=== PATIENT | female | born 1955 | race Caucasian/White ===

== ENCOUNTER 2023-04-17 11:07 | Emergency (ER) | payer MEDICARE, SELFPAY ==
[2023-04-17 11:09] VITALS: BP 167/97; PULSE 92; RESP 18; TEMP 36.4; O2SAT 100; BMI 21.1
--- NOTE | 2023-04-17 11:27 | CT_ITS ---
ACR Level 3 findings have been noted. An addendum which confirms receipt of the report will follow. HISTORY: right flank pain x 2 days, nausea. TECHNIQUE: Helically acquired images were obtained of the abdomen and pelvis without oral or IV contrast. A radiation dose optimization technique was used for this scan. 423 images. COMPARISON: None. FINDINGS: LOWER CHEST: Lung bases clear. BOWEL: Bowel nondilated. No periappendiceal inflammation. Moderate stool in the colon. Colonic diverticulosis without pericolonic inflammation PERITONEUM: No significant free fluid. Lobulated mesenteric soft tissue masses measuring up to 3 cm in the left upper quadrant. Small omental soft tissue nodules in the left upper quadrant. LIVER/SPLEEN/PANCREAS: Nonenlarged. GALLBLADDER/BILIARY TREE: Gallbladder present. KIDNEYS AND URETERS: Moderate right and mild left hydroureteronephrosis down to the level of the large cystic pelvic mass. Punctate right upper pole calculus. No obstructing ureteral calculus. ADRENAL GLANDS: No nodules. VESSELS: No abdominal aortic aneurysm. Mild atherosclerosis. Retroperitoneal lymph nodes measuring up to 1.3 cm left para-aortic PELVIC ORGANS: 10.4 x 21.2 cm septated, thick-walled, and partially solid cystic pelvic mass extending into the right and left lower quadrants with displacement of small bowel loops and colon, as well as partial encasement of the sigmoid colon. BONES: Mild degenerative change. CT/Abdomen/Pelvis without Cont IMPRESSION: Large cystic pelvic mass with solid components concerning for malignancy, likely ovarian origin. Moderate right and mild left hydronephrosis secondary to the pelvic mass. Small right renal calculus. Left upper quadrant omental and mesenteric soft tissue masses with retroperitoneal lymphadenopathy, concerning for metastases. Displacement or encasement of the sigmoid colon, not well visualized. Moderate stool in the colon. Colonic diverticulosis without acute diverticulitis. Electronically Signed: Malorie Rao MD at 12:30 EDT ,
--- NOTE | 2023-04-17 11:31 | EX.ED.DYSGE1 ---
HPI History of Present Illness Chief Complaint: Flank Pain Informant: patient Onset/Context/Timing Onset: Yesterday Current Severity: Moderate Maximum Severity: Moderate Narrative Narrative: Patient presents secondary to right flank pain. She states she was sitting in her chair at 7 PM last evening when she developed sudden right flank pain. She has had waxing and waning pain as well as nausea and had one episode of vomiting this morning. No urinary symptoms. She does report a history of IBS and states has been having some diarrhea recently. [facility] Medical History (Updated 04/17/23 @ 16:[address] Shawna Cedeno MD) Fibromyalgia Jodi's thyroiditis IBS (irritable bowel syndrome) Sjogren's disease Home Medications ondansetron 4 mg disintegrating tablet 4 mg PO Q8H PRN PRN Nausea #10 tabs 04/17/23 [Rx Last Taken Unknown] Allergy/AdvReac Type Severity Reaction Status Date / Time No Known Allergies Allergy Verified 04/17/23 11:09 Social History Smoking Status: Never smoker ROS ROS ED Constitutional Constitutional ED: Denies chills or fever(s) Eyes Eyes: Denies change in vision or discharge from eye(s) ENT ENT ED: Denies discharge from eye(s), rhinorrhea or sore throat Cardiovascular Cardiovascular: Denies chest pain or palpitations Respiratory/Chest Respiratory/Chest: Denies cough or dyspnea Gastrointestinal Gastrointestinal: Reports diarrhea, nausea and vomiting Genitourinary Genitourinary ED: Denies difficulty urinating, dysuria or hematuria Musculoskeletal Musculoskeletal: Reports back pain; Denies extremity pain Integumentary Denies Abrasions or rash Neurologic Neurologic: Denies headache(s) or weakness Psychiatric Psychiatric: Denies anxiety or depression Allergic/Immunologic Allergic/Immunologic ED: Denies lip swelling or urticaria EXAM Physical Exam Const Vital Signs: 04/17/23 11:09 04/17/23 13:08 04/17/23 15:00 Temperature 97.5 F L Temperature Source Temporal Pulse Rate 92 Respiratory Rate 18 16 18 Blood Pressure 167/97 H Blood Pressure Mean 120 Pulse Ox 100 Oxygen Delivery Method Room Air Positive well nourished and well developed General Appearance ED: well developed HEENT Reports moist mucous membranes Eyes EOMs intact bilaterally Neck no lymphadenopathy Chest Wall inspection of chest normal and palpation of chest normal Resp normal respiratory effort and clear to auscultation bilaterally Cardio regular rate and regular rhythm GI GI Narrative: Mild right-sided tenderness palpation. No guarding or rebound. Auscultation: normoactive bowel sounds Palpation: soft Back/Spine General Back: CVA tenderness right Extremity normal to inspection Neuro oriented x3 and no sensory deficits noted Motor Exam: strength 5/5 throughout Psych mental status grossly normal Skin no rashes or lesions noted MDM MDM MDM Narrative Medical decision making narrative: Patient given morphine, Zofran, Toradol, IV fluids. Labwork obtained to evaluate for leukocytosis, anemia, and electrolyte derangement. Urinalysis obtained to evaluate for infection/hematuria. CT flank obtained to evaluate for kidney stone or other acute pathology History & Record Review Discussion w/independent historian: Patient and Family Lab Data Attestation: I reviewed the patient's lab results. Labs: Laboratory Results - last 24 hr 04/17/23 04/17/23 11:35 12:25 WBC 11.1 H RBC 3.65 L Hgb 11.1 L Hct 34.9 L MCV 95.6 MCH 30.4 MCHC 31.8 L RDW Std Deviation 44.0 H RDW Coeff of Andrei 12.5 Plt Count 373 MPV 8.7 Immature Gran % (Auto) 0.500 Neut % (Auto) 82.4 H Lymph % (Auto) 9.0 L [place] % (Auto) 8.0 Eos % (Auto) 0.0 Baso % (Auto) 0.1 Absolute Neuts (auto) 9.1 H Absolute Lymphs (auto) 0.99 Nucleated RBC % 0 Sodium 133 L Potassium 4.0 Chloride 101 Carbon Dioxide 22.0 Anion Gap 10 BUN 17 Creatinine 1.17 H Estim Creat Clear Calc 44.28 Est GFR (MDRD) Af Amer 59 L Est GFR (MDRD) Non-Af 49 L BUN/Creatinine Ratio 14.5 Glucose 125 H Calcium 9.9 Total Bilirubin 0.60 AST 15 ALT 19 Alkaline Phosphatase 80 Total Protein 7.8 Albumin 3.8 Globulin 4.0 Albumin/Globulin Ratio 1.0 Urine Color Yellow Urine Clarity Clear Urine pH 6.0 Ur Specific [place] 1.015 Urine Protein Negative Urine Glucose (UA) Normal Urine Ketones 50 H Urine Occult Blood Negative Urine Nitrite Negative Urine Bilirubin Negative Urine Urobilinogen Normal Ur Leukocyte Esterase 25 H Urine RBC 0 SEEN Urine WBC 0 SEEN Ur Squamous Epith Cells 0 SEEN Urine Bacteria 0 SEEN Urine Mucus 0 SEEN Radiography Diagnostic Testing: Clinical Impression(s) from Imaging Studies Abdomen/Pelvis CT 04/17/23 11:27 IMPRESSION: Large cystic pelvic mass with solid components concerning for malignancy, likely ovarian origin. Moderate right and mild left hydronephrosis secondary to the pelvic mass. Small right renal calculus. Left upper quadrant omental and mesenteric soft tissue masses with retroperitoneal lymphadenopathy, concerning for metastases. Displacement or encasement of the sigmoid colon, not well visualized. Moderate stool in the colon. Colonic diverticulosis without acute diverticulitis. Electronically Signed: Malorie Rao MD at 12:30 EDT , ADDENDUM: 04/17/23 1249 IMPRESSION: Large cystic pelvic mass with solid components concerning for malignancy, likely ovarian origin. Moderate right and mild left hydronephrosis secondary to the pelvic mass. Small right renal calculus. Left upper quadrant omental and mesenteric soft tissue masses with retroperitoneal lymphadenopathy, concerning for metastases. Displacement or encasement of the sigmoid colon, not well visualized. Moderate stool in the colon. Colonic diverticulosis without acute diverticulitis. N.B. : Pao Matos MD, confirmed on 04/17/2023 12:42:58 (ET) that the healthcare facility has received the radiology report. Electronically Signed: Malorie Rao MD at 12:30 EDT , Treatment and Re-Evaluation :: CBC was a white count 11.1 with a hemoglobin 11.1. Chemistry studies reveal a sodium of 133. BUN is 17 and creatinine is 1.17. Glucose is 125. Urinalysis reveals no evidence of acute infection but she does have [address] scan of the abdomen pelvis is obtained. There is a large cystic pelvic mass with solid components concerning for malignancy, likely ovarian in origin. Patient does have mild hydronephrosis bilaterally secondary to the pelvic mass. Small calculus noted in the right kidney. Test results are discussed with the patient and her . She declined the morphine but did feel better after Toradol and Zofran. I spoke with Dr. Sanabria as well, on-call for no doc SOFTWARE ASSET MANAGEMENT ANALYST. She reviewed the images and spoke with the patient. She has also made arrangements for the patient to be seen by Polishing Machine Tender/Onc at [facility] tomorrow morning at 10:00. Discharge Plan Triage Chief Complaint: Flank Pain Other Complaint: Nausea/Vomiting ED Provider: Shawna Cedeno Dx/Rx/DC Orders Clinical Impression: Flank pain, Pelvic mass Prescriptions: New ondansetron 4 mg tablet,disintegrating 4 mg PO Q8H PRN PRN (Reason: Nausea) Qty: 10 0RF Primary Care Provider: LIUDMILA MUELLER Referrals: NOT,DEFINED [Non-Staff] - Activity Restrictions/Additional Instructions: As discussed, your imaging studies reveal a large mass in your pelvis concerning for ovarian cancer. This is putting pressure on the ureters that drain your kidneys. Dr. Sanabria has made arrangements for you to be seen by Dr. Lonnie Nice at [facility] tomorrow morning at 10 AM. Disposition Disposition: Home, Self Care
[2023-04-17] MEDS: Ondansetron 4 MG/2 ML Vial IV (11:36)
[2023-04-17] MEDS: Ketorolac 15 MG/ML Vial IV (11:36)
[2023-04-17] MEDS: 0.9% Normal Saline (1000mL) 1,000 ML 150 ML IV (11:38)
[2023-04-17 11:51] LABS: Absolute Lymphocyte Count 0.99 X10^3/uL (0.83-4.51); Absolute Neutrophil Count 9.1 X10^3/uL (2.0-7.7); Basophil# 0.01 X10^3/uL; Basophil% 0.1 % (0-1); Hematocrit 34.9 % (37-47); Hemoglobin 11.1 g/dL (12.0-15.0); Lymphocyte # 0.99 X10^3/ul (0.83-4.51); Mean Corp Hgb Conc 31.8 g/dL (32-36); Mean Corpuscular Hgb 30.4 pg (27.0-32.0); Mean Corpuscular Volume 95.6 fL (81-99); Mean Platelet Vol. 8.7 fl (6.2-12.0); Monocyte# 0.89 X10^3/uL; NRBC Flagged by Analyzer 0 % (0-5); Neutrophil # 9.12 X10^3/uL (2.7-7.7); Neutrophil % 82.4 % (47-70); Platelet Count 373 K/mm3 (150-450); RBC Distribution Width CV 12.5 % (11.6-14.6); Red Blood Count 3.65 M/mm3 (4.2-5.4); White Blood Count 11.1 K/mm3 (4.4-11.0)
[2023-04-17 11:58] LABS: AST(SGOT) 15 U/L (15-37); Alanine Aminotransfer ALT/SGPT 19 U/L (13-56); Albumin, Serum 3.8 g/dL (3.2-5.0); Alkaline Phosphatase 80 U/L (45-117); Anion Gap 10 (5-15); BUN 17 mg/dL (7-18); BUN/Creat Ratio 14.5 RATIO (10-20); Calcium,Total 9.9 mg/dL (8.5-10.1); Chloride 101 mmol/L (98-107); Creatinine, Serum 1.17 mg/dL (0.55-1.02); EST Glomerular Filtration Rate 49 mL/min (>60); Est Glom Filt Rate - Afr Amer 59 mL/min (>60); Estimated Creatinine Clearance 44.28 ml/min; Glucose 125 mg/dL (74-106); Protein, Total 7.8 g/dL (6.4-8.2); Sodium Level 133 mmol/L (136-145)
[2023-04-17 12:32] LABS: Bacteria 0 SEEN /hpf (None Seen); Mucous, Urine 0 SEEN /hpf (<or=2+); Red Blood Cells-Urine 0 SEEN /hpf (0-5); Squamous Epithelial Cells - UA 0 SEEN /hpf (5-10); White Blood Cells 0 SEEN /hpf (0-5)
[2023-04-17 12:35] LABS: Color, Urine Yellow (Yellow); Glucose, Dipstick Normal (Normal); Ketone-Dipstick 50 mg/dl (Negative); Leukocyte Esterase-Dipstick 25 /ul (Negative); Nitrite-Dipstick Negative (Negative); Occult Blood-Urine Negative /ul (Negative); Protein-Dipstick Negative (Negative); Specific Gravity, Urine 1.015 (1.002-1.030); Urine Bilirubin Dipstick Negative (Negative); Urine Clarity Clear (Clear); Urine Urobilinogen Normal (Normal)
[2023-04-17 13:08] VITALS: RESP 16
[2023-04-17 15:00] VITALS: RESP 18
--- NOTE | 2023-04-17 17:49 | CON.PCM_ITS ---
Assessment & Plan Assessment/Plan (1) Pelvic mass: PLAN: Reviewed CT scan findings with the patient and her partner at bedside. Discussed concern for metastatic ovarian cancer at this time. Discussed patient with Dr. Lonnie Nice, LATHE WINDER oncologist on-call at [facility] who reports he will get the patient in for follow-up. Discussed option for transfer to [facility] with patient and her partner, which she declines at this time. The patient elects to go home tonight with follow-up with LATHE WINDER oncology tomorrow in the office. (2) Flank pain: HPI Consult Data Date of Consult: 04/17/23 HPI Narrative HPI Narrative: MIGUE JUNG, is a 67 F who presented with flank pain. She reports some nausea this morning. Tolerating p.o. Has had several days of diarrhea. Last formed bowel movement was 3 to 4 days ago. She is passing gas. Other than the flank pain and nausea she offers no complaints today. She states she attributed the pain and nausea to irritable bowel syndrome. She is urinating without difficulty. [facility] Medical History (Updated 04/17/23 @ 16:[address] Shawna Cedeno MD) Fibromyalgia Jodi's thyroiditis IBS (irritable bowel syndrome) Sjogren's disease Home Medications ondansetron 4 mg disintegrating tablet 4 mg PO Q8H PRN PRN Nausea #10 tabs 0 04/17/23 [Rx Last Taken Unknown] Allergy/AdvReac Type Severity Reaction Status Date / Time No Known Allergies Allergy Verified 04/17/23 11:09 Social History Smoking Status: Never smoker Physical Exam Const alert and no apparent distress General Appearance: comfortable Lab / Micro Data 04/17/23 11:35 04/17/23 11:35 Labs: Laboratory Results - last 24 hr 04/17/23 11:35: WBC 11.1 H, RBC 3.65 L, Hgb 11.1 L, Hct 34.9 L, MCV 95.6, MCH 30.4, MCHC 31.8 L, RDW Std Deviation 44.0 H, RDW Coeff of Andrei 12.5, Plt Count 373, MPV 8.7, Immature Gran % (Auto) 0.500, Neut % (Auto) 82.4 H, Lymph % (Auto) 9.0 L, [place] % (Auto) 8.0, Eos % (Auto) 0.0, Baso % (Auto) 0.1, Absolute Neuts (auto) 9.1 H, Absolute Lymphs (auto) 0.99, Nucleated RBC % 0, Sodium 133 L, Potassium 4.0, Chloride 101, Carbon Dioxide 22.0, Anion Gap 10, BUN 17, Creatinine 1.17 H, Estim Creat Clear Calc 44.28, Est GFR (MDRD) Af Amer 59 L, Est GFR (MDRD) Non-Af 49 L, BUN/Creatinine Ratio 14.5, Glucose 125 H, Calcium 9.9, Total Bilirubin 0.60, AST 15, ALT 19, Alkaline Phosphatase 80, Total Protein 7.8, Albumin 3.8, Globulin 4.0, Albumin/Globulin Ratio 1.0 04/17/23 12:25: Urine Color Yellow, Urine Clarity Clear, Urine pH 6.0, Ur Specific [place] 1.015, Urine Protein Negative, Urine Glucose (UA) Normal, Urine Ketones 50 H, Urine Occult Blood Negative, Urine Nitrite Negative, Urine Bilirubin Negative, Urine Urobilinogen Normal, Ur Leukocyte Esterase 25 H, Urine RBC 0 SEEN, Urine WBC 0 SEEN, Ur Squamous Epith Cells 0 SEEN, Urine Bacteria 0 SEEN, Urine Mucus 0 SEEN Radiology Impression Abdomen/Pelvis CT 04/17/23 11:27 IMPRESSION: Large cystic pelvic mass with solid components concerning for malignancy, likely ovarian origin. Moderate right and mild left hydronephrosis secondary to the pelvic mass. Small right renal calculus. Left upper quadrant omental and mesenteric soft tissue masses with retroperitoneal lymphadenopathy, concerning for metastases. Displacement or encasement of the sigmoid colon, not well visualized. Moderate stool in the colon. Colonic diverticulosis without acute diverticulitis. Electronically Signed: Malorie Rao MD at 12:30 EDT , ADDENDUM: 04/17/23 1247 IMPRESSION: Large cystic pelvic mass with solid components concerning for malignancy, likely ovarian origin. Moderate right and mild left hydronephrosis secondary to the pelvic mass. Small right renal calculus. Left upper quadrant omental and mesenteric soft tissue masses with retroperitoneal lymphadenopathy, concerning for metastases. Displacement or encasement of the sigmoid colon, not well visualized. Moderate stool in the colon. Colonic diverticulosis without acute diverticulitis. N.B. : Pao Matos MD, confirmed on 04/17/2023 12:42:58 (ET) that the healthcare facility has received the radiology report. Electronically Signed: Malorie Rao MD at 12:30 EDT ,
== END 2023-04-17 16:36 | disposition home or self-care (01) ==
PROVIDERS: Emergency Provider Emergency Medicine; Visit Provider Emergency Medicine
DX: R19.00 Intra-abdominal and pelvic swelling, mass and lump, unspecified site (principal)
CPT/HCPCS: 74176; 80053; 81001; 85025; 96361; 96374; 96375; 99284; J7030; A4216; J2405

== ENCOUNTER → 2024-01-19 | Outpatient (CLI) | payer MEDICARE, SELFPAY ==
[2024-01-19 10:47] LABS: Absolute Lymphocyte Count 1.49 X10^3/uL (0.83-4.51); Absolute Neutrophil Count 1.4 X10^3/uL (2.0-7.7); Basophil# 0.01 X10^3/uL; Basophil% 0.3 % (0-1); Eosinophil# 0.13 X10^3/uL; Eosinophils% 3.6 % (0-5); Hematocrit 36.4 % (37-47); Hemoglobin 11.9 g/dL (12.0-15.0); Lymphocyte # 1.49 X10^3/ul (0.83-4.51); Lymphocyte % 41.7 % (19-41); Mean Corp Hgb Conc 32.7 g/dL (32-36); Mean Corpuscular Hgb 33.6 pg (27.0-32.0); Mean Corpuscular Volume 102.8 fL (81-99); Mean Platelet Vol. 8.7 fl (6.2-12.0); Monocyte# 0.49 X10^3/uL; Monocyte% 13.7 % (0-10); NRBC Flagged by Analyzer 0 % (0-5); Neutrophil # 1.44 X10^3/uL (2.7-7.7); Neutrophil % 40.4 % (47-70); Platelet Count 227 K/mm3 (150-450); RBC Distribution Width CV 12.1 % (11.6-14.6); RBC Distribution Width SD 45.8 fl (35.1-43.9); Red Blood Count 3.54 M/mm3 (4.2-5.4); White Blood Count 3.6 K/mm3 (4.4-11.0)
[2024-01-19 11:15] LABS: Vitamin D,25 Hydroxy 21.5 ng/mL
[2024-01-19 11:20] LABS: ALB/GLOB Ratio 1.1 RATIO (0.9-2.4); AST(SGOT) 14 U/L (15-37); Alanine Aminotransfer ALT/SGPT 13 U/L (13-56); Albumin, Serum 4.3 g/dL (3.2-5.0); Alkaline Phosphatase 97 U/L (45-117); Anion Gap 6 (5-15); BUN 19 mg/dL (7-18); BUN/Creat Ratio 19.3 RATIO (10-20); Calcium,Total 9.9 mg/dL (8.5-10.1); Chloride 106 mmol/L (98-107); Cholesterol 217 mg/dL (200); Creatinine, Serum 0.98 mg/dL (0.55-1.02); EST Glomerular Filtration Rate 60 mL/min (>60); Est Glom Filt Rate - Afr Amer 73 mL/min (>60); Free T3 2.9 pg/mL (2.18-3.98); Globulin 3.8 g/dL (2.2-4.2); Glucose 96 mg/dL (74-106); High Density Lipoprotein 86 mg/dL; Protein, Total 8.1 g/dL (6.4-8.2); Sodium Level 138 mmol/L (136-145); T4 Free Direct 1.37 ng/dL (0.76-1.46); Triglycerides 90 mg/dL; Very Low Density Lipoprotein 18 mg/dL (5-40)
== END | disposition home or self-care (01) ==
LOC: PAVLAB 10:28
PROVIDERS: PCP Internal Medicine; Referring Provider Internal Medicine; Visit Provider Internal Medicine
DX: I10 Essential (primary) hypertension (principal); C56.9 Malignant neoplasm of unspecified ovary; E55.9 Vitamin D deficiency, unspecified; E06.3 Autoimmune thyroiditis; Z13.220 Encounter for screening for lipoid disorders; E03.9 Hypothyroidism, unspecified
CPT/HCPCS: 36415; 80053; 80061; 82306; 84439; 84443; 84481; 85025

== ENCOUNTER → 2024-01-30 | Outpatient (CLI) | payer MEDICARE, SELFPAY ==
--- NOTE | 2024-01-30 10:10 | BI_ITS ---
MAMMOGRAPHY - BILATERAL SCREENING REASON FOR EXAM: Female, 68 years old. Routine annual screening examination. PERTINENT HISTORY: Aunt with breast cancer. TECHNIQUE: Digital bilateral breast matthew (3D mammographic acquisition) in the CC and MLO projections. 2-D mediolateral oblique (MLO) and craniocaudad (CC) views of both breasts were obtained. CAD: Full Field Digital Mammography with Computer Added Detection was performed. COMPARISON: Comparison is made with prior outside examination dated March 30, 2014. FINDINGS: Breast Composition: The breasts are extremely dense, which lowers the sensitivity of mammography. Questionable 1.5 cm nodular density in the axillary region of the left breast as seen on the mediolateral oblique view. The patient will be recalled for additional views including 90 degree lateral view of the left breast as well as compression spot views. No other significant abnormalities are identified. BI/SCRN MAMM (CAD)W/MATTHEW BILAT IMPRESSION: Questionable 1.5 cm nodular density in the axillary region of the left breast as seen on the mediolateral oblique view. The patient will be recalled for additional views including 90 degree lateral and compression spot views of the left breast. ASSESSMENT CATEGORY: BIRADS Category 0: Incomplete. Need additional imaging evaluation. A letter regarding these results will be sent to the patient by the facility within 30 days. Approximately 10% of breast cancers are not detected by mammography. A normal mammogram should not delay biopsy of a clinically suspicious abnormality. [id number] Electronically Signed: Darian Holbrook MD at 11:03 EDT ,
== END | disposition home or self-care (01) ==
PROVIDERS: PCP Internal Medicine; Referring Provider Internal Medicine; Visit Provider Internal Medicine
DX: Z12.31 Encounter for screening mammogram for malignant neoplasm of breast (principal); Z80.3 Family history of malignant neoplasm of breast
CPT/HCPCS: 77063; 77067

== ENCOUNTER → 2024-02-04 | Outpatient (CLI) | payer MEDICARE, SELFPAY ==
--- NOTE | 2024-02-04 09:20 | US_ITS ---
STUDY: ULTRASOUND BREAST - LEFT REASON FOR EXAM: Female, 68 years old. Abnormal screening mammogram. TECHNIQUE: Axial and longitudinal images of the LEFT breast were performed with a high resolution ultrasound transducer. # OF IMAGES: 52 COMPARISON: Comparison is made with prior mammogram dated January 30, 2024 and February 04, 2024. FINDINGS: LEFT Breast: 2 benign lymph nodes are seen at the 2:00 and 1:00 position of the breast. The larger lymph node measures 1 cm x 0.7 cm x 0.4 cm. US/Breast Limited Unilateral IMPRESSION: Small lymph nodes in the upper lateral aspect of the left breast. ASSESSMENT CATEGORY: BIRADS Category 2: Benign. A letter regarding these results will be sent to the patient by the facility within 30 days. Electronically Signed: Darian Holbrook MD at 14:41 EDT ,
--- NOTE | 2024-02-04 09:20 | BI_ITS ---
MAMMOGRAPHY - UNILATERAL DIAGNOSTIC: LEFT BREAST REASON FOR EXAM: Female, 68 years old. Abnormal screening mammogram. PERTINENT HISTORY: Aunt with breast cancer. TECHNIQUE: Compression spot views and mediolateral oblique view of the left breast were obtained. CAD: Full Field Digital Mammography with Computer Added Detection was performed. COMPARISON: Comparison is made with prior mammogram dated January 30, 2024. FINDINGS: Breast Composition: The breasts are extremely dense, which lowers the sensitivity of mammography. There are no dominant masses or suspicious calcifications. No other significant abnormalities are identified. BI/DIAG MAMM W/CAD, UNILAT IMPRESSION: Negative unilateral diagnostic mammogram. Targeted sonographic correlation is recommended. ASSESSMENT CATEGORY: BIRADS Category 0: Incomplete. Need additional imaging evaluation. A letter regarding these results will be sent to the patient by the facility within 30 days. Approximately 10% of breast cancers are not detected by mammography. A normal mammogram should not delay biopsy of a clinically suspicious abnormality. Electronically Signed: Darian Holbrook MD at 10:26 EDT ,
== END | disposition home or self-care (01) ==
PROVIDERS: PCP Internal Medicine; Referring Provider Internal Medicine; Visit Provider Internal Medicine
DX: R92.8 Other abnormal and inconclusive findings on diagnostic imaging of breast (principal)
CPT/HCPCS: 76642; 77065

== ENCOUNTER → 2024-04-29 | Outpatient (CLI) | payer MEDICARE, SELFPAY ==
[2024-04-29 12:21] LABS: Free T3 2.2 pg/mL (2.18-3.98); T4 Free Direct 0.89 ng/dL (0.76-1.46)
== END | disposition home or self-care (01) ==
LOC: PAVLAB 11:21
PROVIDERS: PCP Internal Medicine; Referring Provider Internal Medicine; Visit Provider Internal Medicine
DX: E06.3 Autoimmune thyroiditis (principal)
CPT/HCPCS: 36415; 84439; 84443; 84481

== ENCOUNTER → 2024-07-12 | Outpatient (CLI) | payer MEDICARE, SELFPAY ==
[2024-07-12 12:15] LABS: Mucous, Urine 0 SEEN /hpf (<or=2+)
[2024-07-12 12:36] LABS: Color, Urine Yellow (Yellow); Glucose, Dipstick Normal (Normal); Ketone-Dipstick Negative (Negative); Leukocyte Esterase-Dipstick 500 /ul (Negative); Nitrite-Dipstick Negative (Negative); Occult Blood-Urine 250 /ul (Negative); Protein-Dipstick 30 mg/dl (Negative); Urine Bilirubin Dipstick Negative (Negative); Urine Clarity Sl. Cloudy (Clear); Urine Urobilinogen Normal (Normal)
[2024-07-12 12:51] LABS: Bacteria 1+ /hpf (None Seen); Red Blood Cells-Urine 0-5 SEEN /hpf (0-5); White Blood Cells 25-50 SEEN /hpf (0-5)
[2024-07-12 12:52] LABS: Squamous Epithelial Cells - UA 0-5 SEEN /hpf (5-10)
[2024-07-12 13:12] LABS: Free T3 2.3 pg/mL (2.18-3.98); T4 Free Direct 1.08 ng/dL (0.76-1.46)
== END | disposition home or self-care (01) ==
LOC: LAB 12:04
PROVIDERS: PCP Internal Medicine; Referring Provider Internal Medicine; Visit Provider Internal Medicine
DX: N39.0 Urinary tract infection, site not specified (principal); E06.3 Autoimmune thyroiditis
CPT/HCPCS: 36415; 81001; 84439; 84443; 84481; 87077; 87086; 87088; 87186

== ENCOUNTER → 2024-12-20 | Outpatient (CLI) | payer MEDICARE, SELFPAY ==
[2024-12-20 10:03] LABS: Absolute Lymphocyte Count 1.51 X10^3/uL (0.83-4.51); Absolute Neutrophil Count 2.4 X10^3/uL (2.0-7.7); Basophil# 0.02 X10^3/uL; Basophil% 0.4 % (0-1); Eosinophil# 0.07 X10^3/uL; Eosinophils% 1.6 % (0-5); Hematocrit 39.8 % (37-47); Hemoglobin 12.9 g/dL (12.0-15.0); Lymphocyte # 1.51 X10^3/ul (0.83-4.51); Lymphocyte % 33.8 % (19-41); Mean Corp Hgb Conc 32.4 g/dL (32-36); Mean Corpuscular Hgb 32.8 pg (27.0-32.0); Mean Corpuscular Volume 101.3 fL (81-99); Mean Platelet Vol. 8.8 fl (6.2-12.0); Monocyte% 11.2 % (0-10); NRBC Flagged by Analyzer 0.4 % (0-5); Neutrophil # 2.36 X10^3/uL (2.7-7.7); Neutrophil % 52.8 % (47-70); Platelet Count 229 K/mm3 (150-450); RBC Distribution Width CV 11.9 % (11.6-14.6); RBC Distribution Width SD 43.9 fl (35.1-43.9); Red Blood Count 3.93 M/mm3 (4.2-5.4); White Blood Count 4.5 K/mm3 (4.4-11.0)
[2024-12-20 10:54] LABS: ALB/GLOB Ratio 1.7 RATIO (0.9-2.4); AST(SGOT) 23 U/L (<=31); Alanine Aminotransfer ALT/SGPT 9 U/L (<=34); Albumin, Serum 4.8 g/dL (3.4-4.8); Alkaline Phosphatase 89 U/L (35-104); Anion Gap 12 (5-15); BUN 20 mg/dL (4-19); BUN/Creat Ratio 21.6 RATIO (10-20); Calcium,Total 9.8 mg/dL (7.6-11.0); Carbon Dioxide 23.9 mmol/L (21.0-32.0); Chloride 103 mmol/L (98-108); Cholesterol 250 mg/dL (<=200); Creatinine, Serum 0.93 mg/dL (0.70-1.20); EST Glomerular Filtration Rate 67 (>60); Free T3 2.4 pg/mL (2.18-3.98); Globulin 2.9 g/dL (2.2-4.2); Glucose 84 mg/dL (70-99); High Density Lipoprotein 91 mg/dL; Low Density Lipoprotein Calc. 144 mg/dL; Magnesium 2.2 mg/dL (1.5-2.2); Potassium 3.8 mmol/L (3.3-5.1); Protein, Total 7.7 g/dL (5.9-8.4); Sodium Level 138 mmol/L (133-145); Triglycerides 77 mg/dL; Very Low Density Lipoprotein 15 mg/dL (5-40); Vitamin B12 384 pg/mL (180-914); Vitamin D,25 Hydroxy 29.2 ng/mL (30-100); cholesterol:hdl ratio screen 2.76
== END | disposition home or self-care (01) ==
LOC: PAVLAB 09:42
PROVIDERS: PCP Internal Medicine; Referring Provider Internal Medicine; Visit Provider Internal Medicine
DX: E06.3 Autoimmune thyroiditis (principal); C56.9 Malignant neoplasm of unspecified ovary; E55.9 Vitamin D deficiency, unspecified; M19.90 Unspecified osteoarthritis, unspecified site; I10 Essential (primary) hypertension
CPT/HCPCS: 36415; 80053; 80061; 82306; 82607; 83735; 84439; 84443; 84481; 85025

== ENCOUNTER → 2025-02-17 | Outpatient (CLI) | payer MEDICARE, SELFPAY ==
--- NOTE | 2025-02-17 10:00 | BI_ITS ---
EXAM: SCRN MAMM (CAD)W/MATTHEW BILAT DATE: 02/17/2025 CLINICAL HISTORY: F, Age 69 y/o , BREAST CANCER SCREENING Aunt with breast cancer. TECHNIQUE: SCRN MAMM (CAD)W/MATTHEW BILAT COMPARISON: Prior exam(s) dated January 30, 2024.. FINDINGS: TISSUE DENSITY: The breasts are extremely dense, which lowers the sensitivity of mammography. Bilateral Breast Mammographic Findings: No significant masses, calcifications or other abnormalities are identified. No suspicious masses, areas of developing architectural distortion, or suspicious calcifications. There has been no significant interval change. BI/SCRN MAMM (CAD)W/MATTHEW BILAT IMPRESSION: Stable examination. OVERALL FINAL ASSESSMENT BI-RADS 1: NEGATIVE. RECOMMENDATION: Routine annual follow-up in 1 Year A letter with findings and recommendations will be mailed to the patient. Reading Location: [id number]
--- OUTSIDE RECORDS SUMMARY | 2025-02-17 11:12 | XMS RPT_ITS | CCD ---
Author Organization [facility] Care Team Providers Care Pharmacy Associate Name Role Phone AUNG, ADOLPH A. Unavailable Unavailable AUNG, ADOLPH A. Unavailable Unavailable AUNG, ADOLPH A. Unavailable Unavailable AUNG, ADOLPH A. Unavailable Unavailable Hebert VOGEL, Shree Bustos Primary Care Provider [phone] Enrique VOGEL, Manpreet Delcid Primary Care Provider Shree Ambrosio MD Primary Care Provider [phone] Chuck Hope MD Primary Care Provider [phone] Manpreet Nunez MD Primary Care Provider Herminia VOGEL, Chuck Bingham Primary Care Provider CATERINA SUAREZ Referring Unavailabl e CHUCK HOPE Primary Care Unavailable CHUCK HOPE Primary Care Unavailable CATERINA SUAREZ Referring Unavailabl e CHUCK HOPE Primary Care Unavailable CHUCK HOPE Primary Care Unavailable LONNIE AREVALO Referring Unavailable CATERINA SUAREZ Referring Unavailabl e CHUCK HOPE Primary Care Unavailable CHUCK HOPE Primary Care Unavailable YAZ DE LA O Referring Unavailable CHUCK HOPE Primary Care Unavailable BIJAN HAND Attending Unavailable LONNIE AREVALO Referring Unavailable CHUCK HOPE Primary Care Unavailable LONNIE AREVALO Referring Unavailable CHUCK HOPE Primary Care Unavailable LONNIE AREVALO Referring Unavailable CHUCK HOPE Primary Care Unavailable CATERINA SUAREZ Referring Unavailabl e CHUCK HOPE Primary Care Unavailable CATERINA SUAREZ Referring Unavailabl e CATERINA SUAREZ Referring Unavailabl e HERMINIA, CHUCK M Primary Care Unavailable CATERINA SUAREZ Referring Unavailabl e HERMINIACHUCK M Primary Care Unavailable CATERINA SUAREZ Referring Unavailabl e HERMINIACHUCK M Primary Care Unavailable IRINA, LONNIE E Referring Unavailable IRINA, LONNIE E Attending Unavailable HERMINIA, CHUCK M Primary Care Unavailable IRINA, LONNIE E Referring Unavailable IRINA, LONNIE E Attending Unavailable HERMINIA, CHUCK M Primary Care Unavailable IRINA, LONNIE E Referring Unavailable HERMINIA, CHUCK M Primary Care Unavailable IRINA, LONNIE E Attending Unavailable HERMINIA, CHUCK M Primary Care Unavailable IRINA, LONNIE E Referring Unavailable IRINA, LONNIE E Attending Unavailable HERMINIA, CHUCK M Primary Care Unavailable IRINA, LONNIE E Referring Unavailable IRINA, LONNIE E Referring Unavailable IRINA, LONNIE E Attending Unavailable HERMINIA, CHUCK M Primary Care Unavailable Herminia VOGEL, Dr. Salamanca Primary Care Provider Herminia VOGEL, Dr. Salamanca Attending Provider Dr. Chuck Hope MD Referring Provider Chuck Hope Primary Care Provider [phone] ANNETTA BIRD Admitting Unavailable ANNETTA BIRD Attending Unavailable CHUCK HOPE Primary Care Unavailable Chuck Hope Primary Care Unavailable Chuck Hope Attending Unavailable Chuck Hope Referring Unavailable Chuck Hope Referring Unavailable Chuck Hope Primary Care Unavailable Chuck Hope Attending Unavailable Chuck Hope Primary Care Unavailable Chuck Hope Attending Unavailable Chuck Hope Referring Unavailable Chuck Hope Primary Care Unavailable Chuck Hope Attending Unavailable Chuck Hope Primary Care Unavailable Chuck Hope Attending Unavailable Chuck Hope Referring Unavailable Medications Current Medications Medication Drug Class(es) Dates Sig (Normalized) Sig (Original) acetaminophen 325 mg oral tablet (19 sources) Start: 08-07-2023 take 2 tablets by mouth every six hours as needed acetaminophen (TYLENOL) 325 mg tablet Take 2 tablets by mouth every 6 hours as needed for pain. 120 tablet 08/07/2023 Active Comment on above: Take 2 tablets by [facility] every 6 hours as needed for pain. cholecalciferol 0.125 mg oral capsule (20 sources) Vitamin D take 1 capsule by mouth once daily cholecalciferol (Vitamin D-3) 125 MCG (5000 UT) capsule Take 5,000 Units by mouth daily. Active Cholecalciferol, Vitamin D3, (D3-5000) 125 mcg (5,000 unit) cap Take 5,000 Units by mouth once daily. Active Comment on above: Take 5,000 Units by mouth once daily. dexamethasone 4 mg oral tablet (1 source) Corticosteroid Start: End: take 1 tablet by mouth once daily at breakfast dexAMETHasone (DECADRON) 4 mg tablet Indications: Malignant neoplasm of both ovaries (HCC) Take 1 tablet by mouth daily with breakfast for 7 days. 7 tablet 0 11/05/2023 11/12/2023 Active Comment on above: Take 1 tablet by raven th daily with breakfast for 7 days. enteric contrast (will be provided with radiology test) (16 sources) Start: enteric contrast (will be provided with radiology test) Indications: Malignant neoplasm of ovary, unspecified laterality (HCC) For CT CHESTABD/PEL W IVCON Routine order Administer, As Directed One Time Only, via Oral, Rectal, both Oral and Rectal, Enteric Tube, Stoma or Indwelling Catheter, Enteric Contrast as designated per enteric contrast guidelines 1 Each 09/21/2023 Active Start: 09-21-[address] (will be provided with radiology test) Indications: Malignant neoplasm of ovary, unspecified laterality (HCC) For CT CHESTABD/PEL W IVCON Routine order Administer, As Directed One Time Only, via Oral, Rectal, both Oral and Rectal, Enteric Tube, Stoma or Indwelling Catheter, Enteric Contrast as designated per enteric contrast guidelines 1 Each 0 09/21/2023 Active Comment on above: For CT CHESTABD/PEL W IVCON Routine order Administer, As Directed One Time Only, via Oral, Rectal, both Oral and Rectal, Enteric Tube, Stoma or Indwelling Catheter, Enteric Contrast as designated per enteric contrast guidelines iv contrast (will be provided with radiology test) (20 sources) Start: 09-21-2023 iv contrast (will be provided with radiology test) Indications: Malignant neoplasm of ovary, unspecified laterality (HCC) CT Chest ABD/PEL-Inject, intravenously, once for 1 dose.No IV access, insert saline lock prior to the beginning of sedation, infusion, injection of imaging exam. Discontinue saline lock post exam. If Pt. has a central line or IVAD, may access for administration according to line specific nursing protocol. Once exam is complete flush line and de-access according to line specific nursing protocol in the CT contrast administration guidelines link. 1 Each 09/21/2023 Active Start: 09-21-2023 iv contrast (w ill be provided with radiology test) Indications: Malignant neoplasm of ovary, unspecified laterality (HCC) CT Chest ABD/PEL-Inject, intravenously, once for 1 dose.No IV access, insert saline lock prior to the beginning of sedation, infusion, injection of imaging exam. Discontinue saline lock post exam. If Pt. has a central line or IVAD, may access for administration according to line specific nursing protocol. Once exam is complete flush line and de-access according to line specific nursing protocol in the CT contrast administration guidelines link. 1 Each 0 09/21/2023 Active Start: 06-25-2023 iv contrast (w ill be provided with radiology test) Indications: Malignant neoplasm of ovary, unspecified laterality (HCC) MRI Female Pelvis Inject, intravenously, once for 1 dose. No IV access, insert saline lock prior to the beginning of sedation, infusion, injection of imaging exam. Discontinue saline lock post exam. If Pt has a central line or IVAD, may access for administration according to line specific nursing protocol. Once exam is complete flush line and de-access according to line specific nursing protocol in the MR contrast administration guidelines link. 1 Each 06/25/2023 Active Start: 06-25-2023 iv contrast (w ill be provided with radiology test) Indications: Malignant neoplasm of ovary, unspecified laterality (HCC) MRI Female Pelvis Inject, intravenously, once for 1 dose. No IV access, insert saline lock prior to the beginning of sedation, infusion, injection of imaging exam. Discontinue saline lock post exam. If Pt has a central line or IVAD, may access for administration according to line specific nursing protocol. Once exam is complete flush line and de-access according to line specific nursing protocol in the MR contrast administration guidelines link. 1 Each 0 06/25/2023 Active Comment on above: MRI Female Pelvis In ject, intravenously, once for 1 dose. No IV access, insert saline lock prior to the beginning of sedation, infusion, injection of imaging exam. Discontinue saline lock post exam. If Pt has a central line or IVAD, may access for administration according to line specific nursing protocol. Once exam is complete flush line and de-access according to line specific nursing protocol in the MR contrast administration guidelines link. CT Chest ABD/PEL-Inj ect, intravenously, once for 1 dose.No IV access, insert saline lock prior to the beginning of sedation, infusion, injection of imaging exam. Discontinue saline lock post exam. If Pt. has a central line or IVAD, may access for administration according to line specific nursing protocol. Once exam is complete flush line and de-access according to line specific nursing protocol in the CT contrast administration guidelines link. levothyroxine sodium 0.075 mg oral tablet (20 sources) l-Thyroxine Start: 12-21-19 take 1 tablet by mouth once daily Levothyroxine 75 mcg tablet Active 75 ug PO DAILY December 20, 2024 1:19pm Start: 01-23-2024 End: 12-20-2024 take 1 tablet by mouth once daily Levothyroxine 50 mcg tablet Discontinued 50 ug PO DAILY July 26, 2024 10:45am December 20, 2024 1:19pm Start: 06-18-2023 End: 01-23-2024 take 1 tablet by mouth once daily Levothyroxine 75 mcg tablet Discontinued 75 ug PO DAILY July 28, 2023 12:05pm January 23, 2024 6:27pm Start: 09-07-2020 take 1 tablet by raven th once daily levothyroxine (SYNTHROID) 50 mcg tablet Take 1 tablet by mouth once daily. 90 tablet 3 09/07/2020 Active levothyroxine (S ynthroid, Levoxyl) 200 MCG tablet Take 50 mcg by mouth every morning (before breakfast). Active End: 01-18-2025 levothyroxine (Synthroid) 20 0 MCG reconstituted solution Every 24 hours. 01/18/2025 Discontinued (Duplicate order) take 1 tablet by raven th once daily before breakfast levothyroxine (SYNTHROID) 200 mcg tablet Take 200 mcg by mouth daily before breakfast. Active Comment on above: Take 1 tablet by raven th once daily. LISINOPRIL & DIET MANAGE PROD PO (2 sources) LISINOPRIL & T MANAGE PROD PO Every 24 hours. Active promethazine hydrochloride 25 mg oral tablet (20 sources) Phenothiazine Start: 05-07-20 take 1 tablet by mouth every four hours as needed for nausea promethazine (PHENERGAN) 25 mg tablet Indications: CINV (chemotherapy-induce d nausea and vomiting) Take 1 tablet by mouth every 4 hours as needed for nausea/vomiting. 45 tablet 2 05/07/2023 Active Comment on above: Take 1 tablet by raven th every 4 hours as needed for nausea/vomiting. vit d3 (2 sources) Start: 06-18-20 vit d3 Active PO June 18, 2023 1:00am Completed/Discontinued Medications Medication Drug Class(es) Dates Sig (Normalized) Sig (Original) apixaban 5 mg oral tablet (5 sources) Factor Xa Inhibitor Start: 08-07-2023 take 1 tablet by mouth twice daily apixaban (ELIQUIS) 5 mg tab(s) Indications: Malignant neoplasm of ovary, unspecified laterality (HCC) Take 1 tablet by mouth two times a day. For 25 days 50 tablet 0 08/07/2023 Active Comment on above: Take 1 tablet by raven th two times a day. For 25 days ciprofloxacin 250 mg oral tablet (3 sources) Quinolone Antimicrobial Start: 07-12-2024 End: 07-17-2024 take 1 tablet by mouth twice daily Ciprofloxacin Hcl 250 mg tablet Discontinued 250 mg PO TWICE A DAY 10 July 12, 2024 1:00am July 16, 2024 1:00am July 17, 2024 1:18am Start: 08-03-2023 take 1 tablet by raven th once daily in the evening as needed ciprofloxacin HCl (CIPRO) 500 mg tablet Indications: Malignant neoplasm of ovary, unspecified laterality (HCC) Take 1 tablet by mouth as needed. Once at 9 PM the day before surgery 1 tablet 0 08/03/2023 Active Comment on above: Take 1 tablet by raven th as needed. Once at 9 PM the day before surgery lisinopril 10 mg oral tablet (20 sources) Angiotensin Converting Enzyme Inhibitor Start: 08-09-19 End: 07-26-19 take 1 tablet by mouth once daily Lisinopril 10 mg tablet Discontinued 10 mg PO DAILY July 28, 2023 12:05July 26, 2024 11:05am Comment on above: Take 1 tablet by raven once daily. metroNIDAZOLE 500 mg oral tablet (1 source) Nitroimidazole Antimicrobial Start: 08-03-19 metroNIDAZOLE (FLAGYL) 500 mg tablet Indications: Malignant neoplasm of ovary, unspecified laterality (HCC) Take 1 tablet by mouth as needed. Take one tablet at 9 PM and then the other at 11 PM the day before surgery 2 tablet 0 08/03/2023 Active Comment on above: Take 1 tablet by raven as needed. Take one tablet at 9 PM and then the other at 11 PM the day before surgery 2 ml ondansetron 2 mg/ml injection (20 sources) Serotonin-3 Receptor Antagonist Start: 01-19-20 End: 01-19-20 4 mg, IntraVENous, Once PRN, nausea, vomiting, Starting on Fri01/18/25 at 0804, For 1 dose, Preprocedure Start: 05-07-2023 take 1 tablet by raven every eight hours as needed for nausea ondansetron (ZOFRAN) 8 mg tablet Indications: CINV (chemotherapy-induced nausea and vomiting) Take 1 tablet by mouth every 8 hours as needed for nausea/vomiting. 45 tablet 2 05/07/2023 Active Start: 04-17-2023 End: 12-02-2024 take 1 tablet by mouth every eight hours as needed for nausea Ondansetron 4 mg tablet,disintegrating Discontinued 4 mg PO EVERY 8 HOURS NEEDED as needed for Nausea April 17, 2023 12:00am December 02, 2024 10:49am Comment on above: Take 1 tablet by [facility] every 8 hours as needed for nausea/vomiting. polyethylene glycol 3350 88268 mg powder for oral solution (5 sources) Osmotic Laxative Start: 08-07-2023 polyethylene glycol 3350 17 gram packet Take 1 Packet by mouth once daily. Dissolve dose in 4 - 8 ounces of liquid and take as directed. 20 Packet 0 08/07/2023 Active Comment on above: Take 1 Packet by raven once daily. Dissolve dose in 4 - 8 ounces of liquid and take as directed. 5 ml sodium chloride 9 mg/ml injection (12 sources) Start: 01-18-2025 End: 01-18-2025 10 mL, IntraVENous, Every 12 hours scheduled (2 times per day), First dose on Fri01/18/25 at 0900, Preprocedure Start: 01-18-2025 End: 01-18-2025 take 100 mL intravenously every hour as needed, then take 20 mL intravenously every hour as needed 5-250 mL/hr, IntraVENous, PRN, if patient receiving piggyback infusions and maintenance fluids are not ordered OR KVO fluids to protect IV site / prevent frequent line interruptions/ long duration, Starting on Fri01/18/25 at 0804, Preprocedure, For piggyback infusion, administer at same rate as piggyback for a total of 25 mL. Enter 25 mL into dose field and piggyback rate into rate field of order. If piggyback is infusing at a rate less than 100 mL/hr, enter 25 mL into dose field and 100 mL/hr into rate field of order. For KVO fluids, enter rate of 20 mL/hr or less into rate field of order. Start: 01-18-2025 End: 01-18-2025 take 10 mL intravenously once as needed 10 mL, IntraVENous, PRN, line care, Starting on Fri01/18/25 at 0804, Preprocedure, After every IV line use Surgical Lubricant Jelly gel (7 sources) Start: 06-25-2023 Surgical Lubri cant Jelly gel Indications: Malignant neoplasm of ovary, unspecified laterality (HCC) For MRI Female Pelvis, MRI department to provide. Administer intra-vaginal Surgilube immediately prior the MRI procedure (total amount to patient toleranace). 1 g 0 06/25/2023 Active Comment on above: For MRI Female Pelvi s, MRI department to provide. Administer intra-vaginal Surgilube immediately prior the MRI procedure (total amount to patient toleranace). Problems Active Problems Problem Classification Problem Date Documented Da te Episodic/Chronic Abdominal pain (2 sources) Flank pain; Translations: [Unspecified abdominal pain] 04-25-2023 Episodic Cancer of other female genital organs (4 sources) Primary serous carcinoma of uterine adnexa; Translations: [Malignant neoplasm of uterine adnexa, unspecified] Onset: 09-15-2023 06-03-2023 Chronic Cancer of ovary (20 sources) Malignant tumor of ovary; Translations: [Malignant neoplasm of unspecified ovary] Onset: 04-30-2023 Resolved: 10-09-2023 04-30-2023 Chronic Chronic kidney disease (20 sources) Chronic kidney disease stage 2; Translations: [Chronic kidney disease, stage 2 (mild)] Onset: 09-12-2023 07-24-2023 Chronic Deficiency and other anemia (20 sources) Anemia; Translations: [Other specified anemias] 07-24-2023 Episodic Diseases of white blood cells (14 sources) Neutropenia; Translations: [Neutropenia, unspecified] Onset: 10-09-2023 10-10-2023 Chronic Essential hypertension (20 sources) Hypertensive disorder; Translations: [Essential (primary) hypertension] Onset: 07-24-2023 Resolved: 08-04-2023 03-15-2019 Chronic Headache; including migraine (2 sources) Migraine; Translations: [Migraine, unspecified, not intractable, without status migrainosus] 06-18-2023 Chronic Heart valve disorders (20 sources) Heart murmur; Translations: [Cardiac murmur, unspecified] Onset: 09-12-2023 07-24-2023 Episodic Maintenance chemotherapy; radiotherapy (8 sources) Patient encounter status; Translations: [Encounter for antineoplastic chemotherapy] Onset: 11-05-2023 11-05-2023 Chronic Nutritional deficiencies (3 sources) Vitamin D deficiency, unspecified; Translations: [Vitamin D deficiency, unspecified] Onset: 02-20-2017 Chronic Nutritional deficiencies (7 sources) Deficiency of other specified B group vitamins; Translations: [Vitamin deficiency] Onset: 02-20-2017 06-18-2023 Episodic Osteoarthritis (20 sources) Osteoarthritis; Translations: [Unspecified osteoarthritis, unspecified site] Onset: 07-24-2023 Resolved: 08-04-2023 03-15-2019 Chronic Other and unspecified benign neoplasm (3 sources) Polyp of colon; Translations: [Polyp of colon] Onset: 01-18-2025 01-18-2025 Episodic Other and unspecified benign neoplasm (1 source) Polyp of colon; Translations: [Polyp of colon] Onset: 01-18-2025 Episodic Other connective tissue disease (20 sources) Fibromyalgia; Translations: [Fibromyalgia] 03-15-2019 Episodic Other gastrointestinal disorders (1 source) Finding of abdominopelvic segment of trunk; Translations: [Intra-abdominal and pelvic swelling, mass and lump, unspecified site] 04-18-2023 Episodic Other gastrointestinal disorders (15 sources) Pelvic mass; Translations: [Intra-abdominal and pelvic swelling, mass and lump, unspecified site] Onset: 07-24-2023 Resolved: 08-04-2023 07-24-2023 Episodic Other screening for suspected conditions (not mental disorders or infectious disease) (5 sources) Patient encounter status; Translations: [Encounter for screening for malignant neoplasm of colon] Onset: 08-19-2024 08-19-2024 Episodic Thyroid disorders (20 sources) 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; Translations: [Other specified hypothyroidism] Onset: 12-23-2024 08-09-2020 Chronic Unclassified (2 sources) Malignant neoplasm of both ovaries (HCC); Translations: [Malignant neoplasm of both ovaries (HCC)] Onset: 11-05-2023 Unclassified (1 source) Established Patient Onset: 03-04-2024 Past or Other Problems Problem Classification Problem Date Documented Date Episodic/Chronic Genitourinary symptoms and ill-defined conditions (18 sources) Presence of urogenital implants; Translations: [Other postprocedural status] Onset: 08-05-2023 Resolved: 10-09-2023 08-06-2023 Chronic Genitourinary symptoms and ill-defined conditions (1 source) Frequency of micturition; Translations: [Urinary frequency] Onset: 09-02-2023 Episodic Headache; including migraine (20 sources) Frequent headache; Translations: [Frequent headaches] Resolved: 08-04-2023 03-15-2019 Episodic Medical examination/evaluatio n (2 sources) Encounter for general adult medical examination without abnormal findings; Translations: [Encounter for general adult medical examination without abnormal findings] Onset: 02-20-2017 Episodic Residual codes; unclassified (13 sources) Past history of procedure; Translations: [Personal history of other medical treatment] Onset: 07-24-2023 Resolved: 08-04-2023 07-24-2023 Episodic Residual codes; unclassified (19 sources) Postoperative state; Translations: [Other specified postprocedural states] Onset: 08-04-2023 Resolved: 11-05-2023 08-07-2023 Episodic Unclassified (1 source) Patient encounter status 08-31-2024 Urinary tract infections (3 sources) Urinary tract infectious disease; Translations: [Urinary tract infection, site not specified] Onset: 08-05-2024 07-12-2024 Episodic Results Test Name Value Interpretation Reference Range Facility Absolute lymphocyte countOrd ered By: Chuck Hope on 12-20-2024 Lymphocytes Auto (Unsp spec) [#/Vol] 1.51 10*3/uL 0.83-4.51 [facility] Absolute neutrophil countOrd ered By: Chuck Hope on 12-20-2024 Neutrophils (Bld) [#/Vol] 2.4 10*3/uL 2.0-7.7 [facility] Anion gap in Serum or Plasma Ordered By: Chuck Hope on 12-20-2024 Anion gap [Moles/Vol] 12 mmol/L 5-15 [facility] Automated lymphocyte count a s percentage of total leukocytesOrdered By: Chuck Hope on 12-20-2024 Lymphocytes/100 WBC Auto (Unsp spec) 33.8 % 19-41 [facility] BUN/creatinine ratioOrdered By: Chuck Hope on 12-20-2024 Urea nitrogen/Creatinine [Mass ratio] 21.6 mg/mg High 10-20 [facility] Basophil percentageOrdered B y: Chuck Hope on 12-20-2024 Basophils/100 WBC (Bld) 0.4 % 0-1 [facility] Bilirubin, totalOrdered By: Chuck Hope on 12-20-2024 Bilirubin [Mass/Vol] 0.50 mg/dL 0.00-1.30 [facility] CBC W/Diff, Automatedon Absolute Lymph 1.51 X10 3/uL Normal 0.83-4.51 [facility] Comment on above: Performed By: #### L 100.0100, L500.4100, L506.0400, L500.4050, L506.1001, L501.9520, L501.78392, L501.5200, L503.0106 #### [facility] [address] [place] [address]. [place], [place], [id number] Absolute Neut 2.4 X10 3/uL Normal 2.0-7.7 [facility] Comment on above: Performed By: #### L 100.0100, L500.4100, L506.0400, L500.4050, L506.1001, L501.9520, L501.71070, L501.5200, L503.0106 #### [facility] [address] [place], [address] Basophils/100 WBC (Bld) 0.4 % Normal 0-1 [facility] Comment on above: Performed By: #### L 100.0100, L500.4100, L506.0400, L500.4050, L506.1001, L501.9520, L501.22587, L501.5200, L503.0106 #### [facility] [address] [facility]. [place], [place], [id number] ([address] Eosinophils/100 WBC (Bld) 1.6 % Normal 0-5 [facility] Comment on above: Performed By: #### L 100.0100, L500.4100, L506.0400, L500.4050, L506.1001, L501.9520, L501.79307, L501.5200, L503.0106 #### [facility] [address] [facility] [place], [address] Erythrocyte distribution width (RBC) [Ratio] 11.9 % Normal 11.6-14.6 [facility] Comment on above: Performed By: #### L 100.0100, L500.4100, L506.0400, L500.4050, L506.1001, L501.9520, L501.71054, L501.5200, L503.0106 #### [facility] [address] [place], [address] Hematocrit (Bld) [Volume fraction] 39.8 % Normal 37-47 [facility] Comment on above: Performed By: #### L 100.0100, L500.4100, L506.0400, L500.4050, L506.1001, L501.9520, L501.30495, L501.5200, L503.0106 #### [facility] [address] [place], [address] Hemoglobin (Bld) [Mass/Vol] 12.9 g/dL Normal 12.0-15.0 [facility] Comment on above: Performed By: #### L 100.0100, L500.4100, L506.0400, L500.4050, L506.1001, L501.9520, L501.17107, L501.5200, L503.0106 #### [facility] [address] [facility] [place], [address] IG% 0.200 Normal 0.0-0.9 [facility] Comment on above: Result Comment: IG% - Immature Granulocytes (promyelocytes, myelocytes and metamyelocytes) > 1% indicates that a LEFT SHIFT is Present. Performed By: #### L 100.0100, L500.4100, L506.0400, L500.4050, L506.1001, L501.9520, L501.36886, L501.5200, L503.0106 #### [facility] [address] [place], [address] Lymphocytes/100 WBC (Bld) 33.8 % Normal 19-41 [facility] Comment on above: Performed By: #### L 100.0100, L500.4100, L506.0400, L500.4050, L506.1001, L501.9520, L501.48803, L501.5200, L503.0106 #### [facility] [address] [place], [address] MCH (RBC) [Entitic mass] 32.8 pg High 27.0-32.0 [facility] Comment on above: Performed By: #### L 100.0100, L500.4100, L506.0400, L500.4050, L506.1001, L501.9520, L501.89133, L501.5200, L503.0106 #### [facility] [address] [place], [address] MCHC (RBC) [Mass/Vol] 32.4 g/dL Normal 32-36 [facility] Comment on above: Performed By: #### L 100.0100, L500.4100, L506.0400, L500.4050, L506.1001, L501.9520, L501.29520, L501.5200, L503.0106 #### [facility] [address] [facility] [place], [address] MCV (RBC) [Entitic vol] 101.3 fL High 81-99 [facility] Comment on above: Performed By: #### L 100.0100, L500.4100, L506.0400, L500.4050, L506.1001, L501.9520, L501.36595, L501.5200, L503.0106 #### [facility] [address] [facility] [place], [address] Monocytes/100 WBC (Bld) 11.2 % High 0-10 [facility] Comment on above: Performed By: #### L 100.0100, L500.4100, L506.0400, L500.4050, L506.1001, L501.9520, L501.35672, L501.5200, L503.0106 #### [facility] [address] [facility] [place], [address] Neutrophils/100 WBC (Bld) 52.8 % Normal 47-70 [facility] Comment on above: Performed By: #### L 100.0100, L500.4100, L506.0400, L500.4050, L506.1001, L501.9520, L501.81460, L501.5200, L503.0106 #### [facility] [address] [place], [address] Nucleated RBC (Bld) [#/Vol] 0.4 10*3/uL Normal 0-5 [facility] Comment on above: Performed By: #### L 100.0100, L500.4100, L506.0400, L500.4050, L506.1001, L501.9520, L501.16912, L501.5200, L503.0106 #### [facility] [address] [place], [address] Platelet mean volume (Bld) [Entitic vol] 8.8 fL Normal 6.2-12.0 [facility] Comment on above: Performed By: #### L 100.0100, L500.4100, L506.0400, L500.4050, L506.1001, L501.9520, L501.17838, L501.5200, L503.0106 #### [facility] [address] [place], [address] Platelets (Bld) [#/Vol] 229 10*3/uL Normal 150-450 [facility] Comment on above: Performed By: #### L 100.0100, L500.4100, L506.0400, L500.4050, L506.1001, L501.9520, L501.77881, L501.5200, L503.0106 #### [facility] [address] [place], [address] RBC (Bld) [#/Vol] 3.93 10*6/uL Low 4.2-5.4 [facility] Comment on above: Performed By: #### L 100.0100, L500.4100, L506.0400, L500.4050, L506.1001, L501.9520, L501.57072, L501.5200, L503.0106 #### [facility] [address] [place], [place], [id number] RDW SD 43.9 fl Normal 35.1-43.9 [facility] Comment on above: Performed By: #### L 100.0100, L500.4100, L506.0400, L500.4050, L506.1001, L501.9520, L501.48502, L501.5200, L503.0106 #### [facility] [address] [place], [address] WBC (Bld) [#/Vol] 4.5 10*3/uL Normal 4.4-11.0 [facility] Comment on above: Performed By: #### L 100.0100, L500.4100, L506.0400, L500.4050, L506.1001, L501.9520, L501.25596, L501.5200, L503.0106 #### [facility] [address] [place], [place], [id number] Calculated very low density lipoprotein (VLDL) cholesterol measurementOrdered By: Chuck Hope on 12-20-2024 Calculated very low density lipoprotein (VLDL) cholesterol measurement 15 mg/dL 5-40 [facility] Carbon dioxide, total [Moles /volume] in Central venous bloodOrdered By: Chuck Hope on 12-20-2024 CO2 [Moles/Vol] 23.9 mmol/L 21.0-32.0 [facility] Chloride assayOrdered By: Irma Hope on 12-20-2024 Chloride [Moles/Vol] 103 mmol/L 98-108 [facility] Comprehensive Metabolic Prof ilon 12-20-2024 Albumin [Mass/Vol] 4.8 g/dL Normal 3.4-4.8 [facility] Comment on above: Performed By: #### L 100.0100, L500.4100, L506.0400, L500.4050, L506.1001, L501.9520, L501.97185, L501.5200, L503.0106 #### [facility] [address] [place], [address] Albumin/Globulin [Mass ratio] 1.7 {ratio} Normal 0.9-2.4 [facility] Comment on above: Performed By: #### L 100.0100, L500.4100, L506.0400, L500.4050, L506.1001, L501.9520, L501.63368, L501.5200, L503.0106 #### [facility] [address] [place], [address] ALK PHOS 89 U/L Normal 35-104 [facility] Comment on above: Performed By: #### L 100.0100, L500.4100, L506.0400, L500.4050, L506.1001, L501.9520, L501.93958, L501.5200, L503.0106 #### [facility] [address] [place], [address] ALT [Catalytic activity/Vol] 9 U/L Normal <=34 [facility] Comment on above: Performed By: #### L 100.0100, L500.4100, L506.0400, L500.4050, L506.1001, L501.9520, L501.02718, L501.5200, L503.0106 #### [facility] [address] [place], [address] AST [Catalytic activity/Vol] 23 U/L Normal <=31 [facility] Comment on above: Performed By: #### L 100.0100, L500.4100, L506.0400, L500.4050, L506.1001, L501.9520, L501.57683, L501.5200, L503.0106 #### [facility] [address] [place], [address] Bilirubin [Mass/Vol] 0.50 mg/dL Normal 0.00-1.30 [facility] Comment on above: Performed By: #### L 100.0100, L500.4100, L506.0400, L500.4050, L506.1001, L501.9520, L501.51124, L501.5200, L503.0106 #### [facility] [address] [place], [address] BUN/CRE 21.6 RATIO High 10-20 [facility] Comment on above: Performed By: #### L 100.0100, L500.4100, L506.0400, L500.4050, L506.1001, L501.9520, L501.18788, L501.5200, L503.0106 #### [facility] [address] [place], [address] Calcium [Mass/Vol] 9.8 mg/dL Normal 7.6-11.0 [facility] Comment on above: Performed By: #### L 100.0100, L500.4100, L506.0400, L500.4050, L506.1001, L501.9520, L501.62472, L501.5200, L503.0106 #### [facility] [address] [place], [address] Chloride [Moles/Vol] 103 mmol/L Normal 98-108 [facility] Comment on above: Performed By: #### L 100.0100, L500.4100, L506.0400, L500.4050, L506.1001, L501.9520, L501.49427, L501.5200, L503.0106 #### [facility] [address] [place], [address] CO2 [Moles/Vol] 23.9 mmol/L Normal 21.0-32.0 [facility] Comment on above: Performed By: #### L 100.0100, L500.4100, L506.0400, L500.4050, L506.1001, L501.9520, L501.00366, L501.5200, L503.0106 #### [facility] [address] [place], [place], [id number] (323) Creatinine [Mass/Vol] 0.93 mg/dL Normal 0.70-1.20 [facility] Comment on above: Performed By: #### L 100.0100, L500.4100, L506.0400, L500.4050, L506.1001, L501.9520, L501.90622, L501.5200, L503.0106 #### [facility] [address] [place], [place], [id number] GAP 12 Normal 5-15 [facility] Comment on above: Performed By: #### L 100.0100, L500.4100, L506.0400, L500.4050, L506.1001, L501.9520, L501.43943, L501.5200, L503.0106 #### [facility] [address] [place], [place], [phone] (306) GFR/1.73 sq M.predicted among non-blacks MDRD (S/P/Bld) [Vol rate/Area] 67 mL/min/{1.73_m2} Normal >60 [facility] Comment on above: Result Comment: mL/m in/1.73m2 CKD-EPI Creatinine Equation (2020) Performed By: #### L 100.0100, L500.4100, L506.0400, L500.4050, L506.1001, L501.9520, L501.83033, L501.5200, L503.0106 #### [facility] [address] [place], [place], [id number] (340) Globulin (S) [Mass/Vol] 2.9 g/dL Normal 2.2-4.2 [facility] Comment on above: Performed By: #### L 100.0100, L500.4100, L506.0400, L500.4050, L506.1001, L501.9520, L501.59484, L501.5200, L503.0106 #### [facility] [address] [place], [address] Glucose [Mass/Vol] 84 mg/dL Normal 70-99 [facility] Comment on above: Performed By: #### L 100.0100, L500.4100, L506.0400, L500.4050, L506.1001, L501.9520, L501.66742, L501.5200, L503.0106 #### [facility] [address] [place], [address] Potassium [Moles/Vol] 3.8 mmol/L Normal 3.3-5.1 [facility] Comment on above: Performed By: #### L 100.0100, L500.4100, L506.0400, L500.4050, L506.1001, L501.9520, L501.58713, L501.5200, L503.0106 #### [facility] [address] [place], [address] Sodium [Moles/Vol] 138 mmol/L Normal 133-145 [facility] Comment on above: Performed By: #### L 100.0100, L500.4100, L506.0400, L500.4050, L506.1001, L501.9520, L501.36124, L501.5200, L503.0106 #### [facility] [address] [place], [address] T PROT 7.7 g/dL Normal 5.9-8.4 [facility] Comment on above: Performed By: #### L 100.0100, L500.4100, L506.0400, L500.4050, L506.1001, L501.9520, L501.30263, L501.5200, L503.0106 #### [facility] [address] [place], [address] Urea nitrogen [Mass/Vol] 20 mg/dL High 4-19 [facility] Comment on above: Performed By: #### L 100.0100, L500.4100, L506.0400, L500.4050, L506.1001, L501.9520, L501.38227, L501.5200, L503.0106 #### [facility] [address] [place], [address] Eosinophil percentageOrdered By: Chuck Hope on 12-20-2024 Eosinophils/100 WBC (Bld) 1.6 % 0-5 [facility] Erythrocyte distribution wid th ratioOrdered By: Chuck Hope on 12-20-2024 Erythrocyte distribution width (RBC) [Ratio] 11.9 % 11.6-14.6 [facility] Erythrocyte distribution wid th standard deviationOrdered By: Chuck Hope on 12-20-2024 Erythrocyte distribution width (RBC) [Ratio] 43.9 fl 35.1-43.9 [facility] Free T3on 12-20-2024 Free T3 [Mass/Vol] 2.4 pg/mL Normal 2.18-3.98 [facility] Comment on above: Performed By: #### L 501.9520, L501.26562, L506.0400 #### [facility] [address] [place], [address] Free H5Brkgftu By: Chuck rosas on 12-20-2024 Free T3 [Mass/Vol] 2.4 pg/mL 2.18-3.98 [facility] Glomerular filtration rate ( GFR) estimation/1.73 sq m using serum, plasma, or whole bOrdered By: Chuck Hope on 12-20-2024 GFR/1.73 sq M.predicted among non-blacks MDRD (S/P/Bld) [Vol rate/Area] 67 mL/min/{1.73_m2} >60 [facility] Comment on above: mL/min/1.73m2 CKD-EP I Creatinine Equation (2020) Hematocrit Auto (Bld) [Volum e fraction]Ordered By: Chuck Hope on 12-20-2024 Hematocrit (Bld) [Volume fraction] 39.8 % 37-47 [facility] Hemoglobin measurementOrdere d By: Chuck Hope on 12-20-2024 Hemoglobin (Bld) [Mass/Vol] 12.9 g/dL 12.0-15.0 [facility] Immature granulocytes/100 WB C Auto (Bld)Ordered By: Chuck Hope on 12-20-2024 Immature granulocytes/100 WBC (Bld) 0.200 % 0.0-0.9 [facility] Comment on above: IG% - Immature Granu locytes (promyelocytes, myelocytes and metamyelocytes) > 1% indicates that a LEFT SHIFT is Present. LDL calc ser/plasOrdered By: Chuck Hope on 12-20-2024 Cholesterol in LDL [Mass/Vol] 144 mg/dL [facility] Comment on above: Wmnzgwgexd=810-446 m g/dL & Higher Lfkz=545 mg/dL or greater Laboratory - Chemistry and C hemistry - challengeOrdered By: Chuck Hope on 12-20-2024 AST [Catalytic activity/Vol] 23 U/L <32 [facility] Lipid Profileon 12-20-2024 CHOL:HDL 2.76 Normal [facility] Comment on above: Performed By: #### L 100.0100, L500.4100, L506.0400, L500.4050, L506.1001, L501.9520, L501.21253, L501.5200, L503.0106 #### [facility] [address] [place], [address] Cholesterol [Mass/Vol] 250 mg/dL High <=200 [facility] Comment on above: Result Comment: Chol esterol level, Desirable <200 mg/dL Borderline high cholesterol 200-239 mg/dL High cholesterol >=240 mg/dL Recommendations of the NCEP Adult Treatment Panel for the following risk-cutoff thresholds for the [place] population. Performed By: #### L 100.0100, L500.4100, L506.0400, L500.4050, L506.1001, L501.9520, L501.87845, L501.5200, L503.0106 #### [facility] [address] [place], [address] Cholesterol in HDL [Mass/Vol] 91 mg/dL Normal [facility] Comment on above: Result Comment: [place] on[place] Cholesterol Education Program (NCEP) guidelines: <40 mg/dL: Low HDL-cholesterol (major risk factor for CHD) >= 60 mg/dL: High HDL-cholesterol (negative risk factor for CHD) HDL-cholesterol is affected by a number of factors, e.g. smoking, exercise, hormones, sex and age. Performed By: #### L 100.0100, L500.4100, L506.0400, L500.4050, L506.1001, L501.9520, L501.85115, L501.5200, L503.0106 #### [facility] [address] [place], [address] Cholesterol in LDL [Mass/Vol] 144 mg/dL Normal [facility] Comment on above: Result Comment: Bord okikkn=141-507 mg/dL Higher Avep=312 mg/dL or greater Performed By: #### L 100.0100, L500.4100, L506.0400, L500.4050, L506.1001, L501.9520, L501.46860, L501.5200, L503.0106 #### [facility] [address] [place], [address] Cholesterol in VLDL [Mass/Vol] 15 mg/dL Normal 5-40 [facility] Comment on above: Performed By: #### L 100.0100, L500.4100, L506.0400, L500.4050, L506.1001, L501.9520, L501.76061, L501.5200, L503.0106 #### [facility] [address] [place], [place], [address] Triglyceride [Mass/Vol] 77 mg/dL Normal [facility] Comment on above: Result Comment: The drugs N-Acetylcysteine and Metamizole may falsely depress this assay. Normal range: <150 mg/dL Borderline High: 150-199 mg/dL High: 200-499 mg/dL Very High: >500 mg/dL Performed By: #### L 100.0100, L500.4100, L506.0400, L500.4050, L506.1001, L501.9520, L501.02122, L501.5200, L503.0106 #### [facility] [address] [place], [place], [id number] (336) MCV (mean corpuscular volume ) determinationOrdered By: Chuck Hope on 12-20-2024 MCV (RBC) [Entitic vol] 101.3 fL High 81-99 [facility] Magnesiumon 12-20-2024 Magnesium [Mass/Vol] 2.2 mg/dL Normal 1.5-2.2 [facility] Comment on above: Performed By: #### L 100.0100, L500.4100, L506.0400, L500.4050, L506.1001, L501.9520, L501.09557, L501.5200, L503.0106 #### [facility] [address] [place], [place], [id number] Magnesium measurement (mass/ volume)Ordered By: Chuck Hope on 12-20-2024 Magnesium (Unsp spec) [Mass/Vol] 2.2 mg/dL 1.5-2.2 [facility] Mean corpuscular hemoglobin (MCH) determinationOrdered By: Chuck Hope on 12-20-2024 MCH (RBC) [Entitic mass] 32.8 pg High 27.0-32.0 [facility] Mean corpuscular hemoglobin concentration (MCHC) determinationOrdered By: Chuck Hope on 12-20-2024 MCHC (RBC) [Mass/Vol] 32.4 g/dL 32-36 [facility] Mean platelet volume determi nationOrdered By: Chuck Hope on 12-20-2024 Platelet mean volume (Bld) [Entitic vol] 8.8 fL 6.2-12.0 [facility] Monocyte percentageOrdered B y: Chuck Hpoe on 12-20-2024 Monocytes/100 WBC (Bld) 11.2 % High 0-10 [facility] Neutrophil percentageOrdered By: Chuck Hope on 12-20-2024 Neutrophils/100 WBC (Bld) 52.8 % 47-70 [facility] Nucleated red blood cell per centageOrdered By: Chuck Hope on 12-20-2024 Nucleated RBC/100 WBC (Bld) [Ratio] 0.4 % 0-5 [facility] Platelet countOrdered By: Irma Hope on 12-20-2024 Platelets (Bld) [#/Vol] 229 10*3/uL 150-450 [facility] Potassium measurement (mass/ volume)Ordered By: Chuck Hope on 12-20-2024 Potassium (Unsp spec) [Mass/Vol] 3.8 mmol/L 3.3-5.1 [facility] RBC Auto (Bld) [#/Vol]Ordere d By: Chuck Hope on 12-20-2024 RBC (Bld) [#/Vol] 3.93 10*6/uL Low 4.2-5.4 [facility] Screening total cholesterol/ high density lipoprotein (HDL) cholesterol ratioOrdered By: Chuck Hope on 12-20-2024 Cholesterol.total/Chol esterol in HDL [Mass ratio] 2.76 {ratio} [facility] Serum creatinine measurement (mass/volume)Ordered By: Chuck Hope on 12-20-2024 Creatinine [Mass/Vol] 0.93 mg/dL 0.70-1.20 [facility] Serum globulin measurementOr dered By: Chuck Hope on 12-20-2024 Globulin (S) [Mass/Vol] 2.9 g/dL 2.2-4.2 [facility] Serum glucose measurement (m ass/volume)Ordered By: Chuck Hope on 12-20-2024 Glucose [Mass/Vol] 84 mg/dL 70-99 [facility] Serum or plasma alanine uribe otransferase (ALT) measurementOrdered By: Chuck Hope on 12-20-2024 ALT [Catalytic activity/Vol] 9 U/L <35 [facility] Serum or plasma albumin jeanne urement (mass/volume)Ordered By: Chuck Hope on 12-20-2024 Albumin [Mass/Vol] 4.8 g/dL 3.4-4.8 [facility] Serum or plasma albumin/glob ulin mass ratioOrdered By: Chuck Hope on 12-20-2024 Albumin/Globulin [Mass ratio] 1.7 {ratio} 0.9-2.4 [facility] Serum or plasma alkaline armaan sphatase measurementOrdered By: Chuck Hope on 12-20-2024 ALP [Catalytic activity/Vol] 89 U/L 35-104 [facility] Serum or plasma calcium jeanne urement (mass/volume)Ordered By: Chuck Hope on 12-20-2024 Calcium [Mass/Vol] 9.8 mg/dL 7.6-11.0 [facility] Serum or plasma cholesterol in HDL measurement (mass/volume)Ordered By: Chuck Hope on 12-20-2024 Cholesterol in HDL [Mass/Vol] 91 mg/dL >40 [facility] Comment on above: National Cholesterol Education Program (NCEP) guidelines:<40 mg/dL: Low HDL-cholesterol (major risk factor for CHD)>= 60 mg/dL: High HDL-cholesterol (negative risk factor for CHD)HDL-cholesterol is affected by a number of factors, e.g. smoking, exercise, hormones, sex and age. Serum or plasma cholesterol measurement (mass/volume)Ordered By: Chuck Hope on 12-20-2024 Cholesterol [Mass/Vol] 250 mg/dL High <201 [facility] Comment on above: Cholesterol level, D esirable <200 mg/dLBorderline high cholesterol 200-239 mg/dLHigh cholesterol >=240 mg/dLRecommendations of the NCEP Adult Treatment Panel for the following risk-cutoff thresholds for the [place] population. Serum or plasma urea nitroge n measurement (mass/volume)Ordered By: Chuck Hope on 12-20-2024 Urea nitrogen [Mass/Vol] 20 mg/dL High 4-19 [facility] Sodium levelOrdered By: Robyn Hope on 12-20-2024 Sodium [Moles/Vol] 138 mmol/L 133-145 [facility] T4 Free Directon 12-20-2024 T4 FREE DIRECT 1.20 ng/dL Normal 0.76-1.46 [facility] Comment on above: Performed By: #### L 501.9520, L501.54746, L506.0400 #### [facility] [address] [place], [place], [id number] T4 freeOrdered By: Chuck rosas on 12-20-2024 Free T4 [Mass/Vol] 1.20 ng/dL 0.76-1.46 [facility] TSH DL <= 0.005 mIU/L QnOrde red By: Chuck Hope on 12-20-2024 TSH Qn 9.530 uIU/mL High 0.300-4.200 [facility] Thyroid Stim Hormone (TSH)on 12-20-2024 TSH 9.530 uIU/mL High 0.300-4.200 [facility] Comment on above: Performed By: #### L 501.9520, L501.54963, L506.0400 #### [facility] [address] [place], [place], [id number] Total proteinOrdered By: Karin Hope on 12-20-2024 Protein [Mass/Vol] 7.7 g/dL 5.9-8.4 [facility] Triglycerides measurementOrd ered By: Chuck Hope on 12-20-2024 Triglyceride [Mass/Vol] 77 mg/dL <199 [facility] Comment on above: The drugs N-Acetylcy steine and Metamizole may falsely depress this assay. Normal range: <150 mg/dLBorderline High: 150-199 mg/dLHigh: 200-499 mg/dLVery High: >500 mg/dL Vitamin B12on 12-20-2024 Cobalamin (Vitamin B12) [Mass/Vol] 384 pg/mL Normal 180-914 [facility] Comment on above: Performed By: #### L 501.9520, L501.98086, L506.0400 #### [facility] [address] [place], [address] Vitamin B12 ser/plasOrdered By: Chuck Hope on 12-20-2024 Cobalamin (Vitamin B12) [Mass/Vol] 384 pg/mL 180-914 [facility] Vitamin D,25 Hydroxyon 12-20 Vitamin D 25-OH 29.2 ng/mL Low 30-100 [facility] Comment on above: Result Comment: January min D Status Deficiency: <20 ng/mL (50nmol/L) Insufficiency: 20-30 ng/mL (50-75 nmol/L) Sufficiency: 30-100 ng/mL (75-250 nmol/L) Toxicity: >100 ng/mL (>250 nmol/L) Performed By: #### L 501.9520, L501.44817, L506.0400 #### [facility] [address] [place], [address] White blood cell (WBC) count Ordered By: Chuck Hope on 12-20-2024 WBC (Bld) [#/Vol] 4.5 10*3/uL 4.4-11.0 [facility] MR/Tu 12-02-2024 MR/BMS.MARVEL [facility] [address] [place] [address] OFFICE VISIT Date of Service: 12/02/24 MR#: [id number] Acct: [id number] Name: JULIANN MYLES Rep #: [id number] : 1955 Provider: Dr. Chuck santos MD Age/Sex: 69/F Location[place] [facility] [place] Status: Signed Intake Vital Signs 01/15/24 11:04 12/02/24 10:51 Height 5 ft 6 in 5 ft 6 in Weight: 149 lb BMI 24.0 BP 172/88 H Blood Pressure Location Lt brachial Position Sitting Respiration 16 Pulse 61 Pulse Source Monitor Temp 98.6 F Temp Source Temporal Pulse Oximetry (%) 100 Oxygen Delivery Method room air Intake Visit Reasons: Annual/Physical Chief Complaint: Annual/Physical Slab Tripper Required: No Accompanied by: Is patient in pain?: No Allergies No Known Allergies Allergy (Verified 12/02/24 10:44) Medications ???Medication ???Instructions ???Recorded ???Confirmed ???Type vit d3 PO 06/18/23 12/02/24 History levothyroxine 50 mcg tablet 50 mcg PO DAILY #90 tabs 07/26/24 12/02/24 Rx lisinopril 10 mg tablet 10 mg PO DAILY #90 tabs 07/26/24 0 12/02/24 Rx Have you fallen in the past year?: No PFSH Medical History UTI (urinary tract infection) Sjogren's disease Fibromyalgia Jodi's thyroiditis IBS (irritable bowel syndrome) Family History Mother Thyroid disorder Heart disease Age related osteoporosis Aunt Thyroid disorder Sister Thyroid disorder Grandfather Thyroid disorder Father Heart disease Mental disorder Social History adopted: No household members: spouse housing: house number of children: 0 current occupational status: retired pets and animals: No leisure activities: exercise, music and reading history of recent travel: No sexually active: No Smoking Status: Never smoker alcohol intake: never substance use type: does not use well-balanced diet: daily or most days caffeine: Yes eating out: 1-3 times/week during the past year weight has: decreased > 10 lbs what type of physical activity do you participate in: walking and other frequency: 3-4 times per week oly/advent: Zoroastrian seatbelt use: always do you feel safe at home: Yes HPI HPI Chief Complaint: Annual/Physical Details: JULIANN MYLES, is a 69 F who presents to the office today for annual follow-up. 61 female generally speaking has been pretty healthy although she had ovarian cancer diagnosed a couple of years ago now. She underwent chemotherapy, surgical treatment. She does stable, continue to follow with subspecialty care in [place]. She has hypothyroidism on levothyroxine 50 mcg daily and lisinopril 10 mg daily for hypertension. Overall she has been doing quite well. Had colonoscopy recently. She did have a sessile polyp that was partially removed apparently and will need additional treatment through C-scope. She was referred to an additional specialist for that. She did have follow-up relatively recently with her oncologist and overall is doing pretty well. She has noted that there has been a slight trending rise to the CA125 but states that oncologist has not been specifically concerned right now about that and will continue monitoring. She feels well overall. She does have hypothyroidism and hypertension as above but these been stable issues. Labs however do need updated. Review of systems per chart. No chest pain, chest tightness, shortness of breath wheeze cough or congestion. No focal areas of numbness or tingling. Appetites been good. Urinary pattern has been stable. Prior to C-scope bowel movements have been regular. Physical exam. Vital signs on chart. PERRLA. Sclera are clear. TMs are unremarkable with normal light reflexes. Canals are unremarkable. Posterior pharynx is unremarkable. Good dentition. No cervical or supraclavicular lymph nodes enlarged or tender. No clear thyromegaly. No thyroid nodules readily palpable. Lungs are without wheeze, rhonchi, rales. No E/A changes are heard. Heart is regular. Not tachycardic. No clear murmur, rub, or gallop is identified. The abdomen is soft. Bowel sounds are present. Nontender nondistended abdomen. No clear palpable masses in the abdomen. No significant leg edema. Cranial nerve examination 2 through 12 are grossly unremarkable nonlateralizing. No obvious rashes. No obvious significant skin lesions are identified. ROS Const Constitutional: No body ache, chills, excessive sweating, fatigue, fever(s), frequent falls, headache(s), snoring, weakness or change in appetite Eyes Eyes: No blurry vision, change in vision, eye pain or Light sensitivity ENT ENT: No abnormal hearing, ear or mastoid pain, tinnitus, nasa (more content not included)... Normal [facility] CNOVSPon 11-24-2024 CNOVSP Visit (SP) Office (CARMENYNONPOB) -- JULIANN MYLES ([id number]) 1955 F Date Time Provider Department 11/24/24 1:00 PM LONNIE AREVALO During your visit today, we recorded the following information about you: Temperature Pulse Blood pressure Weight 98.1 degrees 72/minute 160/90 67.6 kg Lonnie Arevalo MD 11/24/2024 1:40 PM Signed GYNECOLOGIC ONCOLOGY FOLLOW UP SERVICE DATE: 11/24/2024 SERVICE TIME: 3:47 PM PRIMARY CARE PHYSICIAN: Manpreet Nunez MD CHIEF COMPLAINT/HISTORY OF PRESENT ILLNESS/ROS: CC: Pelvic masses Referring Provider: Dr. Pamella Sanabria/ [facility] HPI: Tiffanie states that she feels wonderful today. She has no new questions or concerns and expresses that she is very grateful for the care that she has received. Appetite and energy level stable. She denies any chest pain, shortness of breath, abdominal pain, bloating, nausea or vomiting. No problems with bowels or bladder. No vaginal bleeding. No fevers or chills. States that she is anxious about the pelvic exam but that her will be her support through it. The history is provided by the patient and the spouse. No language translator was used. ROS: Negative except as above Oncologic History: - 04/17/2023: presented to [place] ED with R flank pain and nausea for [address] with finding of cystic pelvic mass, 21 cm, bilateral hydronephrosis R>L, omental and mesenteric soft tissue masses and retroperitoneal lymphadenopathy. Denies h/o PMB. 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 - 05/07/2023: C1 carboplatin and paclitaxel - 06/04/2023 : CA-125: 926, Her2 FISH results identify amplification - 06/06/2023: C2 carboplatin and paclitaxel, trastuzumab added with this cycle as potential uterine primary vs ovarian - 06/27/2023: C3 carboplatin and paclitaxel, trastuzumab - 07/04/2023: Partial response by CT imaging, no new disease, attention to prominent axillary lymph node on follow up - 07/16/2023: If ovarian primary, KELIM score 0.53 (poorly chemosensitive disease) - 08/04/2023: XL/OFELIA/BSO/Rectosigmoid resection en bloc with re-anastamosis/OMX/diaphra gm striping and radical debulking and ureteral stent placement with final pathology showing 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, stage IIIC based on original imaging disease burden - 09/17/2023: C4 c/b taxol reaction, received rest at lower rate - 10/09/2023: C5 carbo with taxol desens - 11/05/2023: C6 carbo with taxol desens, CA-125: 8 - 03/01/2024: CA-125: 8 - 07/05/2024: CA-125: 10 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: 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 Malignant neoplasm of ovary (HCC) Osteoarthrosis knees Osteopenia Vitamin D deficiency PAST SURGICAL HISTORY Procedure Laterality Date BSO W/OMENTECTOMY TAHANDRAD DEBULKING DISSECTION 08/04/2023 CYSTOSCOPY,INSERT URETHRAL STENT Left 08/04/2023 EXPL LAP W W/WO BX 08/04/2023 LAPAROSCOPIC HEMICOLECTOMY 08/04/2023 partial, removal of rectum lithotomy LIVER MOBILIZATION 08/04/2023 PAST SURGICAL HISTORY OF 1974 teeth pulled molars RAD.DISS, DEBULKING W/ PELV/PARA AORT LYMP 08/04/2023 limited bilateral para-arotic lymphadenectomy 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 HRT use: No. HEALTH MAINTENANCE: History of abnormal pap: No. Only 1 in her lifetime Last pap: 40 + years ago Last HPV: unknown Last mammogram: never Last colonoscopy: never, + cologard 04/2022 FAMILY HISTORY Problem Relation Age of Onset Osteoporosis Mother Hypertension Mother Migraines Mother other (thyroid nodule s/p partial thyroidectomy) Mother other (stomach problems) Mother other (BRADYCARDIA) Father Dementia Father other (hypothyroidism) Sister other (goiter) Maternal Grandfather other (goiter s/p MEIER and surgery) Maternal Aunt other (no f/o thyroid cancer) Other Ovarian cancer No Family History Breast Cancer No Family History Uterine Cancer No Family History Colon Cancer No Family History Pancreatic Cancer No Family History Social History Socioeconomic History Marital status: Spouse name: Patricio Number of children: 0 Occupational History 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 (more content not included)... Normal [facility] Cancer Ag125 SerPl-aCncon Cancer Ag 125 Qn 23 [arb'U]/mL Normal <39 [facility] Comment on above: Order Comment: Speci men Type: BLOOD SPECIMEN Ordering Facility: [facility] Address: [address] [place] [address] Result Comment: CA 1 25 test methodology used is the Electrochemiluminescence Immunoassay by [employer] [facility]. Results obtained with different methods or kits cannot be used interchangeably. The reference interval is based on the 95th percentile of 240 apparently healthy premenopausal and postmenopausal women. At a cutoff value of 65 U/mL, the test sensitivity to distinguish ovarian carcinoma (FIGO stage I to IV) versus benign gynecological disease is 79%, with a specificity of 82%. Reference: Cancer Antigen 125 (CA 125 II) [package insert V 1.0 Taiwanese]. [facility], [place], [place] (April 2015) Performed By: #### 1 0334-1 #### [facility] CLIA [id number] [address] [place] [address] [facility] CNOVSPon 08-19-2024 CNOVS Visit (SP) Office (AGGYNONPOB) -- JULIANN MYLES ([id number]) 1955 F Date Time Provider Department 08/19/24 1:00 PM LONNIE AREVALO AGGYNONPOB During your visit today, we recorded the following information about you: Temperature Pulse Blood pressure Weight 98 degrees 85/minute 158/84 65.8 kg Lonnie Arevalo MD 08/31/2024 4:55 PM Signed GYNECOLOGIC ONCOLOGY FOLLOW UP SERVICE DATE: 08/19/2024 SERVICE TIME: 3:47 PM PRIMARY CARE PHYSICIAN: Manpreet Nunez MD CHIEF COMPLAINT/HISTORY OF PRESENT ILLNESS/ROS: CC: Pelvic masses Referring Provider: Dr. Pamella Sanabria/ [place] [facility] HPI: Feeling well. Back to regular activities. No complaints. Reports appetite and energy level stable. Denies vaginal bleeding or discharge. Denies abdominal or pelvic pain, nausea or vomting. Denies issues with incisions. Denies urinary or bowel problems. The history is provided by the patient. No language translator was used. ROS: Review of Systems Constitutional: Negative for activity change, diaphoresis, fever and unexpected weight change. HENT: Negative for ear pain, hearing loss and mouth sores. Eyes: Negative for pain and visual disturbance. Respiratory: Negative for cough, chest tightness and shortness of breath. Cardiovascular: Negative for chest pain and palpitations. Gastrointestinal: Negative for abdominal pain, constipation, diarrhea, nausea and vomiting. Endocrine: Negative for cold intolerance and heat intolerance. Genitourinary: Negative for dysuria, frequency, hematuria, pelvic pain, urgency, vaginal bleeding, vaginal discharge and vaginal pain. Musculoskeletal: Negative for arthralgias and myalgias. Skin: Negative for rash and wound. Neurological: Negative for dizziness, syncope, light-headedness and headaches. Psychiatric/Behavioral: Negative for agitation. The patient is not nervous/anxious. Oncologic History: - 04/17/2023: presented to [place] ED with R flank pain and nausea for [address] with finding of cystic pelvic mass, 21 cm, bilateral hydronephrosis R>L, omental and mesenteric soft tissue masses and retroperitoneal lymphadenopathy. Denies h/o PMB. 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 - 05/07/2023: C1 carboplatin and paclitaxel - 06/04/2023 : CA-125: 926, Her2 FISH results identify amplification - 06/06/2023: C2 carboplatin and paclitaxel, trastuzumab added with this cycle as potential uterine primary vs ovarian - 06/27/2023: C3 carboplatin and paclitaxel, trastuzumab - 07/04/2023: Partial response by CT imaging, no new disease, attention to prominent axillary lymph node on follow up - 07/16/2023: If ovarian primary, KELIM score 0.53 (poorly chemosensitive disease) - 08/04/2023: XL/OFELIA/BSO/Rectosigmoid resection en bloc with re-anastamosis/OMX/partial diaphgram resection and radical debulking and ureteral stent placement with final pathology showing 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, stage IIIC based on original imaging disease burden - 09/17/2023: C4 c/b taxol reaction, received rest at lower rate - 10/09/2023: C5 carbo with taxol desens - 11/05/2023: C6 carbo with taxol desens, CA-125: 8 - 03/01/2024: CA-125: 8 - 07/05/2024: CA-125: 10 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: 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 Malignant neoplasm of ovary (HCC) Osteoarthrosis knees Osteopenia Vitamin D deficiency PAST SURGICAL HISTORY Procedure Laterality Date BSO W/OMENTECTOMY TAHANDRAD DEBULKING DISSECTION 08/04/2023 CYSTOSCOPY,INSERT URETHRAL STENT Left 08/04/2023 EXPL LAP W W/WO BX 08/04/2023 LAPAROSCOPIC HEMICOLECTOMY 08/04/2023 partial, removal of rectum lithotomy LIVER MOBILIZATION 08/04/2023 PAST SURGICAL HISTORY OF 1974 teeth pulled molars RAD.DISS, DEBULKING W/ PELV/PARA AORT LYMP 08/04/2023 limited bilateral para-arotic lymphadenectomy 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 HRT use: No. HEALTH MAINTENANCE: History of abnormal pap: No. Only 1 in her lifetime Last pap: 40 + years ago Last HPV: unknown Last mammogram: never Last colonoscopy: never, + cologard 04/2022 FAMILY HISTORY Problem Relation Age of Onset Osteoporosis Mother Hypertension Mother Migraines Mother other (thyroid nodule s/p partial thyroidectomy) Mother other (stomach problems) Mother other (more content not included)... Normal [facility] Urine Cultureon 07-14-2024 URC #2 PROBABLE PROTEUS SPECIES, Below infection level. Escherichia coli [place] Count >100,000 Gram negative elizabeth Gram negative elizabeth Escherichia coli: REACTION Ampicillin Islt AYUSH <=2 S Ampicillin+Sulbac Islt AYUSH <=2 Cefepime Islt AYUSH <=0.12 S cefTRIAXone Islt AYUSH <=0.25 S Ciprofloxacin Islt AYUSH <=0.06 S B-Lactamase Extended Susc Islt NEG Gentamicin Islt AYUSH <=1 S levoFLOXacin Islt AUYSH <=0.12 S Meropenem Islt AYUSH <=0.25 S Nitrofurantoin Islt AYUSH <=16 S Pip+Tazo Islt AYUSH <=4 S TMP SMX Islt AYUSH <=20 S Normal [facility] Comment on above: Performed By: #### M 100.2200, [id number] #### [facility] [address] [place], [address] Free T3on 07-12-2024 Free T3 [Mass/Vol] 2.3 pg/mL Normal 2.18-3.98 [facility] Comment on above: Performed By: #### L 501.9524, [id number], L506.0400 #### [facility] [address] [place], [address] T4 Free Directon 07-12-2024 T4 FREE DIRECT 1.08 ng/dL Normal 0.76-1.46 [facility] Comment on above: Performed By: #### L [id number], [id number], L506.0400 #### [facility] [address] [place], [address] Thyroid Stim Hormone (TSH)on 07-12-2024 TSH 3.920 uIU/mL High 0.358-3.740 [facility] Comment on above: Performed By: #### L [id number], L501.09301, L506.0400 #### [facility] [address] [place], [address] Urinalysis, Completeon 07-12 EPI,SQUAMOUS 0-5 SEEN Normal 5-10 [facility] Comment on above: Order Comment: COLLE CTOR TO SPECIFY Performed By: #### M 100.2200, L400.0001 #### [facility] [address] [place], [address] BACTERIA 1+ /hpf Normal None Seen [facility] Comment on above: Order Comment: COLLE CTOR TO SPECIFY Performed By: #### M 100.2200, [id number] #### [facility] [address] [place], [address] RBC 0-5 SEEN Normal 0-5 [facility] Comment on above: Order Comment: COLLE CTOR TO SPECIFY Performed By: #### M 100.2200, [id number] #### [facility] [address] [place], [address] WBC 25-50 SEEN Normal 0-5 [facility] Comment on above: Order Comment: COLLE CTOR TO SPECIFY Performed By: #### M 100.2200, [id number] #### [facility] [address] [place], [address] Mucus Ql (Urine sed) 0 SEEN Normal [facility] Comment on above: Order Comment: COLLE CTOR TO SPECIFY Performed By: #### M 100.2200, [id number] #### [facility] [address] [place], [address] CNPNon 07-05-2024 CNPN Telephone (GIOVANNIPO Pablo) -- JULIANN MYLES ([id number]) 1955 F Date Time Provider Department 07/05/24 LONNIE AREVALO During your visit today, we recorded the following information about you: Dorene Park RN 07/05/2024 11:28 AM Signed Juliann called, she is scheduled for a 4 month exam on . Does she need any lab work done prior to her appointment? If so can you please place the order. Thank you! PABLO Stephen Sarah, RN 07/05/2024 11:49 AM Signed CA 125 ordered, Juliann notified. Dorene Park RN Allergies As of Date: 07/05/2024 (No Known Allergies) Date Reviewed: 03/04/2024 Reviewed by: Leigha Pryor MA - Fully Assessed Reason for Visit: Patient Question [6697] Prescriptions as of 07/05/2024 - levothyroxine (SYNTHROID) 200 mcg tablet Take 200 mcg by mouth daily before breakfast. - iv contrast (will be provided with radiology test) CT Chest ABD/PEL-Inject, intravenously, once for 1 dose.No IV access, insert saline lock prior to the beginning of sedation, infusion, injection of imaging exam. Discontinue saline lock post exam. If Pt. has a central line or IVAD, may access for administration according to line specific nursing protocol. Once exam is complete flush line and de-access according to line specific nursing protocol in the CT contrast administration guidelines link. - enteric contrast (will be provided with radiology test) For CT CHESTABD/PEL W IVCON Routine order Administer, As Directed One Time Only, via Oral, Rectal, both Oral and Rectal, Enteric Tube, Stoma or Indwelling Catheter, Enteric Contrast as designated per enteric contrast guidelines - acetaminophen (TYLENOL) 325 mg tablet Take 2 tablets by mouth every 6 hours as needed for pain. - iv contrast (will be provided with radiology test) MRI Female Pelvis Inject, intravenously, once for 1 dose. No IV access, insert saline lock prior to the beginning of sedation, infusion, injection of imaging exam. Discontinue saline lock post exam. If Pt has a central line or IVAD, may access for administration according to line specific nursing protocol. Once exam is complete flush line and de-access according to line specific nursing protocol in the MR contrast administration guidelines link. - ondansetron (ZOFRAN) 8 mg tablet Take 1 tablet by mouth every 8 hours as needed for nausea/vomiting. - promethazine (PHENERGAN) 25 mg tablet Take 1 tablet by mouth every 4 hours as needed for nausea/vomiting. - Cholecalciferol, Vitamin D3, (D3-5000) 125 mcg (5,000 unit) cap Take 5,000 Units by mouth once daily. - lisinopril (ZESTRIL, PRINIVIL) 10 mg tablet Take 1 tablet by mouth once daily. 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 [* Ovary cancer (HCC) [C56.9] 04/30/2023 Pelvic mass [R19.00] 07/24/2023 08/04/2023 Diagnosed: 07/24/2023 Hypertension [I10] 07/24/2023 08/04/2023 Diagnosed: 07/24/2023 Osteoarthritis [M19.90] 07/24/2023 Diagnosed: 07/24/2023 Malignant neoplasm of ovary (HCC) [C56.9] 07/24/2023 08/04/2023 Diagnosed: 07/24/2023 Pre-op exam [Z01.818] 07/24/2023 08/04/2023 History of echocardiogram [Z92.89] 07/24/2023 08/04/2023 Heart murmur [R01.1] CKD (chronic kidney disease) stage 2, GFR 60-89* Other specified anemias [D64.89] Post-operative state [Z98.890] 08/04/2023 11/05/2023 Ureteral stent present [Z96.0] 08/05/2023 10/09/2023 Stage 2 chronic kidney disease [N18.2] 09/12/2023 Cardiac murmur [R01.1] 09/12/2023 Preop testing [Z01.818] 09/12/2023 11/05/2023 Ovarian cancer (HCC) [C56.9] 10/09/2023 10/09/2023 Neutropenia (HCC) [D70.9] 10/09/2023 Encounter Status:Closed by DORENE PARK on 07/05/24 Normal [facility] Cancer Ag125 SerPl-aCncon Cancer Ag 125 Qn 10 [arb'U]/mL Normal <39 [facility] Comment on above: Order Comment: Speci men Type: BLOOD SPECIMEN Ordering Facility: [facility] Address: [address] [place] [address] Result Comment: CA 1 25 test methodology used is the Electrochemiluminescence Immunoassay by [employer]. Results obtained with different methods or kits cannot be used interchangeably. The reference interval is based on the 95th percentile of 240 apparently healthy premenopausal and postmenopausal women. At a cutoff value of 65 U/mL, the test sensitivity to distinguish ovarian carcinoma (FIGO stage I to IV) versus benign gynecological disease is 79%, with a specificity of 82%. Reference: Cancer Antigen 125 (CA 125 II) [package insert V 1.0 Taiwanese]. [facility], [place], [place] (April 2015) Performed By: #### 2 4323-8, 81625-6 #### [facility] CLIA [id number] [address] [place] [address] [place] Free T3on 04-29-2024 Free T3 [Mass/Vol] 2.2 pg/mL Normal 2.18-3.98 [facility] Comment on above: Performed By: #### L [id number], [id number], L506.0400 #### [facility] [address] [place], [address] T4 Free Directon 04-29-2024 T4 FREE DIRECT 0.89 ng/dL Normal 0.76-1.46 [facility] Comment on above: Performed By: #### L [id number], [id number], L506.0400 #### [facility] [address] [place], [address] Thyroid Stim Hormone (TSH)on 04-29-2024 TSH 5.880 uIU/mL High 0.358-3.740 [facility] Comment on above: Performed By: #### L [id number], [id number], L506.0400 #### [facility] [address] [place], [place], [address] CNOVSPon 03-04-2024 CNOVS Visit (SP) Office (JESS) -- JULIANN MYLES ([id number]) 1955 F Date Time Provider Department 03/04/24 10:00 AM LONNIE AREVALO During your visit today, we recorded the following information about you: Temperature Pulse Blood pressure Weight 98.6 degrees 74/minute 154/94 65.3 kg Lonnie Arevalo MD 03/26/2024 7:25 PM Signed GYNECOLOGIC ONCOLOGY FOLLOW UP SERVICE DATE: 03/04/2024 SERVICE TIME: 3:47 PM PRIMARY CARE PHYSICIAN: Manpreet Nunez MD CHIEF COMPLAINT/HISTORY OF PRESENT ILLNESS/ROS: CC: Pelvic masses Referring Provider: Dr. Pamella Sanabria/ [place] [facility] HPI: Feeling good. Reports she is feeling stronger, has been walking more, and feeling back to her normal self. Gained 20 lbs since surgery, feels she is at a good weight. The history is provided by the patient and the spouse. No language translator was used. ROS: Review of Systems Constitutional: Negative for activity change, diaphoresis, fever and unexpected weight change. HENT: Negative for ear pain, hearing loss and mouth sores. Eyes: Negative for pain and visual disturbance. Respiratory: Negative for cough, chest tightness and shortness of breath. Cardiovascular: Negative for chest pain and palpitations. Gastrointestinal: Negative for abdominal pain, constipation, diarrhea, nausea and vomiting. Endocrine: Negative for cold intolerance and heat intolerance. Genitourinary: Negative for dysuria, frequency, hematuria, pelvic pain, urgency, vaginal bleeding, vaginal discharge and vaginal pain. Musculoskeletal: Negative for arthralgias and myalgias. Skin: Negative for rash and wound. Neurological: Negative for dizziness, syncope, light-headedness and headaches. Psychiatric/Behavioral: Negative for agitation. The patient is not nervous/anxious. Oncologic History: - 04/17/2023: presented to [place] ED with R flank pain and nausea for [address] with finding of cystic pelvic mass, 21 cm, bilateral hydronephrosis R>L, omental and mesenteric soft tissue masses and retroperitoneal lymphadenopathy. Denies h/o PMB. 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 - 05/07/2023: C1 carboplatin and paclitaxel - 06/04/2023 : CA-125: 926, Her2 FISH results identify amplification - 06/06/2023: C2 carboplatin and paclitaxel, trastuzumab added with this cycle as potential uterine primary vs ovarian - 06/27/2023: C3 carboplatin and paclitaxel, trastuzumab - 07/04/2023: Partial response by CT imaging, no new disease, attention to prominent axillary lymph node on follow up - 07/16/2023: If ovarian primary, KELIM score 0.53 (poorly chemosensitive disease) - 08/04/2023: XL/OFELIA/BSO/Rectosigmoid resection en bloc with re-anastamosis/OMX/partial diaphgram resection and radical debulking and ureteral stent placement with final pathology showing 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, stage IIIC based on original imaging disease burden - 09/17/2023: C4 c/b taxol reaction, received rest at lower rate - 10/09/2023: C5 carbo with taxol desens - 11/05/2023: C6 carbo with taxol desens, CA-125: 8 - 03/01/2024: CA-125: 8 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: PAST MEDICAL HISTORY No date: CKD (chronic kidney disease) stage 2, GFR 60-89 ml/min No date: Fibromyalgia No date: Heart murmur No date: HTN (hypertension) No date: 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 No date: Malignant neoplasm of ovary (HCC) No date: Osteoarthrosis Comment: knees No date: Osteopenia No date: Vitamin D deficiency PAST SURGICAL HISTORY 08/04/2023: BSO W/OMENTECTOMY TAHANDRAD DEBULKING DISSECTION 08/04/2023: CYSTOSCOPY,INSERT URETHRAL STENT; Left 08/04/2023: EXPL LAP W W/WO BX 08/04/2023: LAPAROSCOPIC HEMICOLECTOMY Comment: partial, removal of rectum lithotomy 08/04/2023: LIVER MOBILIZATION 1974: PAST SURGICAL HISTORY OF Comment: teeth pulled molars 08/04/2023: RAD.DISS, DEBULKING W/ PELV/PARA AORT LYMP Comment: limited bilateral para-arotic lymphadenectomy 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 HRT use: No. HEALTH MAINTENANCE: History of abnormal pap: No. Only 1 in her lifetime Last pap: 40 + years ago Last HPV: unknown Last mammogram: never Last colonoscopy: never, + cologard 04/2022 FAMILY HISTORY Problem Relation Age of Onset Osteoporosis Mother Hypertension Mother Migraines Mother other (thyroid nodule s/p partial thyroidectomy) Mother other (stomach problems) Mother other (BRADYCARDIA) Fa (more content not included)... Normal [facility] CBC W Auto Differential pane l (Bld)on 03-01-2024 Basophils (Bld) [#/Vol] 10*3/uL Normal <0.11 [facility] Comment on above: Order Comment: Speci men Type: BLOOD SPECIMEN [facility] Facility: [facility] Address: [address] [place] [address] Performed By: #### 2 8, #### [facility] CLIA [id number] [address] [place] [address] [place] Basophils/100 WBC (Bld) 0.5 % Normal [facility] Comment on above: Order Comment: Speci men Type: BLOOD SPECIMEN [facility]ing Facility: [facility] Address: [address] [place] [address] Performed By: #### 2 8, #### [facility] CLIA [id number] [address] [place] [address] [place] Differential cell count method Nom (Bld) Auto Normal [facility] Comment on above: Order Comment: Speci men Type: BLOOD SPECIMEN Ordering Facility: [facility] Address: [address] [place] [address] Performed By: #### 2 43238, #### [facility] CLIA [id number] [address] [place] [address] [place] Eosinophils (Bld) [#/Vol] 0.15 10*3/uL Normal <0.46 [facility] Comment on above: Order Comment: Speci men Type: BLOOD SPECIMEN [facility]ing Facility: [facility] Address: [address] [place] [address] Performed By: #### 2 4323-8, #### [facility] CLIA [id number] [address] [place], [place] [id number] [place] Eosinophils/100 WBC (Bld) 3.8 % Normal [facility] Comment on above: Order Comment: Speci men Type: BLOOD SPECIMEN [facility]ing Facility: [facility] Address: [address] [place] [address] Performed By: #### 2 4323-8, #### [facility] CLIA [id number] [address] [place] [address] [place] Erythrocyte distribution width (RBC) [Ratio] 11.4 % Low 11.5-15.0 [facility] Comment on above: Order Comment: Speci men Type: BLOOD SPECIMEN Ordering Facility: [facility] Address: [address] [place] [address] Performed By: #### 2 4323-8, #### [facility] CLIA [id number] [address] [place] [address] [place] Hematocrit (Bld) [Volume fraction] 37.7 % Normal 36.0-46.0 [facility] Comment on above: Order Comment: Speci men Type: BLOOD SPECIMEN [facility]ing Facility: [facility] Address: [address] [place] [address] Performed By: #### 2 4323-8, #### [facility] CLIA [id number] [address] [place] [address] [place] Hemoglobin (Bld) [Mass/Vol] 12.5 g/dL Normal 11.5-15.5 [facility] Comment on above: Order Comment: Speci men Type: BLOOD SPECIMEN Ordering Facility: [facility] Address: [address] [place] [address] Performed By: #### 2 4323-8, #### [facility] CLIA [id number] [address] [place] [address] [place] Immature granulocytes (Bld) [#/Vol] 10*3/uL Normal <0.10 [facility] Comment on above: Order Comment: Speci men Type: BLOOD SPECIMEN Ordering Facility: [facility] Address: [address] [place] [address] Performed By: #### 2 8, #### [facility] CLIA [id number] [address] [place] [address] [place] Immature granulocytes/100 WBC (Bld) 0.3 % Normal [facility] Comment on above: Order Comment: Speci men Type: BLOOD SPECIMEN Ordering Facility: [facility] Address: [address] [place] [address] Performed By: #### 2 8, #### [facility] CLIA [id number] [address] [place] [address] [place] Lymphocytes (Bld) [#/Vol] 1.42 10*3/uL Normal 1.00-4.00 [facility] Comment on above: Order Comment: Speci men Type: BLOOD SPECIMEN Ordering Facility: [facility] Address: [address] [place] [address] Performed By: #### 2 8, #### [facility] CLIA [id number] [address] [place] [address] [place] Lymphocytes/100 WBC (Bld) 35.5 % Normal [facility] Comment on above: Order Comment: Speci men Type: BLOOD SPECIMEN Ordering Facility: [facility] Address: [address] [place] [address] Performed By: #### 2 4323-8, #### [facility] CLIA [id number] [address] [place] [address] [place] MCH (RBC) [Entitic mass] 33.2 pg Normal 26.0-34.0 [facility] Comment on above: Order Comment: Speci men Type: BLOOD SPECIMEN Ordering Facility: [facility] Address: [address] [place] [address] Performed By: #### 2 4323-8, #### [facility] CLIA [id number] [address] [place] [address] [place] MCHC (RBC) [Mass/Vol] 33.2 g/dL Normal 30.5-36.0 [facility] Comment on above: Order Comment: Speci men Type: BLOOD SPECIMEN Ordering Facility: [facility] Address: [address] [place] [address] Performed By: #### 2 4323-8, #### [facility] CLIA [id number] [address] [place] [address] [place] MCV (RBC) [Entitic vol] 100.3 fL High 80.0-100.0 [facility] Comment on above: Order Comment: Speci men Type: BLOOD SPECIMEN Ordering Facility: [facility] Address: [address] [place] [address] Performed By: #### 2 4323-8, #### [facility] CLIA [id number] [address] [place] [address] [place] Monocytes (Bld) [#/Vol] 0.34 10*3/uL Normal <0.87 [facility] Comment on above: Order Comment: Speci men Type: BLOOD SPECIMEN Ordering Facility: [facility] Address: [address] [place] [address] Performed By: #### 2 4323-8, #### [facility] CLIA [id number] [address] [place] [address] [place] Monocytes/100 WBC (Bld) 8.5 % Normal [facility] Comment on above: Order Comment: Speci men Type: BLOOD SPECIMEN Ordering Facility: [facility] Address: [address] [place] [address] Performed By: #### 2 4323, #### [facility] CLIA [id number] [address] [place] [address] [place] Neutrophils (Bld) [#/Vol] 2.06 10*3/uL Normal 1.45-7.50 [facility] Comment on above: Order Comment: Speci men Type: BLOOD SPECIMEN Ordering Facility: [facility] Address: [address] [place] [address] Performed By: #### 2 8, #### [facility] CLIA [id number] [address] [place] [address] [place] Neutrophils/100 WBC (Bld) 51.4 % Normal [facility] Comment on above: Order Comment: Speci men Type: BLOOD SPECIMEN Ordering Facility: [facility] Address: [address] [place] [address] Performed By: #### 2 4323-02, #### [facility] CLIA [id number] [address] [place] [address] [place] Nucleated RBC (Bld) [#/Vol] 10*3/uL Normal <0.01 [facility] Comment on above: Order Comment: Speci men Type: BLOOD SPECIMEN Ordering Facility: [facility] Address: [address] [place] [address] Performed By: #### 2 4323-02, #### [facility] CLIA [id number] [address] [place] [address] [place] Nucleated RBC/100 WBC (Bld) [Ratio] 0.0 /100 WBC Normal [facility] Comment on above: Order Comment: Speci men Type: BLOOD SPECIMEN Ordering Facility: [facility] Address: [address] [place] [address] Performed By: #### 2 4323-8, #### [facility] CLIA [id number] [address] [place] [address] [place] Platelet mean volume (Bld) [Entitic vol] 8.4 fL Low 9.0-12.7 [facility] Comment on above: Order Comment: Speci men Type: BLOOD SPECIMEN Ordering Facility: [facility] Address: [address] [place] [address] Performed By: #### 2 4323-8, 40309-8 #### [facility] CLIA [id number] [address] [place] [address] [place] Platelets (Bld) [#/Vol] 210 10*3/uL Normal 150-400 [facility] Comment on above: Order Comment: Speci men Type: BLOOD SPECIMEN Ordering Facility: [facility] Address: [address] [place] [address] Performed By: #### 2 4323-8, 71627-4 #### [facility] CLIA [id number] [address] [place] [address] [place] RBC (Bld) [#/Vol] 3.76 10*6/uL Low 3.90-5.20 [facility] Comment on above: Order Comment: Speci men Type: BLOOD SPECIMEN Ordering Facility: [facility] Address: [address] [place] [address] Performed By: #### 2 4323-8, 25804-1 #### [facility] CLIA [id number] [address] [place] [address] [place] WBC (Bld) [#/Vol] 4.00 10*3/uL Normal 3.70-11.00 [facility] Comment on above: Order Comment: Speci men Type: BLOOD SPECIMEN Ordering Facility: [facility] Address: [address] [place] [address] Performed By: #### 2 4323-8, 55133-9 #### [facility] CLIA [id number] [address] [place] [address] [place] Cancer Ag125 SerPl-aCncon Cancer Ag 125 Qn 8 [arb'U]/mL Normal <39 [facility] Comment on above: Order Comment: John ellis Type: BLOOD SPECIMEN Ordering Facility: [facility] Address: [address] [place] [address] Result Comment: CA 1 25 test methodology used is the Electrochemiluminescence Immunoassay by [employer]. Results obtained with different methods or kits cannot be used interchangeably. The reference interval is based on the 95th percentile of 240 apparently healthy premenopausal and postmenopausal women. At a cutoff value of 65 U/mL, the test sensitivity to distinguish ovarian carcinoma (FIGO stage I to IV) versus benign gynecological disease is 79%, with a specificity of 82%. Reference: Cancer Antigen 125 (CA 125 II) [package insert V 1.0 [place]ese]. [employer], [place], [place] (April 2015) Performed By: #### 2 4323-8, 62295-6 #### [facility] CLIA [id number] [address] [place] [address] [place] Comprehensive metabolic 2000 panelon 03-01-2024 Albumin [Mass/Vol] 5.0 g/dL High 3.9-4.9 [facility] Comment on above: Order Comment: John ellis Type: BLOOD SPECIMEN Ordering Facility: [facility] Address: [address] [place] [address] Performed By: #### 2 4323-8, #### [facility] CLIA [id number] [address] [place] [address] [place] ALP [Catalytic activity/Vol] 98 U/L Normal 34-123 [facility] Comment on above: Order Comment: John ellis Type: BLOOD SPECIMEN Ordering Facility: [facility] Address: [address] [place] [address] Performed By: #### 2 4323-8, #### [facility] CLIA [id number] [address] [place] [address] [place] ALT [Catalytic activity/Vol] 8 U/L Normal 7-38 [facility] Comment on above: Order Comment: Speci men Type: BLOOD SPECIMEN Ordering Facility: [facility] Address: [address] [place] [address] Performed By: #### 2 4323-8, #### [facility] CLIA [id number] [address] [place] [address] [place] Anion gap [Moles/Vol] 10 mmol/L Normal 8-15 [facility] Comment on above: Order Comment: Speci men Type: BLOOD SPECIMEN Ordering Facility: [facility] Address: [address] [place] [address] Performed By: #### 2 4323-8, #### [facility] CLIA [id number] [address] [place] [address] [place] AST [Catalytic activity/Vol] 20 U/L Normal 13-35 [facility] Comment on above: Order Comment: Speci men Type: BLOOD SPECIMEN Ordering Facility: [facility] Address: [address] [place] [address] Performed By: #### 2 4323-8, #### [facility] CLIA [id number] [address] [place] [address] [place] Bilirubin [Mass/Vol] 0.5 mg/dL Normal 0.2-1.3 [facility] Comment on above: Order Comment: Speci men Type: BLOOD SPECIMEN Ordering Facility: [facility] Address: [address] [place] [address] Performed By: #### 2 4323-8, #### [facility] CLIA [id number] [address] [place] [address] [place] Calcium [Mass/Vol] 10.3 mg/dL High 8.5-10.2 [facility] Comment on above: Order Comment: Speci men Type: BLOOD SPECIMEN Ordering Facility: [facility] Address: [address] [place], [place] [address] Performed By: #### 2 4323-8, #### [facility] CLIA [id number] [address] [place] [address] [place] Chloride [Moles/Vol] 104 mmol/L Normal 98-107 [facility] Comment on above: Order Comment: Speci men Type: BLOOD SPECIMEN Ordering Facility: [facility] Address: [address] [place] [address] Performed By: #### 2 4323-8, #### [facility] CLIA [id number] [address] [place] [address] [place] CO2 [Moles/Vol] 25 mmol/L Normal 22-30 [facility] Comment on above: Order Comment: Speci men Type: BLOOD SPECIMEN Ordering Facility: [facility] Address: [address] [place] [address] Performed By: #### 2 4323-8, #### [facility] CLIA [id number] [address] [place] [address] [place] Creatinine [Mass/Vol] 0.91 mg/dL Normal 0.58-0.96 [facility] Comment on above: Order Comment: Speci men Type: BLOOD SPECIMEN [facility]ing Facility: [facility] Address: [address] [place] [address] Performed By: #### 2 4323-8, #### [facility] CLIA [id number] [address] [place] [address] [place] Creatinine and Glomerular filtration rate.predicted panel (S/P/Bld) 69 mL/min/1.73m??? Normal >=60 [facility] Comment on above: Order Comment: Speci men Type: BLOOD SPECIMEN Ordering Facility: [facility] Address: [address] [place] [address] Result Comment: Erica mated Glomerular Filtration Rate (eGFR) is calculated using the 2020 CKD-EPI creatinine equation. This equation utilizes serum creatinine, sex, and age as parameters. The creatinine assay has traceable calibration to isotope dilution-mass spectrometry. Refer to KDIGO guidelines for clinical interpretation. In patients with unstable renal function, e.g. those with acute kidney injury, the eGFR may not accurately reflect actual GFR. Performed By: #### 2 4323-8, #### [facility] CLIA [id number] [address] [place] [address] [place] Glucose [Mass/Vol] 90 mg/dL Normal 74-99 [facility] Comment on above: Order Comment: John ellis Type: BLOOD SPECIMEN [facility]ing Facility: [facility] Address: [address] [place] [address] Result Comment: The [place] Diabetes Association (ADA) provides guidance for cutoff values for fasting glucose and random glucose. The ADA defines fasting as no caloric intake for at least 8 hours. Fasting plasma glucose results between 100 to 125 mg/dL indicate increased risk for diabetes (prediabetes). Fasting plasma glucose results greater than or equal to 126 mg/dL meet the criteria for diagnosis of diabetes. In the absence of unequivocal hyperglycemia, results should be confirmed by repeat testing. In a patient with classic symptoms of hyperglycemia or hyperglycemic crisis, random plasma glucose results greater than or equal to 200 mg/dL meet the criteria for diagnosis of diabetes. Reference: Standards of Medical Care in Diabetes 2016, [place] [employer] Association. Diabetes Care. 2016.39(Suppl 1). Performed By: #### 2 4323-8, #### [facility] [id number] [address] [place] [address] [place] Potassium [Moles/Vol] 4.1 mmol/L Normal 3.7-5.1 [facility] Comment on above: Order Comment: John ellis Type: BLOOD SPECIMEN [facility] Facility: [facility] Address: [address] [place] [address] Performed By: #### 2 4323-8, #### [facility] [id number] [address] [place] [address] [place] Protein [Mass/Vol] 7.3 g/dL Normal 6.3-8.0 [facility] Comment on above: Order Comment: Speci men Type: BLOOD SPECIMEN [facility]ing Facility: [facility] Address: [address] [place] [address] Performed By: #### 2 4323-8, 79722-9 #### [facility] CLIA [id number] [address] [place] [address] [place] Sodium [Moles/Vol] 139 mmol/L Normal 136-144 [facility] Comment on above: Order Comment: Speci men Type: BLOOD SPECIMEN [facility]ing Facility: [facility] Address: [address] [place] [address] Performed By: #### 2 4323-8, 46016-9 #### [facility] CLIA [id number] [address] [place] [address] [place] Urea nitrogen [Mass/Vol] 19 mg/dL Normal 7-21 [facility] Comment on above: Order Comment: Speci men Type: BLOOD SPECIMEN [facility] Facility: [facility] Address: [address] [place] [address] Performed By: #### 2 4323-8, 35907-3 #### [facility] CLIA [id number] [address] [place] [address] [place] Magnesium SerPl-mCncon 03-01 Magnesium [Mass/Vol] 2.3 mg/dL Normal 1.7-2.3 [facility] Comment on above: Order Comment: Speci men Type: BLOOD SPECIMEN [facility] Facility: [facility] Address: [address] [place] [address] Performed By: #### 2 4323-8, 36709-1 #### [facility] CLIA [id number] [address] [place] [address] [place] CNPNon 08-01-2024 CNPN Telephone (ANNAMARIE) -- JULIANN MYLES ([id number]) 1955 F Date Time Provider Department 02/19/24 BIJAN HAND During your visit today, we recorded the following information about you: Bijan Hand MS 02/19/2024 9:24 AM Signed Results were shared with patient via [employer] message. Juliann Myles's Multi-Cancer panel through [employer] was negative for a pathogenic variant. Please see [employer] message for further discussion. Bijan Hand MS, [facility] Licensed, Certified Genetic Counselor Allergies As of Date: 02/19/2024 (No Known Allergies) Date Reviewed: 12/04/2023 Reviewed by: Leigha Pyror MA - Fully Assessed Reason for Visit: Results [95] Prescriptions as of 02/19/2024 - iv contrast (will be provided with radiology test) CT Chest ABD/PEL-Inject, intravenously, once for 1 dose.No IV access, insert saline lock prior to the beginning of sedation, infusion, injection of imaging exam. Discontinue saline lock post exam. If Pt. has a central line or IVAD, may access for administration according to line specific nursing protocol. Once exam is complete flush line and de-access according to line specific nursing protocol in the CT contrast administration guidelines link. - enteric contrast (will be provided with radiology test) For CT CHESTABD/PEL W IVCON Routine order Administer, As Directed One Time Only, via Oral, Rectal, both Oral and Rectal, Enteric Tube, Stoma or Indwelling Catheter, Enteric Contrast as designated per enteric contrast guidelines - acetaminophen (TYLENOL) 325 mg tablet Take 2 tablets by mouth every 6 hours as needed for pain. - iv contrast (will be provided with radiology test) MRI Female Pelvis Inject, intravenously, once for 1 dose. No IV access, insert saline lock prior to the beginning of sedation, infusion, injection of imaging exam. Discontinue saline lock post exam. If Pt has a central line or IVAD, may access for administration according to line specific nursing protocol. Once exam is complete flush line and de-access according to line specific nursing protocol in the MR contrast administration guidelines link. - ondansetron (ZOFRAN) 8 mg tablet Take 1 tablet by mouth every 8 hours as needed for nausea/vomiting. - promethazine (PHENERGAN) 25 mg tablet Take 1 tablet by mouth every 4 hours as needed for nausea/vomiting. - Cholecalciferol, Vitamin D3, (D3-5000) 125 mcg (5,000 unit) cap Take 5,000 Units by mouth once daily. - lisinopril (ZESTRIL, PRINIVIL) 10 mg tablet Take 1 tablet by mouth once daily. 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 [* Ovary cancer (HCC) [C56.9] 04/30/2023 Pelvic mass [R19.00] 07/24/2023 08/04/2023 Hypertension [I10] 07/24/2023 08/04/2023 Osteoarthritis [M19.90] 07/24/2023 Malignant neoplasm of ovary (HCC) [C56.9] 07/24/2023 08/04/2023 Pre-op exam [Z01.818] 07/24/2023 08/04/2023 History of echocardiogram [Z92.89] 07/24/2023 08/04/2023 Heart murmur [R01.1] CKD (chronic kidney disease) stage 2, GFR 60-89* Other specified anemias [D64.89] Post-operative state [Z98.890] 08/04/2023 11/05/2023 Ureteral stent present [Z96.0] 08/05/2023 10/09/2023 Stage 2 chronic kidney disease [N18.2] 09/12/2023 Cardiac murmur [R01.1] 09/12/2023 Preop testing [Z01.818] 09/12/2023 11/05/2023 Ovarian cancer (HCC) [C56.9] 10/09/2023 10/09/2023 Neutropenia (HCC) [D70.9] 10/09/2023 Encounter for antineoplastic chemotherapy [Z51.*11/05/2023 Encounter Status:Closed by BIJAN HAND on 02/19/24 [facility] CNOVSPon 02-11-2024 CNOVSP Visit (SP) Office (William MTAUS) -- JULIANN MYLES ([id number]) 1955 F Date Time Provider Department 02/11/24 12:00 PM BIJAN HADN TA During your visit today, we recorded the following information about you: Bijan Hand MS 02/11/2024 2:24 PM Addendum [facility] Consultation Note Genetic Counselor: Bijan Hand MS, [facility] Patient: Juliann Myles Patient Name and confirmed at initiation of visit. HIGH LEVEL SUMMARY: The patient's personal history is potentially suggestive of a hereditary cancer syndrome. The patient provided informed consent for Multi-Cancer panel through [employer]. Results are expected in ~2 weeks from the time of sample collection. IDENTIFICATION AND CHIEF COMPLAINT: Dr. Lonnie Arevalo requested a consultation for genetic counseling and risk assessment for Juliann Myles, a 68 year old female, for discussion of her personal history of ovarian cancer. She presents to clinic today to discuss the possibility of a genetic predisposition to cancer, and to further clarify her risks, as well as her family members' risks for cancer. 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 This was treated with neoadjuvant chemotherapy and OFELIA-BSO. She is currently followed via active surveillance. 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 Malignant neoplasm of ovary (HCC) Osteoarthrosis knees Osteopenia Vitamin D deficiency PAST SURGICAL HISTORY Procedure Laterality Date BSO W/OMENTECTOMY TAHANDRAD DEBULKING DISSECTION 08/04/2023 CYSTOSCOPY,INSERT URETHRAL STENT Left 08/04/2023 EXPL LAP W W/WO BX 08/04/2023 LAPAROSCOPIC HEMICOLECTOMY 08/04/2023 partial, removal of rectum lithotomy LIVER MOBILIZATION 08/04/2023 PAST SURGICAL HISTORY OF 1974 teeth pulled molars RAD.DISS, DEBULKING W/ PELV/PARA AORT LYMP 08/04/2023 limited bilateral para-arotic lymphadenectomy CANCER SURVEILLANCE HISTORY: Mammograms: Yes / 2013 and 2023 Breast MRI's: No Breast Biopsies: No Colonoscopy: No EGD: No GI Polyps: N/A Dermatology: No SOCIAL HISTORY: Social History Tobacco Use Smoking status: Never Smokeless tobacco: Never Tobacco comments: smoked in high school for about 2 years. Vaping Use Vaping Use: Never used Substance Use Topics Alcohol use: No Drug use: No FAMILY HISTORY: We obtained a detailed, 4-generation family history. Significant diagnoses are listed below: Maternal aunt underwent a mastectomy when patient was in her 20's but unclear if this was due to a cancer diagnosis A copy of the patient's pedigree will be available under the scanned documents tab following today's visit. GENETIC COUNSELING RISK ASSESSMENT, DISCUSSION, AND SUGGESTED FOLLOW UP: We reviewed the natural history and genetic etiology of sporadic, familial and hereditary cancer syndromes. The patient's personal history is potentially suggestive of a hereditary cancer syndrome. The patient meets NCCN HBOC testing criteria based on her personal history of ovarian cancer. We discussed that identification of a hereditary cancer syndrome may help her care providers tailor her medical management. If a mutation is detected, the patient will be referred back to the referring provider and to any additional appropriate care providers to discuss the relevant options. Inheritance of hereditary cancer syndromes was discussed with the patient. If a mutation is not found in the patient, this will decrease the likelihood of a hereditary cancer syndrome as the explanation for the patient's personal history of cancer. However, it cannot completely rule out this possibility. Cancer surveillance options would be discussed for the patient according to the appropriate standard National Comprehensive Cancer Network and [place] [employer] guidelines, with consideration of their personal and family history risk factors. In this case, the patient will be referred back to their care providers for discussions of management. Based on this assessment of the patient's family and personal history, genetic testing is recommended. It was reviewed that if she were to have a hereditary cause for her ovarian cancer it would most likely be due to a BRCA1/2 mutation. It was also discussed that other genes beyond BRCA1/2 could account for the history and be tested along with BRCA1/2 via a multigene panel. The patient was offered Multi-Cancer panel through [facility]. After considering the risks, benefits, and limitations, the patient chose to pursue and provided (more content not included)... Normal [facility] SEND OUT TST 2023 [facility] TEST RESULTS 1 View results in Scanned Documents link when available Normal [facility] Comment on above: Order Comment: John ellis Type: BLOOD SPECIMEN [facility] Facility[facility] Address: [address] [place] [address] Performed By: #### 1 0334-1 #### [facility] CLIA [id number] [address] [place] [address] [place] REFERRAL LAB 1 [facility] Normal [facility] Comment on above: Order Comment: John ellis Type: BLOOD SPECIMEN [facility] Facility: [facility] Address: [address] [place] [address] Performed By: #### 1 0334-1 #### [facility] CLIA [id number] [address] [place] [address] [place] TEST 1 Multi Cancer Panel Normal [facility] Comment on above: Order Comment: John ellis Type: BLOOD SPECIMEN [facility] Facility[facility] Address: [address] [place] [address] Performed By: #### 1 0334-1 #### [facility] CLIA [id number] [address] [place] [address] [place] CNPPam 12-16-2023 CNPN Telephone ([facility]) -- SHARJULIANN MENDOZA ([id number]) 1955 F Date Time Provider Department 12/16/23 NANCY LUCAS During your visit today, we recorded the following information about you: Luz Maria Beckman 12/16/2023 2:53 PM Signed Received a call from Tiffanie with questions about meeting with genetics. Explained that we are not billing for GC visits and that her appt with one of our genetic counselors would be free of charge. Discussed that we also work with a lab that doesn't balance bill Medicare patients, meaning that her OOP cost for testing would be $0. She understood and would like to make an appt. Let her know that I will send a message over to our schedulers to ask them to reach out and get her scheduled. She appreciated the help. Luz Maria Beckman Genetic Counselor Conversion Worker Staff message to schedulers. Allergies As of Date: 12/16/2023 (No Known Allergies) Date Reviewed: 12/04/2023 Reviewed by: Leigha Pryor MA - Fully Assessed Reason for Visit: Patient Question [8113] Cmt: Genetics Prescriptions as of 12/16/2023 - iv contrast (will be provided with radiology test) CT Chest ABD/PEL-Inject, intravenously, once for 1 dose.No IV access, insert saline lock prior to the beginning of sedation, infusion, injection of imaging exam. Discontinue saline lock post exam. If Pt. has a central line or IVAD, may access for administration according to line specific nursing protocol. Once exam is complete flush line and de-access according to line specific nursing protocol in the CT contrast administration guidelines link. - enteric contrast (will be provided with radiology test) For CT CHESTABD/PEL W IVCON Routine order Administer, As Directed One Time Only, via Oral, Rectal, both Oral and Rectal, Enteric Tube, Stoma or Indwelling Catheter, Enteric Contrast as designated per enteric contrast guidelines - acetaminophen (TYLENOL) 325 mg tablet Take 2 tablets by mouth every 6 hours as needed for pain. - iv contrast (will be provided with radiology test) MRI Female Pelvis Inject, intravenously, once for 1 dose. No IV access, insert saline lock prior to the beginning of sedation, infusion, injection of imaging exam. Discontinue saline lock post exam. If Pt has a central line or IVAD, may access for administration according to line specific nursing protocol. Once exam is complete flush line and de-access according to line specific nursing protocol in the MR contrast administration guidelines link. - ondansetron (ZOFRAN) 8 mg tablet Take 1 tablet by mouth every 8 hours as needed for nausea/vomiting. - promethazine (PHENERGAN) 25 mg tablet Take 1 tablet by mouth every 4 hours as needed for nausea/vomiting. - Cholecalciferol, Vitamin D3, (D3-5000) 125 mcg (5,000 unit) cap Take 5,000 Units by mouth once daily. - lisinopril (ZESTRIL, PRINIVIL) 10 mg tablet Take 1 tablet by mouth once daily. 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 [* Ovary cancer (HCC) [C56.9] 04/30/2023 Pelvic mass [R19.00] 07/24/2023 08/04/2023 Hypertension [I10] 07/24/2023 08/04/2023 Osteoarthritis [M19.90] 07/24/2023 Malignant neoplasm of ovary (HCC) [C56.9] 07/24/2023 08/04/2023 Pre-op exam [Z01.818] 07/24/2023 08/04/2023 History of echocardiogram [Z92.89] 07/24/2023 08/04/2023 Heart murmur [R01.1] CKD (chronic kidney disease) stage 2, GFR 60-89* Other specified anemias [D64.89] Post-operative state [Z98.890] 08/04/2023 11/05/2023 Ureteral stent present [Z96.0] 08/05/2023 10/09/2023 Stage 2 chronic kidney disease [N18.2] 09/12/2023 Cardiac murmur [R01.1] 09/12/2023 Preop testing [Z01.818] 09/12/2023 11/05/2023 Ovarian cancer (HCC) [C56.9] 10/09/2023 10/09/2023 Neutropenia (HCC) [D70.9] 10/09/2023 Encounter for antineoplastic chemotherapy [Z51.*11/05/2023 Encounter Status:Closed by LUZ MARIA BECKMAN on 12/16/23 [facility] CNOVSPon 12-04-2023 CNOVSP Visit (SP) Office ([facility]) -- JULIANN MYLES ([id number]) 1955 F Date Time Provider Department 12/04/23 9:30 AM LONNIE AREVALO During your visit today, we recorded the following information about you: Temperature Pulse Blood pressure Weight 98.2 degrees 94/minute 179/100 63.5 kg Lonnie Arevalo MD 12/10/2023 12:47 PM Addendum GYNECOLOGIC ONCOLOGY FOLLOW UP SERVICE DATE: 08/15/2023 SERVICE TIME: 3:47 PM PRIMARY CARE PHYSICIAN: Manrpeet Nunez MD CHIEF COMPLAINT/HISTORY OF PRESENT ILLNESS/ROS: CC: Pelvic masses Referring Provider: Dr. Pamella Sanabria/ [facility] HPI: Feeling good. Has concerns with the top of her incision. Has some drainage on a bandage that is clear and yellow. Not painful. Not getting worse just perstent. No rashes. No nausea. Eating and drinking normally. Bowel movements and bladder emtying back to normal No SOB or CP Some numbness in fingertips and feet that is not getting worse Gained 15 lbs since chemo The history is provided by the patient and the spouse. No language translator was used. ROS: Review of Systems Constitutional: Negative for activity change, diaphoresis, fever and unexpected weight change. HENT: Negative for ear pain, hearing loss and mouth sores. Eyes: Negative for pain and visual disturbance. Respiratory: Negative for cough, chest tightness and shortness of breath. Cardiovascular: Negative for chest pain and palpitations. Gastrointestinal: Negative for abdominal pain, constipation, diarrhea, nausea and vomiting. Endocrine: Negative for cold intolerance and heat intolerance. Genitourinary: Negative for dysuria, frequency, hematuria, pelvic pain, urgency, vaginal bleeding, vaginal discharge and vaginal pain. Musculoskeletal: Negative for arthralgias and myalgias. Skin: Negative for rash and wound. Neurological: Negative for dizziness, syncope, light-headedness and headaches. Psychiatric/Behavioral: Negative for agitation. The patient is not nervous/anxious. Oncologic History: - 04/17/2023: presented to [place] ED with R flank pain and nausea for [address] with finding of cystic pelvic mass, 21 cm, bilateral hydronephrosis R>L, omental and mesenteric soft tissue masses and retroperitoneal lymphadenopathy. Denies h/o PMB. 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 - 05/07/2023: C1 carboplatin and paclitaxel - 06/04/2023 : CA-125: 926, Her2 FISH results identify amplification - 06/06/2023: C2 carboplatin and paclitaxel, trastuzumab added with this cycle as potential uterine primary vs ovarian - 06/27/2023: C3 carboplatin and paclitaxel, trastuzumab - 07/04/2023: Partial response by CT imaging, no new disease, attention to prominent axillary lymph node on follow up - 07/16/2023: If ovarian primary, KELIM score 0.53 (poorly chemosensitive disease) - 08/04/2023: XL/OFELIA/BSO/Rectosigmoid resection en bloc with re-anastamosis/OMX/partial diaphgram resection and radical debulking and ureteral stent placement with final pathology showing 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, stage IIIC based on original imaging disease burden - 09/17/2023: C4 c/b taxol reaction, received rest at lower rate - 10/09/2023: C5 carbo with taxol desens - 11/05/2023: C6 carbo with taxol desens 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: 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 Malignant neoplasm of ovary (HCC) Osteoarthrosis knees Osteopenia Vitamin D deficiency PAST SURGICAL HISTORY Procedure Laterality Date BSO W/OMENTECTOMY TAHANDRAD DEBULKING DISSECTION 08/04/2023 CYSTOSCOPY,INSERT URETHRAL STENT Left 08/04/2023 EXPL LAP W W/WO BX 08/04/2023 LAPAROSCOPIC HEMICOLECTOMY 08/04/2023 partial, removal of rectum lithotomy LIVER MOBILIZATION 08/04/2023 PAST SURGICAL HISTORY OF 1974 teeth pulled molars RAD.DISS, DEBULKING W/ PELV/PARA AORT LYMP 08/04/2023 limited bilateral para-arotic lymphadenectomy 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 HRT use: No. HEALTH MAINTENANCE: History of abnormal pap: No. Only 1 in her lifetime Last pap: 40 + years ago Last HPV: unknown Last mammogram: never Last colonoscopy: never, + cologard 04/2022 FAMILY HISTORY Problem Relation Age of Onset Osteoporosis Mother Hypertension Mother Migraines Mother other (thyroid nodule (more content not included)... Normal [facility] CT ABD/PEL W IVCONon 024 CT ABD/PEL W IVCON * * *Final Report* * * DATE OF EXAM: Nov 19 2023 11:05AM [facility] 0530 - CT ABD/PEL W IVCON / PROCEDURE REASON: Malignant neoplasm of ovary, unspecified laterality (HCC) * * * * Physician Interpretation * * * * EXAM: CT ABD/PEL W IVCON, CT CHEST W IVCON INDICATION: Malignant neoplasm of ovary, unspecified laterality (HCC) Ovarian cancer, assess treatment response status post carboplatin and paclitaxel, trastuzumab, interval hysterectomy and bilateral salpingo-oophorectomy, omentectomy with peritoneal disease in right diaphragmatic, CA-125 normal COMPARISON: 07/04/2023, 04/17/2023 TECHNIQUE: Chest, abdomen and pelvis were scanned utilizing a multidetector helical scanner from the lung apex to the pubic symphysis. Coronal and sagittal reformations were obtained. CT low dose techniques were utilized, as applicable. Contrast: IV: 100 ml of Omnipaque 300 Oral: 12 ml of Omni 240 10-25ml diluted with water FINDINGS: Lines, tubes, and devices: None. Lungs, pleura, airways: Unchanged right apical subpleural nodularity, possibly scarring. No new, enlarging, or otherwise suspicious nodules. No pleural effusion. Lower neck, lymph nodes, mediastinum: No pathologically enlarged nodes. Heart, pericardium, and thoracic vessels: Normal heart size without pericardial effusion. Coronary artery and aortic atherosclerotic calcification. Liver: No mass. Biliary/Gallbladder: Unremarkable. No bile duct dilation. Spleen: Unremarkable. Pancreas: Unremarkable. Adrenals: Unchanged nodular thickening. Kidneys: Few too small to characterize hypodensities. No hydronephrosis. Vasculature: Atherosclerotic disease. No abdominal aortic aneurysm. GI Tract: Low anterior/sigmoid resection. No wall thickening or obstruction. Pelvis: Interval hysterectomy and bilateral salpingo-oophorectomy. No pelvic mass. Mesentery/Peritoneum/Retro peritoneum: Subtle areas of peritoneal thickening (8:56, 51, 12:50). No free fluid. Lymph Nodes: Subcentimeter retroperitoneal and pelvic nodes, similar to prior but few decreased from 04/17/2023 (for example 8:71, 75). Bones and soft tissues: 4 mm sclerotic focus along the superior aspect of T7, more conspicuous/dense from 06/2023 and new from 04/18/2023. Ventral postsurgical changes. Slp Teacher (topogram) images: No additional findings. IMPRESSION: 1. Interval postsurgical changes. Subtle areas of peritoneal thickening, which may be postsurgical/treatment related. Attention on follow-up. 2. Indeterminate small T7 sclerotic lesion, new from 03/2023. Treated bone metastasis possible, though unusual in ovarian cancer. 3. Stable subcentimeter retroperitoneal and pelvic nodes, but few decreased from 04/17/2023. Education Coordinator: LOREN Transcribe Date/Time: Nov 22 2023 1:39P Dictated by : SIDRA GUADALUPE MD This examination was interpreted and the report reviewed and electronically signed by: SIDRA GUADALUPE MD on Nov 22 2023 2:34PM EST [id number] Normal [facility] CT CHEST W IVCONon CT CHEST W IVCON * * *Final Report* * * DATE OF EXAM: Nov 19 2023 11:05AM [facility] 0539 - CT CHEST W IVCON / PROCEDURE REASON: Malignant neoplasm of ovary, unspecified laterality (HCC) * * * * Physician Interpretation * * * * EXAM: CT ABD/PEL W IVCON, CT CHEST W IVCON INDICATION: Malignant neoplasm of ovary, unspecified laterality (HCC) Ovarian cancer, assess treatment response status post carboplatin and paclitaxel, trastuzumab, interval hysterectomy and bilateral salpingo-oophorectomy, omentectomy with peritoneal disease in right diaphragmatic, CA-125 normal COMPARISON: 07/04/2023, 04/17/2023 TECHNIQUE: Chest, abdomen and pelvis were scanned utilizing a multidetector helical scanner from the lung apex to the pubic symphysis. Coronal and sagittal reformations were obtained. CT low dose techniques were utilized, as applicable. Contrast: IV: 100 ml of Omnipaque 300 Oral: 12 ml of Omni 240 10-25ml diluted with water FINDINGS: Lines, tubes, and devices: None. Lungs, pleura, airways: Unchanged right apical subpleural nodularity, possibly scarring. No new, enlarging, or otherwise suspicious nodules. No pleural effusion. Lower neck, lymph nodes, mediastinum: No pathologically enlarged nodes. Heart, pericardium, and thoracic vessels: Normal heart size without pericardial effusion. Coronary artery and aortic atherosclerotic calcification. Liver: No mass. Biliary/Gallbladder: Unremarkable. No bile duct dilation. Spleen: Unremarkable. Pancreas: Unremarkable. Adrenals: Unchanged nodular thickening. Kidneys: Few too small to characterize hypodensities. No hydronephrosis. Vasculature: Atherosclerotic disease. No abdominal aortic aneurysm. GI Tract: Low anterior/sigmoid resection. No wall thickening or obstruction. Pelvis: Interval hysterectomy and bilateral salpingo-oophorectomy. No pelvic mass. Mesentery/Peritoneum/Retro peritoneum: Subtle areas of peritoneal thickening (8:56, 51, 12:50). No free fluid. Lymph Nodes: Subcentimeter retroperitoneal and pelvic nodes, similar to prior but few decreased from 04/17/2023 (for example 8:71, 75). Bones and soft tissues: 4 mm sclerotic focus along the superior aspect of T7, more conspicuous/dense from 06/2023 and new from 04/18/2023. Ventral postsurgical changes. Slp Teacher (topogram) images: No additional findings. IMPRESSION: 1. Interval postsurgical changes. Subtle areas of peritoneal thickening, which may be postsurgical/treatment related. Attention on follow-up. 2. Indeterminate small T7 sclerotic lesion, new from 03/2023. Treated bone metastasis possible, though unusual in ovarian cancer. 3. Stable subcentimeter retroperitoneal and pelvic nodes, but few decreased from 04/17/2023. Education Coordinator: PSCB Transcribe Date/Time: Nov 22 2023 1:39P Dictated by : SIDRA GUADALUPE MD This examination was interpreted and the report reviewed and electronically signed by: SIDRA GUADALUPE MD on Nov 22 2023 2:34PM EST [id number] Normal [facility] CBC W Auto Differential pane l (Bld)on 11-04-2023 Basophils (Bld) [#/Vol] 10*3/uL Normal <0.11 [facility] Comment on above: Order Comment: Speci men Type: BLOOD SPECIMENOrdering Facility: [facility] Address: [address] [place] [address] Performed By: #### 5 7021-8 ####[facility] [id number] [place] [address] [place] Basophils/100 WBC (Bld) 0.6 % Normal [facility] Comment on above: Order Comment: Speci men Type: BLOOD SPECIMENOrdering Facility: [facility] Address: [address] [place], [place] [address] Performed By: #### 5 7021-8 ####[facility] [id number] [place] [address] [place] Differential cell count method Nom (Bld) Auto Normal [facility] Comment on above: Order Comment: Speci men Type: BLOOD SPECIMENOrdering Facility: [facility] Address: [address] [place] [address] Performed By: #### 5 7021-8 ####[facility] MILLTOWNCLIA [id number] [place] [address] [place] Eosinophils (Bld) [#/Vol] 0.06 10*3/uL Normal <0.46 [facility] Comment on above: Order Comment: Speci men Type: BLOOD SPECIMENOrdering Facility: [facility] Address: [address] [place] [address] Performed By: #### 5 7021-8 ####[facility] MILLWJAMALLIA [id number] [place] [address] [place] Eosinophils/100 WBC (Bld) 1.8 % Normal [facility] Comment on above: Order Comment: Speci men Type: BLOOD SPECIMENOrdering Facility: [facility] Address: [address] [place] [address] Performed By: #### 5 7021-8 ####[facility] ERWNCL[facility] [id number] [place] [address] [place] Erythrocyte distribution width (RBC) [Ratio] 12.7 % Normal 11.5-15.0 [facility] Comment on above: Order Comment: Speci men Type: BLOOD SPECIMENOrdering Facility: [facility] Address: [address] [place] [address] Performed By: #### 5 7021-8 ####[facility] MILLTOWNCLIA [id number] [place] [address] [place] Hematocrit (Bld) [Volume fraction] 33.1 % Low 36.0-46.0 [facility] Comment on above: Order Comment: Speci men Type: BLOOD SPECIMENOrdering Facility: [facility] Address: [address] [place] [address] Performed By: #### 5 7021-8 ####[facility] MILLTOWNCLIA [id number] [place] [address] [place] Hemoglobin (Bld) [Mass/Vol] 11.0 g/dL Low 11.5-15.5 [facility] Comment on above: Order Comment: Speci men Type: BLOOD SPECIMENOrdering Facility: [facility] Address: [address] [place] [address] Performed By: #### 5 7021-8 ####[facility] [id number] [place] [address] [place] Immature granulocytes (Bld) [#/Vol] 10*3/uL Normal <0.10 [facility] Comment on above: Order Comment: Speci men Type: BLOOD SPECIMENOrdering Facility: [facility] Address: [address] [place] [address] Performed By: #### 5 7021-8 ####[facility] [id number] [place] [address] [place] Immature granulocytes/100 WBC (Bld) 0.3 % Normal [facility] Comment on above: Order Comment: Speci men Type: BLOOD SPECIMENOrdering Facility: [facility] Address: [address] [place] [address] Performed By: #### 5 7021-8 ####[facility] [id number] [place] [address] [place] Lymphocytes (Bld) [#/Vol] 1.41 10*3/uL Normal 1.00-4.00 [facility] Comment on above: Order Comment: Speci men Type: BLOOD SPECIMENOrdering Facility: [facility] Address: [address] [place] [address] Performed By: #### 5 7021-8 ####[facility] [id number] [place] [address] [place] Lymphocytes/100 WBC (Bld) 42.2 % Normal [facility] Comment on above: Order Comment: Speci men Type: BLOOD SPECIMENOrdering Facility: [facility] Address: [address] [place] [address] Performed By: #### 5 7021-8 ####[facility] [facility] [id number] [address] [place] MCH (RBC) [Entitic mass] 32.7 pg Normal 26.0-34.0 [facility] Comment on above: Order Comment: Speci men Type: BLOOD SPECIMENOrdering Facility: [facility] Address: [address] [place] [address] Performed By: #### 5 7021-8 ####[facility] [id number] [place] [address] [place] MCHC (RBC) [Mass/Vol] 33.2 g/dL Normal 30.5-36.0 [facility] Comment on above: Order Comment: Speci men Type: BLOOD SPECIMENOrdering Facility: [facility] Address: [address] [place] [address] Performed By: #### 5 7021-8 ####[facility]ITALNCLIA [id number] [address] [place] MCV (RBC) [Entitic vol] 98.5 fL Normal 80.0-100.0 [facility] Comment on above: Order Comment: Speci men Type: BLOOD SPECIMENOrdering Facility: [facility] Address: [address] [place], [place] [address] Performed By: #### 5 7021-8 ####[facility]ITALNCA [id number] [address] [place] Monocytes (Bld) [#/Vol] 0.41 10*3/uL Normal <0.87 [facility] Comment on above: Order Comment: Speci men Type: BLOOD SPECIMENOrdering Facility: [facility] Address: [address] [place] [address] Performed By: #### 5 7021-8 ####[facility] ERWNCLIA [id number] [place] [address] [place] Monocytes/100 WBC (Bld) 12.3 % Normal [facility] Comment on above: Order Comment: Speci men Type: BLOOD SPECIMENOrdering Facility: [facility] Address: [address] [place] [address] Performed By: #### 5 7021-8 ####[facility]ITALLIA [id number] [place] [address] [place] Neutrophils (Bld) [#/Vol] 1.43 10*3/uL Low 1.45-7.50 [facility] Comment on above: Order Comment: Speci men Type: BLOOD SPECIMENOrdering Facility: [facility] Address: [address] [place] [address] Performed By: #### 5 7021-8 ####[facility]ITALLIA [id number] [place] [address] [place] Neutrophils/100 WBC (Bld) 42.8 % Normal [facility] Comment on above: Order Comment: Speci men Type: BLOOD SPECIMENOrdering Facility: [facility] Address: [address] [place] [address] Performed By: #### 5 7021-8 ####[facility]ITALNCLIA [id number] [place] [address] [place] Nucleated RBC (Bld) [#/Vol] 10*3/uL Normal <0.01 [facility] Comment on above: Order Comment: Speci men Type: BLOOD SPECIMENOrdering Facility: [facility] Address: [address] [place] [address] Performed By: #### 5 7021-8 ####[facility]ITALLIA [id number] [place] [address] [place] Nucleated RBC/100 WBC (Bld) [Ratio] 0.0 /100 WBC Normal [facility] Comment on above: Order Comment: Speci men Type: BLOOD SPECIMENOrdering Facility: [facility] Address: [address] [place] [address] Performed By: #### 5 7021-8 ####[facility] GUNNARFlashMARLENE [id number] [place] [address] [place] Platelet mean volume (Bld) [Entitic vol] 8.0 fL Low 9.0-12.7 [facility] Comment on above: Order Comment: Speci men Type: BLOOD SPECIMENOrdering Facility: [facility] Address: [address] [place] [address] Performed By: #### 5 7021-8 ####[facility] HOSPITALJAMALJennifer [id number] [place] [address] [place] Platelets (Bld) [#/Vol] 195 10*3/uL Normal 150-400 [facility] Comment on above: Order Comment: Speci men Type: BLOOD SPECIMENOrdering Facility: [facility] Address: [address] [place] [address] Performed By: #### 5 7021-8 ####[facility] HOSPITALELYJennifer [id number] [place] [address] [place] RBC (Bld) [#/Vol] 3.36 10*6/uL Low 3.90-5.20 [facility] Comment on above: Order Comment: Speci men Type: BLOOD SPECIMENOrdering Facility: [facility] Address: [address] [place] [address] Performed By: #### 5 7021-8 ####[facility]ITALNCLIA [id number] [place] [address] [place] WBC (Bld) [#/Vol] 3.34 10*3/uL Low 3.70-11.00 [facility] Comment on above: Order Comment: John ellis Type: BLOOD SPECIMENOrdering Facility: [facility] Address: [address] [place] [address] Performed By: #### 5 7021-8 ####[facility] [id number] [place] [address] [place] Cancer Ag125 SerPl-aCncon Cancer Ag 125 Qn 8 [arb'U]/mL Normal <39 [facility] Comment on above: Order Comment: John ellis Type: BLOOD SPECIMEN [facility] Address: [address] [place] [address] Result Comment: CA 1 25 test methodology used is the Electrochemiluminescence Immunoassay by [employer]. Results obtained with different methods or kits cannot be used interchangeably. The reference interval is based on the 95th percentile of 240 apparently healthy premenopausal and postmenopausal women. At a cutoff value of 65 U/mL, the test sensitivity to distinguish ovarian carcinoma (FIGO stage I to IV) versus benign gynecological disease is 79%, with a specificity of 82%. Reference: Cancer Antigen 125 (CA 125 II) [package insert V 1.0 [place]ese]. [employer], [place], [place] (April 2015) Performed By: #### 1 0334-1 #### [facility] CLIA [id number] [address] [place] [address] [place] Comprehensive metabolic 2000 panelon 11-04-2023 Albumin [Mass/Vol] 4.7 g/dL Normal 3.9-4.9 [facility] Comment on above: Order Comment: John ellis Type: BLOOD SPECIMEN [facility] Address: [address] [place] [address] Performed By: #### 2 4323-8, 10765-3 #### [facility] CLIA [id number] [address] [place] [address] [place] ALP [Catalytic activity/Vol] 94 U/L Normal 34-123 [facility] Comment on above: Order Comment: Speci men Type: BLOOD SPECIMEN [facility] Address: [address] [place] [address] Performed By: #### 2 4323-8, #### [facility] CLIA [id number] [address] [place] [address] [place] ALT [Catalytic activity/Vol] 6 U/L Low 7-38 [facility] Comment on above: Order Comment: Speci men Type: BLOOD SPECIMEN [facility] Address: [facility] [place] [address] Performed By: #### 2 4323-8, #### [facility] CLIA [id number] [address] [place] [address] [place] Anion gap [Moles/Vol] 8 mmol/L Low 9-18 [facility] Comment on above: Order Comment: Speci men Type: BLOOD SPECIMEN [facility] Address: [address] [place] [address] Performed By: #### 2 4323-8, #### [facility] CLIA [id number] [address] [place] [address] [place] AST [Catalytic activity/Vol] 16 U/L Normal 13-35 [facility] Comment on above: Order Comment: Speci men Type: BLOOD SPECIMEN [facility] Address: [address] [place] [address] Performed By: #### 2 4323-8, #### [facility] CLIA [id number] [address] [place] [address] [place] Bilirubin [Mass/Vol] 0.3 mg/dL Normal 0.2-1.3 [facility] Comment on above: Order Comment: Speci men Type: BLOOD SPECIMEN [facility] Address: [address] [place] [address] Performed By: #### 2 4323-8, #### [facility] CLIA [id number] [address] [place] [address] [place] Calcium [Mass/Vol] 10.2 mg/dL Normal 8.5-10.2 [facility] Comment on above: Order Comment: Speci men Type: BLOOD SPECIMEN [facility] Address: [address] [place] [id number] Performed By: #### 2 432-8, #### [facility] CLIA [id number] [address] [place] [address] [place] Chloride [Moles/Vol] 103 mmol/L Normal 97-105 [facility] Comment on above: Order Comment: Speci men Type: BLOOD SPECIMEN [facility] Address: [facility] [place] [id number] Performed By: #### 2 4328, #### [facility] CLIA [id number] [address] [place] [address] [place] CO2 [Moles/Vol] 25 mmol/L Normal 22-30 [facility] Comment on above: Order Comment: Speci men Type: BLOOD SPECIMEN [facility] Address: [address] [place] [address] Performed By: #### 2 4328, #### [facility] CLIA [id number] [address] [place] [address] [place] Creatinine [Mass/Vol] 0.89 mg/dL Normal 0.58-0.96 [facility] Comment on above: Order Comment: Speci men Type: BLOOD SPECIMEN [facility] Address: [address] [place] [id number] Performed By: #### 2 4323-8, #### [facility] CLIA [id number] [address] [place] [address] [place] Creatinine and Glomerular filtration rate.predicted panel (S/P/Bld) 71 mL/min/1.73m??? Normal >=60 [facility] Comment on above: Order Comment: John ellis Type: BLOOD SPECIMEN [facility] Address: [address] [place] [address] Result Comment: Erica mated Glomerular Filtration Rate (eGFR) is calculated using the 2020 CKD-EPI creatinine equation. This equation utilizes serum creatinine, sex, and age as parameters. The creatinine assay has traceable calibration to isotope dilution-mass spectrometry. Refer to KDIGO guidelines for clinical interpretation. In patients with unstable renal function, e.g. those with acute kidney injury, the eGFR may not accurately reflect actual GFR. Performed By: #### 2 4323-8, 57938-8 #### [facility] [id number] [address] [place] [address] [place] [facility] [place] Glucose [Mass/Vol] 104 mg/dL High 74-99 [facility] Comment on above: Order Comment: John ellis Type: BLOOD SPECIMEN [facility] Address: [address] [place] [address] Result Comment: The [place] Diabetes Association (ADA) provides guidance for cutoff values for fasting glucose and random glucose. The ADA defines fasting as no caloric intake for at least 8 hours. Fasting plasma glucose results between 100 to 125 mg/dL indicate increased risk for diabetes (prediabetes). Fasting plasma glucose results greater than or equal to 126 mg/dL meet the criteria for diagnosis of diabetes. In the absence of unequivocal hyperglycemia, results should be confirmed by repeat testing. In a patient with classic symptoms of hyperglycemia or hyperglycemic crisis, random plasma glucose results greater than or equal to 200 mg/dL meet the criteria for diagnosis of diabetes. Reference: Standards of Medical Care in Diabetes 2016, [place] [employer] Association. Diabetes Care. 2016.39(Suppl 1). Performed By: #### 2 4323-8, 14683-9 #### [facility] [id number] [address] [place] [address] [place] Potassium [Moles/Vol] 3.7 mmol/L Normal 3.7-5.1 [facility] Comment on above: Order Comment: Speci men Type: BLOOD SPECIMEN [facility] Address: [address] [place], [place] [address] Performed By: #### 2 4323-8, #### [facility] CLIA [id number] [address] [place] [address] [place] Protein [Mass/Vol] 7.4 g/dL Normal 6.3-8.0 [facility] Comment on above: Order Comment: Speci men Type: BLOOD SPECIMEN [facility] Address: [address] [place] [address] Performed By: #### 2 4323-8, #### [facility] CLIA [id number] [address] [place] [address] [place] Sodium [Moles/Vol] 136 mmol/L Normal 136-144 [facility] Comment on above: Order Comment: Speci men Type: BLOOD SPECIMEN [facility] Address: [address] [place] [address] Performed By: #### 2 4323-8, #### [facility] CLIA [id number] [address] [place] [address] [place] Urea nitrogen [Mass/Vol] 23 mg/dL High 7-21 [facility] Comment on above: Order Comment: Speci men Type: BLOOD SPECIMEN [facility] Address: [address] [place], [place] [address] Performed By: #### 2 4323-8, #### [facility] CLIA [id number] [address] [place] [address] [place] Magnesium SerPl-mCncon 11-03 Magnesium [Mass/Vol] 2.1 mg/dL Normal 1.7-2.3 [facility] Comment on above: Order Comment: Speci men Type: BLOOD SPECIMEN [facility] Address: [address] [place] [address] Performed By: #### 1 0334-1 #### [facility] CLIA [id number] [address] [place] [address] [place] [address] [place] CBC W Auto Differential pane l (Bld)on 10-28-2023 Basophils (Bld) [#/Vol] 10*3/uL Normal <0.11 [facility] Comment on above: Order Comment: Speci men Type: BLOOD SPECIMEN [facility] Address: [address] [place] [address] Performed By: #### 2 4323-8, #### [facility] CLIA [id number] [address] [place] [address] [place] Basophils/100 WBC (Bld) 0.4 % Normal [facility] Comment on above: Order Comment: Speci men Type: BLOOD SPECIMEN [facility] Address: [address] [place] [address] Performed By: #### 2 4323-8, #### [facility] CLIA [id number] [address] [place] [address] [place] Differential cell count method Nom (Bld) Auto Normal [facility] Comment on above: Order Comment: Speci men Type: BLOOD SPECIMEN [facility] Address: [address] [place] [address] Performed By: #### 2 4323-8, #### [facility] CLIA [id number] [address] [place] [address] [place] Eosinophils (Bld) [#/Vol] 10*3/uL Normal <0.46 [facility] Comment on above: Order Comment: Speci men Type: BLOOD SPECIMEN [facility] Address: [address] [place] [id number] Performed By: #### 2 4323-8, #### [facility] CLIA [id number] [address] [place] [address] [place] Eosinophils/100 WBC (Bld) 0.8 % Normal [facility] Comment on above: Order Comment: Speci men Type: BLOOD SPECIMEN [facility] Address: [address] [place] [address] Performed By: #### 2 4323-8, #### [facility] CLIA [id number] [address] [place] [address] [place] Erythrocyte distribution width (RBC) [Ratio] 12.4 % Normal 11.5-15.0 [facility] Comment on above: Order Comment: Speci men Type: BLOOD SPECIMEN [facility] Address: [address] [place] [address] Performed By: #### 2 4323-8, #### [facility] CLIA [id number] [address] [place] [address] [place] Hematocrit (Bld) [Volume fraction] 31.5 % Low 36.0-46.0 [facility] Comment on above: Order Comment: Speci men Type: BLOOD SPECIMEN [facility] Address: [address] [place], [place] [address] Performed By: #### 2 4323-8, #### [facility] CLIA [id number] [address] [place] [address] [place] Hemoglobin (Bld) [Mass/Vol] 10.6 g/dL Low 11.5-15.5 [facility] Comment on above: Order Comment: Speci men Type: BLOOD SPECIMEN [facility] Address: [address] [place] [address] Performed By: #### 2 4323-8, #### [facility] CLIA [id number] [address] [place] [address] [place] Immature granulocytes (Bld) [#/Vol] 10*3/uL Normal <0.10 [facility] Comment on above: Order Comment: Speci men Type: BLOOD SPECIMEN [facility] Address: [address] [place] [address] Performed By: #### 2 4328, #### [facility] CLIA [id number] [address] [place] [address] [place] Immature granulocytes/100 WBC (Bld) 0.4 % Normal [facility] Comment on above: Order Comment: Speci men Type: BLOOD SPECIMEN [facility] Address: [address] [place] [address] Performed By: #### 2 8, #### [facility] CLIA [id number] [address] [place] [address] [place] Lymphocytes (Bld) [#/Vol] 1.34 10*3/uL Normal 1.00-4.00 [facility] Comment on above: Order Comment: Speci men Type: BLOOD SPECIMEN [facility] Address: [address] [place] [address] Performed By: #### 2 8, #### [facility] CLIA [id number] [address] [place] [address] [place] Lymphocytes/100 WBC (Bld) 55.8 % Normal [facility] Comment on above: Order Comment: Speci men Type: BLOOD SPECIMEN [facility] Address: [address] [place] [address] Performed By: #### 2 4323-8, #### [facility] CLIA [id number] [address] [place] MCH (RBC) [Entitic mass] 33.3 pg Normal 26.0-34.0 [facility] Comment on above: Order Comment: Speci men Type: BLOOD SPECIMEN [facility] Address: [address] [place] [address] Performed By: #### 2 4323-8, 79888-4 #### [facility] CLIA [id number] [address] [place] [address] [place] MCHC (RBC) [Mass/Vol] 33.7 g/dL Normal 30.5-36.0 [facility] Comment on above: Order Comment: Speci men Type: BLOOD SPECIMEN [facility] Address: [address] [place] [address] Performed By: #### 2 4323-8, 61320-7 #### [facility] CLIA [id number] [address] [place] [address] [place] MCV (RBC) [Entitic vol] 99.1 fL Normal 80.0-100.0 [facility] Comment on above: Order Comment: Speci men Type: BLOOD SPECIMEN [facility] Address: [address] [place] [address] Performed By: #### 2 4323-8, #### [facility] CLIA [id number] [address] [place] [address] [place] Monocytes (Bld) [#/Vol] 0.45 10*3/uL Normal <0.87 [facility] Comment on above: Order Comment: Speci men Type: BLOOD SPECIMEN [facility] Address: [address] [place] [address] Performed By: #### 2 4323-8, #### [facility] CLIA [id number] [address] [place] [address] [place] Monocytes/100 WBC (Bld) 18.8 % Normal [facility] Comment on above: Order Comment: Speci men Type: BLOOD SPECIMEN [facility] Address: [address] [place], [place] [address] Performed By: #### 2 4323-8, #### [facility] CLIA [id number] [address] [place] [address] [place] Neutrophils (Bld) [#/Vol] 0.57 10*3/uL Low 1.45-7.50 [facility] Comment on above: Order Comment: Speci men Type: BLOOD SPECIMEN [facility] Address: [address] [place] [address] Performed By: #### 2 432-8, #### [facility] CLIA [id number] [address] [place] [address] [place] Neutrophils/100 WBC (Bld) 23.8 % Normal [facility] Comment on above: Order Comment: Speci men Type: BLOOD SPECIMEN [facility] Address: [address] [place] [address] Performed By: #### 2 8, #### [facility] CLIA [id number] [address] [place] [address] [place] Nucleated RBC (Bld) [#/Vol] 10*3/uL Normal <0.01 [facility] Comment on above: Order Comment: Speci men Type: BLOOD SPECIMEN [facility] Address: [address] [place] [address] Performed By: #### 2 4323-8, #### [facility] CLIA [id number] [address] [place] [address] [place] Nucleated RBC/100 WBC (Bld) [Ratio] 0.0 /100 WBC Normal [facility] Comment on above: Order Comment: Speci men Type: BLOOD SPECIMEN [facility] Address: [address] [place], [place] [address] Performed By: #### 2 4323-8, 17608-3 #### [facility] CLIA [id number] [address] [place] [address] [place] Platelet mean volume (Bld) [Entitic vol] 7.9 fL Low 9.0-12.7 [facility] Comment on above: Order Comment: Speci men Type: BLOOD SPECIMEN [facility] Address: [address] [place], [place] [address] Performed By: #### 2 4323-8, 30025-5 #### [facility] CLIA [id number] [address] [place] [address] [place] Platelets (Bld) [#/Vol] 190 10*3/uL Normal 150-400 [facility] Comment on above: Order Comment: Speci men Type: BLOOD SPECIMEN [facility] Address: [address] [place] [address] Performed By: #### 2 4323-8, 93076-0 #### [facility] CLIA [id number] [address] [place] [address] [place] RBC (Bld) [#/Vol] 3.18 10*6/uL Low 3.90-5.20 [facility] Comment on above: Order Comment: Speci men Type: BLOOD SPECIMEN [facility] Address: [address] [place] [address] Performed By: #### 2 4323-8, #### [facility] CLIA [id number] [address] [place] [address] [place] WBC (Bld) [#/Vol] 2.40 10*3/uL Low 3.70-11.00 [facility] Comment on above: Order Comment: Speci men Type: BLOOD SPECIMEN [facility] Address: [address] [place] [address] Performed By: #### 2 4323-8, 27269-7 #### [facility] CLIA [id number] [address] [place] [address] [place] Cancer Ag125 SerPl-aCncon Cancer Ag 125 Qn 7 [arb'U]/mL Normal <39 [facility] Comment on above: Order Comment: Speci men Type: BLOOD SPECIMEN [facility] Address: [address] [place] [address] Result Comment: [place] 1 25 test methodology used is the Electrochemiluminescence Immunoassay by [employer]. Results obtained with different methods or kits cannot be used interchangeably. The reference interval is based on the 95th percentile of 240 apparently healthy premenopausal and postmenopausal women. At a cutoff value of 65 U/mL, the test sensitivity to distinguish ovarian carcinoma (FIGO stage I to IV) versus benign gynecological disease is 79%, with a specificity of 82%. Reference: Cancer Antigen 125 (CA 125 II) [package insert V 1.0 Taiwanese]. [employer] [facility], [place], [place] (April 2015) Performed By: #### 2 4323-8, 49007-8 #### [facility] BEACHIA [id number] [address] [place] [address] [place] Comprehensive metabolic 2000 panelon 10-28-2023 Albumin [Mass/Vol] 4.4 g/dL Normal 3.9-4.9 [facility] Comment on above: Order Comment: Speci men Type: BLOOD SPECIMENOrdering Facility: [facility] Address: [address] [place] [address] Performed By: #### 1 9123-9, 13545-9 ####[facility] [id number] [place] [address] [place] ALP [Catalytic activity/Vol] 91 U/L Normal 34-123 [facility] Comment on above: Order Comment: Speci men Type: BLOOD SPECIMENOrdering Facility: [facility] Address: [address] [place] [address] Performed By: #### 1 9123-9, 65381-3 ####[facility] ZULLY MILLTOWNCLIA [id number] [place] [address] [place] ALT [Catalytic activity/Vol] 10 U/L Normal 7-38 [facility] Comment on above: Order Comment: Speci men Type: BLOOD SPECIMENOrdering Facility: [facility] Address: [address] [place] [address] Performed By: #### 1 9123-9, 88542-0 ####[facility] MILLTOWNCLIA [id number] [place] [address] [place] Anion gap [Moles/Vol] 9 mmol/L Normal 9-18 [facility] Comment on above: Order Comment: Speci men Type: BLOOD SPECIMENOrdering Facility: [facility] Address: [address] [place] [address] Performed By: #### 1 9123-9, 19730-2 ####[facility] MILLWNCLIA [id number] [place] [address] [place] AST [Catalytic activity/Vol] 17 U/L Normal 13-35 [facility] Comment on above: Order Comment: Speci men Type: BLOOD SPECIMENOrdering Facility: [facility] Address: [address] [place] [address] Performed By: #### 1 9123-9, 66555-9 ####[facility] MILLTOWNCLIA [id number] [place] [address] [place] Bilirubin [Mass/Vol] 0.2 mg/dL Normal 0.2-1.3 [facility] Comment on above: Order Comment: Speci men Type: BLOOD SPECIMENOrdering Facility: [facility] Address: [address] [place] [address] Performed By: #### 1 9123-9, 23383-5 ####[facility] HOSPITALJAMALLIA [id number] [place] [address] [place] Calcium [Mass/Vol] 10.1 mg/dL Normal 8.5-10.2 [facility] Comment on above: Order Comment: Speci men Type: BLOOD SPECIMENOrdering Facility: [facility] Address: [address] [place] [address] Performed By: #### 1 9123-9, 09399-4 ####[facility] MILLTOWNCLIA [id number] [place] [address] [place] Chloride [Moles/Vol] 103 mmol/L Normal 97-105 [facility] Comment on above: Order Comment: Speci men Type: BLOOD SPECIMENOrdering Facility: [facility] Address: [address] [place] [address] Performed By: #### 1 9123-9, 39324-8 ####[facility] MILLWNCLIA [id number] [place] [address] [place] CO2 [Moles/Vol] 26 mmol/L Normal 22-30 [facility] Comment on above: Order Comment: Speci men Type: BLOOD SPECIMENOrdering Facility: [facility] Address: [address] [place] [address] Performed By: #### 1 9123-9, 84026-9 ####[facility] MILLTOWNCLIA [id number] [place] [address] [place] Creatinine [Mass/Vol] 0.83 mg/dL Normal 0.58-0.96 [facility] Comment on above: Order Comment: Speci men Type: BLOOD SPECIMENOrdering Facility: [facility] Address: [address] [place] [address] Performed By: #### 1 9123-9, 33738-9 ####[facility] MILLTOWNCLIA [id number] [place] [address] [place] Creatinine and Glomerular filtration rate.predicted panel (S/P/Bld) 77 mL/min/1.73m??? Normal >=60 [facility] Comment on above: Order Comment: John ellis Type: BLOOD SPECIMENOrdering Facility: [facility] Address: [address] [place] [address] Result Comment: Erica mated Glomerular Filtration Rate (eGFR) is calculated using the 2020 CKD-EPI creatinine equation. This equation utilizes serum creatinine, sex, and age as parameters. The creatinine assay has traceable calibration to isotope dilution-mass spectrometry. Refer to KDIGO guidelines for clinical interpretation. In patients with unstable renal function, e.g. those with acute kidney injury, the eGFR may not accurately reflect actual GFR. Performed By: #### 1 9123-9, 87269-6 ####[facility] [id number] [place] [address] [place] Glucose [Mass/Vol] 95 mg/dL Normal 74-99 [facility] Comment on above: Order Comment: John ellis Type: BLOOD SPECIMENOrdering Facility: [facility] Address: [address] [place] [address] Result Comment: The [place] Diabetes Association (ADA) provides guidance for cutoff values for fasting glucose and random glucose. The ADA defines fasting as no caloric intake for at least 8 hours. Fasting plasma glucose results between 100 to 125 mg/dL indicate increased risk for diabetes (prediabetes). Fasting plasma glucose results greater than or equal to 126 mg/dL meet the criteria for diagnosis of diabetes. In the absence of unequivocal hyperglycemia, results should be confirmed by repeat testing. In a patient with classic symptoms of hyperglycemia or hyperglycemic crisis, random plasma glucose results greater than or equal to 200 mg/dL meet the criteria for diagnosis of diabetes. Reference: Standards of Medical Care in Diabetes 2016, [place] [employer] Association. Diabetes Care. 2016.39(Suppl 1). Performed By: #### 1 9123-9, 28814-9 ####[facility] [id number] [place] [address] [place] Potassium [Moles/Vol] 3.9 mmol/L Normal 3.7-5.1 [facility] Comment on above: Order Comment: Speci men Type: BLOOD SPECIMENOrdering Facility: [facility] Address: [address] [place], [place] [address] Performed By: #### 1 9123-9, 90846-6 ####[facility] MILLJAYDENWNCLIA [id number] [place] [address] [place] Protein [Mass/Vol] 7.2 g/dL Normal 6.3-8.0 [facility] Comment on above: Order Comment: Speci men Type: BLOOD SPECIMENOrdering Facility: [facility] Address: [address] [place], [place] [address] Performed By: #### 1 9123-9, 95072-5 ####[facility] HOSPITALJAYDENELYA [id number] [place] [address] [place] Sodium [Moles/Vol] 138 mmol/L Normal 136-144 [facility] Comment on above: Order Comment: Speci men Type: BLOOD SPECIMENOrdering Facility: [facility] Address: [address] [place] [address] Performed By: #### 1 9123-9, 08600-6 ####[facility] HOSPITALJAYDENELYA [id number] [place] [address] [place] Urea nitrogen [Mass/Vol] 19 mg/dL Normal 7-21 [facility] Comment on above: Order Comment: Speci men Type: BLOOD SPECIMENOrdering Facility: [facility] Address: [address] [place] [address] Performed By: #### 1 9123-9, 38961-4 ####[facility] HOSPITALELYA [id number] [place] [address] [place] Magnesium SerPl-mCncon 10-27 Magnesium [Mass/Vol] 2.1 mg/dL Normal 1.7-2.3 [facility] Comment on above: Order Comment: Speci men Type: BLOOD SPECIMENOrdering Facility: [facility] Address: [address] [place] [address] Performed By: #### 1 9123-9, 51823-2 ####[facility]ITALNCLOG[facility] [id number] [place] [address] [place] CBC W Auto Differential pane l (Bld)on 10-08-2023 Basophils (Bld) [#/Vol] 10*3/uL Normal <0.11 [facility] Comment on above: Order Comment: Speci men Type: BLOOD SPECIMENOrdering Facility: [facility] Address: [address] [place] [address] Performed By: #### 5 7021-8 ####[facility] [id number] [place] [address] [place] Basophils/100 WBC (Bld) 0.5 % Normal [facility] Comment on above: Order Comment: Speci men Type: BLOOD SPECIMENOrdering Facility: [facility] Address: [address] [place] [address] Performed By: #### 5 7021-8 ####[facility] [id number] [place] [address] [place] Differential cell count method Nom (Bld) Auto Normal [facility] Comment on above: Order Comment: Speci men Type: BLOOD SPECIMENOrdering Facility: [facility] Address: [address] [place] [address] Performed By: #### 5 7021-8 ####[facility] [id number] [place] [address] [place] Eosinophils (Bld) [#/Vol] 0.08 10*3/uL Normal <0.46 [facility] Comment on above: Order Comment: Speci men Type: BLOOD SPECIMENOrdering Facility: [facility] Address: [address] [place] [address] Performed By: #### 5 7021-8 ####[facility] CORNELIANCLIA [id number] [place] [address] [place] Eosinophils/100 WBC (Bld) 2.2 % Normal [facility] Comment on above: Order Comment: Speci men Type: BLOOD SPECIMENOrdering Facility: [facility] Address: [address] [place] [address] Performed By: #### 5 7021-8 ####[facility] HOSPITALNCLIA [id number] [place] [address] [place] Erythrocyte distribution width (RBC) [Ratio] 11.7 % Normal 11.5-15.0 [facility] Comment on above: Order Comment: Speci men Type: BLOOD SPECIMENOrdering Facility: [facility] Address: [address] [place] [address] Performed By: #### 5 7021-8 ####[facility] HOSPITALNCLIA [id number] [place] [address] [place] Hematocrit (Bld) [Volume fraction] 35.0 % Low 36.0-46.0 [facility] Comment on above: Order Comment: Speci men Type: BLOOD SPECIMENOrdering Facility: [facility] Address: [address] [place] [address] Performed By: #### 5 7021-8 ####[facility] HOSPITALNCLIA [id number] [place] [address] [place] Hemoglobin (Bld) [Mass/Vol] 11.7 g/dL Normal 11.5-15.5 [facility] Comment on above: Order Comment: Speci men Type: BLOOD SPECIMENOrdering Facility: [facility] Address: [address] [place] [address] Performed By: #### 5 7021-8 ####[facility] HOSPITALNCLIA [id number] [place] [address] [place] Immature granulocytes (Bld) [#/Vol] 10*3/uL Normal <0.10 [facility] Comment on above: Order Comment: Speci men Type: BLOOD SPECIMENOrdering Facility: [facility] Address: [address] [place] [address] Performed By: #### 5 7021-8 ####[facility] MILLWNCLIA [id number] [place] [address] [place] Immature granulocytes/100 WBC (Bld) 0.5 % Normal [facility] Comment on above: Order Comment: Speci men Type: BLOOD SPECIMENOrdering Facility: [facility] Address: [address] [place] [address] Performed By: #### 5 7021-8 ####[facility] HOSPITALNCLIA [id number] [place] [address] [place] Lymphocytes (Bld) [#/Vol] 1.91 10*3/uL Normal 1.00-4.00 [facility] Comment on above: Order Comment: Speci men Type: BLOOD SPECIMENOrdering Facility: [facility] Address: [address] [place] [address] Performed By: #### 5 7021-8 ####[facility] HOSPITALLIA [id number] [place] [address] [place] Lymphocytes/100 WBC (Bld) 51.9 % Normal [facility] Comment on above: Order Comment: Speci men Type: BLOOD SPECIMENOrdering Facility: [facility] Address: [address] [place] [address] Performed By: #### 5 7021-8 ####[facility] HOSPITALNCLIA [id number] [place] [address] [place] MCH (RBC) [Entitic mass] 33.0 pg Normal 26.0-34.0 [facility] Comment on above: Order Comment: Speci men Type: BLOOD SPECIMENOrdering Facility: [facility] Address: [address] [place] [address] Performed By: #### 5 7021-8 ####[facility] ZULLY CORNELIANCJESUSITA [id number] [place] [address] [place] MCHC (RBC) [Mass/Vol] 33.4 g/dL Normal 30.5-36.0 [facility] Comment on above: Order Comment: Speci men Type: BLOOD SPECIMENOrdering Facility: [facility] Address: [address] [place] [address] Performed By: #### 5 7021-8 ####[facility] HOSPITALNCLIA [id number] [place] [address] [place] MCV (RBC) [Entitic vol] 98.6 fL Normal 80.0-100.0 [facility] Comment on above: Order Comment: Speci men Type: BLOOD SPECIMENOrdering Facility: [facility] Address: [address] [place] [address] Performed By: #### 5 7021-8 ####[facility] HOSPITALNCLIA [id number] [place] [address] [place] Monocytes (Bld) [#/Vol] 0.46 10*3/uL Normal <0.87 [facility] Comment on above: Order Comment: Speci men Type: BLOOD SPECIMENOrdering Facility: [facility] Address: [address] [place] [address] Performed By: #### 5 7021-8 ####[facility] HOSPITALNCA [id number] [address] [place] Monocytes/100 WBC (Bld) 12.5 % Normal [facility] Comment on above: Order Comment: Speci men Type: BLOOD SPECIMENOrdering Facility: [facility] Address: [address] [place] [address] Performed By: #### 5 7021-8 ####[facility] MILLWNCLIA [id number] [place] [address] [place] Neutrophils (Bld) [#/Vol] 1.19 10*3/uL Low 1.45-7.50 [facility] Comment on above: Order Comment: Speci men Type: BLOOD SPECIMENOrdering Facility: [facility] Address: [address] [place] [address] Performed By: #### 5 7021-8 ####[facility] HOSPITALNCLIA [id number] [place] [address] [place] Neutrophils/100 WBC (Bld) 32.4 % Normal [facility] Comment on above: Order Comment: Speci men Type: BLOOD SPECIMENOrdering Facility: [facility] Address: [address] [place] [address] Performed By: #### 5 7021-8 ####[facility] HOSPITALLIA [id number] [place] [address] [place] Nucleated RBC (Bld) [#/Vol] 10*3/uL Normal <0.01 [facility] Comment on above: Order Comment: Speci men Type: BLOOD SPECIMENOrdering Facility: [facility] Address: [address] [place] [address] Performed By: #### 5 7021-8 ####[facility] ERWNCLIA [id number] [place] [address] [place] Nucleated RBC/100 WBC (Bld) [Ratio] 0.0 /100 WBC Normal [facility] Comment on above: Order Comment: Speci men Type: BLOOD SPECIMENOrdering Facility: [facility] Address: [address] [place] [address] Performed By: #### 5 7021-8 ####[facility] HOSPITALLIA [id number] [place] [address] [place] Platelet mean volume (Bld) [Entitic vol] 8.1 fL Low 9.0-12.7 [facility] Comment on above: Order Comment: Speci men Type: BLOOD SPECIMENOrdering Facility: [facility] Address: [address] [place] [address] Performed By: #### 5 7021-8 ####[facility] HOSPITALMARLENE [id number] [place] [address] [place] Platelets (Bld) [#/Vol] 215 10*3/uL Normal 150-400 [facility] Comment on above: Order Comment: Speci men Type: BLOOD SPECIMENOrdering Facility: [facility] Address: [address] [place] [address] Performed By: #### 5 7021-8 ####[facility] HOSPITALNCLIA [id number] [place] [address] [place] RBC (Bld) [#/Vol] 3.55 10*6/uL Low 3.90-5.20 [facility] Comment on above: Order Comment: Speci men Type: BLOOD SPECIMENOrdering Facility: [facility] Address: [address] [place] [address] Performed By: #### 5 7021-8 ####[facility] HOSPITALNCLIA [id number] [place] [address] [place] WBC (Bld) [#/Vol] 3.68 10*3/uL Low 3.70-11.00 [facility] Comment on above: Order Comment: Speci men Type: BLOOD SPECIMENOrdering Facility: [facility] Address: [address] [place] [address] Performed By: #### 5 7021-8 ####[facility] HOSPITALNCLIA [id number] [place] [address] [place] Cancer Ag125 SerPl-aCncon Cancer Ag 125 Qn 9 [arb'U]/mL Normal <39 [facility] Comment on above: Order Comment: Speci men Type: BLOOD SPECIMEN [facility] Address: [address] [place] [address] Result Comment: CA 1 25 test methodology used is the Electrochemiluminescence Immunoassay by [employer]. Results obtained with different methods or kits cannot be used interchangeably. The reference interval is based on the 95th percentile of 240 apparently healthy premenopausal and postmenopausal women. At a cutoff value of 65 U/mL, the test sensitivity to distinguish ovarian carcinoma (FIGO stage I to IV) versus benign gynecological disease is 79%, with a specificity of 82%. Reference: Cancer Antigen 125 (CA 125 II) [package insert V 1.0 [place]ese]. [employer], [place], [place] (April 2015) Performed By: #### 2 4323-8, 44248-8 #### [facility] CLIA [id number] [address] [place] [address] [place] Comprehensive metabolic 2000 panelon 10-08-2023 Albumin [Mass/Vol] 4.7 g/dL Normal 3.9-4.9 [facility] Comment on above: Order Comment: John ellis Type: BLOOD SPECIMENOrdering Facility: [facility] Address: [address] [place] [address] Performed By: #### 2 4323-8, 18299-0 ####[facility] HOSPITALJESUSITA [id number] [place] [address] [place] ALP [Catalytic activity/Vol] 92 U/L Normal 34-123 [facility] Comment on above: Order Comment: Speci men Type: BLOOD SPECIMENOrdering Facility: [facility] Address: [address] [place] [address] Performed By: #### 2 4323-8, 29061-1 ####[facility] HOSPITALNCLIA [id number] [place] [address] [place] ALT [Catalytic activity/Vol] 9 U/L Normal 7-38 [facility] Comment on above: Order Comment: Speci men Type: BLOOD SPECIMENOrdering Facility: [facility] Address: [address] [place] [address] Performed By: #### 2 4323-8, ####[facility] HOSPITALNCLIA [id number] [place] [address] [place] Anion gap [Moles/Vol] 9 mmol/L Normal 9-18 [facility] Comment on above: Order Comment: Speci men Type: BLOOD SPECIMENOrdering Facility: [facility] Address: [address] [place] [address] Performed By: #### 2 4323-8, ####[facility] [id number] [place] [address] [place] AST [Catalytic activity/Vol] 17 U/L Normal 13-35 [facility] Comment on above: Order Comment: Speci men Type: BLOOD SPECIMENOrdering Facility: [facility] Address: [address] [place] [address] Performed By: #### 2 4323-8, ####[facility] HOSPITALNCA [id number] [place] [address] [place] Bilirubin [Mass/Vol] 0.2 mg/dL Normal 0.2-1.3 [facility] Comment on above: Order Comment: Speci men Type: BLOOD SPECIMENOrdering Facility: [facility] Address: [address] [place] [address] Performed By: #### 2 4323-8, ####[facility] HOSPITALLIA [id number] [place] [address] [place] Calcium [Mass/Vol] 10.3 mg/dL High 8.5-10.2 [facility] Comment on above: Order Comment: Speci men Type: BLOOD SPECIMENOrdering Facility: [facility] Address: [address] [place] [address] Performed By: #### 2 4323-8, 63279-1 ####[facility] GUNNARCHEWELAHNCLIA [id number] [place] [address] [place] Chloride [Moles/Vol] 103 mmol/L Normal 97-105 [facility] Comment on above: Order Comment: Speci men Type: BLOOD SPECIMENOrdering Facility: [facility] Address: [address] [place] [address] Performed By: #### 2 4323-8, 22259-4 ####[facility] H[facility]PITALNCLIA [id number] [place] [address] [place] CO2 [Moles/Vol] 26 mmol/L Normal 22-30 [facility] Comment on above: Order Comment: Speci men Type: BLOOD SPECIMENOrdering Facility: [facility] Address: [address] [place] [address] Performed By: #### 2 4323-8, 50585-7 ####[facility] HOSPITALNCLIA [id number] [place] [address] [place] Creatinine [Mass/Vol] 0.92 mg/dL Normal 0.58-0.96 [facility] Comment on above: Order Comment: Speci men Type: BLOOD SPECIMENOrdering Facility: [facility] Address: [address] [place] [address] Performed By: #### 2 4323-8, ####[facility] H[facility]PITALNCLIA [id number] [place] [address] [place] Creatinine and Glomerular filtration rate.predicted panel (S/P/Bld) 69 mL/min/1.73m??? Normal >=60 [facility] Comment on above: Order Comment: Speci men Type: BLOOD SPECIMENOrdering Facility: [facility] Address: [address] [place] [address] Result Comment: Erica mated Glomerular Filtration Rate (eGFR) is calculated using the 2020 CKD-EPI creatinine equation. This equation utilizes serum creatinine, sex, and age as parameters. The creatinine assay has traceable calibration to isotope dilution-mass spectrometry. Refer to KDIGO guidelines for clinical interpretation. In patients with unstable renal function, e.g. those with acute kidney injury, the eGFR may not accurately reflect actual GFR. Performed By: #### 2 4323-8, ####[facility] [id number] [place] [address] [place] Glucose [Mass/Vol] 99 mg/dL Normal 74-99 [facility] Comment on above: Order Comment: John ellis Type: BLOOD SPECIMENOrdering Facility: [facility] Address: [address] [place] [address] Result Comment: The [place] Diabetes Association (ADA) provides guidance for cutoff values for fasting glucose and random glucose. The ADA defines fasting as no caloric intake for at least 8 hours. Fasting plasma glucose results between 100 to 125 mg/dL indicate increased risk for diabetes (prediabetes). Fasting plasma glucose results greater than or equal to 126 mg/dL meet the criteria for diagnosis of diabetes. In the absence of unequivocal hyperglycemia, results should be confirmed by repeat testing. In a patient with classic symptoms of hyperglycemia or hyperglycemic crisis, random plasma glucose results greater than or equal to 200 mg/dL meet the criteria for diagnosis of diabetes. Reference: Standards of Medical Care in Diabetes 2016, [place] [employer]. Diabetes Care. 2016.39(Suppl 1). Performed By: #### 2 4323-8, ####[facility] [id number] [place] [address] [place] Potassium [Moles/Vol] 4.0 mmol/L Normal 3.7-5.1 [facility] Comment on above: Order Comment: John ellis Type: BLOOD SPECIMENOrdering Facility: [facility] Address: [address] [id number] Performed By: #### 2 4323-8, ####[facility]OWN[facility] [id number] [place] [address] [place] Protein [Mass/Vol] 7.5 g/dL Normal 6.3-8.0 [facility] Comment on above: Order Comment: Speci men Type: BLOOD SPECIMENOrdering Facility: [facility] Address: [address] [place] [address] Performed By: #### 2 4323-8, ####[facility]ILL[facility]OWNCLIA [id number] [place] [address] [place] Sodium [Moles/Vol] 138 mmol/L Normal 136-144 [facility] Comment on above: Order Comment: Speci men Type: BLOOD SPECIMENOrdering Facility: [facility] Address: [address] [place] [address] Performed By: #### 2 4323-8, ####[facility]ILL[facility]OWNCL[facility] [id number] [place] [address] [place] Urea nitrogen [Mass/Vol] 20 mg/dL Normal 7-21 [facility] Comment on above: Order Comment: Speci men Type: BLOOD SPECIMENOrdering Facility: [facility] Address: [address] [place] [address] Performed By: #### 2 4323-8, ####[facility]ILL[facility]OWNCL[facility] [id number] [place] [address] [place] Magnesium SerPl-mCncon 10-07 Magnesium [Mass/Vol] 2.1 mg/dL Normal 1.7-2.3 [facility] Comment on above: Order Comment: Speci men Type: BLOOD SPECIMENOrdering Facility: [facility] Address: [address] [place] [address] Performed By: #### 2 4323-8, ####[facility] MILLTOWJAMALLIA [id number] [place] [address] [place] CBC W Auto Differential pane l (Bld)on 10-07-2023 Basophils (Bld) [#/Vol] 10*3/uL Normal <0.11 [facility] Comment on above: Order Comment: Speci men Type: BLOOD SPECIMEN [facility] Address: [address] [place] [address] Performed By: #### 2 4323-8, #### [facility] CLIA [id number] [address] [place] [address] [place] Basophils/100 WBC (Bld) 0.6 % Normal [facility] Comment on above: Order Comment: Speci men Type: BLOOD SPECIMEN [facility] Address: [address] [place] [address] Performed By: #### 2 4323-8, #### [facility] CLIA [id number] [address] [place] [address] [place] Differential cell count method Nom (Bld) Auto Normal [facility] Comment on above: Order Comment: Speci men Type: BLOOD SPECIMEN [facility] Address: [address] [place] [address] Performed By: #### 2 4323-8, #### [facility] CLIA [id number] [address] [place] [address] [place] Eosinophils (Bld) [#/Vol] 0.06 10*3/uL Normal <0.46 [facility] Comment on above: Order Comment: Speci men Type: BLOOD SPECIMEN [facility] Address: [address] [place] [address] Performed By: #### 2 4323-8, #### [facility] CLIA [id number] [address] [place] [address] [place] Eosinophils/100 WBC (Bld) 1.9 % Normal [facility] Comment on above: Order Comment: Speci men Type: BLOOD SPECIMEN [facility] Address: [address] [place] [address] Performed By: #### 2 4323-8, #### [facility] CLIA [id number] [address] [place] [address] [place] Erythrocyte distribution width (RBC) [Ratio] 11.9 % Normal 11.5-15.0 [facility] Comment on above: Order Comment: Speci men Type: BLOOD SPECIMEN [facility] Address: [address] [place], [place] [address] Performed By: #### 2 4323-8, #### [facility] CLIA [id number] [address] [place] [address] [place] Hematocrit (Bld) [Volume fraction] 33.3 % Low 36.0-46.0 [facility] Comment on above: Order Comment: Speci men Type: BLOOD SPECIMEN [facility] Address: [address] [place] [address] Performed By: #### 2 4323-8, #### [facility] CLIA [id number] [address] [place] [address] [place] Hemoglobin (Bld) [Mass/Vol] 11.1 g/dL Low 11.5-15.5 [facility] Comment on above: Order Comment: Speci men Type: BLOOD SPECIMEN [facility] Address: [address] [place] [address] Performed By: #### 2 4323-8, #### [facility] CLIA [id number] [address] [place] [address] [place] Immature granulocytes (Bld) [#/Vol] 10*3/uL Normal <0.10 [facility] Comment on above: Order Comment: Speci men Type: BLOOD SPECIMEN [facility] Address: [address] [place] [address] Performed By: #### 2 4323-8, #### [facility] CLIA [id number] [address] [place] [address] [place] Immature granulocytes/100 WBC (Bld) 0.6 % Normal [facility] Comment on above: Order Comment: Speci men Type: BLOOD SPECIMEN [facility] Address: [address] [place] [address] Performed By: #### 2 432-8, #### [facility] CLIA [id number] [address] [place] [address] [place] Lymphocytes (Bld) [#/Vol] 1.70 10*3/uL Normal 1.00-4.00 [facility] Comment on above: Order Comment: Speci men Type: BLOOD SPECIMEN [facility] Address: [address] [place] [address] Performed By: #### 2 8, #### [facility] CLIA [id number] [address] [place] [address] [place] Lymphocytes/100 WBC (Bld) 54.8 % Normal [facility] Comment on above: Order Comment: Speci men Type: BLOOD SPECIMEN [facility] Address: [address] [place] [address] Performed By: #### 2 4323-8, #### [facility] CLIA [id number] [address] [place] [address] [place] MCH (RBC) [Entitic mass] 32.9 pg Normal 26.0-34.0 [facility] Comment on above: Order Comment: Speci men Type: BLOOD SPECIMEN [facility] Address: [address] [place] [address] Performed By: #### 2 432-8, #### [facility] CLIA [id number] [address] [place] [address] [place] MCHC (RBC) [Mass/Vol] 33.3 g/dL Normal 30.5-36.0 [facility] Comment on above: Order Comment: Speci men Type: BLOOD SPECIMEN [facility] Address: [address] [place] [address] Performed By: #### 2 432-8, #### [facility] CLIA [id number] [address] [place] [address] [place] MCV (RBC) [Entitic vol] 98.8 fL Normal 80.0-100.0 [facility] Comment on above: Order Comment: Speci men Type: BLOOD SPECIMEN [facility] Address: [address] [place] [address] Performed By: #### 2 432-8, #### [facility] [id number] [address] [place] [address] [place] Monocytes (Bld) [#/Vol] 0.46 10*3/uL Normal <0.87 [facility] Comment on above: Order Comment: Speci men Type: BLOOD SPECIMEN [facility] Address: [address] [place] [address] Performed By: #### 2 8, #### [facility] CLIA [id number] [address] [place] [address] [place] Monocytes/100 WBC (Bld) 14.8 % Normal [facility] Comment on above: Order Comment: Speci men Type: BLOOD SPECIMEN [facility] Address: [address] [place] [address] Performed By: #### 2 432-8, #### [facility] CLIA [id number] [address] [place] [address] [place] Neutrophils (Bld) [#/Vol] 0.84 10*3/uL Low 1.45-7.50 [facility] Comment on above: Order Comment: Speci men Type: BLOOD SPECIMEN [facility] Address: [address] [place] [address] Performed By: #### 2 4323-8, #### [facility] CLIA [id number] [address] [place] [address] [place] Neutrophils/100 WBC (Bld) 27.3 % Normal [facility] Comment on above: Order Comment: Speci men Type: BLOOD SPECIMEN [facility] Address: [address] [place] [address] Performed By: #### 2 4323-8, #### [facility] CLIA [id number] [address] [place] [address] [place] Nucleated RBC (Bld) [#/Vol] 10*3/uL Normal <0.01 [facility] Comment on above: Order Comment: Speci men Type: BLOOD SPECIMEN [facility] Address: [address] [place] [address] Performed By: #### 2 4323-8, #### [facility] CLIA [id number] [address] [place] [address] [place] Nucleated RBC/100 WBC (Bld) [Ratio] 0.0 /100 WBC Normal [facility] Comment on above: Order Comment: Speci men Type: BLOOD SPECIMEN [facility] Address: [address] [place] [address] Performed By: #### 2 4323-8, 07703-1 #### [facility] CLIA [id number] [address] [place] [address] [place] Platelet mean volume (Bld) [Entitic vol] 8.2 fL Low 9.0-12.7 [facility] Comment on above: Order Comment: Speci men Type: BLOOD SPECIMEN [facility] Address: [address] [place] [address] Performed By: #### 2 4323-8, 83960-9 #### [facility] CLIA [id number] [address] [place] [address] [place] Platelets (Bld) [#/Vol] 209 10*3/uL Normal 150-400 [facility] Comment on above: Order Comment: Speci men Type: BLOOD SPECIMEN [facility] Address: [address] [place] [address] Performed By: #### 2 4323-8, 26000-8 #### [facility] CLIA [id number] [address] [place] [address] [place] RBC (Bld) [#/Vol] 3.37 10*6/uL Low 3.90-5.20 [facility] Comment on above: Order Comment: Speci men Type: BLOOD SPECIMEN [facility] Address: [address] [place] [address] Performed By: #### 2 4323-8, 57128-8 #### [facility] CLIA [id number] [address] [place] [address] [place] WBC (Bld) [#/Vol] 3.10 10*3/uL Low 3.70-11.00 [facility] Comment on above: Order Comment: Speci men Type: BLOOD SPECIMEN [facility] Address: [address] [place] [address] Performed By: #### 2 4323-8, #### [facility] CLIA [id number] [address] [place] [address] [place] Cancer Ag125 SerPl-aCncon 03 -19-2024 Cancer Ag 125 Qn 9 [arb'U]/mL Normal <39 [facility] Comment on above: Order Comment: John ellis Type: BLOOD SPECIMEN [facility] Address: [address] [place], [place] [address] Result Comment: CA 1 25 test methodology used is the Electrochemiluminescence Immunoassay by [employer]. Results obtained with different methods or kits cannot be used interchangeably. The reference interval is based on the 95th percentile of 240 apparently healthy premenopausal and postmenopausal women. At a cutoff value of 65 U/mL, the test sensitivity to distinguish ovarian carcinoma (FIGO stage I to IV) versus benign gynecological disease is 79%, with a specificity of 82%. Reference: Cancer Antigen 125 (CA 125 II) [package insert V 1.0 [place]ese]. [employer], [place], [place] (April 2015) Performed By: #### 2 4323-8, 89377-5 #### [facility] CLIA [id number] [address] [place] [address] [place] Comprehensive metabolic 2000 panelon 10-07-2023 Albumin [Mass/Vol] 4.4 g/dL Normal 3.9-4.9 [facility] Comment on above: Order Comment: John ellis Type: BLOOD SPECIMEN [facility] Address: [address] [place], [place] [address] Performed By: #### 2 4323-8, 18039-3 #### [facility] CLIA [id number] [address] [place] [address] [place] ALP [Catalytic activity/Vol] 87 U/L Normal 34-123 [facility] Comment on above: Order Comment: John ellis Type: BLOOD SPECIMEN [facility] Address: [address] [place], [place] [address] Performed By: #### 2 4323-8, 89898-9 #### [facility] CLIA [id number] [address] [place] [address] [place] ALT [Catalytic activity/Vol] 9 U/L Normal 7-38 [facility] Comment on above: Order Comment: Speci men Type: BLOOD SPECIMEN [facility] Address: [address] [place] [address] Performed By: #### 2 4323-8, #### [facility] CLIA [id number] [address] [place] [address] [place] Anion gap [Moles/Vol] 9 mmol/L Normal 9-18 [facility] Comment on above: Order Comment: Speci men Type: BLOOD SPECIMEN [facility] Address: [address] [place] [address] Performed By: #### 2 4322-8, #### [facility] CLIA [id number] [address] [place] [address] [place] AST [Catalytic activity/Vol] 16 U/L Normal 13-35 [facility] Comment on above: Order Comment: Speci men Type: BLOOD SPECIMEN [facility] Address: [address] [place] [address] Performed By: #### 2 4322-8, #### [facility] CLIA [id number] [address] [place] [address] [place] Bilirubin [Mass/Vol] mg/dL Low 0.2-1.3 [facility] Comment on above: Order Comment: Speci men Type: BLOOD SPECIMEN [facility] Address: [address] [place] [address] Performed By: #### 2 4323-8, #### [facility] CLIA [id number] [address] [place] [address] [place] Calcium [Mass/Vol] 9.7 mg/dL Normal 8.5-10.2 [facility] Comment on above: Order Comment: Speci men Type: BLOOD SPECIMEN [facility] Address: [address] [place] [address] [place] [address] Performed By: #### 2 4323-8, #### [facility] CLIA [id number] [address] [place] [address] [place] Chloride [Moles/Vol] 104 mmol/L Normal 97-105 [facility] Comment on above: Order Comment: Speci men Type: BLOOD SPECIMEN [facility] Address: [address] [place], [place] [address] Performed By: #### 2 4323-8, #### [facility] CLIA [id number] [address] [place] [address] [place] CO2 [Moles/Vol] 25 mmol/L Normal 22-30 [facility] Comment on above: Order Comment: Speci men Type: BLOOD SPECIMEN [facility] Address: [address] [place], [place] [address] Performed By: #### 2 4323-8, #### [facility] CLIA [id number] [address] [place] [address] [place] Creatinine [Mass/Vol] 0.83 mg/dL Normal 0.58-0.96 [facility] Comment on above: Order Comment: Speci men Type: BLOOD SPECIMEN [facility] Address: [address] [place], [place] [address] Performed By: #### 2 4323-8, #### [facility] CLIA [id number] [address] [place] [address] [place] Creatinine and Glomerular filtration rate.predicted panel (S/P/Bld) 78 mL/min/1.73m??? Normal >=60 [facility] Comment on above: Order Comment: Speci men Type: BLOOD SPECIMEN [facility] Address: [address] [place], [place] [address] Result Comment: Erica mated Glomerular Filtration Rate (eGFR) is calculated using the 2020 CKD-EPI creatinine equation. This equation utilizes serum creatinine, sex, and age as parameters. The creatinine assay has traceable calibration to isotope dilution-mass spectrometry. Refer to KDIGO guidelines for clinical interpretation. In patients with unstable renal function, e.g. those with acute kidney injury, the eGFR may not accurately reflect actual GFR. Performed By: #### 2 4323-8, #### [facility] CLIA [id number] [address] [address] [place] Glucose [Mass/Vol] 100 mg/dL High 74-99 [facility] Comment on above: Order Comment: John ellis Type: BLOOD SPECIMEN [facility] Address: [address] [place] [address] Result Comment: The [place] Diabetes Association (ADA) provides guidance for cutoff values for fasting glucose and random glucose. The ADA defines fasting as no caloric intake for at least 8 hours. Fasting plasma glucose results between 100 to 125 mg/dL indicate increased risk for diabetes (prediabetes). Fasting plasma glucose results greater than or equal to 126 mg/dL meet the criteria for diagnosis of diabetes. In the absence of unequivocal hyperglycemia, results should be confirmed by repeat testing. In a patient with classic symptoms of hyperglycemia or hyperglycemic crisis, random plasma glucose results greater than or equal to 200 mg/dL meet the criteria for diagnosis of diabetes. Reference: Standards of Medical Care in Diabetes 2016, [place] [employer]. Diabetes Care. 2016.39(Suppl 1). Performed By: #### 2 4323-8, #### [facility] [id number] [address] [place] [address] [place] Potassium [Moles/Vol] 3.8 mmol/L Normal 3.7-5.1 [facility] Comment on above: Order Comment: John ellis Type: BLOOD SPECIMEN [facility] Address: [address] [place] [address] Performed By: #### 2 4323-8, #### [facility] CLIA [id number] [address] [place] [address] [place] Protein [Mass/Vol] 7.1 g/dL Normal 6.3-8.0 [facility] Comment on above: Order Comment: Speci men Type: BLOOD SPECIMEN [facility] Address: [address] [place] [address] Performed By: #### 2 4323-8, 25462-8 #### [facility] CLIA [id number] [address] [place] [address] [place] Sodium [Moles/Vol] 138 mmol/L Normal 136-144 [facility] Comment on above: Order Comment: Speci men Type: BLOOD SPECIMEN [facility] Address: [address] [place] [address] Performed By: #### 2 4323-8, #### [facility] CLIA [id number] [address] [place] [address] [place] Urea nitrogen [Mass/Vol] 18 mg/dL Normal 7-21 [facility] Comment on above: Order Comment: Speci men Type: BLOOD SPECIMEN [facility] Address: [address] [place] [address] Performed By: #### 2 4323-8, 23828-7 #### [facility] CLIA [id number] [address] [place] [address] [place] Magnesium SerPl-mCncon 10-06 Magnesium [Mass/Vol] 2.0 mg/dL Normal 1.7-2.3 [facility] Comment on above: Order Comment: Speci men Type: BLOOD SPECIMEN [facility] Address: [address] [place] [address] Performed By: #### 2 4323-8, 34401-9 #### [facility] CLIA [id number] [address] [place] [address] [place] CBC W Auto Differential pane l (Bld)on 10-03-2023 Basophils (Bld) [#/Vol] 10*3/uL Normal <0.11 [facility] Comment on above: Order Comment: Speci men Type: BLOOD SPECIMEN [facility] Address: [address] [place] [address] Performed By: #### 2 4323-8, #### [facility] CLIA [id number] [address] [place] [address] [place] Basophils/100 WBC (Bld) 0.4 % Normal [facility] Comment on above: Order Comment: Speci men Type: BLOOD SPECIMEN [facility] Facility[facility] Address: [address] [place] [address] Performed By: #### 2 4323-8, #### [facility] CLIA [id number] [address] [place] [address] [place] Differential cell count method Nom (Bld) Auto Normal [facility] Comment on above: Order Comment: Speci men Type: BLOOD SPECIMEN [facility] Facility[facility] Address: [address] [place] [address] Performed By: #### 2 432-8, #### [facility] CLIA [id number] [address] [place] [address] [place] Eosinophils (Bld) [#/Vol] 0.05 10*3/uL Normal <0.46 [facility] Comment on above: Order Comment: Speci men Type: BLOOD SPECIMEN [facility] Facility[facility] Address: [address] [place] [address] Performed By: #### 2 4323-8, #### [facility] CLIA [id number] [address] [place] [address] [place] Eosinophils/100 WBC (Bld) 1.8 % Normal [facility] Comment on above: Order Comment: Speci men Type: BLOOD SPECIMEN [facility] Facility[facility] Address: [address] [place] [address] Performed By: #### 2 4323-8, #### [facility] CLIA [id number] [address] [place] [address] [place] Erythrocyte distribution width (RBC) [Ratio] 11.9 % Normal 11.5-15.0 [facility] Comment on above: Order Comment: Speci men Type: BLOOD SPECIMEN [facility] Facility[facility] Address: [address] [place], [place] [address] Performed By: #### 2 4323-8, #### [facility] CLIA [id number] [address] [place] [address] [place] Hematocrit (Bld) [Volume fraction] 32.5 % Low 36.0-46.0 [facility] Comment on above: Order Comment: Speci men Type: BLOOD SPECIMEN [facility] Facility[facility] Address: [address] [place] [address] Performed By: #### 2 4323-8, #### [facility] CLIA [id number] [address] [place] [address] [place] Hemoglobin (Bld) [Mass/Vol] 10.8 g/dL Low 11.5-15.5 [facility] Comment on above: Order Comment: Speci men Type: BLOOD SPECIMEN [facility] Facility[facility] Address: [address] [place] [address] Performed By: #### 2 4323-8, #### [facility] CLIA [id number] [address] [place] [address] [place] Immature granulocytes (Bld) [#/Vol] 10*3/uL Normal <0.10 [facility] Comment on above: Order Comment: Speci men Type: BLOOD SPECIMEN Ordering Facility: [facility] Address: [address] [place] [address] Performed By: #### 2 4323-8, #### [facility] CLIA [id number] [address] [place] [address] [place] Immature granulocytes/100 WBC (Bld) 0.0 % Normal [facility] Comment on above: Order Comment: Speci men Type: BLOOD SPECIMEN Ordering Facility: [facility] Address: [address] [place] [address] Performed By: #### 2 8, #### [facility] CLIA [id number] [address] [place] [address] [place] Lymphocytes (Bld) [#/Vol] 1.82 10*3/uL Normal 1.00-4.00 [facility] Comment on above: Order Comment: Speci men Type: BLOOD SPECIMEN Ordering Facility: [facility] Address: [address] [place] [address] Performed By: #### 2 4323-02, #### [facility] CLIA [id number] [address] [place] [address] [place] Lymphocytes/100 WBC (Bld) 66.7 % Normal [facility] Comment on above: Order Comment: Speci men Type: BLOOD SPECIMEN Ordering Facility: [facility] Address: [address] [place] [address] Performed By: #### 2 8, #### [facility] CLIA [id number] [address] [place] [address] [place] MCH (RBC) [Entitic mass] 33.1 pg Normal 26.0-34.0 [facility] Comment on above: Order Comment: Speci men Type: BLOOD SPECIMEN Ordering Facility: [facility] Address: [address] [place] [address] Performed By: #### 2 4323-8, #### [facility] CLIA [id number] [address] [place] [address] [place] MCHC (RBC) [Mass/Vol] 33.2 g/dL Normal 30.5-36.0 [facility] Comment on above: Order Comment: Speci men Type: BLOOD SPECIMEN Ordering Facility: [facility] Address: [address] [place] [address] Performed By: #### 2 432-8, #### [facility] CLIA [id number] [address] [place] [address] [place] MCV (RBC) [Entitic vol] 99.7 fL Normal 80.0-100.0 [facility] Comment on above: Order Comment: Speci men Type: BLOOD SPECIMEN Ordering Facility: [facility] Address: [address] [place] [address] Performed By: #### 2 432-8, #### [facility] CLIA [id number] [address] [place] [address] [place] Monocytes (Bld) [#/Vol] 0.44 10*3/uL Normal <0.87 [facility] Comment on above: Order Comment: Speci men Type: BLOOD SPECIMEN Ordering Facility: [facility] Address: [address] [place] [address] Performed By: #### 2 4323-8, #### [facility] CLIA [id number] [address] [place] [address] [place] Monocytes/100 WBC (Bld) 16.1 % Normal [facility] Comment on above: Order Comment: Speci men Type: BLOOD SPECIMEN Ordering Facility: [facility] Address: [address] [place] [address] Performed By: #### 2 4323-8, #### [facility] CLIA [id number] [address] [place] [address] [place] Neutrophils (Bld) [#/Vol] 0.41 10*3/uL Low 1.45-7.50 [facility] Comment on above: Order Comment: Speci men Type: BLOOD SPECIMEN Ordering Facility: [facility] Address: [address] [place] [address] Performed By: #### 2 4323-8, #### [facility] CLIA [id number] [address] [place] [address] [place] Neutrophils/100 WBC (Bld) 15.0 % Normal [facility] Comment on above: Order Comment: Speci men Type: BLOOD SPECIMEN Ordering Facility: [facility] Address: [address] [place] [address] Performed By: #### 2 4323-8, #### [facility] CLIA [id number] [address] [place] [address] [place] Nucleated RBC (Bld) [#/Vol] 10*3/uL Normal <0.01 [facility] Comment on above: Order Comment: Speci men Type: BLOOD SPECIMEN Ordering Facility: [facility] Address: [address] [place] [address] Performed By: #### 2 4323-8, #### [facility] CLIA [id number] [address] [place] [address] [place] Nucleated RBC/100 WBC (Bld) [Ratio] 0.0 /100 WBC Normal [facility] Comment on above: Order Comment: Speci men Type: BLOOD SPECIMEN Ordering Facility: [facility] Address: [address] [place] [address] Performed By: #### 2 4323-8, #### [facility] CLIA [id number] [address] [place] [address] [place] Platelet mean volume (Bld) [Entitic vol] 8.0 fL Low 9.0-12.7 [facility] Comment on above: Order Comment: Speci men Type: BLOOD SPECIMEN Ordering Facility: [facility] Address: [address] [place] [address] Performed By: #### 2 4323-8, 99522-1 #### [facility] CLIA [id number] [address] [place] [address] [place] Platelets (Bld) [#/Vol] 206 10*3/uL Normal 150-400 [facility] Comment on above: Order Comment: Speci men Type: BLOOD SPECIMEN Ordering Facility: [facility] Address: [address] [place] [address] Performed By: #### 2 4323-8, 85337-7 #### [facility] CLIA [id number] [address] [place] [address] [place] RBC (Bld) [#/Vol] 3.26 10*6/uL Low 3.90-5.20 [facility] Comment on above: Order Comment: Speci men Type: BLOOD SPECIMEN Ordering Facility: [facility] Address: [address] [place] [address] Performed By: #### 2 4323-8, 74006-8 #### [facility] CLIA [id number] [address] [place] [address] [place] WBC (Bld) [#/Vol] 2.73 10*3/uL Low 3.70-11.00 [facility] Comment on above: Order Comment: Speci men Type: BLOOD SPECIMEN Ordering Facility: [facility] Address: [address] [place], [place] [address] Performed By: #### 2 4323-8, 43782-5 #### [facility] CLIA [id number] [address] [place] [address] [place] Cancer Ag125 SerPl-aCncon Cancer Ag 125 Qn 9 [arb'U]/mL Normal <39 [facility] Comment on above: Order Comment: Speci men Type: BLOOD SPECIMEN Ordering Facility: [facility] Address: [address] [place], [place] [address] Result Comment: CA 1 25 test methodology used is the Electrochemiluminescence Immunoassay by [employer]. Results obtained with different methods or kits cannot be used interchangeably. The reference interval is based on the 95th percentile of 240 apparently healthy premenopausal and postmenopausal women. At a cutoff value of 65 U/mL, the test sensitivity to distinguish ovarian carcinoma (FIGO stage I to IV) versus benign gynecological disease is 79%, with a specificity of 82%. Reference: Cancer Antigen 125 (CA 125 II) [package insert V 1.0 [place]ese]. [employer], [place], [place] (April 2015) Performed By: #### 2 4323-8, 04506-2 #### [facility] CLIA [id number] [address] [place] [address] [place] Comprehensive metabolic 2000 panelon 10-03-2023 Albumin [Mass/Vol] 4.7 g/dL Normal 3.9-4.9 [facility] Comment on above: Order Comment: John ellis Type: BLOOD SPECIMEN Ordering Facility: [facility] Address: [address] [place] [address] Performed By: #### 2 4323-8, #### [facility] CLIA [id number] [address] [place] [address] [place] ALP [Catalytic activity/Vol] 86 U/L Normal 34-123 [facility] Comment on above: Order Comment: Brandoni men Type: BLOOD SPECIMEN Ordering Facility: [facility] Address: [address] [place], [place] [address] Performed By: #### 2 4323-8, #### [facility] CLIA [id number] [address] [place] [address] [place] ALT [Catalytic activity/Vol] 11 U/L Normal 7-38 [facility] Comment on above: Order Comment: Speci men Type: BLOOD SPECIMEN Ordering Facility: [facility] Address: [address] [place] [address], [place] [address] Performed By: #### 2 432-8, #### [facility] CLIA [id number] [address] [place] [address] [place] Anion gap [Moles/Vol] 8 mmol/L Low 9-18 [facility] Comment on above: Order Comment: Speci men Type: BLOOD SPECIMEN Ordering Facility: [facility] Address: [address] [place] [address] Performed By: #### 2 432-8, #### [facility] CLIA [id number] [address] [place] [address] [place] AST [Catalytic activity/Vol] 17 U/L Normal 13-35 [facility] Comment on above: Order Comment: Speci men Type: BLOOD SPECIMEN Ordering Facility: [facility] Address: [address] [place] [address] Performed By: #### 2 8, #### [facility] CLIA [id number] [address] [place] [address] [place] Bilirubin [Mass/Vol] 0.2 mg/dL Normal 0.2-1.3 [facility] Comment on above: Order Comment: Speci men Type: BLOOD SPECIMEN Ordering Facility: [facility] Address: [facility] [place] [id number] Performed By: #### 2 8, #### [facility] CLIA [id number] [address] [place] [address] [place] Calcium [Mass/Vol] 10.3 mg/dL High 8.5-10.2 [facility] Comment on above: Order Comment: Speci men Type: BLOOD SPECIMEN Ordering Facility: [facility] Address: [address] [place] [address] Performed By: #### 2 4322-8, #### [facility] CLIA [id number] [address] [place] [address] [place] Chloride [Moles/Vol] 104 mmol/L Normal 97-105 [facility] Comment on above: Order Comment: Speci men Type: BLOOD SPECIMEN Ordering Facility: [facility] Address: [address] [place] [address] Performed By: #### 2 4323-8, 41308-3 #### [facility] CLIA [id number] [address] [place] [address] [place] CO2 [Moles/Vol] 27 mmol/L Normal 22-30 [facility] Comment on above: Order Comment: Speci men Type: BLOOD SPECIMEN Ordering Facility: [facility] Address: [address] [place] [address] Performed By: #### 2 4323-8, 03740-4 #### [facility] CLIA [id number] [address] [place] [address] [place] Creatinine [Mass/Vol] 0.85 mg/dL Normal 0.58-0.96 [facility] Comment on above: Order Comment: Speci men Type: BLOOD SPECIMEN Ordering Facility: [facility] Address: [address] [place] [address] Performed By: #### 2 4323-8, 64287-5 #### [facility] CLIA [id number] [address] [place] [address] [place] Creatinine and Glomerular filtration rate.predicted panel (S/P/Bld) 76 mL/min/1.73m??? Normal >=60 [facility] Comment on above: Order Comment: Speci men Type: BLOOD SPECIMEN Ordering Facility: [facility] Address: [address] [place] [address] Result Comment: Erica mated Glomerular Filtration Rate (eGFR) is calculated using the 2020 CKD-EPI creatinine equation. This equation utilizes serum creatinine, sex, and age as parameters. The creatinine assay has traceable calibration to isotope dilution-mass spectrometry. Refer to KDIGO guidelines for clinical interpretation. In patients with unstable renal function, e.g. those with acute kidney injury, the eGFR may not accurately reflect actual GFR. Performed By: #### 2 43209-25, #### [facility] CLIA [id number] [address] [place] [address] [place] Glucose [Mass/Vol] 89 mg/dL Normal 74-99 [facility] Comment on above: Order Comment: John ellis Type: BLOOD SPECIMEN Ordering Facility: [facility] Address: [address] [place] [address] Result Comment: The [place] [employer] (ADA) provides guidance for cutoff values for fasting glucose and random glucose. The ADA defines fasting as no caloric intake for at least 8 hours. Fasting plasma glucose results between 100 to 125 mg/dL indicate increased risk for diabetes (prediabetes). Fasting plasma glucose results greater than or equal to 126 mg/dL meet the criteria for diagnosis of diabetes. In the absence of unequivocal hyperglycemia, results should be confirmed by repeat testing. In a patient with classic symptoms of hyperglycemia or hyperglycemic crisis, random plasma glucose results greater than or equal to 200 mg/dL meet the criteria for diagnosis of diabetes. Reference: Standards of Medical Care in Diabetes 2016, [place] [employer]. Diabetes Care. 2016.39(Suppl 1). Performed By: #### 2 43209-25, #### [facility] CLIA [id number] [address] [place] [address] [place] Potassium [Moles/Vol] 4.0 mmol/L Normal 3.7-5.1 [facility] Comment on above: Order Comment: John ellis Type: BLOOD SPECIMEN Ordering Facility: [facility] Address: [address] [place] [address] Performed By: #### 2 43209-25, #### [facility] CLIA [id number] [address] [place] [address] [place] Protein [Mass/Vol] 7.5 g/dL Normal 6.3-8.0 [facility] Comment on above: Order Comment: Speci men Type: BLOOD SPECIMEN [facility]ing Facility: [facility] Address: [address] [place] [address] Performed By: #### 2 4323-8, #### [facility] CLIA [id number] [address] [place] [address] [place] Sodium [Moles/Vol] 139 mmol/L Normal 136-144 [facility] Comment on above: Order Comment: Speci men Type: BLOOD SPECIMEN [facility]ing Facility: [facility] Address: [address] [place], [place] [address] Performed By: #### 2 4323-8, #### [facility] [id number] [address] [place] [address] [place] Urea nitrogen [Mass/Vol] 21 mg/dL Normal 7-21 [facility] Comment on above: Order Comment: Speci men Type: BLOOD SPECIMEN [facility]ing Facility: [facility] Address: [address] [place], [place] [address] Performed By: #### 2 4323-8, #### [facility] [id number] [address] [place] [address] [place] Magnesium SerPl-mCncon 10-02 Magnesium [Mass/Vol] 2.1 mg/dL Normal 1.7-2.3 [facility] Comment on above: Order Comment: Speci men Type: BLOOD SPECIMEN [facility]ing Facility: [facility] Address: [address] [place] [address] Performed By: #### 2 4323-8, #### [facility] [id number] [address] [place] [address] [place] CBC W Auto Differential pane l (Bld)on 09-15-2023 Basophils (Bld) [#/Vol] 0.03 10*3/uL Normal <0.11 [facility] Comment on above: Order Comment: Speci men Type: BLOOD SPECIMEN [facility]ing Facility: [facility] Address: [address] [place] [address] Performed By: #### 5 7021-8 #### [facility] CLIA [id number] [address] [place] [address] [place] Basophils/100 WBC (Bld) 0.7 % Normal [facility] Comment on above: Order Comment: Speci men Type: BLOOD SPECIMEN Ordering Facility: [facility] Address: [address] [place] [address] Performed By: #### 5 7021-8 #### [facility] CLIA [id number] [address] [place] [address] [place] Differential cell count method Nom (Bld) Auto Normal [facility] Comment on above: Order Comment: Speci men Type: BLOOD SPECIMEN Ordering Facility: [facility] Address: [address] [place] [address] Performed By: #### 5 7021-8 #### [facility] CLIA [id number] [address] [place] [address] [place] Eosinophils (Bld) [#/Vol] 0.49 10*3/uL High <0.46 [facility] Comment on above: Order Comment: Speci men Type: BLOOD SPECIMEN Ordering Facility: [facility] Address: [address] [place] [address] Performed By: #### 5 7021-8 #### [facility] CLIA [id number] [address] [place] [address] [place] Eosinophils/100 WBC (Bld) 10.6 % Normal [facility] Comment on above: Order Comment: Speci men Type: BLOOD SPECIMEN Ordering Facility: [facility] Address: [address] [place] [address] Performed By: #### 5 7021-8 #### [facility] CLIA [id number] [address] [place] [address] [place] Erythrocyte distribution width (RBC) [Ratio] 12.1 % Normal 11.5-15.0 [facility] Comment on above: Order Comment: Speci men Type: BLOOD SPECIMEN Ordering Facility: [facility] Address: [address] [place] [address] Performed By: #### 5 7021-8 #### [facility] CLIA [id number] [address] [place] [address] [place] Hematocrit (Bld) [Volume fraction] 32.6 % Low 36.0-46.0 [facility] Comment on above: Order Comment: Speci men Type: BLOOD SPECIMEN Ordering Facility: [facility] Address: [address] [place] [address] Performed By: #### 5 7021-8 #### [facility] CLIA [id number] [address] [place] [address] [place] Hemoglobin (Bld) [Mass/Vol] 10.9 g/dL Low 11.5-15.5 [facility] Comment on above: Order Comment: Speci men Type: BLOOD SPECIMEN Ordering Facility: [facility] Address: [address] [place] [address] Performed By: #### 5 7021-8 #### [facility] CLIA [id number] [address] [place] [address] [place] Immature granulocytes (Bld) [#/Vol] 10*3/uL Normal <0.10 [facility] Comment on above: Order Comment: Speci men Type: BLOOD SPECIMEN [facility]ing Facility: [facility] Address: [address] [place] [address] Performed By: #### 5 7021-8 #### [facility] CLIA [id number] [address] [place] [address] [place] Immature granulocytes/100 WBC (Bld) 0.2 % Normal [facility] Comment on above: Order Comment: Speci men Type: BLOOD SPECIMEN Ordering Facility: [facility] Address: [address] [place] [address] Performed By: #### 5 7021-8 #### [facility] CLIA [id number] [address] [place] [address] [place] Lymphocytes (Bld) [#/Vol] 1.81 10*3/uL Normal 1.00-4.00 [facility] Comment on above: Order Comment: Speci men Type: BLOOD SPECIMEN Ordering Facility: [facility] Address: [address] [place] [address] Performed By: #### 5 7021-8 #### [facility] CLIA [id number] [address] [place] [address] [place] Lymphocytes/100 WBC (Bld) 39.3 % Normal [facility] Comment on above: Order Comment: Speci men Type: BLOOD SPECIMEN Ordering Facility: [facility] Address: [address] [place] [address] Performed By: #### 5 7021-8 #### [facility] CLIA [id number] [address] [place] [address] [place] MCH (RBC) [Entitic mass] 33.5 pg Normal 26.0-34.0 [facility] Comment on above: Order Comment: Speci men Type: BLOOD SPECIMEN Ordering Facility: [facility] Address: [address] [place] [address] Performed By: #### 5 7021-8 #### [facility] CLIA [id number] [address] [place] [address] [place] MCHC (RBC) [Mass/Vol] 33.4 g/dL Normal 30.5-36.0 [facility] Comment on above: Order Comment: Speci men Type: BLOOD SPECIMEN [facility]ing Facility: [facility] Address: [address] [place] [address] Performed By: #### 5 7021-8 #### [facility] CLIA [id number] [address] [place] [address] [place] MCV (RBC) [Entitic vol] 100.3 fL High 80.0-100.0 [facility] Comment on above: Order Comment: Speci men Type: BLOOD SPECIMEN Ordering Facility: [facility] Address: [address] [place] [address] Performed By: #### 5 7021-8 #### [facility] CLIA [id number] [address] [place] [address] [place] Monocytes (Bld) [#/Vol] 0.47 10*3/uL Normal <0.87 [facility] Comment on above: Order Comment: Speci men Type: BLOOD SPECIMEN Ordering Facility: [facility] Address: [address] [place] [address] Performed By: #### 5 7021-8 #### [facility] CLIA [id number] [address] [place] [address] [place] Monocytes/100 WBC (Bld) 10.2 % Normal [facility] Comment on above: Order Comment: Speci men Type: BLOOD SPECIMEN Ordering Facility: [facility] Address: [address] [place] [address] Performed By: #### 5 7021-8 #### [facility] CLIA [id number] [address] [place] [address] [place] Neutrophils (Bld) [#/Vol] 1.80 10*3/uL Normal 1.45-7.50 [facility] Comment on above: Order Comment: Speci men Type: BLOOD SPECIMEN Ordering Facility: [facility] Address: [address] [place] [address] Performed By: #### 5 7021-8 #### [facility] CLIA [id number] [address] [place] [address] [place] Neutrophils/100 WBC (Bld) 39.0 % Normal [facility] Comment on above: Order Comment: Speci men Type: BLOOD SPECIMEN Ordering Facility: [facility] Address: [address] [place] [address] Performed By: #### 5 7021-8 #### [facility] CLIA [id number] [address] [place] [address] [place] Nucleated RBC (Bld) [#/Vol] 10*3/uL Normal <0.01 [facility] Comment on above: Order Comment: Speci men Type: BLOOD SPECIMEN Ordering Facility: [facility] Address: [address] [place] [address] Performed By: #### 5 7021-8 #### [facility] CLIA [id number] [address] [place] [address] [place] Nucleated RBC/100 WBC (Bld) [Ratio] 0.0 /100 WBC Normal [facility] Comment on above: Order Comment: Speci men Type: BLOOD SPECIMEN Ordering Facility: [facility] Address: [address] [place] [address] Performed By: #### 5 7021-8 #### [facility] CLIA [id number] [address] [place] [address] [place] Platelet mean volume (Bld) [Entitic vol] 8.7 fL Low 9.0-12.7 [facility] Comment on above: Order Comment: Speci men Type: BLOOD SPECIMEN [facility]ing Facility: [facility] Address: [address] [place] [address] Performed By: #### 5 7021-8 #### [facility] [id number] [address] [place] [address] [place] Platelets (Bld) [#/Vol] 264 10*3/uL Normal 150-400 [facility] Comment on above: Order Comment: Speci men Type: BLOOD SPECIMEN [facility]ing Facility: [facility] Address: [address] [place] [address] Performed By: #### 5 7021-8 #### [facility] [facility] CLIA [id number] [address] [place] [address] [place] RBC (Bld) [#/Vol] 3.25 10*6/uL Low 3.90-5.20 [facility] Comment on above: Order Comment: Speci men Type: BLOOD SPECIMEN [facility]ing Facility: [facility] Address: [address] [place] [address] Performed By: #### 5 7021-8 #### [facility] CLIA [id number] [address] [place] [address] [place] WBC (Bld) [#/Vol] 4.61 10*3/uL Normal 3.70-11.00 [facility] Comment on above: Order Comment: Speci men Type: BLOOD SPECIMEN [facility]ing Facility: [facility] Address: [address] [place] [address] Performed By: #### 5 7021-8 #### [facility] [id number] [address] [place] [address] [place] Cancer Ag125 SerPl-aCncon Cancer Ag 125 Qn 14 [arb'U]/mL Normal <39 [facility] Comment on above: Order Comment: Speci men Type: BLOOD SPECIMEN Ordering Facility: [facility] Address: [address] [place] [address] Result Comment: CA 1 25 test methodology used is the Electrochemiluminescence Immunoassay by [employer]. Results obtained with different methods or kits cannot be used interchangeably. The reference interval is based on the 95th percentile of 240 apparently healthy premenopausal and postmenopausal women. At a cutoff value of 65 U/mL, the test sensitivity to distinguish ovarian carcinoma (FIGO stage I to IV) versus benign gynecological disease is 79%, with a specificity of 82%. Reference: Cancer Antigen 125 (CA 125 II) [package insert V 1.0 [place]ese]. [employer], [place], [place] (April 2015) Performed By: #### 1 0334-1 #### [facility] CLIA [id number] [address] [place] [address] [place] Comprehensive metabolic 2000 panelon 09-15-2023 Albumin [Mass/Vol] 4.5 g/dL Normal 3.9-4.9 [facility] Comment on above: Order Comment: Speci men Type: BLOOD SPECIMEN [facility]ing Facility: [facility] Address: [address] [place] [address] Performed By: #### 2 4323-8, #### [facility] CLIA [id number] [address] [place] [address] [place] ALP [Catalytic activity/Vol] 76 U/L Normal 34-123 [facility] Comment on above: Order Comment: Speci men Type: BLOOD SPECIMEN Ordering Facility: [facility] Address: [address] [place] [address] Performed By: #### 2 432-8, #### [facility] CLIA [id number] [address] [place] [address] [place] ALT [Catalytic activity/Vol] 6 U/L Low 7-38 [facility] Comment on above: Order Comment: Speci men Type: BLOOD SPECIMEN Ordering Facility: [facility] Address: [address] [place] [address] Performed By: #### 2 4323-8, #### [facility] CLIA [id number] [address] [place] [address] [place] Anion gap [Moles/Vol] 11 mmol/L Normal 9-18 [facility] Comment on above: Order Comment: Speci men Type: BLOOD SPECIMEN Ordering Facility: [facility] Address: [address] [place] [address] Performed By: #### 2 4323-8, #### [facility] CLIA [id number] [address] [place] [address] [place] AST [Catalytic activity/Vol] 15 U/L Normal 13-35 [facility] Comment on above: Order Comment: Speci men Type: BLOOD SPECIMEN Ordering Facility: [facility] Address: [address] [place] [address] Performed By: #### 2 4323-8, #### [facility] CLIA [id number] [address] [place] [address] [place] Bilirubin [Mass/Vol] 0.3 mg/dL Normal 0.2-1.3 [facility] Comment on above: Order Comment: Speci men Type: BLOOD SPECIMEN Ordering Facility: [facility] Address: [address] [place] [address] Performed By: #### 2 4323-8, #### [facility] CLIA [id number] [address] [place] [address] [place] Calcium [Mass/Vol] 10.1 mg/dL Normal 8.5-10.2 [facility] Comment on above: Order Comment: Speci men Type: BLOOD SPECIMEN Ordering Facility: [facility] Address: [address] [place] [address] Performed By: #### 2 4323-8, #### [facility] CLIA [id number] [address] [place] [address] [place] Chloride [Moles/Vol] 102 mmol/L Normal 97-105 [facility] Comment on above: Order Comment: Speci men Type: BLOOD SPECIMEN Ordering Facility: [facility] Address: [address] [place] [address] Performed By: #### 2 4323-8, #### [facility] CLIA [id number] [address] [place] [address] [place] CO2 [Moles/Vol] 24 mmol/L Normal 22-30 [facility] Comment on above: Order Comment: Speci men Type: BLOOD SPECIMEN Ordering Facility: [facility] Address: [address] [place] [address] Performed By: #### 2 4323-8, #### [facility] CLIA [id number] [address] [place] [address] [place] Creatinine [Mass/Vol] 0.97 mg/dL High 0.58-0.96 [facility] Comment on above: Order Comment: Speci men Type: BLOOD SPECIMEN Ordering Facility: [facility] Address: [address] [place] [address] Performed By: #### 2 43238, #### [facility] CLIA [id number] [address] [place] [address] [place] Creatinine and Glomerular filtration rate.predicted panel (S/P/Bld) 65 mL/min/1.73m??? Normal >=60 [facility] Comment on above: Order Comment: Speci men Type: BLOOD SPECIMEN Ordering Facility: [facility] Address: [address] [place] [address] Result Comment: Erica mated Glomerular Filtration Rate (eGFR) is calculated using the 2020 CKD-EPI creatinine equation. This equation utilizes serum creatinine, sex, and age as parameters. The creatinine assay has traceable calibration to isotope dilution-mass spectrometry. Refer to KDIGO guidelines for clinical interpretation. In patients with unstable renal function, e.g. those with acute kidney injury, the eGFR may not accurately reflect actual GFR. Performed By: #### 2 4323-8, #### [facility] CLIA [id number] [address] [place] [address] [place] Glucose [Mass/Vol] 94 mg/dL Normal 74-99 [facility] Comment on above: Order Comment: Speci men Type: BLOOD SPECIMEN Ordering Facility: [facility] Address: [address] [place] [address] Result Comment: The [place] Diabetes Association (ADA) provides guidance for cutoff values for fasting glucose and random glucose. The ADA defines fasting as no caloric intake for at least 8 hours. Fasting plasma glucose results between 100 to 125 mg/dL indicate increased risk for diabetes (prediabetes). Fasting plasma glucose results greater than or equal to 126 mg/dL meet the criteria for diagnosis of diabetes. In the absence of unequivocal hyperglycemia, results should be confirmed by repeat testing. In a patient with classic symptoms of hyperglycemia or hyperglycemic crisis, random plasma glucose results greater than or equal to 200 mg/dL meet the criteria for diagnosis of diabetes. Reference: Standards of Medical Care in Diabetes 2016, [place] [employer] Association. Diabetes Care. 2016.39(Suppl 1). Performed By: #### 2 4323-8, #### [facility] CLIA [id number] [address] [place] [address] [place] Potassium [Moles/Vol] 3.8 mmol/L Normal 3.7-5.1 [facility] Comment on above: Order Comment: Speci men Type: BLOOD SPECIMEN Ordering Facility: [facility] Address: [address] [place] [address] Performed By: #### 2 4323-8, #### [facility] CLIA [id number] [address] [place] [address] [place] Protein [Mass/Vol] 7.4 g/dL Normal 6.3-8.0 [facility] Comment on above: Order Comment: Speci men Type: BLOOD SPECIMEN Ordering Facility: [facility] Address: [address] [place] [address] Performed By: #### 2 4323-8, #### [facility] CLIA [id number] [address] [place] [address] [place] Sodium [Moles/Vol] 137 mmol/L Normal 136-144 [facility] Comment on above: Order Comment: Speci men Type: BLOOD SPECIMEN Ordering Facility: [facility] Address: [address] [place] [address] Performed By: #### 2 4323-8, 02090-7 #### [facility] CLIA [id number] [address] [place] [address] [place] Urea nitrogen [Mass/Vol] 23 mg/dL High 7-21 [facility] Comment on above: Order Comment: Speci men Type: BLOOD SPECIMEN Ordering Facility: [facility] Address: [address] [place] [address] Performed By: #### 2 4323-8, 78077-5 #### [facility] CLIA [id number] [address] [place] [address] [place] Magnesium SerPl-mCncon 09-15 Magnesium [Mass/Vol] 2.0 mg/dL Normal 1.7-2.3 [facility] Comment on above: Order Comment: Speci men Type: BLOOD SPECIMEN Ordering Facility: [facility] Address: [address] [place] [address] Performed By: #### 2 4323-8, #### [facility] [id number] [address] [place] [address] [place] Bacteria Ur Culton 4 Bacteria identified Cx Nom (U) ORGANISM ID: 1 <10,000 CFU/ml Lactose positive gram negative bacilli Insignificant colony count. No further workup. Normal [facility] Comment on above: Performed By: #### 6 30-4 ####[facility] [id number] [address] [address] [place] CARIS AR TUMOR SEEK HYBRIDon 08-15-2023 [facility] CBC W Auto Differential pane l (Bld)on 07-15-2023 Basophils (Bld) [#/Vol] 0.02 10*3/uL Normal <0.11 [facility] Comment on above: Order Comment: Speci men Type: BLOOD SPECIMEN Ordering Facility: [facility] Address: [address] [place] [address] Performed By: #### 2 432-8, #### [facility] CLIA [id number] [address] [place] [address] [place] Basophils/100 WBC (Bld) 1.0 % Normal [facility] Comment on above: Order Comment: Speci men Type: BLOOD SPECIMEN Ordering Facility: [facility] Address: [address] [place] [address] Performed By: #### 2 8, #### [facility] CLIA [id number] [address] [place] [address] [place] Differential cell count method Nom (Bld) Manual Normal [facility] Comment on above: Order Comment: Speci men Type: BLOOD SPECIMEN Ordering Facility: [facility] Address: [address] [place] [address] Performed By: #### 2 4323-02, #### [facility] CLIA [id number] [address] [place] [address] [place] Eosinophils (Bld) [#/Vol] 0.02 10*3/uL Normal <0.46 [facility] Comment on above: Order Comment: Speci men Type: BLOOD SPECIMEN Ordering Facility: [facility] Address: [address] [place] [address] Performed By: #### 2 4323-02, #### [facility] CLIA [id number] [address] [place] [address] [place] Eosinophils/100 WBC (Bld) 1.0 % Normal [facility] Comment on above: Order Comment: Speci men Type: BLOOD SPECIMEN Ordering Facility: [facility] Address: [address] [place] [address] Performed By: #### 2 4323-8, #### [facility] CLIA [id number] [address] [place] [address] [place] Erythrocyte distribution width (RBC) [Ratio] 15.8 % High 11.5-15.0 [facility] Comment on above: Order Comment: Speci men Type: BLOOD SPECIMEN Ordering Facility: [facility] Address: [address] [place] [address] Performed By: #### 2 4323-8, 93927-3 #### [facility] CLIA [id number] [address] [place] [address] [place] Hematocrit (Bld) [Volume fraction] 30.4 % Low 36.0-46.0 [facility] Comment on above: Order Comment: Speci men Type: BLOOD SPECIMEN Ordering Facility: [facility] Address: [address] [place] [address] Performed By: #### 2 4323-8, 30505-0 #### [facility] CLIA [id number] [address] [place] [address] [place] Hemoglobin (Bld) [Mass/Vol] 10.0 g/dL Low 11.5-15.5 [facility] Comment on above: Order Comment: Speci men Type: BLOOD SPECIMEN Ordering Facility: [facility] Address: [address] [place] [address] Performed By: #### 2 4323-8, 92884-8 #### [facility] CLIA [id number] [address] [place] [address] [place] Lymphocytes (Bld) [#/Vol] 1.01 10*3/uL Normal 1.00-4.00 [facility] Comment on above: Order Comment: Speci men Type: BLOOD SPECIMEN Ordering Facility: [facility] Address: [address] [place] [address] Performed By: #### 2 4323-8, 82469-0 #### [facility] CLIA [id number] [address] [place] [address] [place] Lymphocytes/100 WBC (Bld) 41.0 % Normal [facility] Comment on above: Order Comment: Speci men Type: BLOOD SPECIMEN Ordering Facility: [facility] Address: [address] [place] [address] Performed By: #### 2 432-8, #### [facility] CLIA [id number] [address] [place] [address] [place] MCH (RBC) [Entitic mass] 32.5 pg Normal 26.0-34.0 [facility] Comment on above: Order Comment: Speci men Type: BLOOD SPECIMEN Ordering Facility: [facility] Address: [address] [place] [address] Performed By: #### 2 4323-8, #### [facility] CLIA [id number] [address] [place] [address] [place] MCHC (RBC) [Mass/Vol] 32.9 g/dL Normal 30.5-36.0 [facility] Comment on above: Order Comment: Speci men Type: BLOOD SPECIMEN Ordering Facility: [facility] Address: [address] [place] [address] Performed By: #### 2 432-8, #### [facility] CLIA [id number] [address] [place] [address] [place] MCV (RBC) [Entitic vol] 98.7 fL Normal 80.0-100.0 [facility] Comment on above: Order Comment: Speci men Type: BLOOD SPECIMEN Ordering Facility: [facility] Address: [address] [place] [address] Performed By: #### 2 4323-8, #### [facility] CLIA [id number] [address] [place] [address] [place] Monocytes (Bld) [#/Vol] 0.49 10*3/uL Normal <0.87 [facility] Comment on above: Order Comment: Speci men Type: BLOOD SPECIMEN Ordering Facility: [facility] Address: [address] [id number] Performed By: #### 2 4323-02, #### [facility] CLIA [id number] [address] [place] [address] [place] Monocytes/100 WBC (Bld) 20.0 % Normal [facility] Comment on above: Order Comment: Speci men Type: BLOOD SPECIMEN Ordering Facility: [facility] Address: [address] [place] [address] Performed By: #### 2 4323-02, #### [facility] CLIA [id number] [address] [place] [address] [place] MYELO% 1.0 % Normal [facility] Comment on above: Order Comment: Speci men Type: BLOOD SPECIMEN Ordering Facility: [facility] Address: [address] [place] [address] Performed By: #### 2 4323-02, #### [facility] CLIA [id number] [address] [place] [address] [place] Neutrophils (Bld) [#/Vol] 0.89 10*3/uL Low 1.45-7.50 [facility] Comment on above: Order Comment: Speci men Type: BLOOD SPECIMEN Ordering Facility: [facility] Address: [address] [place] [address] Performed By: #### 2 4323-02, #### [facility] CLIA [id number] [address] [place] [address] [place] Neutrophils/100 WBC (Bld) 36.0 % Normal [facility] Comment on above: Order Comment: Speci men Type: BLOOD SPECIMEN Ordering Facility: [facility] Address: [address] [place] [address] Performed By: #### 2 4323-02, #### [facility] CLIA [id number] [address] [place] [address] [place] Nucleated RBC (Bld) [#/Vol] 10*3/uL Normal <0.01 [facility] Comment on above: Order Comment: Speci men Type: BLOOD SPECIMEN Ordering Facility: [facility] Address: [address] [place] [address] Performed By: #### 2 4323-8, #### [facility] CLIA [id number] [address] [place] [address] [place] Nucleated RBC/100 WBC (Bld) [Ratio] 0.0 /100 WBC Normal [facility] Comment on above: Order Comment: Speci men Type: BLOOD SPECIMEN Ordering Facility: [facility] Address: [address] [place] [address] Performed By: #### 2 4323-8, #### [facility] CLIA [id number] [address] [place] [address] [place] Platelet mean volume (Bld) [Entitic vol] 8.2 fL Low 9.0-12.7 [facility] Comment on above: Order Comment: Speci men Type: BLOOD SPECIMEN Ordering Facility: [facility] Address: [address] [place] [address] Performed By: #### 2 4323-8, #### [facility] CLIA [id number] [address] [place] [address] [place] Platelets (Bld) [#/Vol] 298 10*3/uL Normal 150-400 [facility] Comment on above: Order Comment: Speci men Type: BLOOD SPECIMEN Ordering Facility: [facility] Address: [address] [place], [place] [address] Performed By: #### 2 4323-8, #### [facility] CLIA [id number] [address] [place], [place] [id number] [place] Platelets Estimate (Bld) [#/Vol] Adequate Normal [facility] Comment on above: Order Comment: Speci men Type: BLOOD SPECIMEN Ordering Facility: [facility] Address: [address] [place] [address] Performed By: #### 2 4323-8, #### [facility] CLIA [id number] [address] [place] [address] [place] RBC (Bld) [#/Vol] 3.08 10*6/uL Low 3.90-5.20 [facility] Comment on above: Order Comment: Speci men Type: BLOOD SPECIMEN Ordering Facility: [facility] Address: [address] [place] [address] Performed By: #### 2 4323-8, 28611-6 #### [facility] CLIA [id number] [address] [place] [address] [place] RED CELL MORPH Reviewed: normal Normal [facility] Comment on above: Order Comment: Speci men Type: BLOOD SPECIMEN Ordering Facility: [facility] Address: [address] [place] [address] Performed By: #### 2 4323-8, #### [facility] CLIA [id number] [address] [place] [address] [place] WBC (Bld) [#/Vol] 2.46 10*3/uL Low 3.70-11.00 [facility] Comment on above: Order Comment: Speci men Type: BLOOD SPECIMEN Ordering Facility: [facility] Address: [address] [place] [address] Performed By: #### 2 4323-8, #### [facility] CLIA [id number] [address] [place] [address] [place] Cancer Ag125 SerPl-aCncon Cancer Ag 125 Qn 229 [arb'U]/mL High <39 [facility] Comment on above: Order Comment: Speci men Type: BLOOD SPECIMEN Ordering Facility: [facility] Address: [address] [id number] Result Comment: CA 1 25 test methodology used is the Electrochemiluminescence Immunoassay by [employer]. Results obtained with different methods or kits cannot be used interchangeably. The reference interval is based on the 95th percentile of 240 apparently healthy premenopausal and postmenopausal women. At a cutoff value of 65 U/mL, the test sensitivity to distinguish ovarian carcinoma (FIGO stage I to IV) versus benign gynecological disease is 79%, with a specificity of 82%. Reference: Cancer Antigen 125 (CA 125 II) [package insert V 1.0 [place]ese]. [employer], [place], [place] (April 2015) Performed By: #### 1 0334-1 #### [facility] CLIA [id number] [address] [place] [address] [place] Comprehensive metabolic 2000 panelon 07-15-2023 Albumin [Mass/Vol] 4.4 g/dL Normal 3.9-4.9 [facility] Comment on above: Order Comment: Speci men Type: BLOOD SPECIMEN Ordering Facility: [facility] Address: [address] [place] [address] Performed By: #### 2 4323-8, 23224-7 #### [facility] CLIA [id number] [address] [place] [address] [place] ALP [Catalytic activity/Vol] 88 U/L Normal 34-123 [facility] Comment on above: Order Comment: Speci men Type: BLOOD SPECIMEN Ordering Facility: [facility] Address: [address] [place] [address] Performed By: #### 2 4323-8, #### [facility] CLIA [id number] [address] [place] [address] [place] ALT [Catalytic activity/Vol] 16 U/L Normal 7-38 [facility] Comment on above: Order Comment: Speci men Type: BLOOD SPECIMEN [facility] Facility: [facility] Address: [address] [place], [place] [address] Performed By: #### 2 4323-8, #### [facility] CLIA [id number] [address] [place] [address] [place] Anion gap [Moles/Vol] 8 mmol/L Low 9-18 [facility] Comment on above: Order Comment: Speci men Type: BLOOD SPECIMEN [facility] Facility: [facility] Address: [address] [place], [place] [address] Performed By: #### 2 4323-8, #### [facility] CLIA [id number] [address] [place] [address] [place] AST [Catalytic activity/Vol] 19 U/L Normal 13-35 [facility] Comment on above: Order Comment: Speci men Type: BLOOD SPECIMEN [facility]ing Facility: [facility] Address: [address] [place] [address] Performed By: #### 2 4323-8, #### [facility] CLIA [id number] [address] [place] [address] [place] Bilirubin [Mass/Vol] 0.2 mg/dL Normal 0.2-1.3 [facility] Comment on above: Order Comment: Speci men Type: BLOOD SPECIMEN Ordering Facility: [facility] Address: [address] [place] [address] Performed By: #### 2 4323-8, #### [facility] CLIA [id number] [address] [place] [address] [place] Calcium [Mass/Vol] 10.0 mg/dL Normal 8.5-10.2 [facility] Comment on above: Order Comment: Speci men Type: BLOOD SPECIMEN [facility]ing Facility: [facility] Address: [address] [place] [address] Performed By: #### 2 4323-8, #### [facility] CLIA [id number] [address] [place] [address] [place] Chloride [Moles/Vol] 103 mmol/L Normal 97-105 [facility] Comment on above: Order Comment: Speci men Type: BLOOD SPECIMEN Ordering Facility: [facility] Address: [address] [place] [address] Performed By: #### 2 4323-8, #### [facility] CLIA [id number] [address] [place] [address] [place] CO2 [Moles/Vol] 26 mmol/L Normal 22-30 [facility] Comment on above: Order Comment: Speci men Type: BLOOD SPECIMEN Ordering Facility: [facility] Address: [address] [place] [address] Performed By: #### 2 4323-8, #### [facility] CLIA [id number] [address] [place] [address] [place] Creatinine [Mass/Vol] 1.00 mg/dL High 0.58-0.96 [facility] Comment on above: Order Comment: Speci men Type: BLOOD SPECIMEN Ordering Facility: [facility] Address: [address] [place] [address] Performed By: #### 2 4323-8, #### [facility] CLIA [id number] [address] [place] [address] [place] Creatinine and Glomerular filtration rate.predicted panel (S/P/Bld) 62 mL/min/1.73m??? Normal >=60 [facility] Comment on above: Order Comment: Speci men Type: BLOOD SPECIMEN Ordering Facility: [facility] Address: [address] [place] [address] Result Comment: Erica mated Glomerular Filtration Rate (eGFR) is calculated using the 2020 CKD-EPI creatinine equation. This equation utilizes serum creatinine, sex, and age as parameters. The creatinine assay has traceable calibration to isotope dilution-mass spectrometry. Refer to KDIGO guidelines for clinical interpretation. In patients with unstable renal function, e.g. those with acute kidney injury, the eGFR may not accurately reflect actual GFR. Performed By: #### 2 432-8, #### [facility] CLIA [id number] [address] [place] [address] [place] Glucose [Mass/Vol] 101 mg/dL High 74-99 [facility] Comment on above: Order Comment: John ellis Type: BLOOD SPECIMEN Ordering Facility: [facility] Address: [address] [place] [address] Result Comment: The [place] [employer] Association (ADA) provides guidance for cutoff values for fasting glucose and random glucose. The ADA defines fasting as no caloric intake for at least 8 hours. Fasting plasma glucose results between 100 to 125 mg/dL indicate increased risk for diabetes (prediabetes). Fasting plasma glucose results greater than or equal to 126 mg/dL meet the criteria for diagnosis of diabetes. In the absence of unequivocal hyperglycemia, results should be confirmed by repeat testing. In a patient with classic symptoms of hyperglycemia or hyperglycemic crisis, random plasma glucose results greater than or equal to 200 mg/dL meet the criteria for diagnosis of diabetes. Reference: Standards of Medical Care in Diabetes 2016, [place] [employer]. Diabetes Care. 2016.39(Suppl 1). Performed By: #### 2 43209-25, #### [facility] CLIA [id number] [address] [place] [address] [place] Potassium [Moles/Vol] 3.8 mmol/L Normal 3.7-5.1 [facility] Comment on above: Order Comment: John ellis Type: BLOOD SPECIMEN Ordering Facility: [facility] Address: [address] [place] [address] Performed By: #### 2 432-8, #### [facility] CLIA [id number] [address] [place] [id number] [place] Protein [Mass/Vol] 7.2 g/dL Normal 6.3-8.0 [facility] Comment on above: Order Comment: Speci men Type: BLOOD SPECIMEN Ordering Facility: [facility] Address: [address] [place] [address] Performed By: #### 2 4323-8, #### [facility] CLIA [id number] [address] [place] [address] [place] Sodium [Moles/Vol] 137 mmol/L Normal 136-144 [facility] Comment on above: Order Comment: Speci men Type: BLOOD SPECIMEN [facility]ing Facility: [facility] Address: [address] [place] [address] Performed By: #### 2 4323-8, #### [facility] CLIA [id number] [address] [place] [address] [place] Urea nitrogen [Mass/Vol] 24 mg/dL High 7-21 [facility] Comment on above: Order Comment: Speci men Type: BLOOD SPECIMEN Ordering Facility: [facility] Address: [address] [place] [address] Performed By: #### 2 4323-8, #### [id number] [address] [place] [address] [place] Magnesium SerPl-mCncon 07-15 Magnesium [Mass/Vol] 2.0 mg/dL Normal 1.7-2.3 [facility] Comment on above: Order Comment: Speci men Type: BLOOD SPECIMEN Ordering Facility: [facility] Address: [address] [place] [address] Performed By: #### 2 4323-8, #### [facility] CLIA [id number] [address] [place] [address] [place] MRI FEMALE PELVIS WO/W IVCON on 06-26-2023 [facility] CA 125 BLDon 06-04-2023 Cancer Ag 125 Qn 926 [arb'U]/mL High <39 U/mL [facility] CT CHEST WO IVCONon 04-18-20 [facility] DXA-AXIAL SKELETONon 023 [facility] .GFRon 11-06-2017 eGFR (non-black) mL/min/{1.73_m2} Normal [facility] ([place]) Comment on above: Result Comment: GFR Population mean for , Non- Americans Ages 20-29 = 116 mL/min/1.73 sq.m. Ages 30-39 = 107 mL/min/1.73 sq.m. Ages 40-49 = 99 mL/min/1.73 sq.m. Ages 50-59 = 93 mL/min/1.73 sq.m. Ages 60-69 = 85 mL/min/1.73 sq.m. Ages 70+ = 75 mL/min/1.73 sq.m.Chronic Kidney Disease: Less than 60 mL/min/1.73 square metersEnd Stage Renal Disease: Less than 15 mL/min/1.73 square meters Performed By: #### C BC, ADIFF, ANEU, LIPID, CMP, GFR ####[facility] [place], [place] [address]#### B12, VIDH, FOL ####[place] [address] eGFR (non-black) 78 ml/min/1.73sqm Normal A [facility] ([place]) Comment on above: Result Comment: GFR Population mean for , Non- Americans Ages 20-29 = 116 mL/min/1.73 sq.m. Ages 30-39 = 107 mL/min/1.73 sq.m. Ages 40-49 = 99 mL/min/1.73 sq.m. Ages 50-59 = 93 mL/min/1.73 sq.m. Ages 60-69 = 85 mL/min/1.73 sq.m. Ages 70+ = 75 mL/min/1.73 sq.m.Chronic Kidney Disease: Less than 60 mL/min/1.73 square metersEnd Stage Renal Disease: Less than 15 mL/min/1.73 square meters Performed By: #### C BC, ADIFF, ANEU, LIPID, CMP, GFR ####[place] [address]#### B12, VIDH, FOL ####[place] [address] CMPon 11-06-2017 Alanine aminotransferase (ALT) 13 U/L Normal 10-35 [facility] ([place]) Comment on above: Performed By: #### C BC, ADIFF, ANEU, LIPID, CMP, GFR ####[place] [address]#### B12, VIDH, FOL ####[place] [address] Albumin 4.6 G/dL Normal 3.4-4.8 [facility] ([place] Comment on above: Performed By: #### C BC, ADIFF, ANEU, LIPID, CMP, GFR ####[place] [address]#### B12, VIDH, FOL ####[place] [address] Albumin/Globulin Ratio 1.8 {ratio} Normal 1.1-2.5 [facility] ([place]) Comment on above: Performed By: #### C BC, ADIFF, ANEU, LIPID, CMP, GFR ####[place] [address]#### B12, VIDH, FOL ####[place] [address] Alk Phos 90 IU/L Normal 40-135 [facility] ([place] Comment on above: Performed By: #### C BC, ADIFF, ANEU, LIPID, CMP, GFR ####[place] [address]#### B12, VIDH, FOL ####[place] [address] Aspartate aminotransferase (AST) 20 U/L Normal 10-40 [facility] ([place] Comment on above: Performed By: #### C BC, ADIFF, ANEU, LIPID, CMP, GFR ####[place] [address]#### B12, VIDH, FOL ####[place] [address] Bili Total 0.5 mg/dL Normal 0.2-1.0 [facility] ([place] Comment on above: Performed By: #### C BC, ADIFF, ANEU, LIPID, CMP, GFR ####[place] [address]#### B12, VIDH, FOL ####[place] [address] BUN/Creatinine Ratio 18 ratio Normal 7-27 [facility] ([place]) Comment on above: Performed By: #### C BC, ADIFF, ANEU, LIPID, CMP, GFR ####[place] [address]#### B12, VIDH, FOL ####[place] [address] Calcium 9.8 mg/dL Normal 8.4-10.2 [facility] ([place] Comment on above: Performed By: #### C BC, ADIFF, ANEU, LIPID, CMP, GFR ####[place] [address]#### B12, VIDH, FOL ####[place] [address] Chloride 102 mmol/L Normal 98-107 [facility] ([place] Comment on above: Performed By: #### C BC, ADIFF, ANEU, LIPID, CMP, GFR ####[place] [address]#### B12, VIDH, FOL ####[place] [address] CO2 28 mmol/L Normal 23-31 [facility] ([place] Comment on above: Performed By: #### C BC, ADIFF, ANEU, LIPID, CMP, GFR ####[place] [address]#### B12, VIDH, FOL ####[address] [address] Creatinine 0.9 mg/dL Normal 0.6-1.2 [facility] ([place] Comment on above: Performed By: #### C BC, ADIFF, ANEU, LIPID, CMP, GFR ####[address] [address]#### B12, VIDH, FOL ####[place] [address] Electrolyte Balance 9.0 mEq/L Normal [facility] ([place]) Comment on above: Performed By: #### C BC, ADIFF, ANEU, LIPID, CMP, GFR ####[place] [address]#### B12, VIDH, FOL ####[place] [address] Globulin 2.5 G/dL Normal [facility] ([place] Comment on above: Performed By: #### C BC, ADIFF, ANEU, LIPID, CMP, GFR ####[place] [address]#### B12, VIDH, FOL ####[place] [address] Glucose mass conc 92 mg/dL Normal 80-115 [facility] ([place] Comment on above: Performed By: #### C BC, ADIFF, ANEU, LIPID, CMP, GFR ####[place] [address]#### B12, VIDH, FOL ####[address] [address] Potassium molar conc 4.4 mmol/L Normal 3.5-5.1 [facility] ([place]) Comment on above: Performed By: #### C BC, ADIFF, ANEU, LIPID, CMP, GFR ####[place] [id number]#### B12, VIDH, FOL ####[place] [address] Protein 7.1 G/dL Normal 6.0-8.3 [facility] ([place] Comment on above: Performed By: #### C BC, ADIFF, ANEU, LIPID, CMP, GFR ####[address] [place] [address]#### B12, VIDH, FOL ####[facility] [place] [address] Sodium 139 mmol/L Normal 136-146 [facility] ([place] Comment on above: Performed By: #### C BC, ADIFF, ANEU, LIPID, CMP, GFR ####[place] [place] [address]#### B12, VIDH, FOL ####[address] [address] Urea nitrogen 16.2 mg/dL Normal 7.0-18.0 [facility] ([place] Comment on above: Performed By: #### C BC, ADIFF, ANEU, LIPID, CMP, GFR ####[place] [address]#### B12, VIDH, FOL ####[facility] [place] [address] LIPIDon 11-06-2017 Cholesterol 207 mg/dL High 131-200 [facility] ([place] Comment on above: Result Comment: Chol esterol Reference Interval:Less than 200 [id number] Borderline high phmf378 and above High risk Performed By: #### L IPID, CMP, GFR ####[place] [place] [address] HDL Cholesterol 70 mg/dL Normal 35-90 [facility] ([place] Comment on above: Result Comment: HDL Reference Interval:Less than 40 Low - high risk60 or above Optimal/lowers risk Performed By: #### L IPID, CMP, GFR ####[place] [place] [id number] LDL Cholesterol 119 mg/dL Normal 0-130 [facility] ([place] Comment on above: Result Comment: LDL is a calculated result and requires a 12- hr fast.LDL Reference Interval:Less than 100 [id number] Near or above qcjvutu136-454 Borderline high vwll302-850 High stpe558 and above Very high risk Performed By: #### L IPID, CMP, GFR ####[place] [place] [place], [place] [address] Triglyceride 89 mg/dL Normal 40-150 [facility] ([place] Comment on above: Result Comment: Trig lyceride Reference Interval:Less than 150 Qrlybl704-084 Borderline high usaw285-499 High taco863 or higher Very high risk Performed By: #### L IPID, CMP, GFR ####[place] [place], [place] [address] B12on 02-21-2017 Cobalamins (Vitamin B12) 442 pg/mL Normal 211-911 [facility] ([place] Comment on above: Performed By: #### C BC, ADIFF, ANEU, LIPID, CMP, GFR ####[address] [place] [address]#### B12, VIDH, FOL ####[place] [address] FOLon 02-21-2017 Folate 21.7 ng/mL High 1.1-20.0 [facility] ([place] Comment on above: Performed By: #### C BC, ADIFF, ANEU, LIPID, CMP, GFR ####[place] [place] [address]#### B12, VIDH, FOL ####[place] [address] VIDHon 02-21-2017 Vit. D 25-Hydroxy 15 ng/mL Normal [facility] ([place] Comment on above: Result Comment: Inte rpretive Values Based on Total 25(OH)D: Severe Deficiency <20 ng/mL Mild to Moderate Deficiency 20-30 ng/mL Optimum Levels 30-100 ng/mL Toxicity Possible >100 ng/mL Performed By: #### C BC, ADIFF, ANEU, LIPID, CMP, GFR ####[place] [place] [address]#### B12, VIDH, FOL ####[place] [address] .Auto Diffon 02-20-2017 Basophils Auto #/vol (Bld) 0.00 10 3/mcL Normal 0.00-0.19 [facility] ([place] Comment on above: Performed By: #### C BC, ADIFF, ANEU, LIPID, CMP, GFR ####[place] [address]#### B12, VIDH, FOL ####[address] [address] Basophils/100 WBC Auto (Bld) 0.3 % Normal 0.0-2.5 [facility] ([place] Comment on above: Performed By: #### C BC, ADIFF, ANEU, LIPID, CMP, GFR ####[place] [address]#### B12, VIDH, FOL ####[place] [address] Eosinophils 0.10 10 3/mcL Normal 0.00-0.40 [facility] ([place] Comment on above: Performed By: #### C BC, ADIFF, ANEU, LIPID, CMP, GFR ####[place] [address]#### B12, VIDH, FOL ####[address] [address] Eosinophils/100 leukocytes 1.6 % Normal 0.0-7.0 [facility] ([place] Comment on above: Performed By: #### C BC, ADIFF, ANEU, LIPID, CMP, GFR ####[place] [address]#### B12, VIDH, FOL ####[address] [address] Lymphocytes 1.90 10 3/mcL Normal 0.77-3.85 [facility] ([place] Comment on above: Performed By: #### C BC, ADIFF, ANEU, LIPID, CMP, GFR ####[place] [address]#### B12, VIDH, FOL ####[address] [address] Lymphocytes/100 leukocytes 40.9 % Normal 10.0-50.0 [facility] ([place] Comment on above: Performed By: #### C BC, ADIFF, ANEU, LIPID, CMP, GFR ####[place] [address]#### B12, VIDH, FOL ####[address] [address] Monocytes 0.50 10 3/mcL Normal 0.15-1.00 [facility] ([place] Comment on above: Performed By: #### C BC, ADIFF, ANEU, LIPID, CMP, GFR ####[place] [address]#### B12, VIDH, FOL ####[address] [address] Monocytes/100 leukocytes 10.8 % Normal 1.7-13.0 [facility] ([place] Comment on above: Performed By: #### C BC, ADIFF, ANEU, LIPID, CMP, GFR ####[place] [address]#### B12, VIDH, FOL ####[address] [address] Neutrophils/100 WBC Auto (Bld) 46.4 % Normal 37.0-80.0 [facility] ([place] Comment on above: Performed By: #### C BC, ADIFF, ANEU, LIPID, CMP, GFR ####[place] [address]#### B12, VIDH, FOL ####[address] [address] .NEUABSon 02-20-2017 Neutrophils 2.10 10 3/mcL Low 2.85-6.16 [facility] ([place] Comment on above: Performed By: #### C BC, ADIFF, ANEU, LIPID, CMP, GFR ####[place] [address]#### B12, VIDH, FOL ####[place] [address] CBCon 02-20-2017 Erythrocyte distribution width Auto Ratio (RBC) 12.3 % Normal 11.5-14.5 [facility] ([place] Comment on above: Performed By: #### C BC, ADIFF, ANEU, LIPID, CMP, GFR ####[place] [address]#### B12, VIDH, FOL ####[place] [address] Erythrocytes (RBC) 4.23 10 6/mcL Normal 4.20-5.40 [facility] ([place]) Comment on above: Performed By: #### C BC, ADIFF, ANEU, LIPID, CMP, GFR ####[place] [address]#### B12, VIDH, FOL ####[place] [address] Hematocrit (HCT) 39.5 % Normal 37.0-47.0 [facility] ([place] Comment on above: Performed By: #### C BC, ADIFF, ANEU, LIPID, CMP, GFR ####[place] [address]#### B12, VIDH, FOL ####[place] [address] Hemoglobin mass conc (Bld) 13.4 G/dL Normal 12.0-16.0 [facility] ([place] Comment on above: Performed By: #### C BC, ADIFF, ANEU, LIPID, CMP, GFR ####[place] [address]#### B12, VIDH, FOL ####[place] [address] MCH 31.7 pg High 27.0-31.2 [facility] ([place] Comment on above: Performed By: #### C BC, ADIFF, ANEU, LIPID, CMP, GFR ####[place] [address]#### B12, VIDH, FOL ####[address] [address] MCHC mass conc (RBC) 34.0 G/dL Normal 33.0-37.0 [facility] ([place]) Comment on above: Performed By: #### C BC, ADIFF, ANEU, LIPID, CMP, GFR ####[place] [address]#### B12, VIDH, FOL ####[place] [address] MCV 93.3 fL Normal 80.0-94.0 [facility] ([place] Comment on above: Performed By: #### C BC, ADIFF, ANEU, LIPID, CMP, GFR ####[place] [address]#### B12, VIDH, FOL ####[place] [address] Platelet mean volume (PMV) 8.0 fL Normal 7.4-10.4 [facility] ([place] Comment on above: Performed By: #### C BC, ADIFF, ANEU, LIPID, CMP, GFR ####[place] [address]#### B12, VIDH, FOL ####[place] [address] Platelets 247 10 3/mcL Normal 130-400 [facility] ([place] Comment on above: Performed By: #### C BC, ADIFF, ANEU, LIPID, CMP, GFR ####[place] [address]#### B12, VIDH, FOL ####[place] [address] WBC (Leukocytes) 4.50 10 3/mcL Low 4.60-10.80 [facility] ([place]) Comment on above: Performed By: #### C BC, ADIFF, ANEU, LIPID, CMP, GFR ####[place] [address]#### B12, VIDH, FOL ####[place] [address] CMPon 02-20-2017 Alanine aminotransferase (ALT) 8 ZZ Low 10-35 [facility] ([place] Comment on above: Performed By: #### C BC, ADIFF, ANEU, LIPID, CMP, GFR ####[address] [place] [address]#### B12, VIDH, FOL ####[place] [address] Albumin 4.7 G/dL Normal 3.4-4.8 [facility] ([place] Comment on above: Performed By: #### C BC, ADIFF, ANEU, LIPID, CMP, GFR ####[place] [address]#### B12, VIDH, FOL ####[place] [address] Albumin/Globulin Ratio 1.6 {ratio} Normal 1.1-2.5 [facility] ([place]) Comment on above: Performed By: #### C BC, ADIFF, ANEU, LIPID, CMP, GFR ####[place] [address]#### B12, VIDH, FOL ####[place] [address] Alk Phos 86 ZZ Normal 40-135 [facility] ([place] Comment on above: Performed By: #### C BC, ADIFF, ANEU, LIPID, CMP, GFR ####[place] [address]#### B12, VIDH, FOL ####[place] [address] Aspartate aminotransferase (AST) 17 ZZ Normal 10-40 [facility] ([place]) Comment on above: Performed By: #### C BC, ADIFF, ANEU, LIPID, CMP, GFR ####[place] [place] [address]#### B12, VIDH, FOL ####[place] [address] Bili Total 0.6 mg/dL Normal 0.2-1.0 [facility] ([place] Comment on above: Performed By: #### C BC, ADIFF, ANEU, LIPID, CMP, GFR ####[place] [address]#### B12, VIDH, FOL ####[address] [address] BUN/Creatinine Ratio 16 ratio Normal 7-27 [facility] ([place] Comment on above: Performed By: #### C BC, ADIFF, ANEU, LIPID, CMP, GFR ####[place] [address]#### B12, VIDH, FOL ####[place] [address] Calcium 10.2 mg/dL Normal 8.4-10.2 [facility] ([place]) Comment on above: Performed By: #### C BC, ADIFF, ANEU, LIPID, CMP, GFR ####[place] [address]#### B12, VIDH, FOL ####[address] [address] Chloride 104 mmol/L Normal 98-107 [facility] ([place] Comment on above: Performed By: #### C BC, ADIFF, ANEU, LIPID, CMP, GFR ####[place] [address]#### B12, VIDH, FOL ####[place] [address] CO2 26 mmol/L Normal 23-31 [facility] ([place] Comment on above: Performed By: #### C BC, ADIFF, ANEU, LIPID, CMP, GFR ####[place] [address]#### B12, VIDH, FOL ####[place] [address] Creatinine 1.0 mg/dL Normal 0.6-1.2 [facility] ([place] Comment on above: Performed By: #### C BC, ADIFF, ANEU, LIPID, CMP, GFR ####[place] [id number]#### B12, VIDH, FOL ####[address] [address] Electrolyte Balance 9.0 mEq/L Normal [facility] ([place] Comment on above: Performed By: #### C BC, ADIFF, ANEU, LIPID, CMP, GFR ####[place] [address]#### B12, VIDH, FOL ####[address] [address] Globulin 2.9 G/dL Normal [facility] ([place] Comment on above: Performed By: #### C BC, ADIFF, ANEU, LIPID, CMP, GFR ####[place] [address]#### B12, VIDH, FOL ####[address] [address] Glucose mass conc 99 mg/dL Normal 80-115 [facility] ([place] Comment on above: Performed By: #### C BC, ADIFF, ANEU, LIPID, CMP, GFR ####[place] [address]#### B12, VIDH, FOL ####[address] [address] Potassium molar conc 4.2 mmol/L Normal 3.5-5.1 [facility] ([place]) Comment on above: Performed By: #### C BC, ADIFF, ANEU, LIPID, CMP, GFR ####[place] [address]#### B12, VIDH, FOL ####[place] [address] Protein 7.6 G/dL Normal 6.0-8.3 [facility] ([place]) Comment on above: Performed By: #### C BC, ADIFF, ANEU, LIPID, CMP, GFR ####[place] [address]#### B12, VIDH, FOL ####[address] [address] Sodium 139 mmol/L Normal 136-146 [facility] ([place] Comment on above: Performed By: #### C BC, ADIFF, ANEU, LIPID, CMP, GFR ####[address] [address]#### B12, VIDH, FOL ####[address] [address] Urea nitrogen 15.5 mg/dL Normal 7.0-18.0 [facility] ([place]) Comment on above: Performed By: #### C BC, ADIFF, ANEU, LIPID, CMP, GFR ####[place] [address]#### B12, VIDH, FOL ####[address] [address] GFRon 02-20-2017 eGFR (non-black) 56 ml/min/1.73sqm Normal [facility] ([place]) Comment on above: Result Comment: GFR Population mean for , Non- Americans Ages 20-29 = 116 mL/min/1.73 sq.m. Ages 30-39 = 107 mL/min/1.73 sq.m. Ages 40-49 = 99 mL/min/1.73 sq.m. Ages 50-59 = 93 mL/min/1.73 sq.m. Ages 60-69 = 85 mL/min/1.73 sq.m. Ages 70+ = 75 mL/min/1.73 sq.m.Chronic Kidney Disease: Less than 60 mL/min/1.73 square metersEnd Stage Renal Disease: Less than 15 mL/min/1.73 square meters Performed By: #### C BC, ADIFF, ANEU, LIPID, CMP, GFR ####[address]leen [address] [place] [id number]#### B12, VIDH, FOL ####[address] [address] eGFR (non-black) 67 ml/min/1.73sqm Normal [facility] ([place]) Comment on above: Result Comment: GFR Population mean for , Non- Americans Ages 20-29 = 116 mL/min/1.73 sq.m. Ages 30-39 = 107 mL/min/1.73 sq.m. Ages 40-49 = 99 mL/min/1.73 sq.m. Ages 50-59 = 93 mL/min/1.73 sq.m. Ages 60-69 = 85 mL/min/1.73 sq.m. Ages 70+ = 75 mL/min/1.73 sq.m.Chronic Kidney Disease: Less than 60 mL/min/1.73 square metersEnd Stage Renal Disease: Less than 15 mL/min/1.73 square meters Performed By: #### C BC, ADIFF, ANEU, LIPID, CMP, GFR ####[address] [place] [address]#### B12, VIDH, FOL ####[place] [address] LIPIDon 02-20-2017 Cholesterol 216 mg/dL High 131-200 [facility] ([place] Comment on above: Result Comment: Chol esterol Reference Interval:Less than 200 [id number] Borderline high ufpc435 and above High risk Performed By: #### C BC, ADIFF, ANEU, LIPID, CMP, GFR ####[address] [place] [place], [place] [address]#### B12, VIDH, FOL ####[address] [address] HDL Cholesterol 70 mg/dL Normal 35-90 [facility] ([place] Comment on above: Result Comment: HDL Reference Interval:Less than 40 Low - high risk60 or above Optimal/lowers risk Performed By: #### C BC, ADIFF, ANEU, LIPID, CMP, GFR ####[address] [place] [address]#### B12, VIDH, FOL ####[address] [address] LDL Cholesterol 128 mg/dL Normal 0-130 [facility] ([place]) Comment on above: Result Comment: LDL is a calculated result and requires a 12- hr fast.LDL Reference Interval:Less than 100 [id number] Near or above [id number] Borderline high [id number] High yiva298 and above Very high risk Performed By: #### C BC, ADIFF, ANEU, LIPID, CMP, GFR ####[address] [place], [place] [address]#### B12, VIDH, FOL ####[facility] [place] [address] Triglyceride 88 mg/dL Normal 40-150 [facility] ([place]) Comment on above: Result Comment: Trig lyceride Reference Interval:Less than 150 [id number] Borderline high hvaz060-900 High wkws803 or higher Very high risk Performed By: #### C BC, ADIFF, ANEU, LIPID, CMP, GFR ####[address] [place], [place] [address]#### B12, VIDH, FOL ####[facility] [place] [address] Vital Signs Date Time Vital Sign Value Performing Clinician Facility 01-18-2025 10:29-0400 Diastolic blood pressure 95 mm[Hg] Annetta Bird MD Work Phone: [facility] 01-18-2025 10:29-0400 Systolic blood pressure 155 mm[Hg] Annetta Bird MD Work Phone: [facility] 01-18-2025 10:18-0400 Heart rate 62 /min Annetta Bird MD Work Phone: [facility] 01-18-2025 10:18-0400 Respiratory rate 19 /min Annetta Bird MD [facility] Phone[facility] [facility] 01-18-2025 10:18-0400 SaO2% (BldA) [Mass fraction] 100 % Annetta Bird MD Work Phone: [facility] 01-18-2025 10:01-0400 Body temperature 97.81 [degF] Annetta Bird MD Work Phone: [facility] 01-18-2025 08:14-0400 Body height 170.2 cm Annetta Bird MD Work Phone: [facility] 01-18-2025 08:14-0400 Body mass index (BMI) [Ratio] 22.71 kg/m2 Annetta Bird MD Work Phone: [facility] 01-18-2025 08:14-0400 Body weight 65.77 kg Annetta Bird MD Work Phone: [facility] 12-02-2024 10:51-0400 Body height 167.[address] Chuck Hope MD Work Phone: [facility] 12-02-2024 10:51-0400 Body mass index (BMI) [Ratio] 24 kg/m2 Dr. Chuck Hope MD Work Phone: [facility] 12-02-2024 10:51-0400 Body temperature 98.6 [degF] Dr. Chuck Hope MD Work Phone: [facility] 12-02-2024 10:51-0400 Body weight 67.[address] Chuck Hope MD Work Phone: [facility] 12-02-2024 10:51-0400 Diastolic blood pressure 88 mm[Hg] Dr. Chuck Hope MD Work Phone: [facility] 12-02-2024 10:51-0400 Heart rate 61 /min Dr. Chuck Hope MD Work Phone: [facility] 12-02-2024 10:51-0400 Respiratory rate 16 /min Dr. Chuck Hope MD Work Phone: [facility] 12-02-2024 10:51-0400 SaO2% (BldA) [Mass fraction] 100 % Dr. Chuck Hope MD Work Phone: [facility] 12-02-2024 10:51-0400 Systolic blood pressure 172 mm[Hg] Dr. Chuck Hope MD Work Phone: [facility] 11-24-2024 13:03-0400 Body mass index (BMI) [Ratio] 24.06 kg/m2 Lonnie Arevalo MD Work Phone: [facility] 11-24-2024 13:03-0400 Body temperature 98.1 [degF] Lonnie Arevalo MD Work Phone: [facility] 11-24-2024 13:03-0400 Body weight 67.59 kg Lonnie Arevalo MD Work Phone: [facility] 11-24-2024 13:03-0400 Diastolic blood pressure 90 mm[Hg] Lonnie Arevalo MD Work Phone: [facility] 11-24-2024 13:03-0400 Heart rate 72 /min Lonnie Arevalo MD Work Phone: [facility] 11-24-2024 13:03-0400 SaO2% (BldA) [Mass fraction] 97 % Lonnie Arevalo MD Work Phone: [facility] 11-24-2024 13:03-0400 Systolic blood pressure 160 mm[Hg] Lonnie Arevalo MD Work Phone: [facility] 08-19-2024 13:11-0500 Body mass index (BMI) [Ratio] 23.41 kg/m2 Lonnie Arevalo MD Work Phone: [facility] 08-19-2024 13:11-0500 Body temperature 98.01 [degF] Lonnie Arevalo MD Work Phone: [facility] 08-19-2024 13:11-0500 Body weight 65.77 kg Lonnie Arevalo MD Work Phone: [facility] 08-19-2024 13:11-0500 Diastolic blood pressure 84 mm[Hg] Lonnie Arevalo MD Work Phone: [facility] 08-19-2024 13:11-0500 Heart rate 85 /min Lonnie Arevalo MD Work Phone: [facility] 08-19-2024 13:11-0500 SaO2% (BldA) [Mass fraction] 100 % Lonnie Areavlo MD Work Phone: [facility] 08-19-2024 13:11-0500 Systolic blood pressure 158 mm[Hg] Lonnie Arevalo MD Work Phone: [facility] 03-04-2024 09:58-0400 Body mass index (BMI) [Ratio] 23.25 kg/m2 Lonnie Arevalo MD Work Phone: [facility] 03-04-2024 09:58-0400 Body temperature 98.6 [degF] Lonnie Arevalo MD Work Phone: [facility] 03-04-2024 09:58-0400 Body weight 65.32 kg Lonnie Arevalo MD Work Phone: [facility] 03-04-2024 09:58-0400 Diastolic blood pressure 94 mm[Hg] Lonnie Arevalo MD Work Phone: [facility] 03-04-2024 09:58-0400 Heart rate 74 /min Lonnie Arevalo MD Work Phone: [facility] 03-04-2024 09:58-0400 SaO2% (BldA) [Mass fraction] 100 % Lonnie Arevalo MD Work Phone: [facility] 03-04-2024 09:58-0400 Systolic blood pressure 154 mm[Hg] Lonnie Arevalo MD Work Phone: [facility] 12-04-2023 09:21-0400 Body mass index (BMI) [Ratio] 22.61 kg/m2 Lonnie Arevalo MD Work Phone: [facility] 12-04-2023 09:21-0400 Body temperature 98.2 [degF] Lonnie Arevalo MD Work Phone: [facility] 12-04-2023 09:21-0400 Body weight 63.5 kg Lonnie Arevalo MD Work Phone: [facility] 12-04-2023 09:21-0400 Diastolic blood pressure 100 mm[Hg] Lonnie Arevalo MD Work Phone: [facility] 12-04-2023 09:21-0400 Heart rate 94 /min Lonnie Arevalo MD Work Phone: [facility] 12-04-2023 09:21-0400 SaO2% (BldA) [Mass fraction] 98 % Lonnie Arevalo MD Work Phone: [facility] 12-04-2023 09:21-0400 Systolic blood pressure 179 mm[Hg] Lonnie Arevalo MD Work Phone: [facility] 09-17-2023 13:27-0500 Diastolic blood pressure 89 mm[Hg] Chair Green Work Phone: [facility] 09-17-2023 13:27-0500 Heart rate 66 /min Chair Green Work Phone: [facility] 09-17-2023 13:27-0500 Respiratory rate 16 /min Chair Green Work Phone: [facility] 09-17-2023 13:27-0500 Systolic blood pressure 157 mm[Hg] Chair Green Work Phone: [facility] 09-17-2023 09:45-0500 Body temperature 98.71 [degF] Chair Green Work Phone: [facility] 09-17-2023 09:45-0500 Body weight 59.51 kg Chair Green Work Phone: [facility] 08-15-2023 10:43-0500 Body temperature 98.29 [degF] Lonnie Arevalo MD Work Phone: [facility] 08-15-2023 10:43-0500 Body weight 56.25 kg Lonnie Arevalo MD Work Phone: [facility] 08-15-2023 10:43-0500 Diastolic blood pressure 84 mm[Hg] Lonnie Arevalo MD Work Phone: [facility] 08-15-2023 10:43-0500 Heart rate 95 /min Lonnie Arevalo MD Work Phone: [facility] 08-15-2023 10:43-0500 SaO2% (BldA) [Mass fraction] 100 % Lonnie Arevalo MD Work Phone: [facility] 08-15-2023 10:43-0500 Systolic blood pressure 126 mm[Hg] Lonnie Arevalo MD Work Phone: [facility] 06-25-2023 08:41-0500 Body height 168.9 cm Lonnie Arevalo MD Work Phone: [facility] 06-25-2023 08:41-0500 Body temperature 98.2 [degF] Lonnie Arevalo MD Work Phone: [facility] 06-25-2023 08:41-0500 Body weight 58.97 kg Lonnie Arevalo MD Work Phone: [facility] 06-25-2023 08:41-0500 Diastolic blood pressure 103 mm[Hg] Lonnie Arevalo MD Work Phone: [facility] 06-25-2023 08:41-0500 Heart rate 71 /min Lonnie Arevalo MD Work Phone: [facility] 06-25-2023 08:41-0500 SaO2% (BldA) [Mass fraction] 100 % Lonnie Arevalo MD Work Phone: [facility] 06-25-2023 08:41-0500 Systolic blood pressure 171 mm[Hg] Lonnie Arevalo MD Work Phone: [facility] 06-06-2023 08:13-0500 Body temperature 97.7 [degF] Chair Green Work Phone: [facility] 06-06-2023 08:13-0500 Body weight 59.42 kg Chair Green Work Phone: [facility] 06-06-2023 08:13-0500 Diastolic blood pressure 90 mm[Hg] Chair Green Work Phone: [facility] 06-06-2023 08:13-0500 Heart rate 88 /min Chair Green Work Phone: [facility] 06-06-2023 08:13-0500 Respiratory rate 18 /min Chair Green Work Phone: [facility] 06-06-2023 08:13-0500 Systolic blood pressure 139 mm[Hg] Chair Green Work Phone: [facility] 06-04-2023 10:57-0500 Body height 165.1 cm Lonnie Arevalo MD Work Phone: [facility] 06-04-2023 10:57-0500 Body temperature 98.1 [degF] Lonnie Arevalo MD Work Phone: [facility] 06-04-2023 10:57-0500 Body weight 59.42 kg Lonnie Arevalo MD Work Phone: [facility] 06-04-2023 10:57-0500 Diastolic blood pressure 86 mm[Hg] Lonnie Arevalo MD Work Phone: [facility] 06-04-2023 10:57-0500 Heart rate 76 /min Lonnie Arevalo MD Work Phone: [facility] 06-04-2023 10:57-0500 SaO2% (BldA) [Mass fraction] 99 % Lonnie Arevalo MD Work Phone: [facility] 06-04-2023 10:57-0500 Systolic blood pressure 145 mm[Hg] Lonnie Arevalo MD Work Phone: [facility] 05-16-2023 08:37-0400 Body height 168 cm Chair Green Work Phone: [facility] 05-16-2023 08:37-0400 Body temperature 98.2 [degF] Chair Green Work Phone: [facility] 05-16-2023 08:37-0400 Body weight 59.15 kg Chair Green Work Phone: [facility] 05-16-2023 08:37-0400 Diastolic blood pressure 85 mm[Hg] Chair Green Work Phone: [facility] 05-16-2023 08:37-0400 Heart rate 89 /min Chair Green Work Phone: [facility] 05-16-2023 08:37-0400 Respiratory rate 16 /min Chair Green Work Phone: [facility] 05-16-2023 08:37-0400 Systolic blood pressure 127 mm[Hg] Chair Green Work Phone: [facility] 04-30-2023 13:54-0400 Body height 167.6 cm Lonnie Arevalo MD Work Phone: [facility] 04-30-2023 13:54-0400 Body temperature 98.4 [degF] Lonnie Arevalo MD Work Phone: [facility] 04-30-2023 13:54-0400 Body weight 60.33 kg Lonnie Arevalo MD Work Phone: [facility] 04-30-2023 13:54-0400 Diastolic blood pressure 93 mm[Hg] Lonnie Arevalo MD Work Phone: [facility] 04-30-2023 13:54-0400 Heart rate 89 /min Lonnie Arevalo MD Work Phone: [facility] 04-30-2023 13:54-0400 SaO2% (BldA) [Mass fraction] 99 % Lonnie Arevalo MD Work Phone: [facility] 04-30-2023 13:54-0400 Systolic blood pressure 145 mm[Hg] Lonnie Arevalo MD Work Phone: [facility] Encounters Encounter Date Encounter Type Care Provider Facility Start: 02-17-2025 ambulatory Chuck Hope Facility :[facility] Start: 01-18-2025 End: 01-18-[facility] Start: 01-18-2025 End: 01-18-2025 Subsequent hospital visit by physician Annetta Bird MD Work Phone: [facility] Endoscopy Comment on above: Polyp of colon Start: 12-20-2024 End: 12-20-[address] Chuck Hope MD Work Phone: [facility] Work Phone: Start: 12-20-2024 End: 12-20-[address] Chuck Hope MD [facility] Start: 12-20-2024 End: 12-20-2024 ambulatory Chuck Hope Facility:[facility] Start: 12-02-2024 End: 12-02-[address] Chuck Hope MD -[facility] Work Phone: Start: 12-02-2024 End: 12-02-[address] Chuck Hope MD Work Phone: [facility] Work Phone: Start: 11-24-2024 End: 11-24-2024 ambulatory CHUCK HOPE Facility:[facility] Start: 11-24-2024 End: 11-24-2024 Office outpatient visit 25 minutes Lonnie Arevalo MD Work Phone: [facility] Gynecology Oncology Comment on above: Malignant neoplasm o f both ovaries (HCC) (Primary Dx) Start: 11-24-2024 End: 11-24-2024 ambulatory LONNIE AREVALO Facility:[facility] Start: 08-19-2024 End: 08-19-2024 Office outpatient visit 25 minutes Lonnie Arevalo MD Work Phone: [facility] Gynecology Oncology Comment on above: Colon cancer screeni ng (Primary Dx); Malignant neoplasm of both ovaries (HCC) Start: 08-19-2024 End: 08-19-2024 ambulatory LONNIE AREVALO Facility:[facility] Start: 07-12-2024 End: 07-12-2024 ambulatory Chuck Hope Facility:[facility] Start: 07-05-2024 End: 07-05-2024 Orders Only Lonnie Arevalo MD Work Phone: [facility] Gynecology Oncology Comment on above: Malignant neoplasm o f both ovaries (HCC) (Primary Dx) Patient Question Start: 04-29-2024 End: 04-29-2024 ambulatory Chuck Hope Facility:[facility] Start: 03-04-2024 End: 03-04-2024 Office outpatient visit 25 minutes Lonnie Arevalo MD Work Phone: [facility] Gynecology Oncology Comment on above: Malignant neoplasm o f ovary, unspecified laterality (HCC) (Primary Dx) Start: 03-04-2024 End: 03-04-2024 ambulatory LONNIE AREVALO Facility:[facility] Start: 03-01-2024 End: 03-01-2024 ambulatory CATERINA Akash DIANASUDHEER Facility:[facility] Start: 02-19-2024 Telephone encounter Bijan paiz MS Work Phone: [facility] Comment on above: Results Start: 02-11-2024 End: 02-11-2024 Patient encounter procedure Bijan Hand MS Work Phone: [facility] Start: 02-11-2024 End: 02-11-2024 ambulatory Bijan Hand MS Work Phone: [facility] Comment on above: Malignant neoplasm o f both ovaries (HCC) (Primary Dx) Start: 12-16-2023 Telephone encounter Nancy pepper [facility] Work Phone: [facility] Comment on above: Patient Question (Ge [employer]) Start: 12-10-2023 End: 12-10-2023 ambulatory Lonnie Arevalo MD Work Phone: [facility] Gynecology Oncology Comment on above: Malignant neoplasm o f both ovaries (HCC) (Primary Dx) Start: 12-10-2023 End: 12-10-2023 Telemedicine consultation with patient Lonnie Arevalo MD Work Phone: [facility] Gynecology Oncology Start: 12-04-2023 End: 12-04-2023 Patient encounter procedure Lonnie Arevalo MD Work Phone: [facility] Gynecology Oncology Start: 12-04-2023 End: 12-04-2023 ambulatory Lonnie Arevalo MD Work Phone: [facility] Gynecology Oncology Comment on above: Malignant neoplasm o f both ovaries (HCC) (Primary Dx) Start: 11-19-2023 End: 11-19-2023 ambulatory CHUCK HOPE Facility:[facility] Start: 11-19-2023 End: 11-19-2023 Subsequent hospital visit by physician [facility] (I-Stat) Work Phone: Cat Scan Comment on above: Malignant neoplasm o f ovary, unspecified laterality (HCC) [C56.9] Start: 11-19-2023 End: 11-19-2023 ambulatory CHUCK HOPE Facility:[facility] Start: 11-19-2023 End: 11-19-2023 Subsequent hospital visit by physician Ct [facility] Cat Scan Start: 11-07-2023 Telephone encounter Lonnie Arevalo MD Work Phone: [facility] Gynecology Oncology Comment on above: Patient Update Start: 11-04-2023 End: 11-04-2023 ambulatory CHUCK HOPE Facility:[facility] Start: 10-28-2023 Telephone encounter Lonnie Arevalo MD Work Phone: [facility] Gynecology Oncology Comment on above: Patient Update Start: 10-28-2023 End: 10-28-2023 ambulatory CHUCK HOPE Facility:[facility] Start: 10-08-2023 End: 10-08-2023 ambulatory CATERINA Akash SUAREZ Facility:[facility] Start: 10-07-2023 End: 10-07-2023 ambulatory [facility] Facility:[facility] Start: 10-03-2023 End: 10-03-2023 ambulatory [facility] Facility:[facility] Start: 09-22-2023 Telephone encounter Lonnie Arevalo MD Work Phone: [facility] Gynecology Oncology Comment on above: Patient Update Start: 09-18-2023 Orders Only Lonnie waddell MD Work Phone: [facility] Gynecology Oncology Comment on above: Malignant neoplasm o f ovary, unspecified laterality (HCC) (Primary Dx) Start: 09-17-2023 End: 09-17-2023 ambulatory Chair 2 [facility] Work Phone: Hematology/Oncology Comment on above: Malignant neoplasm o f ovary, unspecified laterality (HCC) (Primary Dx) Start: 09-15-2023 End: 09-15-2023 ambulatory CATERINA SUAREZ Facility:[facility] Start: 09-12-2023 End: 11-05-2023 Patient encounter status Jefry Ha MD Work Phone: [facility] Work Phone: Start: 09-12-2023 Telephone encounter Jefry Ha MD Work Phone: Urology Comment on above: Surgical Followup Start: 09-02-2023 End: 09-02-2023 ambulatory CHUCK HOPE Facility:[facility] Start: 08-15-2023 End: 08-15-2023 ambulatory Lonnie Arevalo MD Work Phone: [facility] Gynecology Oncology Comment on above: Malignant neoplasm o f ovary, unspecified laterality (HCC) (Primary Dx) Start: 08-15-2023 End: 08-15-2023 Patient encounter procedure Lonnie Arevalo MD Work Phone: [facility] Start: 07-24-2023 End: 08-04-2023 Preprocedural examination done Lonnie Arevalo MD Work Phone: [facility] Work Phone: Start: 07-16-2023 End: 07-16-2023 ambulatory Lonnie Arevalo MD Work Phone: [facility] Gynecology Oncology Comment on above: Malignant neoplasm o f ovary, unspecified laterality (HCC) (Primary Dx) Start: 07-16-2023 End: 07-16-2023 Telemedicine consultation with patient Lonnie Arevalo MD Work Phone: [facility] Start: 07-15-2023 End: 07-15-2023 ambulatory CATERINA SUAREZ Facility:[facility] Start: 07-04-2023 End: 07-04-2023 Subsequent hospital visit by physician 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.9] Start: 07-02-2023 Telephone encounter Lonnie Arevalo MD Work Phone: [facility] Gynecology Oncology Comment on above: Patient Update Start: 07-01-2023 Orders Only Lonnie waddell MD Work Phone: [facility] Gynecology Oncology Comment on above: Malignant neoplasm o f ovary, unspecified laterality (HCC) (Primary Dx) Start: 06-26-2023 End: 06-26-2023 Subsequent hospital visit by physician [employer] [employer] [facility] (I-Stat/1.5t) Work Phone: Radiology Comment on above: Malignant neoplasm o f ovary, unspecified laterality (HCC) [C56.9] Start: 06-25-2023 End: 06-25-2023 ambulatory Lonnie Arevalo MD Work Phone: [facility] Gynecology Oncology Comment on above: Malignant neoplasm o f ovary, unspecified laterality (HCC) (Primary Dx) Start: 06-25-2023 End: 06-25-2023 Patient encounter procedure Lonnie Arevalo MD Work Phone: [facility] Start: 06-06-2023 End: 06-06-2023 ambulatory Chair 4 [facility] Anaergia Work Phone: Hematology/Oncology Comment on above: Malignant neoplasm o f ovary, unspecified laterality (HCC) (Primary Dx) Start: 06-04-2023 End: 06-04-2023 ambulatory Lonnie Arevalo MD Work Phone: [facility] Gynecology Oncology Comment on above: 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) Start: 06-04-2023 End: 06-04-2023 Patient encounter procedure Lonnie Arevalo MD Work Phone: [facility] Start: 05-26-2023 Telephone encounter Lonnie Arevalo MD Work Phone: [facility] Gynecology Oncology Comment on above: Patient Update Start: 05-19-2023 Telephone encounter Lonnie Arevalo MD Work Phone: [facility] Gynecology Oncology Comment on above: Patient Update Start: 05-16-2023 End: 05-16-2023 ambulatory Chair 1 [facility] Anaergia Work Phone: Hematology/Oncology Comment on above: Malignant neoplasm o f ovary, unspecified laterality (HCC) (Primary Dx) Start: 05-07-2023 End: 05-07-2023 ambulatory Lonnie Arevalo MD Work Phone: [facility] Gynecology Oncology Comment on above: Malignant neoplasm o f ovary, unspecified laterality (HCC) (Primary Dx) Start: 05-07-2023 End: 05-07-2023 Patient encounter procedure oLnnie Arevalo MD Work Phone: [facility] Start: 05-02-2023 Telephone encounter Bailey [facility] Hematology/Oncology Comment on above: Benefits Investigati on Start: 04-30-2023 End: 04-30-2023 ambulatory Lonnie Arevalo MD Work Phone: [facility] Gynecology Oncology Comment on above: Malignant neoplasm o f ovary, unspecified laterality (HCC) Start: 04-30-2023 End: 04-30-2023 Patient encounter procedure Lonnie Arevalo MD Work Phone: [facility] Start: 04-22-2023 Telephone encounter Caterina Suarez EDUCATION DEAN.ACCOUNT DEVELOPMENT REPRESENTATIVE Work Phone: [facility] Gynecology Oncology Start: 04-18-2023 Telephone encounter Caterina Suarez EDUCATION DEAN.ACCOUNT DEVELOPMENT REPRESENTATIVE Work Phone: [facility] Gynecology Oncology Comment on above: Results Start: 04-18-2023 End: 04-18-2023 Subsequent hospital visit by physician Ct [facility] (I-Stat) Work Phone: Cat Scan Comment on above: Intra-abdominal and pelvic swelling, mass and lump, unspecified site [R19.00] Start: 11-01-2022 End: 11-01-2022 Subsequent hospital visit by physician Bone Density Green RADIO BONE DENSITY [facility] GREEN Comment on above: Asymptomatic [place] [Z78.0] Start: 11-06-2017 End: 11-07-2017 Ambulatory ADOLPH A. AUNG Facility:[facility] Start: 02-20-2017 End: 02-25-2017 Ambulatory ADOLPH A. AUNG Facility:[facility] Procedures Date Procedure Procedure Detail Performing Clinician Start: 01-18-2025 Colonoscopy Annetta reinoso MD Work Phone: Start: 12-20-2024 Vitamin D, 25-hydrox y measurement Dr. Chuck Hope MD Work Phone: Comment on above: Vitamin D StatusDefi ciency: <20 ng/mL (50nmol/L)Insufficiency: 20-30 ng/mL (50-75 nmol/L)Sufficiency: 30-100 ng/mL (75-250 nmol/L)Toxicity: >100 ng/mL (>250 nmol/L) Start: 06-26-2023 Mri pelvis w/o & w/contrast material Lonnie Arevalo MD Work Phone: Start: 04-18-2023 Ct thorax w/o contra st material Caterina Suarez APRN.ACCOUNT DEVELOPMENT REPRESENTATIVE Work Phone: Start: 11-01-2022 Dxa bone density selma dy 1/> sites axial skel Manpreet Nunez MD Work Phone: Start: 10-17-2022 Lipid 1996 panel - S claudy or Plasma Caterina Suarez EDUCATION DEAN.ACCOUNT DEVELOPMENT REPRESENTATIVE Work Phone: Start: 03-30-2014 Mammography Bone Green Plan of Treatment Date Care Activity Detail Author Start: 01-18-2035 Screening for malignant neoplasm of colon [facility] Start: 10-28-2031 RSV Immunization for Adults (1 - 1-dose 75+ series) RSV Immunization for Adults (1 - 1-dose 75+ series) [facility] Start: 10-28-2031 RSV Vaccine (1 - 1-dose 75+ series) RSV Vaccine (1 - 1-dose 75+ series) [facility] Start: 10-18-2027 Lipid 1996 panel - Serum or Plasma Lipid Screening [facility] Start: 10-18-2027 Lipid panel Lipid Screening [facility] Start: 10-18-2027 LIPID SCREEN LIPID SCREEN [facility] Start: 03-01-2027 Diabetes Screening Diabetes Screening [facility] Start: 11-03-2026 Diabetes Screening Diabetes Screening [facility] Start: 2026 Diabetes Screening Diabetes Screening [facility] Start: 09-15-2026 Diabetes Screening Diabetes Screening [facility] Start: 08-07-2026 Diabetes Screening Diabetes Screening [facility] Start: 07-15-2026 Diabetes Screening Diabetes Screening [facility] Start: 06-25-2026 Diabetes Screening Diabetes Screening [facility] Start: 06-04-2026 Diabetes Screening Diabetes Screening [facility] Start: 05-14-2026 Diabetes Screening Diabetes Screening [facility] Start: 04-23-2026 Diabetes Screening Diabetes Screening [facility] Start: 04-18-2026 Diabetes Screening Diabetes Screening [facility] Start: 10-17-2025 DIABETES SCREEN DIABETES SCREEN [facility] Start: 05-01-2025 Screening for malignant neoplasm of colon [facility] Start: 03-21-2025 Influenza vaccination [facility] Start: 03-01-2025 Creatinine measurement Serum Creatinine [facility] Start: 02-24-2025 End: 02-24-2025 ambulatory 02/24/2025 1:00 PM EDT Visit (SP) Office [facility] [address] [place] [address] Lonnie Arevalo MD [address] [place], [place] [id number] 3 month exam [facility] Comment on above: 3 month exam Start: 01-18-2025 End: 01-18-2025 Colonoscopy flx w/endoscopic mucosal resection COLONOSCOPY, WITH ENDOSCOPIC MUCOSAL RESECTION Polyp of colon 01/18/2025 9:09 AM EDT [facility] Gastroenterology Start: 11-24-2024 End: 02-23-2025 Cancer Ag 125 [Units/volume] in Serum or Plasma [facility] Work Phone: Comment on above: Expected: 11/24/2024, Expires: Start: 11-24-2024 End: 11-24-2024 ambulatory 11/24/2024 1:00 PM EDT Visit (SP) Office [facility] [address] [place], [place] [id number] Lonnie Arevalo MD [address] [place], [place] [id number] 3 month exam [facility] Comment on above: 3 month exam Start: 11-03-2024 Creatinine measurement Serum Creatinine [facility] Start: 2024 Creatinine measurement Serum Creatinine [facility] Start: 09-15-2024 Creatinine measurement Serum Creatinine [facility] Start: 08-07-2024 Creatinine measurement Serum Creatinine [facility] Start: 07-21-2024 Advance Directive Discussion Advance Directive Discussion [facility] Start: 07-15-2024 Creatinine measurement Serum Creatinine [facility] Start: 07-08-2024 End: 07-08-2024 ambulatory 07/08/2024 10:00 AM EST Visit (SP) Office [facility] [address] [place] [address] Lonnie Arevalo MD [address] [address] 4 month exam [facility] Comment on above: 4 month exam Start: 07-05-2024 End: 10-04-2024 Cancer Ag 125 [Units/volume] in Serum or Plasma [facility] Work Phone: Comment on above: Expected: 07/05/2024, Expires: Start: 03-21-2024 Covid-19 Vaccine ( season) Covid-19 Vaccine ( season) [facility] Start: 03-21-2024 Influenza vaccination [facility] Start: 03-04-2024 End: 03-04-2024 ambulatory 03/04/2024 10:00 AM EDT Visit (SP) Office [facility] [address] [place] [address] Lonnie Arevalo MD [address] [address] 3 month exam [facility] Comment on above: 3 month exam Start: 02-11-2024 End: 05-12-2024 MISC SEND OUT TST 1 [facility] Work Phone: Comment on above: Expected: 02/11/2024, Expires: Start: 12-10-2023 End: 12-10-2023 Follow-up encounter 12/10/2023 3:00 PM EDT [facility] [address] [place] [address] Lonnie Arevalo MD [address] [place] [address] 1 week follow up [facility] Comment on above: 1 week follow up Start: 11-27-2023 End: 11-27-2023 ambulatory 11/27/2023 9:30 AM EDT Visit (SP) Office [facility] [address] [place] [address] Lonnie Arevalo MD [address] [place] [address] results [facility] Comment on above: results Start: 11-12-2023 End: 10-17-2024 CT Abdomen and Pelvis W contrast IV CT ABD/PEL W IVCON Radiology Routine Malignant neoplasm of ovary, unspecified laterality (HCC) Expected: 11/12/2023, Expires: 10/17/2024 [facility] Work Phone: Comment on above: Expected: 11/12/2023, Expires: 5 Start: 11-12-2023 End: 10-17-2024 CT Chest W contrast IV CT CHEST W IVCON Radiology Routine Malignant neoplasm of ovary, unspecified laterality (HCC) Expected: 11/12/2023, Expires: 10/17/2024 [facility] Work Phone: Comment on above: Expected: 11/12/2023, Expires: 5 Start: 07-21-2023 Advance Directive Discussion Advance Directive Discussion [facility] Start: 07-21-2023 Behavioral Health Screening Behavioral Health Screening [facility] Start: 07-21-2023 Depression Assessment Depression Assessment [facility] Start: 07-21-2023 DTaP/Tdap/Td Vaccines (2 - Td or Tdap) DTaP/Tdap/Td Vaccines (2 - Td or Tdap) [facility] Start: 07-21-2023 Urine microalbumin profile [facility] Start: 03-21-2023 Influenza vaccination [facility] Start: 07-21-2022 ADVANCE DIRECTIVE DISCUSSION ADVANCE DIRECTIVE DISCUSSION [facility] Start: 07-21-2022 DEPRESSION ASSESSMENT DEPRESSION ASSESSMENT [facility] Start: 2021 Pneumococcal Vaccine: 65+ (1 - PCV) Pneumococcal Vaccine: 65+ (1 - PCV) [facility] Start: 2021 PNEUMOCOCCAL: 65+ (1 - PCV) PNEUMOCOCCAL: 65+ (1 - PCV) [facility] Start: 08-09-2021 ANNUAL PCP TEAM CHRONIC DISEASE VISIT ANNUAL PCP TEAM CHRONIC DISEASE VISIT [facility] Start: 04-01-2020 COLORECTAL CANCER SCREENING COLORECTAL CANCER SCREENING [facility] Start: 04-01-2020 FECAL OCCULT BLOOD FECAL OCCULT BLOOD [facility] Start: 04-01-2020 Screening for malignant neoplasm of colon [facility] Start: 2016 RSV Vaccine (1 - 1-dose 60+ series) RSV Vaccine (1 - 1-dose 60+ series) [facility] Start: 2016 RSV Vaccine (1 - Risk 60-74 years 1-dose series) RSV Vaccine (1 - Risk 60-74 years 1-dose series) [facility] Start: 03-30-2015 Mammography [facility] Start: 03-30-2015 Screening for malignant neoplasm of breast Mammogram Screening [facility] Start: 2006 Pneumococcal Vaccine: 50+ (1 of 1 - PCV) Pneumococcal Vaccine: 50+ (1 of 1 - PCV) [facility] Start: 2006 Pneumococcal Vaccine: 50+ Years (1 of 1 - PCV) Pneumococcal Vaccine: 50+ Years (1 of 1 - PCV) [facility] Start: 2006 SHINGRIX VACCINE (1 of 2) SHINGRIX VACCINE (1 of 2) [facility] Start: 2006 Zoster Vaccines (1 of 2) Zoster Vaccines (1 of 2) [facility] Start: 2001 COLOGUARD (FIT-DNA) COLOGUARD (FIT-DNA) [facility] Start: 2001 Colonoscopy COLONOSCOPY [facility] Start: [address] COLONOGRAPHY [facility] Start: 2001 Screening for malignant neoplasm of colon [facility] Start: 2001 SIGMOIDOSCOPY SIGMOIDOSCOPY [facility] Start: 1996 Screening for malignant neoplasm of breast Mammogram [facility] Start: 10-28-1975 Pneumococcal Vaccine: 50+ (1 of 2 - PCV) Pneumococcal Vaccine: 50+ (1 of 2 - PCV) [facility] Start: 10-28-1975 Shingrix Vaccine (1 of 2) Shingrix Vaccine (1 of 2) [facility] Start: 1974 Anxiety Screening Anxiety Screening [facility] Start: 1974 BP CONTROLLED (<130/80) BP CONTROLLED (<130/80) [facility] Start: 1974 Depression Screening Depression Screening [facility] Start: 1974 Hepatitis C screening Hepatitis C Screening [facility] Start: 1968 Depression Screening Depression Screening [facility] Start: 10-28-1967 Screening for malignant neoplasm of cervix Cervical Cancer Screening [facility] Start: 1962 Pneumococcal Vaccine: 65+ (1 - PCV) Pneumococcal Vaccine: 65+ (1 - PCV) [facility] Start: 1962 Pneumococcal Vaccine: 65+ (1 of 2 - PCV) Pneumococcal Vaccine: 65+ (1 of 2 - PCV) [facility] Start: 1961 Covid-19 Vaccine (#1) Covid-19 Vaccine (#1) [facility] Start: 04-28-1957 COVID-19 VACCINE (#1) COVID-19 VACCINE (#1) [facility] Start: 1956 Lipid panel Lipid Panel [facility] Start: 1956 Medicare Annual Wellness (AWV) Medicare Annual Wellness (AWV) [facility] Start: 1956 Screening for malignant neoplasm of colon [facility] Start: 1956 Thyroid stimulating hormone measurement TSH Level [facility] End: 06-02-2024 Cancer Ag 125 [Units/volume] in Serum or Plasma CA 125 BLD Lab Routine Primary serous carcinoma of uterine adnexa (HCC) Every other week for 12 Occurrences starting 06/03/2023 until 06/02/2024, 1 completed [facility] Work Phone: Comment on above: Every other week for 12 Occurrences star ting 06/03/2023 until 06/02/2024, 1 completed CBC W Auto Differential panel - Blood [facility] Cobalamin (Vitamin B12) [Mass/volume] in Serum or Plasma [facility] Comprehensive metabolic 2000 panel - Serum or Plasma [facility] Ct abdomen & pelvis w/contrast material CT ABD/PEL W IVCON Radiology Routine Gynecologic malignancy (HCC) 07/04/2023 10:09 AM EST [facility] Work Phone: CT Abdomen and Pelvi s W contrast IV CT ABD/PEL W IVCON Radiology Routine Malignant neoplasm of ovary, unspecified laterality (HCC) 11/19/2023 11:05 AM EDT [facility] Work Phone: CT Chest W contrast IV CT CHEST W IVCON Radiology Routine Malignant neoplasm of ovary, unspecified laterality (HCC) 11/19/2023 11:05 AM EDT [facility] CT CHEST W IVCON CT CHEST W IVCO N Radiology Routine Gynecologic malignancy (HCC) 07/04/2023 10:09 AM EST [facility] Work Phone: End: 08-19-2025 Flexible sigmoidoscopy study COLONOSCOPY DIAGNOSTIC Endoscopy Routine Colon cancer screening 1 Occurrences starting 08/19/2024 until 08/19/2025 [facility] Work Phone: Comment on above: 1 Occurrences starting 08/19/2024 until 08/19/2025 Lipid 1996 panel - Serum or Plasma [facility] Magnesium measurement [facility] Breast - bilatera l Screening [facility] End: 07-24-2024 Mri pelvis w/o & w/contrast material MRI FEMALE PELVIS WO/W IVCON Radiology STAT Malignant neoplasm of ovary, unspecified laterality (HCC) 1 Occurrences starting 06/25/2023 until 07/24/2024 [facility] Work Phone: Comment on above: 1 Occurrences starting 06/25/2023 until 07/24/2024 T4 free measurement [facility] Thyroid stimulating hormone measurement [facility] Tissue exam [facility] stem Work Phone: Comment on above: Release Upon Ordering for 1 Occurrences starting 01/18/2025, 1 completed Triiodothyronine, fr ee measurement [facility] Vitamin D, 25-hydrox y measurement [facility] Immun[facility] Immunization Date Immunization Notes Care Provider Timothy frankel 07-21-2013 tetanus toxoid, redu kristina diphtheria toxoid, and acellular pertussis vaccine, adsorbed Bone Green [facility] Payers Date Payer Category Payer Self-pay 2021 Medicare [id number] 2021 Medicare [id number] 2017 Unknown [id number] Unknown [id number] Unknown [id number] Unknown [id number] [id number] Unknown [id number] Unknown [id number] Social History Date Type Detail Facility Start: 03-15-2019 End: 01-18-2025 Tobacco smoking status NHIS Never smoked tobacco [facility] Work Phone: Start: 03-15-2019 End: 01-18-2025 Tobacco use and exposure Smokeless tobacco non-user [facility] Work Phone: Start: 08-09-2020 End: 08-19-2024 Alcohol intake Current non-drinker of alcohol (finding) [facility] Start: 05-06-2011 End: 04-18-2023 Tobacco Comment smoked in high school for about 2 years. [facility] Start: 1955 Sex Assigned At Female [facility] Start: 04-18-2023 End: 01-18-2025 History of Social function [facility] Start: 04-18-2023 End: 01-18-2025 Tobacco use panel [facility] Adult Depression Screening Assessment 0 [facility] Start: 07-11-2019 Gender identity Identifies as female gender (finding) [facility] Start: 03-15-2019 Sexual orientation Heterosexual (sharif puckett) [facility] Work Phone: (I/We) worried suri er (my/our) food would run out before (I/we) got money to buy more. Never true [facility] Work Phone: In the past 12 month s, was there a time when you were not able to pay the mortgage or rent on time? No [facility] Work Phone: Start: 01-18-2025 Alcoholic beverage intake Ex-drinker (finding) [facility] Start: 1955 Sex assigned at Not on file S [facility] Start: 12-27-2024 Sex Female (finding) [facility] Work Phone: Medical Equipment Procedure Code Equipment Code Equipment Origin al Text Equipment Identifier Dates Stent Inlay Opti ma 6fr Taper [place] Green Polymer Phreecoat 26cm Ureteral - [id number] Start: 08-04-2023 Clip Endo Resolu tion Ultra 235 - [id number] Start: 01-18-2025 Functional Status Date Assessment Result Facility 11-05-2023 Are you deaf, or do you have serious difficulty hearing No 11/05/2023 8:05 PM Aleshia Zamora, PABLO No [facility] 11-05-2023 Are you blind, or do you have serious difficulty seeing, even when wearing glasses No 11/05/2023 8:05 PM Aleshia Zamora, PABLO No [facility] 11-05-2023 Do you have serious difficulty walking or climbing stairs No 11/05/2023 8:05 PM Aleshia Zamora, PABLO No [facility] 11-05-2023 Do you have difficul ty dressing or bathing No 11/05/2023 8:05 PM Aleshia Zamora, PABLO No [facility] 11-05-2023 Because of a physica l, mental, or emotional condition, do you have difficulty doing errands alone such as visiting a physician's office or shopping No 11/05/2023 8:05 PM EDT Aleshia Mcarthur, PABLO No [facility] Mental Status Date Assessment Result Facility 11-05-2023 Because of a physica l, mental, or emotional condition, do you have serious difficulty concentrating, remembering, or making decisions No 11/05/2023 8:05 PM EDT Aleshia Mcarthur, PABLO No [facility] Clinical Notes 04-18-2023 to 01-18-2025 Annetta Bird MD - 01/18/2025 8:59 AM EDTBhector Bird MD - 01/18/2025 8:59 AM EDTOp Note - Annetta Bird MD - 01/18/2025 7:58 AM EDTOp Note - Annetta Bird MD - 01/18/2025 7:58 AM EDT Note Date & Type Note Facility 01-18-2025 Note Patient: Juliann zuniga Procedure Summary Date: 01/18/25 Room / Location: [address] Gastroenterology Anesthesia Start: 909 Anesthesia Stop: 999 Procedure: COLONOSCOPY WITH ENDOSCOPIC MUCOSAL RESECTION (Left) Diagnosis: Polyp of colon Providers: Annetta Bird MD Responsible Provider: Patricio Schaefer MD Anesthesia Type: TIVA ASA Status: 2 Anesthesia Type: TIVA Vitals Value Taken Time BP 145/102 01/18/25 10:18 Temp 36.6 ?C (97.8 ?F) 01/18/25 10:01 Pulse 62 01/18/25 10:18 Resp 19 01/18/25 10:18 SpO2 100 % 01/18/25 10:18 Anesthesia Post Evaluation Patient location during evaluation: PACU Patient participation: complete - patient participated Level of consciousness: awake and alert Pain management: satisfactory to patient Airway patency: patent Dental Injury: no Cardiovascular status: acceptable, blood pressure returned to baseline and hemodynamically stable Respiratory status: acceptable and spontaneous ventilation Hydration status: euvolemic Nausea/Vomiting: controlled No notable events documented. Patient can be discharged once all PACU criteria has been met. [facility] 01-18-2025 Note Patient: Juliann zuniga Procedure Summary Date: 01/18/25 Room / Location: [place] [address] / [facility] Gastroenterology Anesthesia Start: 909 Anesthesia Stop: 1000 Procedure: COLONOSCOPY WITH ENDOSCOPIC MUCOSAL RESECTION (Left) Diagnosis: Polyp of colon Providers: Annetta Bird MD Responsible Provider: Patricio Schaefer MD Anesthesia Type: TIVA ASA Status: 2 Anesthesia Type: TIVA Vitals Value Taken Time BP 145/102 01/18/25 10:18 Temp 36.6 ?C (97.8 ?F) 01/18/25 10:01 Pulse 62 01/18/25 10:18 Resp 19 01/18/25 10:18 SpO2 100 % 01/18/25 10:18 Anesthesia Post Evaluation Patient participation: complete - patient participated Level of consciousness: alert and awake Pain management: satisfactory to patient Multimodal analgesia pain management approach Airway patency: patent Two or more strategies used to mitigate risk of obstructive sleep apnea Respiratory status: acceptable Cardiovascular status: acceptable Hydration status: acceptable No notable events documented. MIPS #[id number] PONV Patient did not receive an inhalational anesthetic (XX430) MIPS # 424 Perioperative Temperature Management Anesthesia time was less than 60 minutes (4256F) MIPS #477 Multimodal Pain Management Not emergent case Patient was not administered multimodal pain management (G2149) Patient reports no pain in PACU (G2149) MIPS #404 Anesthesiology Smoking Abstinence The patient is not a current smoker (e.g. cigarette, cigar, pipe, e-cigarette/vaping/marijuana) If no stop here (XX404) I completed my handoff to the receiving clinician during which we: 1. Identified the patient 2. Identified the responsible provider 3. Reviewed the pertinent medical history 4. Discussed the surgical course 5. Reviewed intra-op anesthesia management and issues during anesthesia 6. Set expectations for post-procedure period 7. Allowed opportunity for questions and acknowledgement of understanding. [facility] 01-18-2025 Note Patient: Juliann zuniga Procedure Information Date/Time: 01/18/25 0900 Procedure: COLONOSCOPY WITH ENDOSCOPIC MUCOSAL RESECTION (Left) - schedule for 90 min Location: [place] [address] / [facility] Gastroenterology Providers: Annetta Bird MD Relevant Problems No relevant active problems Past Medical History: Past Medical History: No date: Disease of thyroid gland No date: Hypertension Past Surgical History: Past Surgical History: 01/18/2025: COLONOSCOPY; Left Comment: Performed by Annetta Bird MD at [facility] ENDOSCOPY No date: EXPLORATORY LAPAROTOMY Comment: Aug 04 2023-total hysterectomy, sigmoidectomy Social History: TOBACCO: reports that she has never smoked. She has never used smokeless tobacco. ETOH: reports that she does not currently use alcohol. Social History Substance and Sexual Activity Drug Use Never Family History: Family History[1] Screening: unknown Clinical information reviewed: Tobacco Allergies Meds Med Hx Surg Hx Fam Hx Soc Hx Physical Exam Airway Mallampati: II TM distance: >3 FB Neck ROM: full Mouth Open: normal Cardiovascular Dental dentition normal Pulmonary Abdominal Anesthesia Plan patient is NPO appropriate Any family history or previous problems with anesthesia no ASA 2 TIVA Any family history or previous problems with anesthesia no The patient is not a current smoker. Anesthetic plan and risks discussed with patient and spouse. ROSEANNE Screening Labs: No results found for: WBC, HGB, HCT, MCV, PLT No results found for: SODIUM, NA, POTASSIUM, K, CHLORIDE, CL, CO2, BUN, CREATININE, GLUCOSE, CALCIUM, PROT, BILIRUBINFL, ALKPHOS, AST, ALT, EGFR, GLOB No echocardiogram results found for the past 14 days No results found for this or any previous visit. Equipment Requests: Additional Equipment Requests [1] No family history on file. [facility] 01-18-2025 History and physical note Images from the original note were not included. GASTROENTEROLOGY PREPROCEDURE H&P 01/18/2025 Patient: Juliann Myles : 1955 Primary Care Physician: Chuck Hope HISTORY OF PRESENT ILLNESS: Juliann Myles is a 69 y.o. female who is referred by Dr. Ventura for colonoscopy with EMR after findings of a 25 mm cecal polyp during recent colonoscopy, 5.13.25. Has a history of positive Cologuard in 2021. Subsequently diagnosed with ovarian cancer. Had a OFELIA/BSO and sigmoidectomy. S/P CMT/XRT. Never had a colonoscopy or further colorectal screening until November. Denies a change in bowel habits. No blood in the stool or on the toilet paper; however, she does report a history of hemorrhoids. Denies abdominal pain or unintentional weight loss. No family history of CRC. REVIEW OF SYSTEMS: A complete 10 point review of systems was obtained. Please see the HPI for pertinent positives and negatives. All other systems reviewed were found to be negative or noncontributory. PAST MEDICAL HISTORY: Medical History[1] PAST SURGICAL HISTORY: Surgical History[2] SOCIAL HISTORY: TOBACCO: reports that she has never smoked. She has never used smokeless tobacco. ETOH: reports that she does not currently use alcohol. DRUGS: reports no history of drug use. FAMILY HISTORY: Family History[3] MEDICATIONS: Prior to Admission medications Medication Sig Start Date End Date Taking? Authorizing Provider cholecalciferol (Vitamin D-3) 125 MCG (5000 UT) capsule Take 5,000 Units by mouth daily. Yes Historical Provider, levothyroxine (Synthroid, Levoxyl) 200 MCG tablet Take 50 mcg by mouth every morning (before breakfast). Yes Historical Provider, LISINOPRIL & DIET MANAGE PROD PO Every 24 hours. Yes Historical Provider, levothyroxine (Synthroid) 200 MCG reconstituted solution Every 24 hours. 01/18/25 Historical Provider, Current Medications[4] ALLERGIES: Allergies[5] OBJECTIVE: Vitals: Blood pressure (!) 172/94, pulse 80, temperature 36.2 C (97.2 F), temperature source Temporal, resp. rate 18, height 5' 7 (1.702 m), weight 145 lb (65.8 kg), SpO2 98%. General appearance: Alert and oriented, NAD, conversational HEENT: NC/AT, PERRL, sclera anicteric Neck: Supple, normal ROM Respiratory: Normal respiratory effort. CTA Cardiovascular: Regular rate and rhythm Abdomen: Soft, non-tender, non-distended Skin: Skin color, texture, turgor normal. No rashes or lesions. Neurologic: Grossly intact LABS: Reviewed IMAGING/PROCEDURES Reviewed ASSESSMENT Juliann Myles is a 69 y.o. female here for colon with EMR. PLAN COLON with EMR The benefits, alternatives, and risks of the procedure(s) including (but not exclusive to) pain, bleeding, perforation, infection, nausea, vomiting, aspiration, hypoxia/hypotension/allergic reaction(s) due to sedatives, phlebitis, need for hospitalization, need for transfusions, need for antibiotic therapy, need for surgery, and likelihood of missing a polyp or neoplastic lesion, were explained to the patient/guardian/responsible accompanying adult who is agreeable. Annetta Bird MD [1] Past Medical History: Diagnosis Date Disease of thyroid gland Hypertension [2] Past Surgical History: Procedure Laterality Date COLONOSCOPY Left 01/18/2025 Performed by Annetta Bird MD at [facility] ENDOSCOPY EXPLORATORY LAPAROTOMY Aug 04 2023-total hysterectomy, sigmoidectomy [3] No family history on file. [4] Current Facility-Administered Medications Medication Dose Route Frequency Provider Last Rate Last Admin ondansetron (Zofran) injection 4 mg 4 mg IntraVENous Once PRN Annetta Bird MD sodium chloride 0.9 % infusion 5-250 mL/hr IntraVENous PRN Annetta Bird MD sodium chloride 0.9 % infusion 5-250 mL/hr IntraVENous PRN Annetta Bird MD 100 mL/hr at 01/18/25 0821 100 mL/hr at 01/18/25 0821 sodium chloride 0.9% (NS) flush 10 mL 10 mL IntraVENous 2 times per day Annetta Bird MD sodium chloride 0.9% (NS) flush 10 mL 10 mL IntraVENous PRN Annetta Bird MD sodium chloride 0.9% (NS) flush 10 mL 10 mL IntraVENous 2 times per day Annetta Bird MD sodium chloride 0.9% (NS) flush 10 mL 10 mL IntraVENous PRN Annetta Bird MD [5] No Known Allergies [email or web address] Phone: 01-18-2025 Note GASTROENTEROLOGY PRE PROCEDURE H&P 01/18/2025 Patient: Juliann Myles : 1955 Primary Care Physician: Chuck Hope HISTORY OF PRESENT ILLNESS: Juliann Myles is a 69 y.o. female who is referred by Dr. Ventura for colonoscopy with EMR after findings of a 25 mm cecal polyp during recent colonoscopy, 11.30.24. Has a history of positive Cologuard in 2021. Subsequently diagnosed with ovarian cancer. Had a OFELIA/BSO and sigmoidectomy. S/P CMT/XRT. Never had a colonoscopy or further colorectal screening until November. Denies a change in bowel habits. No blood in the stool or on the toilet paper; however, she does report a history of hemorrhoids. Denies abdominal pain or unintentional weight loss. No family history of CRC. REVIEW OF SYSTEMS: A complete 10 point review of systems was obtained. Please see the HPI for pertinent positives and negatives. All other systems reviewed were found to be negative or noncontributory. PAST MEDICAL HISTORY: Medical History[1] PAST SURGICAL HISTORY: Surgical History[2] SOCIAL HISTORY: TOBACCO: reports that she has never smoked. She has never used smokeless tobacco. ETOH: reports that she does not currently use alcohol. DRUGS: reports no history of drug use. FAMILY HISTORY: Family History[3] MEDICATIONS: Prior to Admission medications Medication Sig Start Date End Date Taking? Authorizing Provider cholecalciferol (Vitamin D-3) 125 MCG (5000 UT) capsule Take 5,000 Units by mouth daily. Yes Historical Provider, levothyroxine (Synthroid, Levoxyl) 200 MCG tablet Take 50 mcg by mouth every morning (before breakfast). Yes Historical Provider, LISINOPRIL & DIET MANAGE PROD PO Every 24 hours. Yes Historical Provider, levothyroxine (Synthroid) 200 MCG reconstituted solution Every 24 hours. 01/18/25 Historical Provider, Current Medications[4] ALLERGIES: Allergies[5] OBJECTIVE: Vitals: Blood pressure (!) 172/94, pulse 80, temperature 36.2 ?C (97.2 ?F), temperature source Temporal, resp. rate 18, height 5' 7 (1.702 m), weight 145 lb (65.8 kg), SpO2 98%. General appearance: Alert and oriented, NAD, conversational HEENT: NC/AT, PERRL, sclera anicteric Neck: Supple, normal ROM Respiratory: Normal respiratory effort. CTA Cardiovascular: Regular rate and rhythm Abdomen: Soft, non-tender, non-distended Skin: Skin color, texture, turgor normal. No rashes or lesions. Neurologic: Grossly intact LABS: Reviewed IMAGING/PROCEDURES Reviewed ASSESSMENT Juliann Myles is a 69 y.o. female here for colon with EMR. PLAN COLON with EMR The benefits, alternatives, and risks of the procedure(s) including (but not exclusive to) pain, bleeding, perforation, infection, nausea, vomiting, aspiration, hypoxia/hypotension/allergic reaction(s) due to sedatives, phlebitis, need for hospitalization, need for transfusions, need for antibiotic therapy, need for surgery, and likelihood of missing a polyp or neoplastic lesion, were explained to the patient/guardian/responsible accompanying adult who is agreeable. Annetta Bird MD [1] Past Medical History: Diagnosis Date Disease of thyroid gland Hypertension [2] Past Surgical History: Procedure Laterality Date COLONOSCOPY Left 01/18/2025 Performed by Annetta Bird MD at [facility] ENDOSCOPY EXPLORATORY LAPAROTOMY Aug 04 2023-total hysterectomy, sigmoidectomy [3] No family history on file. [4] Current Facility-Administered Medications Medication Dose Route Frequency Provider Last Rate Last Admin ondansetron (Zofran) injection 4 mg 4 mg IntraVENous Once PRN Annetta Bird MD sodium chloride 0.9 % infusion 5-250 mL/hr IntraVENous PRN Annetta Bird MD sodium chloride 0.9 % infusion 5-250 mL/hr IntraVENous PRN Annetta Bird MD 100 mL/hr at 01/18/25 0821 100 mL/hr at 01/18/25 0821 sodium chloride 0.9% (NS) flush 10 mL 10 mL IntraVENous 2 times per day Annetta Bird MD sodium chloride 0.9% (NS) flush 10 mL 10 mL IntraVENous PRN Annetta Bird MD sodium chloride 0.9% (NS) flush 10 mL 10 mL IntraVENous 2 times per day Annetta Bird MD sodium chloride 0.9% (NS) flush 10 mL 10 mL IntraVENous PRN Annetta Bird MD [5] No Known Allergies [facility] 01-18-2025 History and physical note Images from the original note were not included. GASTROENTEROLOGY PREPROCEDURE H&P 01/18/2025 Patient: Juliann Myles : 1955 Primary Care Physician: Chuck Hope HISTORY OF PRESENT ILLNESS: Juliann Myles is a 69 y.o. female who is referred by Dr. Ventura for colonoscopy with EMR after findings of a 25 mm cecal polyp during recent colonoscopy, 11.30.24. Has a history of positive Cologuard in 2021. Subsequently diagnosed with ovarian cancer. Had a OFELIA/BSO and sigmoidectomy. S/P CMT/XRT. Never had a colonoscopy or further colorectal screening until November. Denies a change in bowel habits. No blood in the stool or on the toilet paper; however, she does report a history of hemorrhoids. Denies abdominal pain or unintentional weight loss. No family history of CRC. REVIEW OF SYSTEMS: A complete 10 point review of systems was obtained. Please see the HPI for pertinent positives and negatives. All other systems reviewed were found to be negative or noncontributory. PAST MEDICAL HISTORY: Medical History[1] PAST SURGICAL HISTORY: Surgical History[2] SOCIAL HISTORY: TOBACCO: reports that she has never smoked. She has never used smokeless tobacco. ETOH: reports that she does not currently use alcohol. DRUGS: reports no history of drug use. FAMILY HISTORY: Family History[3] MEDICATIONS: Prior to Admission medications Medication Sig Start Date End Date Taking? Authorizing Provider cholecalciferol (Vitamin D-3) 125 MCG (5000 UT) capsule Take 5,000 Units by mouth daily. Yes Historical Provider, levothyroxine (Synthroid, Levoxyl) 200 MCG tablet Take 50 mcg by mouth every morning (before breakfast). Yes Historical Provider, LISINOPRIL & DIET MANAGE PROD PO Every 24 hours. Yes Historical Provider, levothyroxine (Synthroid) 200 MCG reconstituted solution Every 24 hours. 01/18/25 Historical Provider, Current Medications[4] ALLERGIES: Allergies[5] OBJECTIVE: Vitals: Blood pressure (!) 172/94, pulse 80, temperature 36.2 C (97.2 F), temperature source Temporal, resp. rate 18, height 5' 7 (1.702 m), weight 145 lb (65.8 kg), SpO2 98%. General appearance: Alert and oriented, NAD, conversational HEENT: NC/AT, PERRL, sclera anicteric Neck: Supple, normal ROM Respiratory: Normal respiratory effort. CTA Cardiovascular: Regular rate and rhythm Abdomen: Soft, non-tender, non-distended Skin: Skin color, texture, turgor normal. No rashes or lesions. Neurologic: Grossly intact LABS: Reviewed IMAGING/PROCEDURES Reviewed ASSESSMENT Juliann Myles is a 69 y.o. female here for colon with EMR. PLAN COLON with EMR The benefits, alternatives, and risks of the procedure(s) including (but not exclusive to) pain, bleeding, perforation, infection, nausea, vomiting, aspiration, hypoxia/hypotension/allergic reaction(s) due to sedatives, phlebitis, need for hospitalization, need for transfusions, need for antibiotic therapy, need for surgery, and likelihood of missing a polyp or neoplastic lesion, were explained to the patient/guardian/responsible accompanying adult who is agreeable. Annetta Bird MD [1] Past Medical History: Diagnosis Date Disease of thyroid gland Hypertension [2] Past Surgical History: Procedure Laterality Date COLONOSCOPY Left 01/18/2025 Performed by Annetta Bird MD at [facility] ENDOSCOPY EXPLORATORY LAPAROTOMY Aug 04 2023-total hysterectomy, sigmoidectomy [3] No family history on file. [4] Current Facility-Administered Medications Medication Dose Route Frequency Provider Last Rate Last Admin ondansetron (Zofran) injection 4 mg 4 mg IntraVENous Once PRN Annetta Bird MD sodium chloride 0.9 % infusion 5-250 mL/hr IntraVENous PRN Annetta Bird MD sodium chloride 0.9 % infusion 5-250 mL/hr IntraVENous PRN Annetta Bird MD 100 mL/hr at 01/18/25 0821 100 mL/hr at 01/18/25 0821 sodium chloride 0.9% (NS) flush 10 mL 10 mL IntraVENous 2 times per day Annetta Bird MD sodium chloride 0.9% (NS) flush 10 mL 10 mL IntraVENous PRN Annetta Bird MD sodium chloride 0.9% (NS) flush 10 mL 10 mL IntraVENous 2 times per day Annetta Bird MD sodium chloride 0.9% (NS) flush 10 mL 10 mL IntraVENous PRN Annetta Bird MD [5] No Known Allergies documented in this encounter [facility] 01-18-2025 Note Endoscopy Center- [facility] Patient Name: Juliann Myles Procedure Date: 01/18/2025 7:58 AM Gender: Female Date of : 1955 Age: 69 Admit Type: Outpatient Note Status: Finalized Endoscopist: Annetta Bird MD, [id number] Procedure: Colonoscopy Indications: Therapeutic procedure, Therapeutic procedure for colon polyps Juliann Myles is a 69 y.o. female who is referred by Dr. Ventura for colonoscopy with EMR after findings of a 25 mm cecal polyp during recent colonoscopy, 11.30.24. Has a history of positive Cologuard in 2021. Subsequently diagnosed with ovarian cancer. Had a OFELIA/BSO and sigmoidectomy. S/P CMT/XRT. Never had a colonoscopy or further colorectal screening until November. Denies a change in bowel habits. No blood in the stool or on the toilet paper; however, she does report a history of hemorrhoids. Denies abdominal pain or unintentional weight loss. No family history of CRC. Findings: The perianal and digital rectal examinations were normal. The terminal ileum appeared normal. A 25 mm polyp was found in the cecum. The polyp was Miriam classification Is (protruding, sessile) and granular lateral spreading. Preparations were made for mucosal resection. Demarcation of the lesion was performed with narrow band imaging to clearly identify the boundaries of the lesion. A 0.1 mg/mL solution of epinephrine with Eleview was injected to raise the lesion. Cap and piecemeal cold snare mucosal resection was performed. Resection and retrieval were complete. Resected tissue margins were examined and clear of polyp tissue. Resection margins were treated with soft coagulation for tissue destruction using snare tip. To prevent bleeding after mucosal resection, one hemostatic clip was successfully placed (MR conditional). There was no bleeding at the end of the procedure. Verification of patient identification for the specimen was done. Estimated blood loss was minimal. A 3 mm polyp was found in the cecum. The polyp was sessile. The polyp was removed with a cold snare. Resection and retrieval were complete. Verification of patient identification for the specimen was done. Estimated blood loss was minimal. There was evidence of a prior end-to-end colo-colonic anastomosis in the recto-sigmoid colon. This was patent and was characterized by healthy appearing mucosa. The anastomosis was traversed. The exam was otherwise normal throughout the examined colon. Impression: - The examined portion of the ileum was normal. - One 25 mm polyp in the cecum, removed with endoscopic mucosal resection. Resection and retrieval were complete. Resection margins treated with cautery. One clip (MR conditional) was placed. - One 3 mm polyp in the cecum, removed with a cold snare. Resected and retrieved. - Patent end-to-end colo-colonic anastomosis in the proximal rectum, characterized by healthy appearing mucosa. - The exam of the colon was otherwise normal. Recommendation: - The patient will be observed post-procedure, until all discharge criteria are met. - Discharge patient to home. - Advance diet as tolerated today. - Continue present medications. - Await pathology results. - Repeat colonoscopy in 6 months for surveillance after piecemeal polypectomy. This can be completed at [facility] with Dr. Ventura. - Return to GI clinic as needed for GI follow-up. - Return to primary care physician as previously scheduled for routine follow-up. - The findings and recommendations were discussed with the patient and their spouse. - Patient has a contact number available for emergencies. The signs and symptoms of potential delayed complications were discussed with the patient. Return to normal activities tomorrow. Written discharge instructions were provided to the patient. Referring MD: Yung Cornejo, Medicines: Monitored Anesthesia Care Procedure: Pre-Anesthesia Assessment: - Prior to the procedure, a History and Physical was performed, and patient medications and allergies were reviewed. The patient's tolerance of previous anesthesia was also reviewed. The risks and benefits of the procedure and the sedation options and risks were discussed with the patient. All questions were answered, and informed consent was obtained. Prior Anticoagulants: The patient has taken no anticoagulant or antiplatelet agents. ASA Grade Assessment: II - A patient with mild systemic disease. After reviewing the risks and benefits, the patient was deemed in satisfactory condition to undergo the procedure. After I obtained informed consent, the scope was passed under direct vision. Throughout the procedure, the patient's blood pressure, pulse, and oxygen saturations were monitored continuously. The Colonoscope was introduced through the anus and advanced to the cecum, identified by appendiceal orifice and ileocecal va (more content not included)... [facility] Name: Juliann Myles Procedure Date: 01/18/2025 7:58 AM Gender: Female Date of : 1955 Age: 69 Admit Type: Outpatient Note Status: Finalized Endoscopist: Annetta Bird MD, [id number] Procedure: Colonoscopy Indications: Therapeutic procedure, Therapeutic procedure for colon polyps Juliann Myles is a 69 y.o. female who is referred by Dr. Ventura for colonoscopy with EMR after findings of a 25 mm cecal polyp during recent colonoscopy, 11.30.24. Has a history of positive Cologuard in 2021. Subsequently diagnosed with ovarian cancer. Had a OFELIA/BSO and sigmoidectomy. S/P CMT/XRT. Never had a colonoscopy or further colorectal screening until November. Denies a change in bowel habits. No blood in the stool or on the toilet paper; however, she does report a history of hemorrhoids. Denies abdominal pain or unintentional weight loss. No family history of CRC. Findings: The perianal and digital rectal examinations were normal. The terminal ileum appeared normal. A 25 mm polyp was found in the cecum. The polyp was Miriam classification Is (protruding, sessile) and granular lateral spreading. Preparations were made for mucosal resection. Demarcation of the lesion was performed with narrow band imaging to clearly identify the boundaries of the lesion. A 0.1 mg/mL solution of epinephrine with Eleview was injected to raise the lesion. Cap and piecemeal cold snare mucosal resection was performed. Resection and retrieval were complete. Resected tissue margins were examined and clear of polyp tissue. Resection margins were treated with soft coagulation for tissue destruction using snare tip. To prevent bleeding after mucosal resection, one hemostatic clip was successfully placed (MR conditional). There was no bleeding at the end of the procedure. Verification of patient identification for the specimen was done. Estimated blood loss was minimal. A 3 mm polyp was found in the cecum. The polyp was sessile. The polyp was removed with a cold snare. Resection and retrieval were complete. Verification of patient identification for the specimen was done. Estimated blood loss was minimal. There was evidence of a prior end-to-end colo-colonic anastomosis in the recto-sigmoid colon. This was patent and was characterized by healthy appearing mucosa. The anastomosis was traversed. The exam was otherwise normal throughout the examined colon. Impression: - The examined portion of the ileum was normal. - One 25 mm polyp in the cecum, removed with endoscopic mucosal resection. Resection and retrieval were complete. Resection margins treated with cautery. One clip (MR conditional) was placed. - One 3 mm polyp in the cecum, removed with a cold snare. Resected and retrieved. - Patent end-to-end colo-colonic anastomosis in the proximal rectum, characterized by healthy appearing mucosa. - The exam of the colon was otherwise normal. Recommendation: - The patient will be observed post-procedure, until all discharge criteria are met. - Discharge patient to home. - Advance diet as tolerated today. - Continue present medications. - Await pathology results. - Repeat colonoscopy in 6 months for surveillance after piecemeal polypectomy. This can be completed at [facility] with Dr. Ventura. - Return to GI clinic as needed for GI follow-up. - Return to primary care physician as previously scheduled for routine follow-up. - The findings and recommendations were discussed with the patient and their spouse. - Patient has a contact number available for emergencies. The signs and symptoms of potential delayed complications were discussed with the patient. Return to normal activities tomorrow. Written discharge instructions were provided to the patient. Referring MD: Yung Cornejo, Medicines: Monitored Anesthesia Care Procedure: Pre-Anesthesia Assessment: - Prior to the procedure, a History and Physical was performed, and patient medications and allergies were reviewed. The patient's tolerance of previous anesthesia was also reviewed. The risks and benefits of the procedure and the sedation options and risks were discussed with the patient. All questions were answered, and informed consent was obtained. Prior Anticoagulants: The patient has taken no anticoagulant or antiplatelet agents. ASA Grade Assessment: II - A patient with mild systemic disease. After reviewing the risks and benefits, the patient was deemed in satisfactory condition to undergo the procedure. After I obtained informed consent, the scope was passed under direct vision. Throughout the procedure, the patient's blood pressure, pulse, and oxygen saturations were monitored continuously. The Colonoscope was introduced through the anus and advanced to the cecum, identified by appendiceal orifice and ileocecal valve. The colonoscopy was performed without difficulty. The patient tolerated the procedure well. The quality of the bowel preparation was evaluated using the BBPS ([place] Bowel Preparation Scale) with scores of: Right Colon = 3, Transverse Colon = 3 and Left Colon = 3 (entire mucosa seen well with no residual staining, small fragments of stool or opaque liquid). The total BBPS score equals 9. The terminal ileum, ileocecal valve, appendiceal orifice, and rectum were photographed. Complications: No immediate complications. Procedure Code(s): --- Professional --- 54863, Colonoscopy, flexible; with endoscopic mucosal resection 49903, 59, Colonoscopy, flexible; with removal of tumor(s), polyp(s), or other lesion(s) by snare technique --- Technical --- 69503, Colonoscopy, flexible; with endoscopic mucosal resection 49276, 59, Colonoscopy, flexible; with removal of tumor(s), polyp(s), or other lesion(s) by snare technique Diagnosis Code(s): --- Professional --- D12.0, Benign neoplasm of cecum K63.5, Polyp of colon --- Technical --- D12.0, Benign neoplasm of cecum K63.5, Polyp of colon CPT copyright 2021 [employer]. All rights reserved. The codes documented in this report are preliminary and upon retort furnace operator review may be revised to meet current compliance requirements. Attending Participation: I personally performed the entire procedure. Annetta Bird MD 01/18/2025 10:18:15 AM This report has been signed electronically. Number of Addenda: 0 Note Initiated On: 01/18/2025 7:58 AM [facility] 01-18-2025 [facility]iscellaneous [facility] Name: Juliann Myles Procedure Date: 01/18/2025 7:58 AM Gender: Female Date of : 1955 Age: 69 Admit Type: Outpatient Note Status: Finalized Endoscopist: Annetta Bird MD, [id number] Procedure: Colonoscopy Indications: Therapeutic procedure, Therapeutic procedure for colon polyps Juliann Myles is a 69 y.o. female who is referred by Dr. Ventura for colonoscopy with EMR after findings of a 25 mm cecal polyp during recent colonoscopy, 5. Has a history of positive Cologuard in 2021. Subsequently diagnosed with ovarian cancer. Had a OFELIA/BSO and sigmoidectomy. S/P CMT/XRT. Never had a colonoscopy or further colorectal screening until November. Denies a change in bowel habits. No blood in the stool or on the toilet paper; however, she does report a history of hemorrhoids. Denies abdominal pain or unintentional weight loss. No family history of CRC. Findings: The perianal and digital rectal examinations were normal. The terminal ileum appeared normal. A 25 mm polyp was found in the cecum. The polyp was Miriam classification Is (protruding, sessile) and granular lateral spreading. Preparations were made for mucosal resection. Demarcation of the lesion was performed with narrow band imaging to clearly identify the boundaries of the lesion. A 0.1 mg/mL solution of epinephrine with Eleview was injected to raise the lesion. Cap and piecemeal cold snare mucosal resection was performed. Resection and retrieval were complete. Resected tissue margins were examined and clear of polyp tissue. Resection margins were treated with soft coagulation for tissue destruction using snare tip. To prevent bleeding after mucosal resection, one hemostatic clip was successfully placed (MR conditional). There was no bleeding at the end of the procedure. Verification of patient identification for the specimen was done. Estimated blood loss was minimal. A 3 mm polyp was found in the cecum. The polyp was sessile. The polyp was removed with a cold snare. Resection and retrieval were complete. Verification of patient identification for the specimen was done. Estimated blood loss was minimal. There was evidence of a prior end-to-end colo-colonic anastomosis in the recto-sigmoid colon. This was patent and was characterized by healthy appearing mucosa. The anastomosis was traversed. The exam was otherwise normal throughout the examined colon. Impression: - The examined portion of the ileum was normal. - One 25 mm polyp in the cecum, removed with endoscopic mucosal resection. Resection and retrieval were complete. Resection margins treated with cautery. One clip (MR conditional) was placed. - One 3 mm polyp in the cecum, removed with a cold snare. Resected and retrieved. - Patent end-to-end colo-colonic anastomosis in the proximal rectum, characterized by healthy appearing mucosa. - The exam of the colon was otherwise normal. Recommendation: - The patient will be observed post-procedure, until all discharge criteria are met. - Discharge patient to home. - Advance diet as tolerated today. - Continue present medications. - Await pathology results. - Repeat colonoscopy in 6 months for surveillance after piecemeal polypectomy. This can be completed at [facility] with Dr. Ventura. - Return to GI clinic as needed for GI follow-up. - Return to primary care physician as previously scheduled for routine follow-up. - The findings and recommendations were discussed with the patient and their spouse. - Patient has a contact number available for emergencies. The signs and symptoms of potential delayed complications were discussed with the patient. Return to normal activities tomorrow. Written discharge instructions were provided to the patient. Referring MD: Yung Cornejo DO Medicines: Monitored Anesthesia Care Procedure: Pre-Anesthesia Assessment: - Prior to the procedure, a History and Physical was performed, and patient medications and allergies were reviewed. The patient's tolerance of previous anesthesia was also reviewed. The risks and benefits of the procedure and the sedation options and risks were discussed with the patient. All questions were answered, and informed consent was obtained. Prior Anticoagulants: The patient has taken no anticoagulant or antiplatelet agents. ASA Grade Assessment: II - A patient with mild systemic disease. After reviewing the risks and benefits, the patient was deemed in satisfactory condition to undergo the procedure. After I obtained informed consent, the scope was passed under direct vision. Throughout the procedure, the patient's blood pressure, pulse, and oxygen saturations were monitored continuously. The Colonoscope was introduced through the anus and advanced to the cecum, identified by appendiceal orifice and ileocecal valve. The colonoscopy was performed without difficulty. The patient tolerated the procedure well. The quality of the bowel preparation was evaluated using the BBPS ([place] Bowel Preparation Scale) with scores of: Right Colon = 3, Transverse Colon = 3 and Left Colon = 3 (entire mucosa seen well with no residual staining, small fragments of stool or opaque liquid). The total BBPS score equals 9. The terminal ileum, ileocecal valve, appendiceal orifice, and rectum were photographed. Complications: No immediate complications. Procedure Code(s): --- Professional --- 70944, Colonoscopy, flexible; with endoscopic mucosal resection 71125, 59, Colonoscopy, flexible; with removal of tumor(s), polyp(s), or other lesion(s) by snare technique --- Technical --- 67580, Colonoscopy, flexible; with endoscopic mucosal resection 45043, 59, Colonoscopy, flexible; with removal of tumor(s), polyp(s), or other lesion(s) by snare technique Diagnosis Code(s): --- Professional --- D12.0, Benign neoplasm of cecum K63.5, Polyp of colon --- Technical --- D12.0, Benign neoplasm of cecum K63.5, Polyp of colon CPT copyright 2021 [employer]. All rights reserved. The codes documented in this report are preliminary and upon retort furnace operator review may be revised to meet current compliance requirements. Attending Participation: I personally performed the entire procedure. Annetta Bird MD 01/18/2025 10:18:15 AM This report has been signed electronically. Number of Addenda: 0 Note Initiated On: 01/18/2025 7:58 AM documented in this encounter [facility] 12-02-2024 Evaluation note Diagnosis Onset Date Resolution Jodi's thyroiditis acute M 2024 10:43am Osteoarthritis acute December 02, 2024 10:43am Ovarian cancer acute December 02, 2024 10:43am Vitamin deficiency acute December 022024 10:43am High blood pressure chronic November 182024 10:43am [place] [employer] Work Phone: 1(752) 473-924505-15-2025 Progress [facility] Internal Medicine [address] [place] [address] OFFICE VISIT Date of Service: 12/02/24 MR#: [id number] Acct: [id number] Name: JULIANN MYLES Rep #: [id number] : 1955 Provider: Dr. Robyn Hope MD Age/Sex: 69/F Location: [facility] Status: Signed Intake Vital Signs 01/15/24 11:04 12/02/24 10:51 Height 5 ft 6 in 5 ft 6 in Weight: 149 lb BMI 24.0 BP 172/88 H Blood Pressure Location Lt brachial Position Sitting Respiration 16 Pulse 61 Pulse Source Monitor Temp 98.6 F Temp Source Temporal Pulse Oximetry (%) 100 Oxygen Delivery Method room air Intake Visit Reasons: Annual/Physical Chief Complaint: Annual/Physical Slab Tripper Required: No Accompanied by: Is patient in pain?: No Allergies No Known Allergies Allergy (Verified 12/02/24 10:44) Medications ?Medication ?Instructions ?Recorded ?Confirmed ?Type vit d3 PO 06/18/23 12/02/24 History levothyroxine 50 mcg tablet 50 mcg PO DAILY #90 tabs 0 07/26/24 12/02/24 Rx lisinopril 10 mg tablet 10 mg PO DAILY #90 tabs 01/1212/02/24 Rx Have you fallen in the past year?: No PFSH Medical History UTI (urinary tract infection) Sjogren's disease Fibromyalgia Jodi's thyroiditis IBS (irritable bowel syndrome) Family History Mother Thyroid disorder Heart disease Age related osteoporosis Aunt Thyroid disorder Sister Thyroid disorder Grandfather Thyroid disorder Father Heart disease Mental disorder Social History adopted: No household members: spouse housing: house number of children: 0 current occupational status: retired pets and animals: No leisure activities: exercise, music and reading history of recent travel: No sexually active: No Smoking Status: Never smoker alcohol intake: never substance use type: does not use well-balanced diet: daily or most days caffeine: Yes eating out: 1-3 times/week during the past year weight has: decreased > 10 lbs what type of physical activity do you participate in: walking and other frequency: 3-4 times per week oly/advent: Zoroastrian seatbelt use: always do you feel safe at home: Yes HPI HPI Chief Complaint: Annual/Physical Details: JULIANN MYLES, is a 69 F who presents to the office today for annual follow- up. 61 female generally speaking has been pretty healthy although she had ovarian cancer diagnosed a couple of years ago now. She underwent chemotherapy,surgical treatment. She does stable, continue to follow with [facility] in [place]. She has hypothyroidism on levothyroxine 50 mcg daily and lisinopril 10 mg daily for hypertension. Overall she has been doing quite well. Had colonoscopy recently. She did have asessile polyp that was partially removed apparently and will need additional treatment through C-scope. She was referredto an additional specialist for that. She did have follow-up relatively recently with her oncologist and overall is doing pretty well. She has noted that there has been a slight trending rise to the CA125 but states that oncologist has not been specifically concerned right now about that and will continue monitoring. She feels well overall. She does have hypothyroidism and hypertension as above but these been stable issues. Labs however do need updated. Review of systems per chart. No chest pain, chest tightness, shortness of breath wheeze cough or congestion. No focal areas of numbness or tingling. Appetites been good. Urinary pattern has been stable. Prior to C-scope bowel movements have been regular. Physical exam. Vital signs on chart. PERRLA. Sclera are clear. TMs are unremarkable with normal light reflexes. Canals are unremarkable. Posterior pharynx is unremarkable. Good dentition. No cervicalor supraclavicular lymph nodes enlarged or tender. No clear thyromegaly. No thyroid nodules readily palpable. Lungs are without wheeze, rhonchi, rales. No E/A changes are heard. Heart is regular. Nottachycardic. No clear murmur, rub, or gallop is identified. The abdomen is soft. Bowel sounds are present. Nontender nondistended abdomen. No clear palpable masses in the abdomen. No significant leg edema. Cranial nerve examination 2 through 12 are grossly unremarkable nonlateralizing. No obvious rashes. No obvious significant skin lesions are identified. ROS Const Constitutional: No body ache, chills, excessive sweating, fatigue, fever(s), frequent falls, headache(s), snoring, weakness or change in appetite Eyes Eyes: No blurry vision, change in vision, eye pain or Light sensitivity ENT ENT: No abnormal hearing, ear or mastoid pain, tinnitus, nasal congestion, headache(s), neck pain or sore throat Resp Respiratory: No cough, shortness of breath, snoring or wheezing Cardio Cardiology: No chest pain at rest, chest pain with exertion, excessive sweating,dyspnea on exertion, lightheadedness, orthopnea or palpitations Gastro GI: No abdominal pain, change in bowel habits, constipation, cramping, diarrhea,nausea/dyspepsia orvomiting Genitourinary-Female: No burning urination, painful urination, urinary incontinence or urinary frequency Musc Musculoskeletal: No abnormal gait, joint pain, back pain, limited range of motion, muscle weakness,neck pain or numbness Skin Skin: No dry skin, redness, lesions, itchy eyes, rash or wounds Neuro Neurology: No abnormal gait, abnormal hearing, weakness, frequent falls, headache(s), memory loss or numbness Psych Psychiatric: No anxiety, No change in appetite, No depression, No memory loss and No Thoughts of harming yourself/Others Endo Endocrine: No cold intolerance, excessive sweating, fatigue, flushing, heat intolerance, increased thirst/drinking or increased hunger Aller/Imm Allergy/Immunologic: No itchy eyes, seasonal allergy symptoms, hives or wheezing Juan R/Lymp Hematologic/Lymphatic: No easy bleeding or easy bruising Coding Level of Care Code Off vis,est,level 3 Diagnoses High blood pressure I10 Osteoarthritis M19.90 Vitamin deficiency E56.9 Jodi's thyroiditis E06.3 Ovarian cancer C56.9 Time Spent (min) 30 Assessment and Plan Assessment and Plan (1) High blood pressure: Status: Chronic (2) Osteoarthritis: Status: Acute (3) Vitamin deficiency: Status: Acute (4) Jodi's thyroiditis: Status: Acute (5) Ovarian cancer: Status: Acute Orders: Orders Comprehensive Metabolic Profil Today C56.9 - Malignant neoplasm of unspecified ovary, E06.3 - Autoimmune thyroiditis, E56.9 - Vitamin deficiency, unspecified, I10 - Essential (primary) hypertension, M19.90 - Unspecified osteoarthritis, unspecified site CBC W/Diff, Automated Today C56.9 - Malignant neoplasm of unspecified ovary, E06.3 - Autoimmune thyroiditis, E56.9 - Vitamin deficiency, unspecified, I10 - Essential (primary) hypertension, M19.90 - Unspecified osteoarthritis, unspecified site Lipid Profile Today C56.9 - Malignant neoplasm of unspecified ovary, E06.3 - Autoimmune thyroiditis, E56.9 - Vitamin deficiency, unspecified, I10 - Essential(primary) hypertension, M19.90 - Unspecified osteoarthritis, unspecified site, Z13.220 - Encounter for screening for lipoid disorders T4 Free Direct Today C56.9 - Malignant neoplasm of unspecified ovary, E06.3 - Autoimmune thyroiditis, E56.9 - Vitamin deficiency, unspecified, I10 - Essential(primary) hypertension, M19.90 - Unspecified osteoarthritis, unspecified site Thyroid Stim Hormone (TSH) Today C56.9 - Malignant neoplasm of unspecified ovary, E06.3 - Autoimmune thyroiditis, E56.9 - Vitamin deficiency, unspecified, I10 - Essential (primary) hypertension, M19.90 - Unspecified osteoarthritis, unspecified site Free T3 Today C56.9 - Malignant neoplasm of unspecified ovary, E06.3 - Autoimmune thyroiditis, E56.9 - Vitamin deficiency, unspecified, I10 - Essential(primary) hypertension, M19.90 - Unspecified osteoarthritis, unspecified site Magnesium Today C56.9 - Malignant neoplasm of unspecified ovary, E06.3 - Autoimmune thyroiditis, E56.9 - Vitamin deficiency, unspecified, I10 - Essential(primary) hypertension, M19.90 - Unspecified osteoarthritis, unspecified site Vitamin D,25 Hydroxy Today C56.9 - Malignant neoplasm of unspecified ovary, E06.3 - Autoimmune thyroiditis, E55.9 - Vitamin D deficiency, unspecified, E56.9- Vitamin deficiency, unspecified, I10 - Essential (primary) hypertension, M19.90 - Unspecified osteoarthritis, unspecified site Vitamin B12 Today C56.9 - Malignant neoplasm of unspecified ovary, E06.3 - Autoimmune thyroiditis, E53.8 - Deficiency of other specified B group vitamins, E56.9 - Vitamin deficiency, unspecified, I10- Essential (primary) hypertension,M19.90 - Unspecified osteoarthritis, unspecified site SCRN MAMM (CAD)W/MATTHEW BILAT Today Z12.31 - Encounter for screening mammogram for malignant neoplasmof breast Plan Details Additional Comments: Patient presenting in follow-up. She has a history of hypothyroidism, hypertension for which we follow-up. She also has a history of ovarian cancer following with oncology/[facility] in [place]. Her KS812zqm been apparently slowly increasing but she states to the surgeon has not been highly concerned about this at this point and will continue monitoring. Does need labs updated. Brings in blood pressure readings from home which are excellent. Blood pressureis slightly elevated here in the office today and home readings have been excellent. Await labs. She is due for mammogram she does have dense breast tissue and wonders if there is a better approach that she should be taking. Will ask the breast imaging center if they think alternative imaging is appropriate or whether we can just continue with routine mammogram. Order was placed for that at this point but we can always amend that if need be. Otherwise labs will be obtained as ordered. Would not change her medical regimen today, pending lab evaluation. Overall doing well. 30-minute visit. Clinical Quality Measures Falls Risk Screening/Assistive Devices Have you fallen in the past year?: No 12/02/24 1225 r > Date _ Chuck Hope MD Cosigner Signature: Date (if applicable) CC: ~ [facility]05-15-2025 Progress note Author Chuck Hope [facility] Services Note Date/Time December 02, 2024 12:25 pm [place] [facility] [address] [place] [address] OFFICE VISIT Date of Service: 12/02/24 MR#: [id number] Acct: [id number] Name: JULIANN MYLES Rep #: [id number] : 1955 Provider: Dr. Robyn Hope MD Age/Sex: 69/F Location[place] [facility] Status: Signed Intake Vital Signs 01/15/24 11:04 12/02/24 10:51 Height 5 ft 6 in 5 ft 6 in Weight: 149 lb BMI 24.0 BP 172/88 H Blood Pressure Location Lt brachial Position Sitting Respiration 16 Pulse 61 Pulse Source Monitor Temp 98.6 F Temp Source Temporal Pulse Oximetry (%) 100 Oxygen Delivery Method room air Intake Visit Reasons: Annual/Physical Chief Complaint: Annual/Physical Slab Tripper Required: No Accompanied by: Is patient in pain?: No Allergies No Known Allergies Allergy (Verified 12/02/24 10:44) Medications ?Medication ?Instructions ?Recorded ?Confirmed ?Type vit d3 PO 06/18/23 12/02/24 History levothyroxine 50 mcg tablet 50 mcg PO DAILY #90 tabs 0 07/26/24 12/02/24 Rx lisinopril 10 mg tablet 10 mg PO DAILY #90 tabs 01/0 6/25 05/15/25 Rx Have you fallen in the past year?: No PFSH Medical History UTI (urinary tract infection) Sjogren's disease Fibromyalgia Jodi's thyroiditis IBS (irritable bowel syndrome) Family History Mother Thyroid disorder Heart disease Age related osteoporosis Aunt Thyroid disorder Sister Thyroid disorder Grandfather Thyroid disorder Father Heart disease Mental disorder Social History adopted: No household members: spouse housing: house number of children: 0 current occupational status: retired pets and animals: No leisure activities: exercise, music and reading history of recent travel: No sexually active: No Smoking Status: Never smoker alcohol intake: never substance use type: does not use well-balanced diet: daily or most days caffeine: Yes eating out: 1-3 times/week during the past year weight has: decreased > 10 lbs what type of physical activity do you participate in: walking and other frequency: 3-4 times per week oly/advent: Zoroastrian seatbelt use: always do you feel safe at home: Yes HPI HPI Chief Complaint: Annual/Physical Details: JULIANN MYLES, is a 69 F who presents to the office today for annual follow- up. 61 female generally speaking has been pretty healthy although she had ovarian cancer diagnosed a couple of years ago now. She underwent chemotherapy,surgical treatment. She does stable, continue to follow with subspecialty care in [place]. She has hypothyroidism on levothyroxine 50 mcg daily and lisinopril 10 mg daily for hypertension. Overall she has been doing quite well. Had colonoscopy recently. She did have a sessile polyp that was partially removed apparently and will need additional treatment through C-scope. She was referredto an additional specialist for that. She did have follow-up relatively recently with her oncologist and overall is doing pretty well. She has noted that there has been a slight trending rise to the CA125 but states that oncologist has not been specifically concerned right now about that and will continue monitoring. She feels well overall. She does have hypothyroidism and hypertension as above but these been stable issues. Labs however do need updated. Review of systems per chart. No chest pain, chest tightness, shortness of breath wheeze cough or congestion. No focal areas of numbness or tingling. Appetites been good. Urinary pattern has been stable. Prior to C-scope bowel movements have been regular. Physical exam. Vital signs on chart. PERRLA. Sclera are clear. TMs are unremarkable with normal light reflexes. Canals are unremarkable. Posterior pharynx is unremarkable. Good dentition. No cervical or supraclavicular lymph nodes enlarged or tender. No clear thyromegaly. No thyroid nodules readily palpable. Lungs are without wheeze, rhonchi, rales. No E/A changes are heard. Heart is regular. Not tachycardic. No clear murmur, rub, or gallop is identified. The abdomen is soft. Bowel sounds are present. Nontender nondistended abdomen. No clear palpable masses in the abdomen. No significant leg edema. Cranial nerve examination 2 through 12 are grossly unremarkable nonlateralizing. No obvious rashes. No obvious significant skin lesions are identified. ROS Const Constitutional: No body ache, chills, excessive sweating, fatigue, fever(s), frequent falls, headache(s), snoring, weakness or change in appetite Eyes Eyes: No blurry vision, change in vision, eye pain or Light sensitivity ENT ENT: No abnormal hearing, ear or mastoid pain, tinnitus, nasal congestion, headache(s), neck pain or sore throat Resp Respiratory: No cough, shortness of breath, snoring or wheezing Cardio Cardiology: No chest pain at rest, chest pain with exertion, excessive sweating,dyspnea on exertion, lightheadedness, orthopnea or palpitations Gastro GI: No abdominal pain, change in bowel habits, constipation, cramping, diarrhea,nausea/dyspepsia or vomiting Genitourinary-Female: No burning urination, painful urination, urinary incontinence or urinary frequency Musc Musculoskeletal: No abnormal gait, joint pain, back pain, limited range of motion, muscle weakness, neck pain or numbness Skin Skin: No dry skin, redness, lesions, itchy eyes, rash or wounds Neuro Neurology: No abnormal gait, abnormal hearing, weakness, frequent falls, headache(s), memory loss or numbness Psych Psychiatric: No anxiety, No change in appetite, No depression, No memory loss and No Thoughts of harming yourself/Others Endo Endocrine: No cold intolerance, excessive sweating, fatigue, flushing, heat intolerance, increased thirst/drinking or increased hunger Aller/Imm Allergy/Immunologic: No itchy eyes, seasonal allergy symptoms, hives or wheezing Juan R/Lymp Hematologic/Lymphatic: No easy bleeding or easy bruising Coding Level of Care Code Off vis,est,level 3 Diagnoses High blood pressure I10 Osteoarthritis M19.90 Vitamin deficiency E56.9 Jodi's thyroiditis E06.3 Ovarian cancer C56.9 Time Spent (min) 30 Assessment and Plan Assessment and Plan (1) High blood pressure: Status: Chronic (2) Osteoarthritis: Status: Acute (3) Vitamin deficiency: Status: Acute (4) Jodi's thyroiditis: Status: Acute (5) Ovarian cancer: Status: Acute Orders: Orders Comprehensive Metabolic Profil Today C56.9 - Malignant neoplasm of unspecified ovary, E06.3 - Autoimmune thyroiditis, E56.9 - Vitamin deficiency, unspecified, I10 - Essential (primary) hypertension, M19.90 - Unspecified osteoarthritis, unspecified site CBC W/Diff, Automated Today C56.9 - Malignant neoplasm of unspecified ovary, E06.3 - Autoimmune thyroiditis, E56.9 - Vitamin deficiency, unspecified, I10 - Essential (primary) hypertension, M19.90 - Unspecified osteoarthritis, unspecified site Lipid Profile Today C56.9 - Malignant neoplasm of unspecified ovary, E06.3 - Autoimmune thyroiditis, E56.9 - Vitamin deficiency, unspecified, I10 - Essential(primary) hypertension, M19.90 - Unspecified osteoarthritis, unspecified site, Z13.220 - Encounter for screening for lipoid disorders T4 Free Direct Today C56.9 - Malignant neoplasm of unspecified ovary, E06.3 - Autoimmune thyroiditis, E56.9 - Vitamin deficiency, unspecified, I10 - Essential(primary) hypertension, M19.90 - Unspecified osteoarthritis, unspecified site Thyroid Stim Hormone (TSH) Today C56.9 - Malignant neoplasm of unspecified ovary, E06.3 - Autoimmune thyroiditis, E56.9 - Vitamin deficiency, unspecified, I10 - Essential (primary) hypertension, M19.90 - Unspecified osteoarthritis, unspecified site Free T3 Today C56.9 - Malignant neoplasm of unspecified ovary, E06.3 - Autoimmune thyroiditis, E56.9 - Vitamin deficiency, unspecified, I10 - Essential(primary) hypertension, M19.90 - Unspecified osteoarthritis, unspecified site Magnesium Today C56.9 - Malignant neoplasm of unspecified ovary, E06.3 - Autoimmune thyroiditis, E56.9 - Vitamin deficiency, unspecified, I10 - Essential(primary) hypertension, M19.90 - Unspecified osteoarthritis, unspecified site Vitamin D,25 Hydroxy Today C56.9 - Malignant neoplasm of unspecified ovary, E06.3 - Autoimmune thyroiditis, E55.9 - Vitamin D deficiency, unspecified, E56.9- Vitamin deficiency, unspecified, I10 - Essential (primary) hypertension, M19.90 - Unspecified osteoarthritis, unspecified site Vitamin B12 Today C56.9 - Malignant neoplasm of unspecified ovary, E06.3 - Autoimmune thyroiditis, E53.8 - Deficiency of other specified B group vitamins, E56.9 - Vitamin deficiency, unspecified, I10 - Essential (primary) hypertension,M19.90 - Unspecified osteoarthritis, unspecified site SCRN MAMM (CAD)W/MATTHEW BILAT Today Z12.31 - Encounter for screening mammogram for malignant neoplasm of breast Plan Details Additional Comments: Patient presenting in follow-up. She has a history of hypothyroidism, hypertension for which we follow-up. She also has a history of ovarian cancer following with oncology/[facility] in [place]. Her CA125 has been apparently slowly increasing but she states to the surgeon has not been highly concerned about this at this point and will continue monitoring. Does need labs updated. Brings in blood pressure readings from home which are excellent. Blood pressureis slightly elevated here in the office today and home readings have been excellent. Await labs. She is due for mammogram she does have dense breast tissue and wonders if there is a better approach that she should be taking. Will ask the breast imaging center if they think alternative imaging is appropriate or whether we can just continue with routine mammogram. Order was placed for that at this point but we can always amend that if need be. Otherwise labs will be obtained as ordered. Would not change her medical regimen today, pending lab evaluation. Overall doing well. 30-minute visit. Clinical Quality Measures Falls Risk Screening/Assistive Devices Have you fallen in the past year?: No 05/15/25 1225 <Electronically signed by Chuck donahue MD> Date _ Chuck Hope MD Cosigner Signature: Date (if applicable) CC: ~ [place] [facility] [employer] [facility] Work Phone: 1(590) 114-533105-07-2025 History of Present illness Narrative* Lonnie Arevalo MD - 11/24/2024 1:00 PM EDT GYNECOLOGIC ONCOLOGY FOLLOW UP SERVICE DATE: 11/24/2024 SERVICE TIME: 3:47 PM PRIMARY CARE PHYSICIAN: Manpreet Nunez MD CHIEF COMPLAINT/HISTORY OF PRESENT ILLNESS/ROS: CC: Pelvic masses Referring Provider: Dr. Pamella Sanabria/ [place] HPI: Tiffanie states that she feels wonderful today. She has no new questions or concerns and expresses that she is very grateful for the care that she has received. Appetite and energy level stable. She denies any chest pain, shortness of breath, abdominal pain, bloating, nausea or vomiting. No problems with bowels or bladder. No vaginal bleeding. No fevers or chills. States that she is anxious about the pelvic exam but that her will be her support through it. The history is provided by the patient and the spouse. No language translator was used. ROS: Negative except as above Oncologic History: - 04/17/2023: presented to [place] [facility] with R flank pain and nausea for [address] with finding of cystic pelvic mass, 21 cm, bilateral hydronephrosis R>L, omental and mesenteric soft tissue massesand retroperitoneal lymphadenopathy. Denies h/o PMB. 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 - 05/07/2023: C1 carboplatin and paclitaxel - 06/04/2023 : CA-125: 926, Her2 FISH results identify amplification - 06/06/2023: C2 carboplatin and paclitaxel, trastuzumab added with this cycle as potential uterineprimary vs ovarian - 06/27/2023: C3 carboplatin and paclitaxel, trastuzumab - 07/04/2023: Partial response by CT imaging, no new disease, attention to prominent axillary lymphnode on follow up - 07/16/2023: If ovarian primary, KELIM score 0.53 (poorly chemosensitive disease) - 08/04/2023: XL/OFELIA/BSO/Rectosigmoid resection en bloc with re- anastamosis/OMX/diaphragm striping and radical debulking and ureteral stent placement with final pathology showing 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, stage IIIC based on original imaging disease burden - 09/17/2023: C4 c/b taxol reaction, received rest at lower rate - 10/09/2023: C5 carbo with taxol desens - 11/05/2023: C6 carbo with taxol desens, CA-125: 8 - 03/01/2024: CA-125: 8 - 07/05/2024: CA-125: 10 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: 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 Malignant neoplasm of ovary (HCC) Osteoarthrosis knees Osteopenia Vitamin D deficiency PAST SURGICAL HISTORY Procedure Laterality Date BSO W/OMENTECTOMY OFELIA&RAD DEBULKING DISSECTION 08/04/2023 CYSTOSCOPY,INSERT URETHRAL STENT Left 08/04/2023 EXPL LAP W W/WO BX 08/04/2023 LAPAROSCOPIC HEMICOLECTOMY 08/04/2023 partial, removal of rectum lithotomy LIVER MOBILIZATION 08/04/2023 PAST SURGICAL HISTORY OF 1974 teeth pulled molars RAD.DISS, DEBULKING W/ PELV/PARA AORT LYMP 08/04/2023 limited bilateral para-arotic lymphadenectomy 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 HRT use: No. HEALTH MAINTENANCE: History of abnormal pap: No. Only 1 in her lifetime Last pap: 40 + years ago Last HPV: unknown Last mammogram: never Last colonoscopy: never, + cologard 04/2022 FAMILY HISTORY Problem Relation Age of Onset Osteoporosis Mother Hypertension Mother Migraines Mother other (thyroid nodule s/p partial thyroidectomy) Mother other (stomach problems) Mother other (BRADYCARDIA) Father Dementia Father other (hypothyroidism) Sister other (goiter) Maternal Grandfather other (goiter s/p MEIER and surgery) Maternal Aunt other (no f/o thyroid cancer) Other Ovarian cancer No Family History Breast Cancer No Family History Uterine Cancer No Family History Colon Cancer No Family History Pancreatic Cancer No Family History Social History Socioeconomic History Marital status: Spouse name: Patricio Number of children: 0 Occupational History 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 Vaping Use Vaping status: Never Used Substance and Sexual Activity Alcohol use: No Drug use: No Social Drivers of Health Financial Resource Strain: Low Risk (08/05/2023) Overall Financial Resource Strain (CARDIA) Difficulty of Paying Living Expenses: Not hard at all Food Insecurity: No Food Insecurity (10/09/2023) Hunger Vital Sign Worried About Running Out of Food in the Last Year: Never true Ran Out of Food in the Last Year: Never true Transportation Needs: No Transportation Needs (10/09/2023) PRAPARE - Transportation Lack of Transportation (Medical): No Lack of Transportation (Non-Medical): No Housing Stability: Low Risk (10/09/2023) Housing Stability Vital Sign Unable to Pay for Housing in the Last Year: No Number of Places Lived in the Last Year: 1 Unstable Housing in the Last Year: No MEDICATIONS / ALLERGIES: Current Outpatient Medications Medication Sig levothyroxine (SYNTHROID) 200 mcg tablet Take 50 mcg by mouth daily before breakfast. iv contrast (will be provided with radiology test) CT Chest ABD/PEL-Inject, intravenously, once for1 dose.No IV access, insert saline lock prior to the beginning of sedation, infusion, injection of imaging exam. Discontinue saline lock post exam. If Pt. has a central line or IVAD, may access for administration according to line specific nursing protocol. Once exam is complete flush line and de-access according to line specific nursing protocol in the CT contrast administration guidelines link.(Patient not taking: Reported on 08/19/2024) enteric contrast (will be provided with radiology test) For CT CHESTABD/PEL W IVCON Routine order Administer, As Directed One Time Only, via Oral, Rectal, both Oral and Rectal, Enteric Tube, Stoma orIndwelling Catheter, Enteric Contrast as designated per enteric contrast guidelines (Patient not taking: Reported on 08/19/2024) acetaminophen (TYLENOL) 325 mg tablet Take 2 tablets by mouth every 6 hours as needed for pain. iv contrast (will be provided with radiology test) MRI Female Pelvis Inject, intravenously, once for 1 dose. No IV access, insert saline lock prior to the beginning of sedation, infusion, injection of imaging exam. Discontinue saline lock post exam. If Pt has a central line or IVAD, may access for administration according to line specific nursing protocol. Once exam is complete flush line and de-access according to line specific nursing protocol in the MR contrast administration guidelines link. (Patient not taking: Reported on 08/19/2024) ondansetron (ZOFRAN) 8 mg tablet Take 1 tablet by mouth every 8 hours as needed for nausea/vomiting. (Patient not taking: Reported on 08/19/2024) promethazine (PHENERGAN) 25 mg tablet Take 1 tablet by mouth every 4 hours as needed for nausea/vomiting. (Patient not taking: Reported on 08/19/2024) Cholecalciferol, Vitamin D3, (D3-5000) 125 mcg (5,000 unit) cap Take 5,000 Units by mouth once daily. lisinopril (ZESTRIL, PRINIVIL) 10 mg tablet Take 1 tablet by mouth once daily. No current facility-administered medications for this visit. ALLERGIES ALLERGIES No Known Allergies PHYSICAL EXAM: BP 160/90 (BP Site: Left Arm, BP Position: Sitting, BP Cuff Size: Regular Adult) Pulse 72 Temp 36.7 C (98.1 F) (Oral) Wt 67.6 kg (149 lb) SpO2 97% BMI 24.06 kg/m Physical Exam Constitutional: Appearance: Normal appearance. HENT: Head: Normocephalic. Nose: Nose normal. Mouth/Throat: Mouth: Mucous membranes are moist. Eyes: Conjunctiva/sclera: Conjunctivae normal. Cardiovascular: Rate and Rhythm: Normal rate. Pulmonary: Effort: Pulmonary effort is normal. Abdominal: General: Abdomen is flat. Palpations: Abdomen is soft. Tenderness: There is no abdominal tenderness. There is no guarding or rebound. Comments: Well healed vertical midline incision. Genitourinary: Comments: No palpable masses, unable to tolerate speculum. Exquisite discomfort with exam, patient has history of trauma and declines further pelvic exams. Musculoskeletal: General: Normal range of motion. Skin: General: Skin is warm and dry. Neurological: General: No focal deficit present. Mental Status: She is alert and oriented to person, place, and time. The sensitive examination was discussed with the Patient or Patient's Authorized Commodity Supervisor. Asapplicable, any other physician, advance practice provider, medical student, or other health professional student that will be observing or involved in the sensitive examination for educational or training purposes was discussed with the Patient or Authorized Commodity Supervisor. The Patient or Authorized Commodity Supervisor has agreed to proceed with the sensitive examination. (Sensitive examination includes inspection and/or palpation of the breasts, pelvis, prostate and anorectal regions) LABS: CA-125 ordered IMAGING: None new relevant for review. ASSESSMENT/PLAN: Juliann Myles is a 68 year old with history of high grade serous ovarian cancer. 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 - JEYSON by signs/symptoms/exam today. Labs pending. - Reviewed surveillance schedule and worrisome signs/symptoms # HCM: - Mammo ordered by PCP, planning to get this summer - Colonoscopy: scheduled for 11/30 Follow up in 3-4 months pending CA-125. I spent a total of 30 minutes on the date of the service which included preparing to see the patient, [id number] patient care, completing clinical documentation, obtaining and/or reviewing separately obtained history, performing a medically appropriate examination, counseling and educating the pat ient/family/caregiver, and ordering medications, tests, or procedures. Lonnie Arevalo MD, MS Gynecologic Oncologist [facility] NoteHNO ID: [id number] Author: LONNIE AREVALO MD Service: ? Author Type: Physician Type: Progress Notes Filed: 11/24/2024 13:40 Note Text: GYNECOLOGIC ONCOLOGY FOLLOW UP SERVICE DATE: 11/24/2024 SERVICE TIME: 3:47 PM PRIMARY CARE PHYSICIAN: Manpreet Nunez MD CHIEF COMPLAINT/HISTORY OF PRESENT ILLNESS/ROS: CC: Pelvic masses Referring Provider: Dr. Pamella Sanabria/ [place] HPI: Tiffanie states that she feels wonderful today. She has no new questions or concerns and expresses that she is very grateful for the care that she has received. Appetite and energy level stable. She denies any chest pain, shortness of breath, abdominal pain, bloating, nausea or vomiting. No problems with bowels or bladder. No vaginal bleeding. No fevers or chills. States that she is anxious about the pelvic exam but that her will be her support through it. The history is provided by the patient and the spouse. No language translator was used. ROS: Negative except as above Oncologic History: - 04/17/2023: presented to [place] [facility] with R flank pain and nausea for [address] with finding of cystic pelvic mass, 21 cm, bilateral hydronephrosis R>L, omental and mesenteric soft tissue masses and retroperitoneal lymphadenopathy. Denies h/o PMB. 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 - 05/07/2023: C1 carboplatin and paclitaxel - 06/04/2023 : CA-125: 926, Her2 FISH results identify amplification - 06/06/2023: C2 carboplatin and paclitaxel, trastuzumab added with this cycle as potential uterine primary vs ovarian - 06/27/2023: C3 carboplatin and paclitaxel, trastuzumab - 07/04/2023: Partial response by CT imaging, no new disease, attention to prominent axillary lymph node on follow up - 07/16/2023: If ovarian primary, KELIM score 0.53 (poorly chemosensitive disease) - 08/04/2023: XL/OFELIA/BSO/Rectosigmoid resection en bloc with re-anastamosis/OMX/diaphragm striping and radical debulking and ureteral stent placement with final pathology showing 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, stage IIIC based on original imaging disease burden - 09/17/2023: C4 c/b taxol reaction, received rest at lower rate - 10/09/2023: C5 carbo with taxol desens - 11/05/2023: C6 carbo with taxol desens, CA-125: 8 - 03/01/2024: CA-125: 8 - 07/05/2024: CA-125: 10 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: 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 Malignant neoplasm of ovary (HCC) Osteoarthrosis knees Osteopenia Vitamin D deficiency PAST SURGICAL HISTORY Procedure Laterality Date BSO W/OMENTECTOMY TAHANDRAD DEBULKING DISSECTION 08/04/2023 CYSTOSCOPY,INSERT URETHRAL STENT Left 08/04/2023 EXPL LAP W W/WO BX 08/04/2023 LAPAROSCOPIC HEMICOLECTOMY 08/04/2023 partial, removal of rectum lithotomy LIVER MOBILIZATION 08/04/2023 PAST SURGICAL HISTORY OF 1974 teeth pulled molars RAD.DISS, DEBULKING W/ PELV/PARA AORT LYMP 08/04/2023 limited bilateral para-arotic lymphadenectomy 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 HRT use: No. HEALTH MAINTENANCE: History of abnormal pap: No. Only 1 in her lifetime Last pap: 40 + years ago Last HPV: unknown Last mammogram: never Last colonoscopy: never, + cologard 04/2022 FAMILY HISTORY Problem Relation Age of Onset Osteoporosis Mother Hypertension Mother Migraines Mother other (thyroid nodule s/p partial thyroidectomy) Mother other (stomach problems) Mother other (BRADYCARDIA) Father Dementia Father other (hypothyroidism) Sister other (goiter) Maternal Grandfather other (goiter s/p MEIER and surgery) Maternal Aunt other (no f/o thyroid cancer) Other Ovarian cancer No Family History Breast Cancer No Family History Uterine Cancer No Family History Colon Cancer No Family History Pancreatic Cancer No Family History Social History Socioeconomic History Marital status: Spouse name: Patricio Number of children: 0 Occupational History 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 Vaping Use Vaping status: Never Used Substance and Sexual Activity Alcohol use: No Drug use: No Social Drivers of Health Financial Resource Strain: Low Risk (08/05/2023) Overall Financial Resource Strain (CARDIA) Difficulty of Paying Living Expenses: Not hard at all Food Ins (more content not included)...[facility]01-30-2025 NoteHNO ID: [id number] Author: LONNIE AREVALO MD Service: ? Author Type: Physician Type: Progress Notes Filed: 08/31/2024 16:55 Note Text: GYNECOLOGIC ONCOLOGY FOLLOW UP SERVICE DATE: 08/19/2024 SERVICE TIME: 3:47 PM PRIMARY CARE PHYSICIAN: Manpreet Nunez MD CHIEF COMPLAINT/HISTORY OF PRESENT ILLNESS/ROS: CC: Pelvic masses Referring Provider: Dr. Pamella Sanabria/ [facility] HPI: Feeling well. Back to regular activities. No complaints. Reports appetite and energy level stable. Denies vaginal bleeding or discharge. Denies abdominal or pelvic pain, nausea or vomting. Denies issues with incisions. Denies urinary or bowel problems. The history is provided by the patient. No language translator was used. ROS: Review of Systems Constitutional: Negative for activity change, diaphoresis, fever and unexpected weight change. HENT: Negative for ear pain, hearing loss and mouth sores. Eyes: Negative for pain and visual disturbance. Respiratory: Negative for cough, chest tightness and shortness of breath. Cardiovascular: Negative for chest pain and palpitations. Gastrointestinal: Negative for abdominal pain, constipation, diarrhea, nausea and vomiting. Endocrine: Negative for cold intolerance and heat intolerance. Genitourinary: Negative for dysuria, frequency, hematuria, pelvic pain, urgency, vaginal bleeding, vaginal discharge and vaginal pain. Musculoskeletal: Negative for arthralgias and myalgias. Skin: Negative for rash and wound. Neurological: Negative for dizziness, syncope, light-headedness and headaches. Psychiatric/Behavioral: Negative for agitation. The patient is not nervous/anxious. Oncologic History: - 04/17/2023: presented to [place] ED with R flank pain and nausea for [address] with finding of cystic pelvic mass, 21 cm, bilateral hydronephrosis R>L, omental and mesenteric soft tissue masses and retroperitoneal lymphadenopathy. Denies h/o PMB. 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 - 05/07/2023: C1 carboplatin and paclitaxel - 06/04/2023 : CA-125: 926, Her2 FISH results identify amplification - 06/06/2023: C2 carboplatin and paclitaxel, trastuzumab added with this cycle as potential uterine primary vs ovarian - 06/27/2023: C3 carboplatin and paclitaxel, trastuzumab - 07/04/2023: Partial response by CT imaging, no new disease, attention to prominent axillary lymph node on follow up - 07/16/2023: If ovarian primary, KELIM score 0.53 (poorly chemosensitive disease) - 08/04/2023: XL/OFELIA/BSO/Rectosigmoid resection en bloc with re-anastamosis/OMX/partial diaphgram resection and radical debulking and ureteral stent placement with final pathology showing 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, stage IIIC based on original imaging disease burden - 09/17/2023: C4 c/b taxol reaction, received rest at lower rate - 10/09/2023: C5 carbo with taxol desens - 11/05/2023: C6 carbo with taxol desens, CA-125: 8 - 03/01/2024: CA-125: 8 - 07/05/2024: CA-125: 10 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: 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 Malignant neoplasm of ovary (HCC) Osteoarthrosis knees Osteopenia Vitamin D deficiency PAST SURGICAL HISTORY Procedure Laterality Date BSO W/OMENTECTOMY TAHANDRAD DEBULKING DISSECTION 08/04/2023 CYSTOSCOPY,INSERT URETHRAL STENT Left 08/04/2023 EXPL LAP W W/WO BX 08/04/2023 LAPAROSCOPIC HEMICOLECTOMY 08/04/2023 partial, removal of rectum lithotomy LIVER MOBILIZATION 08/04/2023 PAST SURGICAL HISTORY OF 1974 teeth pulled molars RAD.DISS, DEBULKING W/ PELV/PARA AORT LYMP 08/04/2023 limited bilateral para-arotic lymphadenectomy 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 HRT use: No. HEALTH MAINTENANCE: History of abnormal pap: No. Only 1 in her lifetime Last pap: 40 + years ago Last HPV: unknown Last mammogram: never Last colonoscopy: never, + cologard 04/2022 FAMILY HISTORY Problem Relation Age of Onset Osteoporosis Mother Hypertension Mother Migraines Mother other (thyroid nodule s/p partial thyroidectomy) Mother other (stomach problems) Mother other (BRADYCARDIA) Father Dementia Father other (hypothyroidism) Sister other (goiter) Maternal Grandfather other (goiter s/p MEIER and surgery) Maternal Aunt other (no f/o thyroid cancer) Other Ovarian cancer No Family History Breast Cancer No Family History Uterine Cancer No Family (more content not included)...[facility]01-30-2025 History of Present illness Narrative* Lonnie Arevalo MD - 08/19/2024 1:45 PM EST GYNECOLOGIC ONCOLOGY FOLLOW UP SERVICE DATE: 08/19/2024 SERVICE TIME: 3:47 PM PRIMARY CARE PHYSICIAN: Manpreet Nunez MD CHIEF COMPLAINT/HISTORY OF PRESENT ILLNESS/ROS: CC: Pelvic masses Referring Provider: Dr. Pamella Sanabria/ [facility] HPI: Feeling well. Back to regular activities. No complaints. Reports appetite and energy level stable. Denies vaginal bleeding or discharge. Denies abdominal orpelvic pain, nausea or vomting. Denies issues with incisions. Denies urinary or bowel problems. The history is provided by the patient. No language translator was used. ROS: Review of Systems Constitutional: Negative for activity change, diaphoresis, fever and unexpected weight change. HENT: Negative for ear pain, hearing loss and mouth sores. Eyes: Negative for pain and visual disturbance. Respiratory: Negative for cough, chest tightness and shortness of breath. Cardiovascular: Negative for chest pain and palpitations. Gastrointestinal: Negative for abdominal pain, constipation, diarrhea, nausea and vomiting. Endocrine: Negative for cold intolerance and heat intolerance. Genitourinary: Negative for dysuria, frequency, hematuria, pelvic pain, urgency, vaginal bleeding, vaginal discharge and vaginal pain. Musculoskeletal: Negative for arthralgias and myalgias. Skin: Negative for rash and wound. Neurological: Negative for dizziness, syncope, light-headedness and headaches. Psychiatric/Behavioral: Negative for agitation. The patient is not nervous/anxious. Oncologic History: - 04/17/2023: presented to [place] ED with R flank pain and nausea for [address] with finding of cystic pelvic mass, 21 cm, bilateral hydronephrosis R>L, omental and mesenteric soft tissue massesand retroperitoneal lymphadenopathy. Denies h/o PMB. 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 - 05/07/2023: C1 carboplatin and paclitaxel - 06/04/2023 : CA-125: 926, Her2 FISH results identify amplification - 06/06/2023: C2 carboplatin and paclitaxel, trastuzumab added with this cycle as potential uterineprimary vs ovarian - 06/27/2023: C3 carboplatin and paclitaxel, trastuzumab - 07/04/2023: Partial response by CT imaging, no new disease, attention to prominent axillary lymphnode on follow up - 07/16/2023: If ovarian primary, KELIM score 0.53 (poorly chemosensitive disease) - 08/04/2023: XL/OFELIA/BSO/Rectosigmoid resection en bloc with re- anastamosis/OMX/partial diaphgram resection and radical debulking and ureteral stent placement with final pathology showing 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, stage IIIC based on original imaging disease burden - 09/17/2023: C4 c/b taxol reaction, received rest at lower rate - 10/09/2023: C5 carbo with taxol desens - 11/05/2023: C6 carbo with taxol desens, CA-125: 8 - 03/01/2024: CA-125: 8 - 07/05/2024: CA-125: 10 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: 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 Malignant neoplasm of ovary (HCC) Osteoarthrosis knees Osteopenia Vitamin D deficiency PAST SURGICAL HISTORY Procedure Laterality Date BSO W/OMENTECTOMY OFELIA&RAD DEBULKING DISSECTION 08/04/2023 CYSTOSCOPY,INSERT URETHRAL STENT Left 08/04/2023 EXPL LAP W W/WO BX 08/04/2023 LAPAROSCOPIC HEMICOLECTOMY 08/04/2023 partial, removal of rectum lithotomy LIVER MOBILIZATION 08/04/2023 PAST SURGICAL HISTORY OF 1974 teeth pulled molars RAD.DISS, DEBULKING W/ PELV/PARA AORT LYMP 08/04/2023 limited bilateral para-arotic lymphadenectomy 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 HRT use: No. HEALTH MAINTENANCE: History of abnormal pap: No. Only 1 in her lifetime Last pap: 40 + years ago Last HPV: unknown Last mammogram: never Last colonoscopy: never, + cologard 04/2022 FAMILY HISTORY Problem Relation Age of Onset Osteoporosis Mother Hypertension Mother Migraines Mother other (thyroid nodule s/p partial thyroidectomy) Mother other (stomach problems) Mother other (BRADYCARDIA) Father Dementia Father other (hypothyroidism) Sister other (goiter) Maternal Grandfather other (goiter s/p MEIER and surgery) Maternal Aunt other (no f/o thyroid cancer) Other Ovarian cancer No Family History Breast Cancer No Family History Uterine Cancer No Family History Colon Cancer No Family History Pancreatic Cancer No Family History Social History Socioeconomic History Marital status: Spouse name: Patricio Number of children: 0 Occupational History 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 Vaping Use Vaping status: Never Used Substance and Sexual Activity Alcohol use: No Drug use: No Social Determinants of Health Financial Resource Strain: Low Risk (08/05/2023) Overall Financial Resource Strain (CARDIA) Difficulty of Paying Living Expenses: Not hard at all Food Insecurity: No Food Insecurity (10/09/2023) Hunger Vital Sign Worried About Running Out of Food in the Last Year: Never true Ran Out of Food in the Last Year: Never true Transportation Needs: No Transportation Needs (10/09/2023) PRAPARE - Transportation Lack of Transportation (Medical): No Lack of Transportation (Non-Medical): No Housing Stability: Low Risk (10/09/2023) Housing Stability Vital Sign Unable to Pay for Housing in the Last Year: No Number of Places Lived in the Last Year: 1 Unstable Housing in the Last Year: No MEDICATIONS / ALLERGIES: Current Outpatient Medications Medication Sig levothyroxine (SYNTHROID) 200 mcg tablet Take 50 mcg by mouth daily before breakfast. acetaminophen (TYLENOL) 325 mg tablet Take 2 tablets by mouth every 6 hours as needed for pain. Cholecalciferol, Vitamin D3, (D3-5000) 125 mcg (5,000 unit) cap Take 5,000 Units by mouth once daily. lisinopril (ZESTRIL, PRINIVIL) 10 mg tablet Take 1 tablet by mouth once daily. iv contrast (will be provided with radiology test) CT Chest ABD/PEL-Inject, intravenously, once for1 dose.No IV access, insert saline lock prior to the beginning of sedation, infusion, injection of imaging exam. Discontinue saline lock post exam. If Pt. has a central line or IVAD, may access for administration according to line specific nursing protocol. Once exam is complete flush line and de-access according to line specific nursing protocol in the CT contrast administration guidelines link.(Patient not taking: Reported on 08/19/2024) enteric contrast (will be provided with radiology test) For CT CHESTABD/PEL W IVCON Routine order Administer, As Directed One Time Only, via Oral, Rectal, both Oral and Rectal, Enteric Tube, Stoma orIndwelling Catheter, Enteric Contrast as designated per enteric contrast guidelines (Patient not taking: Reported on 08/19/2024) iv contrast (will be provided with radiology test) MRI Female Pelvis Inject, intravenously, once for 1 dose. No IV access, insert saline lock prior to the beginning of sedation, infusion, injection of imaging exam. Discontinue saline lock post exam. If Pt has a central line or IVAD, may access for administration according to line specific nursing protocol. Once exam is complete flush line and de-access according to line specific nursing protocol in the MR contrast administration guidelines link. (Patient not taking: Reported on 08/19/2024) ondansetron (ZOFRAN) 8 mg tablet Take 1 tablet by mouth every 8 hours as needed for nausea/vomiting. (Patient not taking: Reported on 08/19/2024) promethazine (PHENERGAN) 25 mg tablet Take 1 tablet by mouth every 4 hours as needed for nausea/vomiting. (Patient not taking: Reported on 08/19/2024) No current facility-administered medications for this visit. ALLERGIES ALLERGIES No Known Allergies PHYSICAL EXAM: BP 158/84 (BP Site: Right Arm, BP Position: Sitting, BP Cuff Size: Regular Adult) Pulse 85 Temp36.7 C (98 F) (Oral) Wt 65.8 kg (145 lb) SpO2 100% BMI 23.41 kg/m Physical Exam Constitutional: General: She is not in acute distress. Appearance: Normal appearance. HENT: Head: Normocephalic and atraumatic. Mouth/Throat: Mouth: Mucous membranes are moist. Musculoskeletal: General: Normal range of motion. Skin: General: Skin is dry. Neurological: Mental Status: She is alert and oriented to person, place, and time. Pelvic exam declined LABS: Most recent CA-125 reviewed. IMAGING: None new relevant for review. ASSESSMENT/PLAN: Juliann Myles is a 68 year old with history of high grade serous ovarian cancer. 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 - JEYSON by signs/symptoms/exam/labs today. - Reviewed surveillance schedule and worrisome signs/symptoms # HCM: - Mammo up to date - Colonoscopy: due and ordered - reviewed DXA and Ca and Vit D intake and weight bearing activity Follow up with visit and labs in 3 months. I spent a total of 30 minutes on the date of the service which included preparing to see the patient, [id number] patient care, completing clinical documentation, obtaining and/or reviewing separately obtained history, performing a medically appropriate examination, and counseling and educating the patient/family/caregiver. Lonnie Arevalo MD, MS Gynecologic Oncologist documented [facility] Telephone encounter Note * Telephone Encounter - Dorene Park RN - 07/05/2024 11:48 AM EST CA 125 ordered, Juliann notified. Dorene Park RN [facility] Work Phone: 1(910) 479-864112-16-2024 Miscellaneous Notes* Telephone Encounter - Dorene Park RN - 07/05/2024 11:48 AM EST CA 125 ordered, Juliann notified. Dorene Park RN * Telephone Encounter - Dorene Park RN - 07/05/2024 11:26 AM EST Juliann called, she is scheduled for a 4 month exam on . Does she need any lab work done prior to her appointment? If so can you please place the order. Thank you! Dorene Park RN documented in [facility]12-16-2024 Telephone encounter Note * Telephone Encounter - Dorene Park RN - 07/05/2024 11:26 AM EST Juliann called, she is scheduled for a 4 month exam on . Does she need any lab work done prior to her appointment? If so can you please place the order. Thank you! Dorene Park RN [facility]08-15-2024 NoteHNO ID: [id number] Author: LONNIE AREVALO MD Service: ? Author Type: Physician Type: Progress Notes Filed: 03/26/2024 19:25 Note Text: GYNECOLOGIC ONCOLOGY FOLLOW UP SERVICE DATE: 03/04/2024 SERVICE TIME: 3:47 PM PRIMARY CARE PHYSICIAN: Manpreet Nunez MD CHIEF COMPLAINT/HISTORY OF PRESENT ILLNESS/ROS: CC: Pelvic masses Referring Provider: Dr. Pamella Sanabria/ [place] [facility] HPI: Feeling good. Reports she is feeling stronger, has been walking more, and feeling back to her normal self. Gained 20 lbs since surgery, feels she is at a good weight. The history is provided by the patient and the spouse. No language translator was used. ROS: Review of Systems Constitutional: Negative for activity change, diaphoresis, fever and unexpected weight change. HENT: Negative for ear pain, hearing loss and mouth sores. Eyes: Negative for pain and visual disturbance. Respiratory: Negative for cough, chest tightness and shortness of breath. Cardiovascular: Negative for chest pain and palpitations. Gastrointestinal: Negative for abdominal pain, constipation, diarrhea, nausea and vomiting. Endocrine: Negative for cold intolerance and heat intolerance. Genitourinary: Negative for dysuria, frequency, hematuria, pelvic pain, urgency, vaginal bleeding, vaginal discharge and vaginal pain. Musculoskeletal: Negative for arthralgias and myalgias. Skin: Negative for rash and wound. Neurological: Negative for dizziness, syncope, light-headedness and headaches. Psychiatric/Behavioral: Negative for agitation. The patient is not nervous/anxious. Oncologic History: - 04/17/2023: presented to [place] [facility] with R flank pain and nausea for [address] with finding of cystic pelvic mass, 21 cm, bilateral hydronephrosis R>L, omental and mesenteric soft tissue masses and retroperitoneal lymphadenopathy. Denies h/o PMB. 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 - 05/07/2023: C1 carboplatin and paclitaxel - 06/04/2023 : CA-125: 926, Her2 FISH results identify amplification - 06/06/2023: C2 carboplatin and paclitaxel, trastuzumab added with this cycle as potential uterine primary vs ovarian - 06/27/2023: C3 carboplatin and paclitaxel, trastuzumab - 07/04/2023: Partial response by CT imaging, no new disease, attention to prominent axillary lymph node on follow up - 07/16/2023: If ovarian primary, KELIM score 0.53 (poorly chemosensitive disease) - 08/04/2023: XL/OFELIA/BSO/Rectosigmoid resection en bloc with re-anastamosis/OMX/partial diaphgram resection and radical debulking and ureteral stent placement with final pathology showing 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, stage IIIC based on original imaging disease burden - 09/17/2023: C4 c/b taxol reaction, received rest at lower rate - 10/09/2023: C5 carbo with taxol desens - 11/05/2023: C6 carbo with taxol desens, CA-125: 8 - 03/01/2024: CA-125: 8 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: PAST MEDICAL HISTORY No date: CKD (chronic kidney disease) stage 2, GFR 60-89 ml/min No date: Fibromyalgia No date: Heart murmur No date: HTN (hypertension) No date: 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 No date: Malignant neoplasm of ovary (HCC) No date: Osteoarthrosis Comment: knees No date: Osteopenia No date: Vitamin D deficiency PAST SURGICAL HISTORY 08/04/2023: BSO W/OMENTECTOMY TAHANDRAD DEBULKING DISSECTION 08/04/2023: CYSTOSCOPY,INSERT URETHRAL STENT; Left 08/04/2023: EXPL LAP W W/WO BX 08/04/2023: LAPAROSCOPIC HEMICOLECTOMY Comment: partial, removal of rectum lithotomy 08/04/2023: LIVER MOBILIZATION 1974: PAST SURGICAL HISTORY OF Comment: teeth pulled molars 08/04/2023: RAD.DISS, DEBULKING W/ PELV/PARA AORT LYMP Comment: limited bilateral para-arotic lymphadenectomy 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 HRT use: No. HEALTH MAINTENANCE: History of abnormal pap: No. Only 1 in her lifetime Last pap: 40 + years ago Last HPV: unknown Last mammogram: never Last colonoscopy: never, + cologard 04/2022 FAMILY HISTORY Problem Relation Age of Onset Osteoporosis Mother Hypertension Mother Migraines Mother other (thyroid nodule s/p partial thyroidectomy) Mother other (stomach problems) Mother other (BRADYCARDIA) Father Dementia Father other (hypothyroidism) Sister other (goiter) Maternal Grandfather other (goiter s/p MEIER and surgery) Maternal Aunt other (no f/o thyroid cancer) Other Ovarian cancer No Family History Breast Cancer No Family History Uterine Cancer No Family History Colon Ca (more content not included)...[facility]08-15-2024 History of Present illness Narrative* Lonnie Arevalo MD - 03/04/2024 10:03 AM EDT GYNECOLOGIC ONCOLOGY FOLLOW UP SERVICE DATE: 03/04/2024 SERVICE TIME: 3:47 PM PRIMARY CARE PHYSICIAN: Manpreet Nunez MD CHIEF COMPLAINT/HISTORY OF PRESENT ILLNESS/ROS: CC: Pelvic masses Referring Provider: Dr. Pamella Sanabria/ [facility] HPI: Feeling good. Reports she is feeling stronger, has been walking more, and feeling back to her normal self. Gained 20 lbs since surgery, feels she is at a good weight. The history is provided by the patient and the spouse. No language translator was used. ROS: Review of Systems Constitutional: Negative for activity change, diaphoresis, fever and unexpected weight change. HENT: Negative for ear pain, hearing loss and mouth sores. Eyes: Negative for pain and visual disturbance. Respiratory: Negative for cough, chest tightness and shortness of breath. Cardiovascular: Negative for chest pain and palpitations. Gastrointestinal: Negative for abdominal pain, constipation, diarrhea, nausea and vomiting. Endocrine: Negative for cold intolerance and heat intolerance. Genitourinary: Negative for dysuria, frequency, hematuria, pelvic pain, urgency, vaginal bleeding, vaginal discharge and vaginal pain. Musculoskeletal: Negative for arthralgias and myalgias. Skin: Negative for rash and wound. Neurological: Negative for dizziness, syncope, light-headedness and headaches. Psychiatric/Behavioral: Negative for agitation. The patient is not nervous/anxious. Oncologic History: - 04/17/2023: presented to [place] ED with R flank pain and nausea for [address] with finding of cystic pelvic mass, 21 cm, bilateral hydronephrosis R>L, omental and mesenteric soft tissue massesand retroperitoneal lymphadenopathy. Denies h/o PMB. 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 - 05/07/2023: C1 carboplatin and paclitaxel - 06/04/2023 : CA-125: 926, Her2 FISH results identify amplification - 06/06/2023: C2 carboplatin and paclitaxel, trastuzumab added with this cycle as potential uterineprimary vs ovarian - 06/27/2023: C3 carboplatin and paclitaxel, trastuzumab - 07/04/2023: Partial response by CT imaging, no new disease, attention to prominent axillary lymphnode on follow up - 07/16/2023: If ovarian primary, KELIM score 0.53 (poorly chemosensitive disease) - 08/04/2023: XL/OFELIA/BSO/Rectosigmoid resection en bloc with re- anastamosis/OMX/partial diaphgram resection and radical debulking and ureteral stent placement with final pathology showing 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, stage IIIC based on original imaging disease burden - 09/17/2023: C4 c/b taxol reaction, received rest at lower rate - 10/09/2023: C5 carbo with taxol desens - 11/05/2023: C6 carbo with taxol desens, CA-125: 8 - 03/01/2024: CA-125: 8 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: PAST MEDICAL HISTORY No date: CKD (chronic kidney disease) stage 2, GFR 60-89 ml/min No date: Fibromyalgia No date: Heart murmur No date: HTN (hypertension) No date: 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 No date: Malignant neoplasm of ovary (HCC) No date: Osteoarthrosis Comment: knees No date: Osteopenia No date: Vitamin D deficiency PAST SURGICAL HISTORY 08/04/2023: BSO W/OMENTECTOMY OFELIA&RAD DEBULKING DISSECTION 08/04/2023: CYSTOSCOPY,INSERT URETHRAL STENT; Left 08/04/2023: EXPL LAP W W/WO BX 08/04/2023: LAPAROSCOPIC HEMICOLECTOMY Comment: partial, removal of rectum lithotomy 08/04/2023: LIVER MOBILIZATION 1974: PAST SURGICAL HISTORY OF Comment: teeth pulled molars 08/04/2023: RAD.DISS, DEBULKING W/ PELV/PARA AORT LYMP Comment: limited bilateral para-arotic lymphadenectomy 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 HRT use: No. HEALTH MAINTENANCE: History of abnormal pap: No. Only 1 in her lifetime Last pap: 40 + years ago Last HPV: unknown Last mammogram: never Last colonoscopy: never, + cologard 04/2022 FAMILY HISTORY Problem Relation Age of Onset Osteoporosis Mother Hypertension Mother Migraines Mother other (thyroid nodule s/p partial thyroidectomy) Mother other (stomach problems) Mother other (BRADYCARDIA) Father Dementia Father other (hypothyroidism) Sister other (goiter) Maternal Grandfather other (goiter s/p MEIER and surgery) Maternal Aunt other (no f/o thyroid cancer) Other Ovarian cancer No Family History Breast Cancer No Family History Uterine Cancer No Family History Colon Cancer No Family History Pancreatic Cancer No Family History Social History Socioeconomic History Marital status: Spouse name: Patricio Number of children: 0 Occupational History 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 Vaping Use Vaping Use: Never used Substance and Sexual Activity Alcohol use: No Drug use: No Social Determinants of Health Financial Resource Strain: Low Risk (08/05/2023) Overall Financial Resource Strain (CARDIA) Difficulty of Paying Living Expenses: Not hard at all Food Insecurity: No Food Insecurity (10/09/2023) Hunger Vital Sign Worried About Running Out of Food in the Last Year: Never true Ran Out of Food in the Last Year: Never true Transportation Needs: No Transportation Needs (10/09/2023) PRAPARE - Transportation Lack of Transportation (Medical): No Lack of Transportation (Non-Medical): No Housing Stability: Low Risk (10/09/2023) Housing Stability Vital Sign Unable to Pay for Housing in the Last Year: No Number of Places Lived in the Last Year: 1 Unstable Housing in the Last Year: No MEDICATIONS / ALLERGIES: Current Outpatient Medications Medication Sig levothyroxine (SYNTHROID) 200 mcg tablet Take 200 mcg by mouth daily before breakfast. iv contrast (will be provided with radiology test) CT Chest ABD/PEL-Inject, intravenously, once for1 dose.No IV access, insert saline lock prior to the beginning of sedation, infusion, injection of imaging exam. Discontinue saline lock post exam. If Pt. has a central line or IVAD, may access for administration according to line specific nursing protocol. Once exam is complete flush line and de-access according to line specific nursing protocol in the CT contrast administration guidelines link. enteric contrast (will be provided with radiology test) For CT CHESTABD/PEL W IVCON Routine order Administer, As Directed One Time Only, via Oral, Rectal, both Oral and Rectal, Enteric Tube, Stoma orIndwelling Catheter, Enteric Contrast as designated per enteric contrast guidelines acetaminophen (TYLENOL) 325 mg tablet Take 2 tablets by mouth every 6 hours as needed for pain. iv contrast (will be provided with radiology test) MRI Female Pelvis Inject, intravenously, once for 1 dose. No IV access, insert saline lock prior to the beginning of sedation, infusion, injection of imaging exam. Discontinue saline lock post exam. If Pt has a central line or IVAD, may access for administration according to line specific nursing protocol. Once exam is complete flush line and de-access according to line specific nursing protocol in the MR contrast administration guidelines link. ondansetron (ZOFRAN) 8 mg tablet Take 1 tablet by mouth every 8 hours as needed for nausea/vomiting. promethazine (PHENERGAN) 25 mg tablet Take 1 tablet by mouth every 4 hours as needed for nausea/vomiting. Cholecalciferol, Vitamin D3, (D3-5000) 125 mcg (5,000 unit) cap Take 5,000 Units by mouth once daily. lisinopril (ZESTRIL, PRINIVIL) 10 mg tablet Take 1 tablet by mouth once daily. No current facility-administered medications for this visit. ALLERGIES ALLERGIES No Known Allergies PHYSICAL EXAM: BP 154/94 (BP Site: Left Arm, BP Position: Sitting, BP Cuff Size: Regular Adult) Pulse 74 Temp 37 C (98.6 F) (Oral) Wt 65.3 kg (144 lb) SpO2 100% BMI 23.25 kg/m Physical Exam Constitutional: General: She is not in acute distress. Appearance: Normal appearance. HENT: Head: Normocephalic and atraumatic. Mouth/Throat: Mouth: Mucous membranes are moist. Musculoskeletal: General: Normal range of motion. Skin: General: Skin is dry. Neurological: Mental Status: She is alert and oriented to person, place, and time. LABS: Most recent CBC, CA-125, CMP, and magnesium reviewed. IMAGING: None new relevant for review. ASSESSMENT/PLAN: Juliann Myles is a 67 year old with history of high grade serous ovarian cancer. 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 - JEYSON by signs/symptoms/exam/labs today. - Reviewed surveillance schedule and worrisome signs/symptoms Follow up with visit and labs in 4 months. I spent a total of 30 minutes on the date of the service which included preparing to see the patient, [id number] patient care, completing clinical documentation, obtaining and/or reviewing separately obtained history, performing a medically appropriate examination, and counseling and educating the patient/family/caregiver. Lonnie Arevalo MD, MS Gynecologic Oncologist documented [facility]08-[facility] Telephone encounter Note * Telephone Encounter - Nallely Bijan MS Otilia - 02/19/2024 9:23 AM EDT Results were shared with patient via MyChart message. Juliann Myles's Multi-Cancer panel through [facility] was negative for a pathogenic variant. Please see transOMICt message for further discussion. Bijan Hand MS, CGC Licensed, Certified Genetic Counselor [facility] Work Phone: 1(883) 371-998208-01-2024 Miscellaneous Notes* Telephone Encounter - Bijan Hand MS Otilia - 02/19/2024 9:23 AM EDT Results were shared with patient via [email or web address] message. Juliann Myles's Multi-Cancer panel through [facility] was negative for a pathogenic variant. Please see [employer] message for further discussion. Bijan Hand MS, CGC Licensed, Certified Genetic Counselor documented in this encounterMer[facility]07-24-2024 NoteHNO ID: [id number] Author: BIJAN HAND MS Service: ? Author Type: Genetic Counselor Type: Progress Notes Filed: 02/20/2024 08:23 Note Text: [facility] Consultation Note Genetic Counselor: Bijan Hand MS, DARIUS Patient: Juliann Myles Patient Name and confirmed at initiation of visit. HIGH LEVEL SUMMARY: The patient's personal history is potentially suggestive of a hereditary cancer syndrome. The patient provided informed consent for Multi-Cancer panel through [facility]. Results are expected in ~2 weeks from the time of sample collection. IDENTIFICATION AND CHIEF COMPLAINT: Dr. Lonnie Arevalo requested a consultation for genetic counseling and risk assessment for Juliann Myles, a 68 year old female, for discussion of her personal history of ovarian cancer. She presents to clinic today to discuss the possibility of a genetic predisposition to cancer, and to further clarify her risks, as well as her family members' risks for cancer. 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 This was treated with neoadjuvant chemotherapy and OFELIA-BSO. She is currently followed via active surveillance. 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 Malignant neoplasm of ovary (HCC) Osteoarthrosis knees Osteopenia Vitamin D deficiency PAST SURGICAL HISTORY Procedure Laterality Date BSO W/OMENTECTOMY TAHANDRAD DEBULKING DISSECTION 08/04/2023 CYSTOSCOPY,INSERT URETHRAL STENT Left 08/04/2023 EXPL LAP W W/WO BX 08/04/2023 LAPAROSCOPIC HEMICOLECTOMY 08/04/2023 partial, removal of rectum lithotomy LIVER MOBILIZATION 08/04/2023 PAST SURGICAL HISTORY OF 1974 teeth pulled molars RAD.DISS, DEBULKING W/ PELV/PARA AORT LYMP 08/04/2023 limited bilateral para-arotic lymphadenectomy CANCER SURVEILLANCE HISTORY: Mammograms: Yes / 2013 and 2023 Breast MRI's: No Breast Biopsies: No Colonoscopy: No EGD: No GI Polyps: N/A Dermatology: No SOCIAL HISTORY: Social History Tobacco Use Smoking status: Never Smokeless tobacco: Never Tobacco comments: smoked in high school for about 2 years. Vaping Use Vaping Use: Never used Substance Use Topics Alcohol use: No Drug use: No FAMILY HISTORY: We obtained a detailed, 4-generation family history. Significant diagnoses are listed below: Maternal aunt underwent a mastectomy when patient was in her 20's but unclear if this was due to a cancer diagnosis A copy of the patient's pedigree will be available under the scanned documents tab following today's visit. GENETIC COUNSELING RISK ASSESSMENT, DISCUSSION, AND SUGGESTED FOLLOW UP: We reviewed the natural history and genetic etiology of sporadic, familial and hereditary cancer syndromes. The patient's personal history is potentially suggestive of a hereditary cancer syndrome. The patient meets NCCN HBOC testing criteria based on her personal history of ovarian cancer. We discussed that identification of a hereditary cancer syndrome may help her care providers tailor her medical management. If a mutation is detected, the patient will be referred back to the referring provider and to any additional appropriate care providers to discuss the relevant options. Inheritance of hereditary cancer syndromes was discussed with the patient. If a mutation is not found in the patient, this will decrease the likelihood of a hereditary cancer syndrome as the explanation for the patient's personal history of cancer. However, it cannot completely rule out this possibility. Cancer surveillance options would be discussed for the patient according to the appropriate standard National Comprehensive Cancer Network and [place] [employer] guidelines, with consideration of their personal and family history risk factors. In this case, the patient will be referred back to their care providers for discussions of management. Based on this assessment of the patient's family and personal history, genetic testing is recommended. It was reviewed that if she were to have a hereditary cause for her ovarian cancer it would most likely be due to a BRCA1/2 mutation. It was also discussed that other genes beyond BRCA1/2 could account for the history and be tested along with BRCA1/2 via a multigene panel. The patient was offered Multi-Cancer panel through [facility]. After considering the risks, benefits, and limitations, the patient chose to pursue and provided informed consent for the following testing: Multi-Cancer panel through [facility]. The Multi-Cancer Panel includes AIP, ALK, APC, OLIVER, AXIN2, BAP1, BARD1, BLM, BMPR1A, BRCA1, BRCA2, BRIP1, CD (more content not included)...[facility]07-24-2024 History of Present illness Narrative* Bijan Hand MS - 02/11/2024 1:58 PM EDT [facility] Consultation Note Genetic Counselor: Bijan Hand MS, [facility] Patient: Juliann Myles Patient Name and confirmed at initiation of visit. HIGH LEVEL SUMMARY: The patient's personal history is potentially suggestive of a hereditary cancer syndrome. The patient provided informed consent for Multi-Cancer panel through [facility]. Results are expected in ~2 weeks from the time of sample collection. IDENTIFICATION AND CHIEF COMPLAINT: Dr. Lonnie Arevalo requested a consultation for genetic counseling and risk assessment for Juliann Myles, a 68 year old female, for discussion of her personal history of ovarian cancer. She presents to clinic today to discuss the possibility of a genetic predisposition to cancer, and to further clarify her risks, as well as her family members' risks for cancer. 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 This was treated with neoadjuvant chemotherapy and OFELIA-BSO. She is currently followed via active surveillance. 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 Malignant neoplasm of ovary (HCC) Osteoarthrosis knees Osteopenia Vitamin D deficiency PAST SURGICAL HISTORY Procedure Laterality Date BSO W/OMENTECTOMY OFELIA&RAD DEBULKING DISSECTION 08/04/2023 CYSTOSCOPY,INSERT URETHRAL STENT Left 08/04/2023 EXPL LAP W W/WO BX 08/04/2023 LAPAROSCOPIC HEMICOLECTOMY 08/04/2023 partial, removal of rectum lithotomy LIVER MOBILIZATION 08/04/2023 PAST SURGICAL HISTORY OF 1974 teeth pulled molars RAD.DISS, DEBULKING W/ PELV/PARA AORT LYMP 08/04/2023 limited bilateral para-arotic lymphadenectomy CANCER SURVEILLANCE HISTORY: Mammograms: Yes / 2013 and 2023 Breast MRI's: No Breast Biopsies: No Colonoscopy: No EGD: No GI Polyps: N/A Dermatology: No SOCIAL HISTORY: Social History Tobacco Use Smoking status: Never Smokeless tobacco: Never Tobacco comments: smoked in high school for about 2 years. Vaping Use Vaping Use: Never used Substance Use Topics Alcohol use: No Drug use: No FAMILY HISTORY: We obtained a detailed, 4-generation family history. Significant diagnoses are listed below: Maternal aunt underwent a mastectomy when patient was in her 20's but unclear if this was due to a cancer diagnosis A copy of the patient's pedigree will be available under the scanned documents tab following today's visit. GENETIC COUNSELING RISK ASSESSMENT, DISCUSSION, AND SUGGESTED FOLLOW UP: We reviewed the natural history and genetic etiology of sporadic, familial and hereditary cancer syndromes. The patient's personal history is potentially suggestive of a hereditary cancer syndrome. The patient meets NCCN HBOC testing criteria based on her personal history of ovarian cancer. We discussed that identification of a hereditary cancer syndrome may help her care providers tailorher medical management. If a mutation is detected, the patient will be referred back to the referring provider and to any additional appropriate care providers to discuss the relevant options. Inheritance of hereditary cancer syndromes was discussed with the patient. If a mutation is not found in the patient, this will decrease the likelihood of a hereditary cancersyndrome as the explanation for the patient's personal history of cancer. However, it cannot completely rule out this possibility. Cancer surveillance options would be discussed for the patient according to the appropriate standard National Comprehensive Cancer Network and [place] [employer] guidelines, with consideration of their personal and family history risk factors. In this case, the patient will be referred back to their care providers for discussions of management. Based on this assessment of the patient's family and personal history, genetic testing is recommended. It was reviewed that if she were to have a hereditary cause for her ovarian cancer it would mostlikely be due to a BRCA1/2 mutation. It was also discussed that other genes beyond BRCA1/2 could account for the history and be tested along with BRCA1/2 via a multigene panel. The patient was offered Multi-Cancer panel through [facility]. After considering the risks, benefits, and limitations, the patient chose to pursue and provided informed consent for the following testing: Multi-Cancer panel through [facility]. The Multi-Cancer Panel includes AIP, ALK, APC, OLIVER, AXIN2, BAP1, BARD1, BLM, BMPR1A, BRCA1, BRCA2, BRIP1, CDC73, CDH1, CDK4, CDKN1B, CDKN2A, CHEK2, CTNNA1, DICER1, EGFR, EPCAM, FH, FLCN, GREM1, HOXB13, KIT, LZTR1, MAX, MBD4, MEN1, MET, MITF, MLH1, MSH2, MSH3, MSH6, MUTYH, NF1, NF2, NTHL1, PALB2, PDGFRA, PMS2, POLD1, POLE, POT1, PDDMV9H, PTCH1, PTEN, RAD51C, RAD51D, RB1, RET, SDHA, SDHAF2, SDHB, SDHC, SDHD, SMAD4, SMARCA4, SMARCB1, SMARCE1, STK11, SUFU, EGXM519, TP53, TSC1, TSC2, and VHL The Multi-Cancer panel looks at genes associated with cancers of the breast, gynecologic tract (ovarian, uterine/endometrial), gastrointestinal system (colorectal, gastric, pancreatic), endocrine glands (thyroid, parathyroid, pituitary, adrenal glands), genitourinary tract (renal/urinary tract, prostate), skin (melanoma, basal cell carcinoma), and brain/nervous system. We discussed that an NGS panel can rarely result in an unexpected finding which may or may not be related to the presenting phenotype. We discussed that [facility] may contact the patient by text or email regarding billing. The patient should watch for this communication and respond promptly. The patient should contact [facility] directlywith any billing questions (ph. [phone]). Per the patient's request, I will contact her by myChart or telephone to review these results. A follow up genetic counseling visit will be scheduled if requested. The patient was seen for a total of 30 minutes, greater than 50% of which was spent [id number] counseling. This plan is being carried out under the oversight of Dr. Yaz De La O. This note will also be sent to the referring provider via the electronic medical record. Bijan Hand MS, [facility] [place] Licensed, Certified Genetic Counselor [facility] CC: Dr. Lonnie Beckman documented [facility] Telephone encounter Note * Telephone Encounter - Luz Maria Beckman - 12/16/2023 2:18 PM EDT Received a call from Tiffanie with questions about meeting with genetics. Explained that we are not billing for GC visits and that her appt with one of our genetic counselors would be free of charge. Discussed that we also work with a lab that doesn't balance bill Medicarepatients, meaning that her OOP cost for testing would be $0. She understood and would like to make an appt. Let her know that I will send a message over to our schedulers to ask them to reach out andget her scheduled. She appreciated the help. Luz Maria Beckman Genetic Counselor Conversion Worker Staff message to schedulers. [facility]05-[facility] Miscellaneous Notes* Telephone Encounter - Luz Maria Beckman - 12/16/2023 2:18 PM EDT Received a call from Tiffanie with questions about meeting with genetics. Explained that we are not billing for GC visits and that her appt with one of our genetic counselors would be free of charge. Discussed that we also work with a lab that doesn't balance bill Medicarepatients, meaning that her OOP cost for testing would be $0. She understood and would like to make an appt. Let her know that I will send a message over to our schedulers to ask them to reach out andget her scheduled. She appreciated the help. Luz Maria Beckman Genetic Counselor Conversion Worker Staff message to schedulers. documented in this encounterMer[facility]05-[facility]24 History of Present illness Narrative* Lonnie Arevalo MD - 12/10/2023 3:00 PM EDT Telephone Encounter I have communicated my name and active licensure. The patient's identity and physical location wereverified at the time of this visit. Either the patient or their legal agency service representative has been informed of the risks and benefits of -- and alternatives to -- treatment through a remote evaluation andconsents to proceed with the evaluation remotely. Call placed to patient's primary phone number listed as [phone] Participants food concession manager: Provider (Irina) and Patient. ID: 67 year old with large pelvic mass elevated with metastasis to omentum and lymph nodes and abnormal Ca125. Comorbidities include: HTN, hypothyroism, firbromyalgia, CKD II, osteopenia ECOG Performance status: 0 Reason for call: follow up Last visit in this department: 12/04/2023 Subjective: No new complaints, feeling well. Objective: Psych: Normal mood and affect Results: None new relevant for review Plan/Discussion: Reviewed prior discussion regarding PARP inhibitor therapy initiation. We reviewed risks and benefits and discussed that with current genetic information she may fall into group that derives significant benefit. However at this time she declines additional treatment in the form of maintenance drugsand would prefer surveillance. All questions answered. We reviewed signs/symptoms worrisome for recurrence and when to call or seek care more urgently. Follow up plan: Office visit and labs in 4 months. This visit was conducted as a phone visit. We spent 10 minutes discussing the patient's results andtreatment options. Lonnie Arevalo MD, MS Gynecologic Oncologist documented in this encounterMercer [facility]05-22-2024 NoteHNO ID: [id number] Author: LONNIE AREVALO MD Service: ? Author Type: Physician Type: Progress Notes Filed: 12/10/2023 13:00 Note Text: Telephone Encounter I have communicated my name and active licensure. The patient's identity and physical location were verified at the time of this visit. Either the patient or their legal agency service representative has been informed of the risks and benefits of -- and alternatives to -- treatment through a remote evaluation and consents to proceed with the evaluation remotely. Call placed to patient's primary phone number listed as [phone] Participants food concession manager: Provider (Irina) and Patient. ID: 67 year old with large pelvic mass elevated with metastasis to omentum and lymph nodes and abnormal Ca125. Comorbidities include: HTN, hypothyroism, firbromyalgia, CKD II, osteopenia ECOG Performance status: 0 Reason for call: follow up Last visit in this department: 12/04/2023 Subjective: No new complaints, feeling well. Objective: Psych: Normal mood and affect Results: None new relevant for review Plan/Discussion: Reviewed prior discussion regarding PARP inhibitor therapy initiation. We reviewed risks and benefits and discussed that with current genetic information she may fall into group that derives significant benefit. However at this time she declines additional treatment in the form of maintenance drugs and would prefer surveillance. All questions answered. We reviewed signs/symptoms worrisome for recurrence and when to call or seek care more urgently. Follow up plan: Office visit and labs in 4 months. This visit was conducted as a phone visit. We spent 10 minutes discussing the patient's results and treatment options. Lonnie Arevalo MD, MS [facility]ologic [facility]ologist[facility] History of Present illness Narrative* Lonnie Arevalo MD - 12/04/2023 9:30 AM EDT GYNECOLOGIC ONCOLOGY FOLLOW UP SERVICE DATE: 08/15/2023 SERVICE TIME: 3:47 PM PRIMARY CARE PHYSICIAN: Manpreet Nunez MD CHIEF COMPLAINT/HISTORY OF PRESENT ILLNESS/ROS: CC: Pelvic masses Referring Provider: Dr. Pamella Sanabria/ [facility] HPI: Feeling good. Has concerns with the top of her incision. Has some drainage on a bandage that is clear and yellow. Not painful. Not getting worse just perstent. No rashes. No nausea. Eating and drinking normally. Bowel movements and bladder emtying back to normal No SOB or CP Some numbness in fingertips and feet that is not getting worse Gained 15 lbs since chemo The history is provided by the patient and the spouse. No language translator was used. ROS: Review of Systems Constitutional: Negative for activity change, diaphoresis, fever and unexpected weight change. HENT: Negative for ear pain, hearing loss and mouth sores. Eyes: Negative for pain and visual disturbance. Respiratory: Negative for cough, chest tightness and shortness of breath. Cardiovascular: Negative for chest pain and palpitations. Gastrointestinal: Negative for abdominal pain, constipation, diarrhea, nausea and vomiting. Endocrine: Negative for cold intolerance and heat intolerance. Genitourinary: Negative for dysuria, frequency, hematuria, pelvic pain, urgency, vaginal bleeding, vaginal discharge and vaginal pain. Musculoskeletal: Negative for arthralgias and myalgias. Skin: Negative for rash and wound. Neurological: Negative for dizziness, syncope, light-headedness and headaches. Psychiatric/Behavioral: Negative for agitation. The patient is not nervous/anxious. Oncologic History: - 04/17/2023: presented to [place] ED with R flank pain and nausea for [address] with finding of cystic pelvic mass, 21 cm, bilateral hydronephrosis R>L, omental and mesenteric soft tissue massesand retroperitoneal lymphadenopathy. Denies h/o PMB. 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 - 05/07/2023: C1 carboplatin and paclitaxel - 06/04/2023 : CA-125: 926, Her2 FISH results identify amplification - 06/06/2023: C2 carboplatin and paclitaxel, trastuzumab added with this cycle as potential uterineprimary vs ovarian - 06/27/2023: C3 carboplatin and paclitaxel, trastuzumab - 07/04/2023: Partial response by CT imaging, no new disease, attention to prominent axillary lymphnode on follow up - 07/16/2023: If ovarian primary, KELIM score 0.53 (poorly chemosensitive disease) - 08/04/2023: XL/OFELIA/BSO/Rectosigmoid resection en bloc with re- anastamosis/OMX/partial diaphgram resection and radical debulking and ureteral stent placement with final pathology showing 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, stage IIIC based on original imaging disease burden - 09/17/2023: C4 c/b taxol reaction, received rest at lower rate - 10/09/2023: C5 carbo with taxol desens - 11/05/2023: C6 carbo with taxol desens 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: 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 Malignant neoplasm of ovary (HCC) Osteoarthrosis knees Osteopenia Vitamin D deficiency PAST SURGICAL HISTORY Procedure Laterality Date BSO W/OMENTECTOMY OFELIA&RAD DEBULKING DISSECTION 08/04/2023 CYSTOSCOPY,INSERT URETHRAL STENT Left 08/04/2023 EXPL LAP W W/WO BX 08/04/2023 LAPAROSCOPIC HEMICOLECTOMY 08/04/2023 partial, removal of rectum lithotomy LIVER MOBILIZATION 08/04/2023 PAST SURGICAL HISTORY OF 1974 teeth pulled molars RAD.DISS, DEBULKING W/ PELV/PARA AORT LYMP 08/04/2023 limited bilateral para-arotic lymphadenectomy 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 HRT use: No. HEALTH MAINTENANCE: History of abnormal pap: No. Only 1 in her lifetime Last pap: 40 + years ago Last HPV: unknown Last mammogram: never Last colonoscopy: never, + cologard 04/2022 FAMILY HISTORY Problem Relation Age of Onset Osteoporosis Mother Hypertension Mother Migraines Mother other (thyroid nodule s/p partial thyroidectomy) Mother other (stomach problems) Mother other (BRADYCARDIA) Father Dementia Father other (hypothyroidism) Sister other (goiter) Maternal Grandfather other (goiter s/p MEIER and surgery) Maternal Aunt other (no f/o thyroid cancer) Other Ovarian cancer No Family History Breast Cancer No Family History Uterine Cancer No Family History Colon Cancer No Family History Pancreatic Cancer No Family History Social History Socioeconomic History Marital status: Spouse name: Patricio Number of children: 0 Occupational History 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 Vaping Use Vaping Use: Never used Substance and Sexual Activity Alcohol use: No Drug use: No Social Determinants of Health Financial Resource Strain: Low Risk (08/05/2023) Overall Financial Resource Strain (CARDIA) Difficulty of Paying Living Expenses: Not hard at all Food Insecurity: No Food Insecurity (10/09/2023) Hunger Vital Sign Worried About Running Out of Food in the Last Year: Never true Ran Out of Food in the Last Year: Never true Transportation Needs: No Transportation Needs (10/09/2023) PRAPARE - Transportation Lack of Transportation (Medical): No Lack of Transportation (Non-Medical): No Housing Stability: Low Risk (10/09/2023) Housing Stability Vital Sign Unable to Pay for Housing in the Last Year: No Number of Places Lived in the Last Year: 1 Unstable Housing in the Last Year: No MEDICATIONS / ALLERGIES: Current Outpatient Medications Medication Sig iv contrast (will be provided with radiology test) CT Chest ABD/PEL-Inject, intravenously, once for1 dose.No IV access, insert saline lock prior to the beginning of sedation, infusion, injection of imaging exam. Discontinue saline lock post exam. If Pt. has a central line or IVAD, may access for administration according to line specific nursing protocol. Once exam is complete flush line and de-access according to line specific nursing protocol in the CT contrast administration guidelines link. enteric contrast (will be provided with radiology test) For CT CHESTABD/PEL W IVCON Routine order Administer, As Directed One Time Only, via Oral, Rectal, both Oral and Rectal, Enteric Tube, Stoma orIndwelling Catheter, Enteric Contrast as designated per enteric contrast guidelines acetaminophen (TYLENOL) 325 mg tablet Take 2 tablets by mouth every 6 hours as needed for pain. iv contrast (will be provided with radiology test) MRI Female Pelvis Inject, intravenously, once for 1 dose. No IV access, insert saline lock prior to the beginning of sedation, infusion, injection of imaging exam. Discontinue saline lock post exam. If Pt has a central line or IVAD, may access for administration according to line specific nursing protocol. Once exam is complete flush line and de-access according to line specific nursing protocol in the MR contrast administration guidelines link. ondansetron (ZOFRAN) 8 mg tablet Take 1 tablet by mouth every 8 hours as needed for nausea/vomiting. promethazine (PHENERGAN) 25 mg tablet Take 1 tablet by mouth every 4 hours as needed for nausea/vomiting. Cholecalciferol, Vitamin D3, (D3-5000) 125 mcg (5,000 unit) cap Take 5,000 Units by mouth once daily. lisinopril (ZESTRIL, PRINIVIL) 10 mg tablet Take 1 tablet by mouth once daily. No current facility-administered medications for this visit. ALLERGIES ALLERGIES No Known Allergies PHYSICAL EXAM: BP 179/100 (BP Site: Left Arm, BP Position: Sitting, BP Cuff Size: Regular Adult) Pulse 94 Temp36.8 C (98.2 F) (Oral) Wt 63.5 kg (140 lb) SpO2 98% BMI 22.61 kg/m Physical Exam Constitutional: Appearance: Normal appearance. HENT: Head: Normocephalic. Nose: Nose normal. Mouth/Throat: Mouth: Mucous membranes are moist. Eyes: Conjunctiva/sclera: Conjunctivae normal. Cardiovascular: Rate and Rhythm: Normal rate. Pulmonary: Effort: Pulmonary effort is normal. Abdominal: General: Abdomen is flat. Palpations: Abdomen is soft. Tenderness: There is no abdominal tenderness. There is no guarding or rebound. Comments: Well healed vertical midline incision. Musculoskeletal: General: Normal range of motion. Skin: General: Skin is warm and dry. Neurological: General: No focal deficit present. Mental Status: She is alert and oriented to person, place, and time. LABS: Most recent CBC, CA-125, CMP, and magnesium reviewed. IMAGING: CT c/a/p 11/19/2023: Lungs, pleura, airways: Unchanged right apical subpleural nodularity, possibly scarring. No new, enlarging, or otherwise suspicious nodules. No pleural effusion. Lower neck, lymph nodes, mediastinum: No pathologically enlarged nodes. Heart, pericardium, and thoracic vessels: Normal heart size without pericardial effusion. Coronary artery and aortic atherosclerotic calcification. Liver: No mass. Biliary/Gallbladder: Unremarkable. No bile duct dilation. Spleen: Unremarkable. Pancreas: Unremarkable. Adrenals: Unchanged nodular thickening. Kidneys: Few too small to characterize hypodensities. No hydronephrosis. Vasculature: Atherosclerotic disease. No abdominal aortic aneurysm. GI Tract: Low anterior/sigmoid resection. No wall thickening or obstruction. Pelvis: Interval hysterectomy and bilateral salpingo-oophorectomy. No pelvic mass. Mesentery/Peritoneum/Retroperitoneum: Subtle areas of peritoneal thickening (8:56, 51, 12:50). No free fluid. Lymph Nodes: Subcentimeter retroperitoneal and pelvic nodes, similar to prior but few decreased from 04/17/2023 (for example 8:71, 75). Bones and soft tissues: 4 mm sclerotic focus along the superior aspect of T7, more conspicuous/dense from 06/2023 and new from 04/18/2023. Ventral postsurgical changes. ASSESSMENT/PLAN: Juliann Myles is a 67 year old with large pelvic mass elevated with metastasis to omentum and lymph nodes and abnormal Ca125. 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 Somatic testing with p53 mutated and HRD (caris version) score of 39 which is in their inconclusive zone - We discussed risks and benefits of PARP inhibitor therapy, not ready to make a decision today, she would like to consider her options and discuss further at another visit Follow up with phone visit in 1 week. I spent a total of 30 minutes on the date of the service which included preparing to see the patient, [id number] patient care, completing clinical documentation, obtaining and/or reviewing separately obtained history, performing a medically appropriate examination, and counseling and educating the patient/family/caregiver. Lonnie Arevalo MD, MS Gynecologic Oncologist documented in this encounterMer[facility]05-16-[facility]24 NoteHNO ID: [id number] Author: LONNIE AREVALO MD Service: ? Author Type: Physician Type: Progress Notes Filed: 12/10/2023 12:47 Note Text: GYNECOLOGIC ONCOLOGY FOLLOW UP SERVICE DATE: 08/15/2023 SERVICE TIME: 3:47 PM PRIMARY CARE PHYSICIAN: Manpreet Nunez MD CHIEF COMPLAINT/HISTORY OF PRESENT ILLNESS/ROS: CC: Pelvic masses Referring Provider: Dr. Pamella Sanabria/ [place] [facility] HPI: Feeling good. Has concerns with the top of her incision. Has some drainage on a bandage that is clear and yellow. Not painful. Not getting worse just perstent. No rashes. No nausea. Eating and drinking normally. Bowel movements and bladder emtying back to normal No SOB or CP Some numbness in fingertips and feet that is not getting worse Gained 15 lbs since chemo The history is provided by the patient and the spouse. No language translator was used. ROS: Review of Systems Constitutional: Negative for activity change, diaphoresis, fever and unexpected weight change. HENT: Negative for ear pain, hearing loss and mouth sores. Eyes: Negative for pain and visual disturbance. Respiratory: Negative for cough, chest tightness and shortness of breath. Cardiovascular: Negative for chest pain and palpitations. Gastrointestinal: Negative for abdominal pain, constipation, diarrhea, nausea and vomiting. Endocrine: Negative for cold intolerance and heat intolerance. Genitourinary: Negative for dysuria, frequency, hematuria, pelvic pain, urgency, vaginal bleeding, vaginal discharge and vaginal pain. Musculoskeletal: Negative for arthralgias and myalgias. Skin: Negative for rash and wound. Neurological: Negative for dizziness, syncope, light-headedness and headaches. Psychiatric/Behavioral: Negative for agitation. The patient is not nervous/anxious. Oncologic History: - 04/17/2023: presented to [place] ED with R flank pain and nausea for [address] with finding of cystic pelvic mass, 21 cm, bilateral hydronephrosis R>L, omental and mesenteric soft tissue masses and retroperitoneal lymphadenopathy. Denies h/o PMB. 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 - 05/07/2023: C1 carboplatin and paclitaxel - 06/04/2023 : CA-125: 926, Her2 FISH results identify amplification - 06/06/2023: C2 carboplatin and paclitaxel, trastuzumab added with this cycle as potential uterine primary vs ovarian - 06/27/2023: C3 carboplatin and paclitaxel, trastuzumab - 07/04/2023: Partial response by CT imaging, no new disease, attention to prominent axillary lymph node on follow up - 07/16/2023: If ovarian primary, KELIM score 0.53 (poorly chemosensitive disease) - 08/04/2023: XL/OFELIA/BSO/Rectosigmoid resection en bloc with re-anastamosis/OMX/partial diaphgram resection and radical debulking and ureteral stent placement with final pathology showing 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, stage IIIC based on original imaging disease burden - 09/17/2023: C4 c/b taxol reaction, received rest at lower rate - 10/09/2023: C5 carbo with taxol desens - 11/05/2023: C6 carbo with taxol desens 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: 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 Malignant neoplasm of ovary (HCC) Osteoarthrosis knees Osteopenia Vitamin D deficiency PAST SURGICAL HISTORY Procedure Laterality Date BSO W/OMENTECTOMY [place]AD DEBULKING DISSECTION 08/04/2023 CYSTOSCOPY,INSERT URETHRAL STENT Left 08/04/2023 EXPL LAP W W/WO BX 08/04/2023 LAPAROSCOPIC HEMICOLECTOMY 08/04/2023 partial, removal of rectum lithotomy LIVER MOBILIZATION 08/04/2023 PAST SURGICAL HISTORY OF 1974 teeth pulled molars RAD.DISS, DEBULKING W/ PELV/PARA AORT LYMP 08/04/2023 limited bilateral para-arotic lymphadenectomy 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 HRT use: No. HEALTH MAINTENANCE: History of abnormal pap: No. Only 1 in her lifetime Last pap: 40 + years ago Last HPV: unknown Last mammogram: never Last colonoscopy: never, + cologard 04/2022 FAMILY HISTORY Problem Relation Age of Onset Osteoporosis Mother Hypertension Mother Migraines Mother other (thyroid nodule s/p partial thyroidectomy) Mother other (stomach problems) Mother other (BRADYCARDIA) Father Dementia Father other (hypothyroidism) Sister other (goiter) Maternal Grandfather other (goiter s/p MEIER and surgery) Maternal Aunt other (no f/o thyroid cancer) Other Ovarian cancer No Famil (more content not included)...[facility]05-01-2024 History of Present illness Narrative* Sylwia Paz RT(R) - 11/19/2023 10:40 AM EDT Radiology Service Progress Note DATE OF SERVICE: November 19, 2023 TIME: 3:40 PM PATIENT IDENTITY VERIFICATION COMPLETED USING TWO (2) STANDARD IDENTIFIERS: Name and Date of confirmed by patient verbally. FALL SCREENING: Has the patient had 2 falls in the last year or 1 fall with injury or currently using an Ambulatory Assistive Device (Walker, Cane, Wheelchair, Crutches, etc.)? No PATIENT GENDER DATA: Female. status: : No status: NO. PATIENT RELEVANT IMPLANT DATA REVIEWED: Yes PATIENT PRESENTS WITH AN IMPLANTABLE OR ATTACHED HOBBING PRESS OPERATOR: No ALLERGIES: Reviewed and unchanged CONTRAST ALLERGY: NO. EXAM: CT -CONTRAST INDUCED NEPHROPATHY RISK FACTORS: Patient age > 60 years CREATININE: Creatinine Date Value Ref Range Status 11/04/2023 0.89 0.58 - 0.96 mg/dL Final 10/29/2023 0.93 0.58 - 0.96 mg/dL Final 10/28/2023 0.83 0.58 - 0.96 mg/dL Final Estimated Glomerular Filtration Rate Date Value Ref Range Status 11/04/2023 71 >=60 mL/min/1.73m Final Comment: Estimated Glomerular Filtration Rate (eGFR) is calculated using the 2020 CKD-EPI creatinine equation. This equation utilizes serum creatinine, sex, and age as parameters. The creatinine assay has traceable calibration to isotope dilution- mass spectrometry. Refer to KDIGO guidelines for clinical interpretation. In patients with unstable renal function, e.g. those with acute kidney injury, the eGFRmay not accurately reflect actual GFR. eGFR- Date Value Ref Range Status 09/01/2020 >60 Final P.O.C.T. RESULTS: POC done: Yes, See Lab Tab November 19, 2023 TREATMENT: N/A PERIPHERAL IV DATA: Ambulatory: A peripheral IV was started in the Left antecubital site with a Angio cath: 22 gauge. RADIOLOGY DEPARTMENT: CT; Exam(s) Completed: Chest Abdomen Pelvis SIGNATURE: RT Chet(Bobbi) PATIENT NAME: Juliann Myles DATE: November 19, 2023 TIME: 3:40 PM documented in this encounterMercer [facility]05-01-2024 NoteHNO ID: [id number] Author: SYLWIA PAZ RT(Bobbi) Service: ? Author Type: Hot Top Liner Helper Type: Progress Notes Filed: 11/19/2023 15:40 Note Text: Radiology Service Progress Note DATE OF SERVICE: November 19, 2023 TIME: 3:40 PM PATIENT IDENTITY VERIFICATION COMPLETED USING TWO (2) STANDARD IDENTIFIERS: Name and Date of confirmed by patient verbally. FALL SCREENING: Has the patient had 2 falls in the last year or 1 fall with injury or currently using an Ambulatory Assistive Device (Walker, Cane, Wheelchair, Crutches, etc.)? No PATIENT GENDER DATA: Female. status: : No status: NO. PATIENT RELEVANT IMPLANT DATA REVIEWED: Yes PATIENT PRESENTS WITH AN IMPLANTABLE OR ATTACHED HOBBING PRESS OPERATOR: No ALLERGIES: Reviewed and unchanged CONTRAST ALLERGY: NO. EXAM: CT -CONTRAST INDUCED NEPHROPATHY RISK FACTORS: Patient age > 60 years CREATININE: Creatinine Date Value Ref Range Status 11/04/2023 0.89 0.58 - 0.96 mg/dL Final 10/29/2023 0.93 0.58 - 0.96 mg/dL Final 10/28/2023 0.83 0.58 - 0.96 mg/dL Final Estimated Glomerular Filtration Rate Date Value Ref Range Status 11/04/2023 71 >=60 mL/min/1.73m? Final Comment: Estimated Glomerular Filtration Rate (eGFR) is calculated using the 2020 CKD-EPI creatinine equation. This equation utilizes serum creatinine, sex, and age as parameters. The creatinine assay has traceable calibration to isotope dilution-mass spectrometry. Refer to KDIGO guidelines for clinical interpretation. In patients with unstable renal function, e.g. those with acute kidney injury, the eGFR may not accurately reflect actual GFR. eGFR- Date Value Ref Range Status 09/01/2020 >60 Final P.O.C.T. RESULTS: POC done: Yes, See Lab Tab November 19, 2023 TREATMENT: N/A PERIPHERAL IV DATA: Ambulatory: A peripheral IV was started in the Left antecubital site with a Angio cath: 22 gauge. RADIOLOGY DEPARTMENT: CT; Exam(s) Completed: Chest Abdomen Pelvis SIGNATURE: RT Chet(R) PATIENT NAME: Juliann Myles DATE: November 19, 2023 TIME: 3:40 [facility]04-19-2024 Miscellaneous Notes* Telephone Encounter - Les Bray RN - 11/07/2023 12:21 PM EDT Treatment Regimen:C6 carbo taxol desens inpatient Neuro: None Dizziness Headache Confusion Weakness Visual Mood Changes Numbness/Tingling Sensitivityto Cold/Heat Resp: None SOB Cough Edema Bleeding Palpitations Chest Pain/Discomfort/Pain GI/: None Mouth Pain Throat Pain Taste Changes Appetite Changes Nausea Diarrhea Constipation LastBM Fluid Intake Vomiting Bladder Changes Urinary Changes Wt Gain Wt Loss Yellow of skin/eyes Integument: None Skin Changes Itching Muscle Pain Joint Pain Activity: Level: 0-100% 80% Do you take naps? No Yes Chills: No Yes Fever: No Yes Temp:____ Pain No Yes Scale: 0-10 Any new referrals needed? No Yes Reinforced CURRENT treatment education based on current and anticipated symptoms. Yes NO Discussed Port/Line care and patient verbalizes understanding Yes No Patient instructed to contact office or after hours for Temp 100.4 or > Yes No Symptoms explained: patient states she feels good, will let us know if any rash develops like last time. No other symptoms documented in this encounterMercer County [facility]04-09-2024 Miscellaneous Notes* Telephone Encounter - Les Bray RN - 10/28/2023 2:20 PM EDT Patient anc .57, per dr. Arevalo patient to get labs redrawn tomorrow at 8am before admission at 9am for last chemo cycle. Patient verbalized understanding. documented in this encounterMercer County [facility]03-21-2024 History of Past illness Narrative* Problem Noted Date Diagnosed Date Resolved Date Ovarian cancer 10/09/2023 10/09/2023 Ureteral stent present 08/05/202310/08 Overview: - Left stent placed intra-op after mobilization of ureter from tumor Pelvic mass 07/24/2023 07/24/2023 08/04/2023 Hypertension 07/24/2023 07/24/2023 08/04/2023 Last Assessment & Plan: -Lisinopril 10 mg daily- continue, take morning of surgery -BP elevated during PAT -Patient anxious for surgery -At home BP120/85- encouraged patient to monitor BP at home and follow up with PCP as needed -PCP visit on 06/18/2023 BP 145/85 -Denies SOB and CP Malignant neoplasm of ovary 07/24/2023 07/24/2023 08/04/2023 Last Assessment & Plan: -Surgical intervention scheduled for 08/04/2023 Pre-op exam 07/24/2023 08/04/2023 Last Assessment & Plan: -Identify any potential anesthesia problems or contraindications to the planned procedure. History of echocardiogram 07/24/2023 Last Assessment & Plan: 05/2023 Echo: CONCLUSIONS: - Exam indication: Baseline and serial evaluation in a patient undergoing therapy with cardiotoxic agents - The left ventricle is normal in size. Left ventricular systolic function is normal. EF = 62 5% (2D biplane) Grade I left ventricular diastolic dysfunction. - The right ventricle is normal in size. Right ventricular systolic function is normal. - The left atrial cavity is mildly dilated. - There are no significant valvular abnormalities. - The patient has not had a prior CC echocardiographic exam for comparison. Frequent headaches 4 Osteoarthrosis 08/04/2023 documented as of this encounter (statuses as of 10/29/2023) [facility]03-21-[facility] History of Past illness Narrative* Problem Noted Date Diagnosed Date Resolved Date Ovarian cancer 10/09/2023 10/09/2023 Preop testing 09/12/2023 11/05/2023 Ureteral stent present 08/05/202310/08 Overview: - Left stent placed intra-op after mobilization of ureter from tumor Post-operative state 08/04/2023 024 Overview: - pain well controlled - Hgb 10.9 -> 9.4 - urine output wnl, voiding spontaneously - heparin for DVT ppx in setting of CHARBEL on CKD, now will transition for LVX vs eliquis for discharge - Tylenol, oxy prn - miralax - regular diet with small BM and flatus Pelvic mass 07/24/2023 07/24/2023 08/04/2023 Hypertension 07/24/2023 07/24/2023 08/04/2023 Last Assessment & Plan: -Lisinopril 10 mg daily- continue, take morning of surgery -BP elevated during PAT -Patient anxious for surgery -At home BP120/85- encouraged patient to monitor BP at home and follow up with PCP as needed -PCP visit on 06/18/2023 BP 145/85 -Denies SOB and CP Malignant neoplasm of ovary 07/24/2023 07/24/2023 08/04/2023 Last Assessment & Plan: -Surgical intervention scheduled for 08/04/2023 Pre-op exam 07/24/2023 08/04/2023 Last Assessment & Plan: -Identify any potential anesthesia problems or contraindications to the planned procedure. History of echocardiogram 07/24/2023 Last Assessment & Plan: 05/2023 Echo: CONCLUSIONS: - Exam indication: Baseline and serial evaluation in a patient undergoing therapy with cardiotoxic agents - The left ventricle is normal in size. Left ventricular systolic function is normal. EF = 62 5% (2D biplane) Grade I left ventricular diastolic dysfunction. - The right ventricle is normal in size. Right ventricular systolic function is normal. - The left atrial cavity is mildly dilated. - There are no significant valvular abnormalities. - The patient has not had a prior CC echocardiographic exam for comparison. Frequent headaches Osteoarthrosis 08/04/2023 documented as of this encounter (statuses as of 11/07/2023) [facility]03-04-2024 Miscellaneous Notes* Telephone Encounter - Les Bray RN - 09/22/2023 11:07 AM EST Treatment Regimen: Neuro: None Dizziness Headache Confusion Weakness Visual Mood Changes Numbness/Tingling Sensitivityto Cold/Heat Resp: None SOB Cough Edema Bleeding Palpitations Chest Pain/Discomfort/Pain GI/: None Mouth Pain Throat Pain Taste Changes Appetite Changes Nausea Diarrhea Constipation LastBM Fluid Intake Vomiting Bladder Changes Urinary Changes Wt Gain Wt Loss Yellow of skin/eyes Integument: None Skin Changes Itching Muscle Pain Joint Pain Activity: Level: 0-100% 60% Do you take naps? No Yes Chills: No Yes Fever: No Yes Temp:____ Pain No Yes Scale: 0-10 Any new referrals needed? No Yes Reinforced CURRENT treatment education based on current and anticipated symptoms. Yes NO Discussed Port/Line care and patient verbalizes understanding Yes No Patient instructed to contact office or after hours for Temp 100.4 or > Yes No Symptoms explained: slight diarrhea for one episode then it resolved, baseline numbness/tingling inhands, has not worsened. Patient had infusion reaction last week but restarted infusion after a fewminutes. Provider aware and notified. Ct on 11/11 documented in this encounterMercer County [facility] Hospital02-28-2024 History of Present illness Narrative* Jasmin Douglas RN - 09/17/2023 10:22 AM EST Taxol stopped at 1102 - patient complaining of severe back pain, SOB, feeling flushed. Patient started on 2L NC. NS started. 1106: 100 mg Solucortef given 1108: [address] Caldwell to chairside. 1110: 20 mg pepcid given. Vitals: 167/105, 99% on 2L NC, 97 HR. 1112: Patient states she is feeling better 1114: 100% 2L NC, 84 HR, 156/93 1130: Pulse Ox 100%, patient put on room air. 12:32: Dr Arevalo returned page and advised to re-challenge taxol increasing rate gradually as tolerated. 16:00: Pt tolerated remainder of Taxol without incident. documented in this encounterMercer County [facility] Hospital02-23-2024 Miscellaneous Notes* Telephone Encounter - Jefry Ha MD - 09/12/2023 12:39 PM EST CMP, left stent removal Follow-up as needed documented in this encounterMercer County [facility]01-26-2024 History of Present illness Narrative* Lonnie Arevalo MD - 08/15/2023 11:00 AM EST GYNECOLOGIC ONCOLOGY FOLLOW UP SERVICE DATE: 08/15/2023 SERVICE TIME: 3:47 PM PRIMARY CARE PHYSICIAN: Manpreet Nunez MD CHIEF COMPLAINT/HISTORY OF PRESENT ILLNESS/ROS: CC: Pelvic masses Referring Provider: Dr. Pamella Sanabria/ [facility] HPI: Feeling well. Appetite and energy slowly coming back. Still having some bloody urine and loose stools, otherwise no complaints. The history is provided by the patient. No language translator was used. ROS: Review of Systems Constitutional: Negative for activity change, diaphoresis, fever and unexpected weight change. HENT: Negative for ear pain, hearing loss and mouth sores. Eyes: Negative for pain and visual disturbance. Respiratory: Negative for cough, chest tightness and shortness of breath. Cardiovascular: Negative for chest pain and palpitations. Gastrointestinal: Negative for abdominal pain, constipation, diarrhea, nausea and vomiting. Endocrine: Negative for cold intolerance and heat intolerance. Genitourinary: Negative for dysuria, frequency, hematuria, pelvic pain, urgency, vaginal bleeding, vaginal discharge and vaginal pain. Musculoskeletal: Negative for arthralgias and myalgias. Skin: Negative for rash and wound. Neurological: Negative for dizziness, syncope, light-headedness and headaches. Psychiatric/Behavioral: Negative for agitation. The patient is not nervous/anxious. Oncologic History: - 04/17/2023: presented to [place] ED with R flank pain and nausea for [address] with finding of cystic pelvic mass, 21 cm, bilateral hydronephrosis R>L, omental and mesenteric soft tissue massesand retroperitoneal lymphadenopathy. Denies h/o PMB. 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 - 05/07/2023: C1 carboplatin and paclitaxel - 06/04/2023 : CA-125: 926, Her2 FISH results identify amplification - 06/06/2023: C2 carboplatin and paclitaxel, trastuzumab added with this cycle as potential uterineprimary vs ovarian - 06/27/2023: C3 carboplatin and paclitaxel, trastuzumab - 07/04/2023: Partial response by CT imaging, no new disease, attention to prominent axillary lymphnode on follow up - 07/16/2023: If ovarian primary, KELIM score 0.53 (poorly chemosensitive disease) - 08/04/2023: XL/OFELIA/BSO/Rectosigmoid resection en bloc with re- anastamosis/OMX/partial diaphgram resection and radical debulking and ureteral stent placement with final pathology showing 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, stage IIIC based on original imaging disease burden 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: 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 Malignant neoplasm of ovary (HCC) Osteoarthrosis knees Osteopenia Vitamin D deficiency PAST SURGICAL HISTORY Procedure Laterality Date BSO W/OMENTECTOMY OFELIA&RAD DEBULKING DISSECTION 08/04/2023 CYSTOSCOPY,INSERT URETHRAL STENT Left 08/04/2023 EXPL LAP W W/WO BX 08/04/2023 LAPAROSCOPIC HEMICOLECTOMY 08/04/2023 partial, removal of rectum lithotomy LIVER MOBILIZATION 08/04/2023 PAST SURGICAL HISTORY OF 1974 teeth pulled molars RAD.DISS, DEBULKING W/ PELV/PARA AORT LYMP 08/04/2023 limited bilateral para-arotic lymphadenectomy 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 HRT use: No. HEALTH MAINTENANCE: History of abnormal pap: No. Only 1 in her lifetime Last pap: 40 + years ago Last HPV: unknown Last mammogram: never Last colonoscopy: never, + cologard 04/2022 FAMILY HISTORY Problem Relation Age of Onset Osteoporosis Mother Hypertension Mother Migraines Mother other (thyroid nodule s/p partial thyroidectomy) Mother other (stomach problems) Mother other (BRADYCARDIA) Father Dementia Father other (hypothyroidism) Sister other (goiter) Maternal Grandfather other (goiter s/p MEIER and surgery) Maternal Aunt other (no f/o thyroid cancer) Other Ovarian cancer No Family History Breast Cancer No Family History Uterine Cancer No Family History Colon Cancer No Family History Pancreatic Cancer No Family History Social History Socioeconomic History Marital status: Spouse name: Patricio Number of children: 0 Occupational History 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 Vaping Use Vaping Use: Never used Substance and Sexual Activity Alcohol use: No Drug use: No Social Determinants of Health Financial Resource Strain: Low Risk (08/05/2023) Overall Financial Resource Strain (CARDIA) Difficulty of Paying Living Expenses: Not hard at all Food Insecurity: No Food Insecurity (08/05/2023) Hunger Vital Sign Worried About Running Out of Food in the Last Year: Never true Ran Out of Food in the Last Year: Never true Transportation Needs: No Transportation Needs (08/05/2023) PRAPARE - Transportation Lack of Transportation (Medical): No Lack of Transportation (Non-Medical): No Housing Stability: Low Risk (08/05/2023) Housing Stability Vital Sign Unable to Pay for Housing in the Last Year: No Number of Places Lived in the Last Year: 1 Unstable Housing in the Last Year: No MEDICATIONS / ALLERGIES: Current Outpatient Medications Medication Sig polyethylene glycol 3350 17 gram packet Take 1 Packet by mouth once daily. Dissolve dose in 4 - 8 ounces of liquid and take as directed. acetaminophen (TYLENOL) 325 mg tablet Take 2 tablets by mouth every 6 hours as needed for pain. apixaban (ELIQUIS) 5 mg tab(s) Take 1 tablet by mouth two times a day. For 25 days iv contrast (will be provided with radiology test) MRI Female Pelvis Inject, intravenously, once for 1 dose. No IV access, insert saline lock prior to the beginning of sedation, infusion, injection of imaging exam. Discontinue saline lock post exam. If Pt has a central line or IVAD, may access for administration according to line specific nursing protocol. Once exam is complete flush line and de-access according to line specific nursing protocol in the MR contrast administration guidelines link. ondansetron (ZOFRAN) 8 mg tablet Take 1 tablet by mouth every 8 hours as needed for nausea/vomiting. promethazine (PHENERGAN) 25 mg tablet Take 1 tablet by mouth every 4 hours as needed for nausea/vomiting. Cholecalciferol, Vitamin D3, (D3-5000) 125 mcg (5,000 unit) cap Take 5,000 Units by mouth once daily. levothyroxine (SYNTHROID) 50 mcg tablet Take 1 tablet by mouth once daily. (Patient taking differently: Take 75 mcg by mouth once daily.) lisinopril (ZESTRIL, PRINIVIL) 10 mg tablet Take 1 tablet by mouth once daily. No current facility-administered medications for this visit. ALLERGIES ALLERGIES No Known Allergies PHYSICAL EXAM: BP 126/84 (BP Site: Left Arm, BP Position: Sitting, BP Cuff Size: Regular Adult) Pulse 95 Temp 36.8 C (98.3 F) (Oral) Wt 56.2 kg (124 lb) SpO2 100% BMI 20.01 kg/m Physical Exam Abdominal: Comments: Well healing vertical midline incision, c/d/i LABS: Final pathology 08/04/2023: FINAL DIAGNOSIS A. Falciform ligament and fat pad, excision: -- Fibroadipose tissue, negative for carcinoma. B. Right diaphragma nodule, biopsy: -- High-grade serous carcinoma. C. Left peritoneal gutter nodule, excision: -- High-grade serous carcinoma. D. Cervix, anterior cervical margin, biopsy: -- Denuded cervical stroma, negative for carcinoma. E. Uterus without cervix with bilateral fallopian tubes and ovaries and sigmoid colon, total abdominal hysterectomy with bilateral salpingo-oophorectomy and partial colectomy: -- Bilateral ovaries: Residual high-grade serous carcinoma, status post neoadjuvant chemotherapy, see comment and case summary. -- Bilateral fallopian tubes: Negative for carcinoma, see comment. -- Endometrium: Focal atypical endometrial hyperplasia, see comment. -- Myometrium: Leiomyomata and adenomyosis. -- Uterine serosa involved by high-grade serous carcinoma and endometriosis. -- Cervix: Completely denuded cervix, no squamous epithelium present for evaluation. -- Segment of colon with serosal and mesenteric implants of high-grade serous carcinoma and serosalendometriosis. -- Mesentery with implant of high-grade serous carcinoma. -- Metastatic carcinoma in one out of three mesenteric lymph nodes (07/21). F. Descending colon margin, resection: -- Segment of colon, negative for carcinoma. G. Colon donuts: -- Segments of colon, negative for carcinoma. H. Omentum, omentectomy: -- Residual high-grade serous carcinoma (2 cm in biggest dimension), CRS2 (moderate response). Diagnosis Comment Part E: Immunohistochemical stain for p53 has been performed on sections of the left fallopian tube and shows wild-type positivity. Right ovary demonstrate underlying serous cystadenofibroma. Entire endometrium has beenexamined including additional deeper levels. Part H: Immunohistochemical stains have been performed and results are as follows: The neoplasticcells are diffusely and strongly positive for p53 (aberrant staining), diffusely and strongly positive for p16 (block type positivity), positive for ER ( 41-50%, strong intensity) and negative for AL, Napsin A and AMACR. Selected slides have been reviewed by Dr. Genet Cortes, who concurs with the above findings. Laboratory Developed Test (LDT) Disclaimer: Performance characteristics of immunohistochemical, immunofluorescent and chromogenic in-situ hybridization tests have been determined by the performing laboratory within [facility] s [facility] [place] ([facility], [facility], [facility], [facility], [facility], [facility], or [facility]) in a manner consistent with CLIA requirements. One or more of these tests have not been cleared or approved by the FDA. [facility] is regulated under CLIA as qualified to perform high-complexity testing. These tests are used for clinical purposes. They should not be regarded as invest igational or for research. Positive and negative controls stain appropriately. Synoptic Report OVARY or FALLOPIAN TUBE or PRIMARY PERITONEUM 8th Edition - Protocol posted: 10/09/2022 OVARY OR FALLOPIAN TUBE OR PRIMARY PERITONEUM: RESECTION - All Specimens SPECIMEN Procedure Total hysterectomy and bilateral salpingo-oophorectomy Omentectomy Peritoneal biopsies Peritoneal tumor debulking Partial colectomy Hysterectomy Type Abdominal Specimen Integrity Right Ovary Integrity Capsule intact Specimen Integrity Left Ovary Integrity Capsule intact Specimen Integrity Right Fallopian Tube Integrity Serosa intact Specimen Integrity Left Fallopian Tube Integrity Serosa intact TUMOR Tumor Site Bilateral ovaries Tumor Size Greatest Dimension (Centimeters): 12 cm Histologic Type High grade serous carcinoma Histologic Grade High grade Ovarian Surface Involvement Not identified Fallopian Tube Surface Involvement Not identified Other Tissue / Organ Involvement Pelvic peritoneum Abdominal peritoneum Omentum Largest Extrapelvic Peritoneal Focus Macroscopic (2 cm or less): Omentum Peritoneal / Ascitic Fluid Involvement Not submitted / unknown Chemotherapy Response Score (CRS) CRS2 (moderate response) REGIONAL LYMPH NODES Regional Lymph Node Status Tumor present in regional lymph node(s) Number of Nodes with Metastasis Greater than 10 mm 0 Number of Nodes with Metastasis 10 mm or Less (excluding isolated tumor cells) 1 Jamil Site(s) with Tumor Mesenteric Size of Largest Jamil Metastatic Deposit 2 mm Location of Largest Jamil Metastatic Deposit Mesenteric Number of Lymph Nodes Examined 3 Jamil Site(s) Examined Mesenteric pTNM CLASSIFICATION (AJCC 8th Edition) Reporting of pT, pN, and (when applicable) pM categories is based on information available to the pathologist at the time the report is issued. As per the AJCC (Chapter 1, 8th Ed.) it is the managingphysician s responsibility to establish the final pathologic stage based upon all pertinent information, including but potentially not limited to this pathology report. Modified Classification y pT Category pT3b pN Category pN1a FIGO STAGE FIGO Stage IIIB ADDITIONAL FINDINGS Additional Findings Endometriosis IMAGING: None new relevant for review ASSESSMENT/PLAN: Juliann Myles is a 67 year old with large pelvic mass elevated with metastasis to omentum and lymph nodes and abnormal Ca125. 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: - s/p 3 cycles neoadjuvant chemotherapy with presumption of uterine vs ovarian primary - MMR proficient by IHC - Her2 amplified by FISH - Pathology and operative findings reviewed, ovarian primary, plan to resume chemo in 3-4 weeks, will drop trastuzumab from treatment and continue carboplatin and paclitaxel for 3 additional cycles, repeat CT c/a/p after [ ] f/u tumor and genetic testing # Post operative recovery: - recovering well, hematuria likely related to eliquis/stent in place - scheduled to have stent removed I spent a total of 30 minutes on the date of the service which included preparing to see the patient, [id number] patient care, completing clinical documentation, obtaining and/or reviewing separately obtained history, performing a medically appropriate examination, counseling and educating the pat ient/family/caregiver, and ordering medications, tests, or procedures. Lonnie Arevalo MD, MS Gynecologic Oncologist [facility] History of Past illness Narrative* Problem Noted Date Diagnosed Date Resolved Date Pelvic mass 07/24/2023 07/24/2023 08/04/2023 Hypertension 07/24/2023 07/24/2023 08/04/2023 Last Assessment & Plan: -Lisinopril 10 mg daily- continue, take morning of surgery -BP elevated during PAT -Patient anxious for surgery -At home BP120/85- encouraged patient to monitor BP at home and follow up with PCP as needed -PCP visit on 06/18/2023 BP 145/85 -Denies SOB and CP Malignant neoplasm of ovary 07/24/2023 07/24/2023 08/04/2023 Last Assessment & Plan: -Surgical intervention scheduled for 08/04/2023 Pre-op exam 07/24/2023 08/04/2023 Last Assessment & Plan: -Identify any potential anesthesia problems or contraindications to the planned procedure. History of echocardiogram 07/24/2023 Last Assessment & Plan: 05/2023 Echo: CONCLUSIONS: - Exam indication: Baseline and serial evaluation in a patient undergoing therapy with cardiotoxic agents - The left ventricle is normal in size. Left ventricular systolic function is normal. EF = 62 5% (2D biplane) Grade I left ventricular diastolic dysfunction. - The right ventricle is normal in size. Right ventricular systolic function is normal. - The left atrial cavity is mildly dilated. - There are no significant valvular abnormalities. - The patient has not had a prior CC echocardiographic exam for comparison. Frequent headaches 4 Osteoarthrosis 08/04/2023 documented as of this encounter (statuses as of 09/06/2023) [facility]01-04[facility] History of Past illness Narrative* Problem Noted Date Diagnosed Date Resolved Date Pelvic mass 07/24/2023 07/24/2023 08/04/2023 Hypertension 07/24/2023 07/24/2023 08/04/2023 Last Assessment & Plan: -Lisinopril 10 mg daily- continue, take morning of surgery -BP elevated during PAT -Patient anxious for surgery -At home BP120/85- encouraged patient to monitor BP at home and follow up with PCP as needed -PCP visit on 06/18/2023 BP 145/85 -Denies SOB and CP Malignant neoplasm of ovary 07/24/2023 07/24/2023 08/04/2023 Last Assessment & Plan: -Surgical intervention scheduled for 08/04/2023 Pre-op exam 07/24/2023 08/04/2023 Last Assessment & Plan: -Identify any potential anesthesia problems or contraindications to the planned procedure. History of echocardiogram 07/24/2023 Last Assessment & Plan: 05/2023 Echo: CONCLUSIONS: - Exam indication: Baseline and serial evaluation in a patient undergoing therapy with cardiotoxic agents - The left ventricle is normal in size. Left ventricular systolic function is normal. EF = 62 5% (2D biplane) Grade I left ventricular diastolic dysfunction. - The right ventricle is normal in size. Right ventricular systolic function is normal. - The left atrial cavity is mildly dilated. - There are no significant valvular abnormalities. - The patient has not had a prior CC echocardiographic exam for comparison. Frequent headaches 4 Osteoarthrosis 08/04/2023 documented as of this encounter (statuses as of 09/12/2023) [facility] History of Past illness Narrative* Problem Noted Date Diagnosed Date Resolved Date Pelvic mass 07/24/2023 07/24/2023 08/04/2023 Hypertension 07/24/2023 07/24/2023 08/04/2023 Last Assessment & Plan: -Lisinopril 10 mg daily- continue, take morning of surgery -BP elevated during PAT -Patient anxious for surgery -At home BP120/85- encouraged patient to monitor BP at home and follow up with PCP as needed -PCP visit on 06/18/2023 BP 145/85 -Denies SOB and CP Malignant neoplasm of ovary 07/24/2023 07/24/2023 08/04/2023 Last Assessment & Plan: -Surgical intervention scheduled for 08/04/2023 Pre-op exam 07/24/2023 08/04/2023 Last Assessment & Plan: -Identify any potential anesthesia problems or contraindications to the planned procedure. History of echocardiogram 07/24/2023 Last Assessment & Plan: 05/2023 Echo: CONCLUSIONS: - Exam indication: Baseline and serial evaluation in a patient undergoing therapy with cardiotoxic agents - The left ventricle is normal in size. Left ventricular systolic function is normal. EF = 62 5% (2D biplane) Grade I left ventricular diastolic dysfunction. - The right ventricle is normal in size. Right ventricular systolic function is normal. - The left atrial cavity is mildly dilated. - There are no significant valvular abnormalities. - The patient has not had a prior CC echocardiographic exam for comparison. Frequent headaches 4 Osteoarthrosis 08/04/2023 documented as of this encounter (statuses as of 09/17/2023) [facility] History of Past illness Narrative* Problem Noted Date Diagnosed Date Resolved Date Pelvic mass 07/24/2023 07/24/2023 08/04/2023 Hypertension 07/24/2023 07/24/2023 08/04/2023 Last Assessment & Plan: -Lisinopril 10 mg daily- continue, take morning of surgery -BP elevated during PAT -Patient anxious for surgery -At home BP120/85- encouraged patient to monitor BP at home and follow up with PCP as needed -PCP visit on 06/18/2023 BP 145/85 -Denies SOB and CP Malignant neoplasm of ovary 07/24/2023 07/24/2023 08/04/2023 Last Assessment & Plan: -Surgical intervention scheduled for 08/04/2023 Pre-op exam 07/24/2023 08/04/2023 Last Assessment & Plan: -Identify any potential anesthesia problems or contraindications to the planned procedure. History of echocardiogram 07/24/2023 Last Assessment & Plan: 05/2023 Echo: CONCLUSIONS: - Exam indication: Baseline and serial evaluation in a patient undergoing therapy with cardiotoxic agents - The left ventricle is normal in size. Left ventricular systolic function is normal. EF = 62 5% (2D biplane) Grade I left ventricular diastolic dysfunction. - The right ventricle is normal in size. Right ventricular systolic function is normal. - The left atrial cavity is mildly dilated. - There are no significant valvular abnormalities. - The patient has not had a prior CC echocardiographic exam for comparison. Frequent headaches 01/15/202 4 Osteoarthrosis 08/04/2023 documented as of this encounter (statuses as of 09/18/2023) [facility] History of Past illness Narrative* Problem Noted Date Diagnosed Date Resolved Date Pelvic mass 07/24/2023 07/24/2023 08/04/2023 Hypertension 07/24/2023 07/24/2023 08/04/2023 Last Assessment & Plan: -Lisinopril 10 mg daily- continue, take morning of surgery -BP elevated during PAT -Patient anxious for surgery -At home BP120/85- encouraged patient to monitor BP at home and follow up with PCP as needed -PCP visit on 06/18/2023 BP 145/85 -Denies SOB and CP Malignant neoplasm of ovary 07/24/2023 07/24/2023 08/04/2023 Last Assessment & Plan: -Surgical intervention scheduled for 08/04/2023 Pre-op exam 07/24/2023 08/04/2023 Last Assessment & Plan: -Identify any potential anesthesia problems or contraindications to the planned procedure. History of echocardiogram 07/24/2023 Last Assessment & Plan: 05/2023 Echo: CONCLUSIONS: - Exam indication: Baseline and serial evaluation in a patient undergoing therapy with cardiotoxic agents - The left ventricle is normal in size. Left ventricular systolic function is normal. EF = 62 5% (2D biplane) Grade I left ventricular diastolic dysfunction. - The right ventricle is normal in size. Right ventricular systolic function is normal. - The left atrial cavity is mildly dilated. - There are no significant valvular abnormalities. - The patient has not had a prior CC echocardiographic exam for comparison. Frequent headaches 4 Osteoarthrosis 08/04/2023 documented as of this encounter (statuses as of 09/21/2023) [facility] History of Past illness Narrative* Problem Noted Date Diagnosed Date Resolved Date Pelvic mass 07/24/2023 07/24/2023 08/04/2023 Hypertension 07/24/2023 07/24/2023 08/04/2023 Last Assessment & Plan: -Lisinopril 10 mg daily- continue, take morning of surgery -BP elevated during PAT -Patient anxious for surgery -At home BP120/85- encouraged patient to monitor BP at home and follow up with PCP as needed -PCP visit on 06/18/2023 BP 145/85 -Denies SOB and CP Malignant neoplasm of ovary 07/24/2023 07/24/2023 08/04/2023 Last Assessment & Plan: -Surgical intervention scheduled for 08/04/2023 Pre-op exam 07/24/2023 08/04/2023 Last Assessment & Plan: -Identify any potential anesthesia problems or contraindications to the planned procedure. History of echocardiogram 07/24/2023 Last Assessment & Plan: 05/2023 Echo: CONCLUSIONS: - Exam indication: Baseline and serial evaluation in a patient undergoing therapy with cardiotoxic agents - The left ventricle is normal in size. Left ventricular systolic function is normal. EF = 62 5% (2D biplane) Grade I left ventricular diastolic dysfunction. - The right ventricle is normal in size. Right ventricular systolic function is normal. - The left atrial cavity is mildly dilated. - There are no significant valvular abnormalities. - The patient has not had a prior CC echocardiographic exam for comparison. Frequent headaches 4 Osteoarthrosis 08/04/2023 documented as of this encounter (statuses as of 09/22/2023) [facility]12-27-[facility] History of Present illness Narrative* Lonnie Arevalo MD - 07/16/2023 6:42 PM EST GYNECOLOGIC ONCOLOGY FOLLOW UP SERVICE DATE: 07/16/2023 SERVICE TIME: 3:47 PM I have communicated my name and active licensure. The patient's identity and physical location wereverified at the time of this visit. Either the patient or their legal agency service representative has been informed of the risks and benefits of -- and alternatives to -- treatment through a remote evaluation andconsents to proceed with the evaluation remotely. PRIMARY CARE PHYSICIAN: Manpreet Nunez MD CHIEF COMPLAINT/HISTORY OF PRESENT ILLNESS/ROS: CC: Pelvic masses Referring Provider: Dr. Pamella Sanabria/ [place] [facility] HPI: Feeling well. More energy than prior cycles and overall better than prior to starting chemotherapy. The history is provided by the patient and the spouse. No language translator was used. ROS: Review of Systems Constitutional: Negative for activity change, diaphoresis, fever and unexpected weight change. HENT: Negative for ear pain, hearing loss and mouth sores. Eyes: Negative for pain and visual disturbance. Respiratory: Negative for cough, chest tightness and shortness of breath. Cardiovascular: Negative for chest pain and palpitations. Gastrointestinal: Negative for abdominal pain, constipation, diarrhea, nausea and vomiting. Endocrine: Negative for cold intolerance and heat intolerance. Genitourinary: Negative for dysuria, frequency, hematuria, pelvic pain, urgency, vaginal bleeding, vaginal discharge and vaginal pain. Musculoskeletal: Negative for arthralgias and myalgias. Skin: Negative for rash and wound. Neurological: Negative for dizziness, syncope, light-headedness and headaches. Psychiatric/Behavioral: Negative for agitation. The patient is not nervous/anxious. Oncologic History: - 04/17/2023: presented to [place] [facility] with R flank pain and nausea for [address] with finding of cystic pelvic mass, 21 cm, bilateral hydronephrosis R>L, omental and mesenteric soft tissue massesand retroperitoneal lymphadenopathy. Denies h/o PMB. 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 - 05/07/2023: C1 carboplatin and paclitaxel - 06/04/2023 : CA-125: 926, Her2 FISH results identify amplification - 06/06/2023: C2 carboplatin and paclitaxel, trastuzumab added with this cycle as potential uterineprimary vs ovarian - 06/27/2023: C3 carboplatin and paclitaxel, trastuzumab - 07/04/2023: Partial response by CT imaging, no new disease, attention to prominent axillary lymphnode on follow up - 07/16/2023: If ovarian primary, KELIM score 0.53 (poorly chemosensitive disease) 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: 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 HRT use: No. HEALTH MAINTENANCE: History of abnormal pap: No. Only 1 in her lifetime Last pap: 40 + years ago Last HPV: unknown Last mammogram: never Last colonoscopy: never, + cologard 04/2022 FAMILY HISTORY Problem Relation Age of Onset Osteoporosis Mother Hypertension Mother Migraines Mother other (thyroid nodule s/p partial thyroidectomy) Mother other (stomach problems) Mother other (BRADYCARDIA) Father Dementia Father other (hypothyroidism) Sister other (goiter) Maternal Grandfather other (goiter s/p MEIER and surgery) Maternal Aunt other (no f/o thyroid cancer) Other Ovarian cancer No Family History Breast Cancer No Family History Uterine Cancer No Family History Colon Cancer No Family History Pancreatic Cancer No Family History Social History Socioeconomic History Marital status: Spouse name: Patricio Number of children: 0 Occupational History 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 Substance and Sexual Activity Alcohol use: No Drug use: No MEDICATIONS / ALLERGIES: Current Outpatient Medications Medication Sig iv contrast (will be provided with radiology test) MRI Female Pelvis Inject, intravenously, once for 1 dose. No IV access, insert saline lock prior to the beginning of sedation, infusion, injection of imaging exam. Discontinue saline lock post exam. If Pt has a central line or IVAD, may access for administration according to line specific nursing protocol. Once exam is complete flush line and de-access according to line specific nursing protocol in the MR contrast administration guidelines link. Surgical Lubricant Jelly gel For MRI Female Pelvis, MRI department to provide. Administer intra-vaginal Surgilube immediately prior the MRI procedure (total amount to patient toleranace). ondansetron (ZOFRAN) 8 mg tablet Take 1 tablet by mouth every 8 hours as needed for nausea/vomiting. promethazine (PHENERGAN) 25 mg tablet Take 1 tablet by mouth every 4 hours as needed for nausea/vomiting. Cholecalciferol, Vitamin D3, (D3-5000) 125 mcg (5,000 unit) cap Take 5,000 Units by mouth once daily. levothyroxine (SYNTHROID) 50 mcg tablet Take 1 tablet by mouth once daily. lisinopril (ZESTRIL, PRINIVIL) 10 mg tablet Take 1 tablet by mouth once daily. No current facility-administered medications for this visit. ALLERGIES ALLERGIES No Known Allergies PHYSICAL EXAM: Limited by virtual nature of visit LABS: Hemoglobin (g/dL) Date Value 07/15/2023 10.0 Hematocrit (%) Date Value 07/15/2023 30.4 WBC (k/uL) Date Value 07/15/2023 2.46 Platelet Count (k/uL) Date Value 07/15/2023 298 CMP: Glucose 101 07/15/2023 BUN 24 07/15/2023 Creatinine 1.00 07/15/2023 NA 137 07/15/2023 K 3.8 07/15/2023 Chloride 103 07/15/2023 CO2 26 07/15/2023 Protein, Total 7.2 07/15/2023 Albumin 4.4 07/15/2023 Calcium 10.0 07/15/2023 Alk Phos Total 88 07/15/2023 Bilirubin, Total 0.2 07/15/2023 AST (SGOT) 19 07/15/2023 ALT (SGPT) 16 07/15/2023 IMAGING: CT chest/abdomen/pelvis 07/04/2023: IMPRESSION: Chest CT: Mildly prominent left axillary lymph node with slight increase in size compared to 04/18/2023. No pulmonary nodules or pleural effusion. Abdomen/pelvis CT: Redemonstration of bilateral large adnexal cystic masses consistent with known ovarian malignancy. There has been a decrease in size of the right pelvic mass compared to 04/09/2023. Left pelvic mass is relatively unchanged. Please see recent 06/26/2023 MRI of pelvis for further description of these masses. Mild right hydronephrosis which has improved compared to 04/17/2023, probably due to the decrease in size of the right pelvic mass. No metastatic lesions or adenopathy in the abdomen and pelvis. MRI Pelvis 06/26/2023: IMPRESSION: 1. Bilateral adnexal cystic masses consistent with patient's history of ovarian cancer 2. Mild right-sided hydronephrosis ASSESSMENT/PLAN: Juliann Myles is a 67 year old with large pelvic mass elevated with metastasis to omentum and lymph nodes and abnormal Ca125. 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: - s/p 3 cycles neoadjuvant chemotherapy with presumption of uterine vs ovarian primary - MMR proficient by IHC - Her2 amplified by FISH - Tolerating chemo well, has had an improvement in symptoms and QOL with partial response based on biochemical and imaging evaluation, will based ultimate determination of primary tumor on surgical pathology, reviewed plan for interval cytoreduction # Preoperative discussion: We discussed proceeding with an interval cytoreduction to include: EUA, exploratory laparotomy, total abdominal hysterectomy, bilateral salpingoophorectomy, omentectomy and tumor debulking, possible bowel resection and reanastamosis, blood transfusion and any other indicated procedures. Risks, benefits, alternatives of surgical intervention were discussed. Risks including but not limited to: bleeding requiring blood transfusion, infection requiring antibiotics, venous thromboembolic disease, and injury to surrounding organs requiring additional procedures, pain and poor healing/cosmesis as well as general expectations for the duration and experience during recovery were reviewed. After reviewing these consent was sent electronically [ ] PAT [ ] Will need bowel prep day before [ ] discussed 28 days post operative DVT prophylaxis I spent a total of 30 minutes on the date of the service which included preparing to see the patient, tele-health patient care, completing clinical documentation, obtaining and/or reviewing separately obtained history, counseling and educating the patient/family/caregiver, and ordering medications, tests, or procedures. Lonnie Arevalo MD, MS Gynecologic Oncologist documented in this encounterMer[facility]12-15-[facility]23 History of Present illness Narrative* Sylwia Paz, RT(R) - 07/04/2023 9:20 AM EST Radiology Service Progress Note DATE OF SERVICE: July 04, 2023 TIME: 12:41 PM PATIENT IDENTITY VERIFICATION COMPLETED USING TWO (2) STANDARD IDENTIFIERS: Name and Date of confirmed by patient verbally. FALL SCREENING: Has the patient had 2 falls in the last year or 1 fall with injury or currently using an Ambulatory Assistive Device (Walker, Cane, Wheelchair, Crutches, etc.)? No PATIENT GENDER DATA: Female. status: : No status: NO. PATIENT RELEVANT IMPLANT DATA REVIEWED: Yes ALLERGIES: Reviewed and unchanged CONTRAST ALLERGY: NO. EXAM: CT -CONTRAST INDUCED NEPHROPATHY RISK FACTORS: Patient age > 60 years CREATININE: Creatinine Date Value Ref Range Status 06/25/2023 0.92 0.58 - 0.96 mg/dL Final 06/04/2023 0.97 (H) 0.58 - 0.96 mg/dL Final 05/14/2023 1.11 (H) 0.58 - 0.96 mg/dL Final Estimated Glomerular Filtration Rate Date Value Ref Range Status 06/25/2023 69 >=60 mL/min/1.73m Final Comment: Estimated Glomerular Filtration Rate (eGFR) is calculated using the 2020 CKD-EPI creatinine equation. This equation utilizes serum creatinine, sex, and age as parameters. The creatinine assay has traceable calibration to isotope dilution- mass spectrometry. Refer to KDIGO guidelines for clinical interpretation. In patients with unstable renal function, e.g. those with acute kidney injury, the eGFRmay not accurately reflect actual GFR. eGFR- Date Value Ref Range Status 09/01/2020 >60 Final P.O.C.T. RESULTS: POC done: Yes, See Lab Tab July 04, 2023 TREATMENT: N/A PERIPHERAL IV DATA: Ambulatory: A peripheral IV was started in the Left antecubital site with a Angio cath: 22 gauge. RADIOLOGY DEPARTMENT: CT; Exam(s) Completed: Chest Abdomen Pelvis SIGNATURE: RT Chet(R) PATIENT NAME: Juliann Myles DATE: July 04, 2023 TIME: 12:41 PM documented in this encounterMer[facility]12-13-2023 Miscellaneous Notes* Telephone Encounter - Les Bray RN - 07/02/2023 2:52 PM EST Treatment Regimen: carbotaxol trastuzumab cycle 3 Neuro: None Dizziness Headache Confusion Weakness Visual Mood Changes Numbness/Tingling Sensitivityto Cold/Heat Resp: None SOB Cough Edema Bleeding Palpitations Chest Pain/Discomfort/Pain GI/: None Mouth Pain Throat Pain Taste Changes Appetite Changes Nausea Diarrhea Constipation LastBM Fluid Intake Vomiting Bladder Changes Urinary Changes Wt Gain Wt Loss Yellow of skin/eyes Integument: None Skin Changes Itching Muscle Pain Joint Pain Activity: Level: 0-100% 60% Do you take naps? No Yes Chills: No Yes Fever: No Yes Temp:____ Pain No Yes Scale: 0-10 Any new referrals needed? No Yes Reinforced CURRENT treatment education based on current and anticipated symptoms. Yes NO Discussed Port/Line care and patient verbalizes understanding Yes No Patient instructed to contact office or after hours for Temp 100.4 or > Yes No Symptoms explained: rash, head to toe, she has been using cold compresses, hydrocortisone cream andaloe. This rash is worse than last time, on legs, torso, back, stomach and neck. Has started since yesterday 07/01/23. documented in this encounterMer[facility]12-07-2023 History of Present illness Narrative* Sulema Anne RT(R) - 06/26/2023 3:00 PM EST Radiology Service Progress Note DATE OF SERVICE: June 26, 2023 TIME: 3:22 PM PATIENT IDENTITY VERIFICATION COMPLETED USING TWO (2) STANDARD IDENTIFIERS: Name and Date of confirmed by patient verbally. FALL SCREENING: Has the patient had 2 falls in the last year or 1 fall with injury or currently using an Ambulatory Assistive Device (Walker, Cane, Wheelchair, Crutches, etc.)? No PATIENT GENDER DATA: Female. status: : No status: NO. PATIENT RELEVANT IMPLANT DATA REVIEWED: Yes ALLERGIES: Reviewed and unchanged CONTRAST ALLERGY: NO. EXAM: MRI - CONTRAST TYPE: GROUP II PERIPHERAL IV DATA: Ambulatory: A peripheral IV was started in the Left antecubital site with a Angio cath: 22 gauge. RADIOLOGY DEPARTMENT: MR; Exam(s) Completed: Body: Female Pelvis SIGNATURE: RT Yonis(R) PATIENT NAME: Juliann Myles DATE: June 26, 2023 TIME: 3:22 PM documented in this encounterMer[facility]12-06-2023 History of Present illness Narrative* Lonnie Arevalo MD - 06/25/2023 9:00 AM EST GYNECOLOGIC ONCOLOGY FOLLOW UP SERVICE DATE: 06/25/2023 SERVICE TIME: 3:47 PM PRIMARY CARE PHYSICIAN: Manpreet Nunez MD CHIEF COMPLAINT/HISTORY OF PRESENT ILLNESS/ROS: CC: Pelvic masses Referring Provider: Dr. Pamella Sanabria/ [place] [facility] HPI: Feeling much better with this cycle. Less fatigue and less nausea. Stable minimal neuropathy symptoms, no impact on function. The history is provided by the patient. No language translator was used. ROS: Review of Systems Constitutional: Positive for fatigue. Negative for activity change, diaphoresis, fever and unexpected weight change. HENT: Negative for ear pain, hearing loss and mouth sores. Eyes: Negative for pain and visual disturbance. Respiratory: Negative for cough, chest tightness and shortness of breath. Cardiovascular: Negative for chest pain and palpitations. Gastrointestinal: Positive for nausea. Negative for abdominal pain, constipation, diarrhea and vomiting. Endocrine: Negative for cold intolerance and heat intolerance. Genitourinary: Negative for dysuria, frequency, hematuria, pelvic pain, urgency, vaginal bleeding, vaginal discharge and vaginal pain. Musculoskeletal: Negative for arthralgias and myalgias. Skin: Negative for rash and wound. Neurological: Negative for dizziness, syncope, light-headedness and headaches. Psychiatric/Behavioral: Negative for agitation. The patient is not nervous/anxious. Oncologic History: - 04/17/2023: presented to [place] ED with R flank pain and nausea for [address] with finding of cystic pelvic mass, 21 cm, bilateral hydronephrosis R>L, omental and mesenteric soft tissue massesand retroperitoneal lymphadenopathy. Denies h/o PMB. 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 HRT use: No. HEALTH MAINTENANCE: History of abnormal pap: No. Only 1 in her lifetime Last pap: 40 + years ago Last HPV: unknown Last mammogram: never Last colonoscopy: never, + cologard 04/2022 FAMILY HISTORY Problem Relation Age of Onset Osteoporosis Mother Hypertension Mother Migraines Mother other (thyroid nodule s/p partial thyroidectomy) Mother other (stomach problems) Mother other (BRADYCARDIA) Father Dementia Father other (hypothyroidism) Sister other (goiter) Maternal Grandfather other (goiter s/p MEIER and surgery) Maternal Aunt other (no f/o thyroid cancer) Other Ovarian cancer No Family History Breast Cancer No Family History Uterine Cancer No Family History Colon Cancer No Family History Pancreatic Cancer No Family History Social History Socioeconomic History Marital status: Spouse name: Patricio Number of children: 0 Occupational History 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 Substance and Sexual Activity Alcohol use: No Drug use: No MEDICATIONS / ALLERGIES: Current Outpatient Medications Medication Sig ondansetron (ZOFRAN) 8 mg tablet Take 1 tablet by mouth every 8 hours as needed for nausea/vomiting. promethazine (PHENERGAN) 25 mg tablet Take 1 tablet by mouth every 4 hours as needed for nausea/vomiting. Cholecalciferol, Vitamin D3, (D3-5000) 125 mcg (5,000 unit) cap Take 5,000 Units by mouth once daily. levothyroxine (SYNTHROID) 50 mcg tablet Take 1 tablet by mouth once daily. lisinopril (ZESTRIL, PRINIVIL) 10 mg tablet Take 1 tablet by mouth once daily. No current facility-administered medications for this visit. ALLERGIES ALLERGIES No Known Allergies PHYSICAL EXAM: BP 171/103 (BP Site: Left Arm, BP Position: Sitting, BP Cuff Size: Regular Adult) Pulse 71 Temp36.8 C (98.2 F) (Oral) Ht 168.9 cm (5' 6.5) Wt 59 kg (130 lb) SpO2 100% BMI 20.67 kg/m Physical Exam Constitutional: Appearance: Normal appearance. HENT: Head: Normocephalic. Nose: Nose normal. Mouth/Throat: Mouth: Mucous membranes are moist. Eyes: Conjunctiva/sclera: Conjunctivae normal. Cardiovascular: Rate and Rhythm: Normal rate and regular rhythm. Pulses: Normal pulses. Heart sounds: Normal heart sounds. Pulmonary: Breath sounds: Normal breath sounds. Abdominal: General: Abdomen is flat. Palpations: Abdomen is soft. Tenderness: There is no abdominal tenderness. There is no guarding or rebound. Musculoskeletal: General: Normal range of motion. Skin: General: Skin is warm and dry. Neurological: General: No focal deficit present. Mental Status: She is alert and oriented to person, place, and time. LABS: Labs for this cycle drawn, pending at this time IMAGING: None new relevant for review. ASSESSMENT/PLAN: Juliann Myles is a 67 year old with large pelvic mass elevated with metastasis to omentum and lymph nodes and abnormal Ca125. 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: - Reviewed recommendation for neoadjuvant chemotherapy with presumption of uterine vs ovarian primary - MMR proficient by IHC - Her2 amplified by FISH - Tolerating chemo well, felt better with second cycle - Continue carboplatin/paclitaxel and trastuzumab with next infusion 06/27 [ ] Pelvic MRI to assist in surgical plan given concern for hydronephrosis on initial scans [ ] f/u CT chest/abd/pelvis to review for consideration of interval debulking [ ] set aside surgical date for early July 2023 Follow up with virtual visit 07/07/2023 I spent a total of 40 minutes on the date of the service which included preparing to see the patient, [id number] patient care, completing clinical documentation, obtaining and/or reviewing separately obtained history, performing a medically appropriate examination, counseling and educating the pat ient/family/caregiver, and ordering medications, tests, or procedures. Lonnie Arevalo MD, MS Gynecologic Oncologist documented in this encounterMer[facility]11-15-2023 History of Present illness Narrative* Lonnie Arevalo MD - 06/04/2023 10:30 AM EST GYNECOLOGIC ONCOLOGY FOLLOW UP SERVICE DATE: 04/30/2023 SERVICE TIME: 3:47 PM PRIMARY CARE PHYSICIAN: Manpreet Nunez MD CHIEF COMPLAINT/HISTORY OF PRESENT ILLNESS/ROS: CC: Pelvic masses Referring Provider: Dr. Pamella Sanabria/ [place] [facility] HPI: Some nuasea, controlled with zofran. Regular BM for a few days. Shelby better after about 7 days. The history is provided by the patient and the spouse. ROS: Review of Systems Constitutional: Positive for fatigue. Negative for activity change, diaphoresis, fever and unexpected weight change. HENT: Negative for ear pain, hearing loss and mouth sores. Eyes: Negative for pain and visual disturbance. Respiratory: Negative for cough, chest tightness and shortness of breath. Cardiovascular: Negative for chest pain and palpitations. Gastrointestinal: Positive for nausea. Negative for abdominal pain, constipation, diarrhea and vomiting. Endocrine: Negative for cold intolerance and heat intolerance. Genitourinary: Negative for dysuria, frequency, hematuria, pelvic pain, urgency, vaginal bleeding, vaginal discharge and vaginal pain. Musculoskeletal: Negative for arthralgias and myalgias. Skin: Negative for rash and wound. Neurological: Negative for dizziness, syncope, light-headedness and headaches. Psychiatric/Behavioral: Negative for agitation. The patient is not nervous/anxious. Oncologic History: - 04/17/2023: presented to [place] ED with R flank pain and nausea for [address] with finding of cystic pelvic mass, 21 cm, bilateral hydronephrosis R>L, omental and mesenteric soft tissue massesand retroperitoneal lymphadenopathy. Denies h/o PMB. 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 HRT use: No. HEALTH MAINTENANCE: History of abnormal pap: No. Only 1 in her lifetime Last pap: 40 + years ago Last HPV: unknown Last mammogram: never Last colonoscopy: never, + cologard 04/2022 FAMILY HISTORY Problem Relation Age of Onset Osteoporosis Mother Hypertension Mother Migraines Mother other (thyroid nodule s/p partial thyroidectomy) Mother other (stomach problems) Mother other (BRADYCARDIA) Father Dementia Father other (hypothyroidism) Sister other (goiter) Maternal Grandfather other (goiter s/p MEIER and surgery) Maternal Aunt other (no f/o thyroid cancer) Other Ovarian cancer No Family History Breast Cancer No Family History Uterine Cancer No Family History Colon Cancer No Family History Pancreatic Cancer No Family History Social History Socioeconomic History Marital status: Spouse name: Patricio Number of children: 0 Occupational History 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 Substance and Sexual Activity Alcohol use: No Drug use: No MEDICATIONS / ALLERGIES: Current Outpatient Medications Medication Sig ondansetron (ZOFRAN) 8 mg tablet Take 1 tablet by mouth every 8 hours as needed for nausea/vomiting. promethazine (PHENERGAN) 25 mg tablet Take 1 tablet by mouth every 4 hours as needed for nausea/vomiting. Cholecalciferol, Vitamin D3, (D3-5000) 125 mcg (5,000 unit) cap Take 5,000 Units by mouth once daily. levothyroxine (SYNTHROID) 50 mcg tablet Take 1 tablet by mouth once daily. lisinopril (ZESTRIL, PRINIVIL) 10 mg tablet Take 1 tablet by mouth once daily. No current facility-administered medications for this visit. ALLERGIES ALLERGIES No Known Allergies PHYSICAL EXAM: There were no vitals taken for this visit. Physical Exam Constitutional: Appearance: Normal appearance. HENT: Head: Normocephalic. Nose: Nose normal. Mouth/Throat: Mouth: Mucous membranes are moist. Eyes: Conjunctiva/sclera: Conjunctivae normal. Cardiovascular: Rate and Rhythm: Normal rate and regular rhythm. Pulses: Normal pulses. Heart sounds: Normal heart sounds. Pulmonary: Breath sounds: Normal breath sounds. Abdominal: General: Abdomen is flat. Palpations: Abdomen is soft. Tenderness: There is no abdominal tenderness. There is no guarding or rebound. Musculoskeletal: General: Normal range of motion. Skin: General: Skin is warm and dry. Neurological: General: No focal deficit present. Mental Status: She is alert and oriented to person, place, and time. LABS: Hemoglobin (g/dL) Date Value 06/04/2023 9.2 Hematocrit (%) Date Value 06/04/2023 29.4 WBC (k/uL) Date Value 06/04/2023 5.37 Platelet Count (k/uL) Date Value 06/04/2023 273 CMP: Glucose 86 06/04/2023 BUN 16 06/04/2023 Creatinine 0.97 06/04/2023 NA 138 06/04/2023 K 3.7 06/04/2023 Chloride 103 06/04/2023 CO2 25 06/04/2023 Protein, Total 7.3 06/04/2023 Albumin 4.4 06/04/2023 Calcium 10.0 06/04/2023 Alk Phos Total 71 06/04/2023 Bilirubin, Total 0.2 06/04/2023 AST (SGOT) 41 06/04/2023 ALT (SGPT) 39 06/04/2023 IMAGING: None new relevant for review. ASSESSMENT/PLAN: Juliann Myles is a 67 year old with large pelvic mass elevated with metastasis to omentum and lymph nodes and abnormal Ca125. 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: - Reviewed recommendation for neoadjuvant chemotherapy with presumption of uterine vs ovarian primary - MMR proficient by IHC - Her2 amplified by FISH - Additional questions regarding chemotherapy and prognosis answered - Continue carboplatin/paclitaxel and start trastuzumab I spent a total of 60 minutes on the date of the service which included preparing to see the patient, [id number] patient care, completing clinical documentation, obtaining and/or reviewing separately obtained history, performing a medically appropriate examination, counseling and educating the pat ient/family/caregiver, and ordering medications, tests, or procedures. Lonnie Arevalo MD, MS Gynecologic Oncologist documented in this encounterMer[facility]11-06-2023 Miscellaneous Notes* Telephone Encounter - Les Bray RN - 05/26/2023 9:48 AM EST Patient reports rash developed yesterday 05/25/23, on lower back and right back leg/thigh area. Red large patches of hives/bumps. It is not itching. Notified Dr. Arevalo of change. Per dr. Arevalo, patient to try OTC hydrocortisone cream, can apply up to 3-4 times daily. Patient tocall with update in a few days. documented in this encounterMercer [facility]10-30-2023 Miscellaneous Notes* Telephone Encounter - Les Bray RN - 05/19/2023 2:35 PM EDT Treatment Regimen: carbotaxol c1 Neuro: None Dizziness Headache Confusion Weakness Visual Mood Changes Numbness/Tingling Sensitivityto Cold/Heat Resp: None SOB Cough Edema Bleeding Palpitations Chest Pain/Discomfort/Pain GI/: None Mouth Pain Throat Pain Taste Changes Appetite Changes Nausea Diarrhea Constipation LastBM Fluid Intake Vomiting Bladder Changes Urinary Changes Wt Gain Wt Loss Yellow of skin/eyes Integument: None Skin Changes Itching Muscle Pain Joint Pain Activity: Level: 0-100% 60% Do you take naps? No Yes Chills: No Yes Fever: No Yes Temp:____ Pain No Yes Scale: 0-10 Any new referrals needed? No Yes Reinforced CURRENT treatment education based on current and anticipated symptoms. Yes NO Discussed Port/Line care and patient verbalizes understanding Yes No Patient instructed to contact office or after hours for Temp 100.4 or > Yes No Symptoms explained: shooting nerve pain in stomach, general malaise, heartburn on day 3, vomiting on day 3/4, she took zofran today which is helping. Will call tomorrow to check in. Provider notified. documented in this encounterMer[facility]2023 History of Present illness Narrative* Bailey Hull LISW - 05/16/2023 2:30 PM EDT TRISH met with pt and her during treatment at [facility]. Pt has MCR only and indicated that she was thinking about adding a MCR AP for 2023 during Open Enrollment. TRISH answered questions about MCR AP comparison and educated on MCR website to do comparisons. TRISH also informed pt that assistanceis available with comparison. Pt has this HUMAN RESOURCES DISTRICT MANAGER's contact information. * Bailey Hull LISW - 05/16/2023 2:29 PM EDT Images from the original note were not included. RE: Evaluation Machining Associate TRISH Brizuela Resource Counselor (RC) met with new patient to review the Patient Navigation process. RC advised patient their role as the associate team physician assisting patients in navigating the system both in the hospital as well as connecting patients with resources in the community. RC did review with patient the results of their completed Distress Thermometer. Any indicated areas of concern were addressed and referrals made as appropriate. Informed patient of the process of the benefits investigation which wouldbe completed at the start of treatment, noted that if there are any red flags (i.e. A high max out of pocket) a member of the Resource Counselor team will meet with or call the patient to review in more detail. RX reviewed the role of the Internet Designer and the attempts she would make to assist the patient if eligible in an application for foundations based on diagnosis which may help with treatment cost. RC explained that this service is done as a courtesy and should never be expected due to the frequent closure of these foundations w/lack of funds. RC reviewed the New Patient folder which contains information on available support programs, financial assistance handouts/flyers and community resources. Reviewed that RC is able to assist PT in completing advanced directives whichis encouraged for all patients regardless of diagnosis. Discussed patient satisfaction and to contact RX should patient have any questions or concerns so that RC could help facilitate a resolution. Patient was informed that one of our goals is to provide Diverse and Culturally Sensitive Assistance.Informed patient that if she wishes to discuss in further detail any of the information provided orprograms to call and schedule an appointment. TRISH Brizuela AG ONC NCCN DISTRESS THERMOMETER 05/16/2023 Distress level 3 Practical Concerns Yes Pain No Sleep No Fatigue No Tobacco use No Substance use No Memory or concentration No Sexual health No Changes in eating No Loss or change of physical abilities Yes Emotional concerns No Worry or anxiety No Sadness or depression No Loss of interest or enjoyment No Grief or loss No Fear No Loneliness No Anger No Changes in appearance No Feeling worthless/being a burden No Social Concerns No Relationship with spouse/partner No Relationship with children No Relationship with family members No Relationship with friends or coworkers No Communication with health care team No Ability to have children No Practical Concerns Yes Taking care of myself No Taking care of others No Work No School No Housing No Finances No Insurance Yes Transporation No lead care manager No Having enough food No Access to medicine No Treatment decisions Yes Spiritual or Faith Concerns No Sense of meaning or purpose No Changes in oly or beliefs No , dying or afterlife No Conflict between beliefs and cancer treaments No Relationhip with the sacred No Ritual or dietary needs No Other Concerns None documented [facility] History of Present illness Narrative* Lonnie Arevalo MD - 05/07/2023 10:30 AM EDT GYNECOLOGIC ONCOLOGY FOLLOW UP SERVICE DATE: 04/30/2023 SERVICE TIME: 3:47 PM PRIMARY CARE PHYSICIAN: Manpreet Nunez MD CHIEF COMPLAINT/HISTORY OF PRESENT ILLNESS/ROS: CC: Pelvic masses Referring Provider: Dr. Pamella Sanabria/ [place] [facility] HPI: Nervous but interested to start treatment. No new complaints today. The history is provided by the patient and the spouse. No language translator was used. ROS: Review of Systems Constitutional: Positive for unexpected weight change. Negative for activity change, appetite change and fatigue. Respiratory: Negative for chest tightness and shortness of breath. Cardiovascular: Negative for chest pain, palpitations and leg swelling. Gastrointestinal: Positive for constipation and diarrhea. Negative for abdominal distention, abdominal pain, nausea and vomiting. Genitourinary: Negative for dysuria, flank pain, frequency, vaginal bleeding and vaginal discharge. Oncologic History: - 04/17/2023: presented to [place] [facility] with R flank pain and nausea for [address] with finding of cystic pelvic mass, 21 cm, bilateral hydronephrosis R>L, omental and mesenteric soft tissue massesand retroperitoneal lymphadenopathy. Denies h/o PMB. 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 HRT use: No. HEALTH MAINTENANCE: History of abnormal pap: No. Only 1 in her lifetime Last pap: 40 + years ago Last HPV: unknown Last mammogram: never Last colonoscopy: never, + cologard 04/2022 FAMILY HISTORY Problem Relation Age of Onset Osteoporosis Mother Hypertension Mother Migraines Mother other (thyroid nodule s/p partial thyroidectomy) Mother other (stomach problems) Mother other (BRADYCARDIA) Father Dementia Father other (hypothyroidism) Sister other (goiter) Maternal Grandfather other (goiter s/p MEIER and surgery) Maternal Aunt other (no f/o thyroid cancer) Other Ovarian cancer No Family History Breast Cancer No Family History Uterine Cancer No Family History Colon Cancer No Family History Pancreatic Cancer No Family History Social History Socioeconomic History Marital status: Spouse name: Patricio Number of children: 0 Occupational History 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 Substance and Sexual Activity Alcohol use: No Drug use: No MEDICATIONS / ALLERGIES: Current Outpatient Medications Medication Sig Cholecalciferol, Vitamin D3, (D3-5000) 125 mcg (5,000 unit) cap Take 5,000 Units by mouth once daily. levothyroxine (SYNTHROID) 50 mcg tablet Take 1 tablet by mouth once daily. lisinopril (ZESTRIL, PRINIVIL) 10 mg tablet Take 1 tablet by mouth once daily. No current facility-administered medications for this visit. ALLERGIES ALLERGIES No Known Allergies PHYSICAL EXAM: There were no vitals taken for this visit. Physical Exam Vitals reviewed. Constitutional: General: She is not in acute distress. Appearance: Normal appearance. HENT: Head: Normocephalic and atraumatic. Eyes: Pupils: Pupils are equal, round, and reactive to light. Pulmonary: Effort: Pulmonary effort is normal. Abdominal: General: Abdomen is flat. There is no distension. Palpations: Abdomen is soft. Tenderness: There is no abdominal tenderness. Skin: General: Skin is warm and dry. Neurological: Mental Status: She is alert. LABS: Mesenteric mass biopsy 04/23/2023: FINAL DIAGNOSIS A. Mesenteric mass, biopsy: - P53 aberrant high nuclear grade carcinoma. See comment. Diagnosis Comment Immunohistochemical staining shows the tumor cells are positive for PAX8, WT1 and estrogen receptor(90%, strong intensity). Progesterone receptor immunostain is negative. P53 shows overexpression while p16 shows patchy positive staining. CMP: Glucose 99 04/23/2023 BUN 16 04/23/2023 Creatinine 0.96 04/23/2023 NA 139 04/23/2023 K 3.8 04/23/2023 Chloride 102 04/23/2023 CO2 22 04/23/2023 Protein, Total 7.5 04/23/2023 Albumin 4.4 04/23/2023 Calcium 10.0 04/23/2023 Alk Phos Total 79 04/23/2023 Bilirubin, Total 0.5 04/23/2023 AST (SGOT) 14 04/23/2023 ALT (SGPT) 8 04/23/2023 IMAGING: None new relevant for review. ASSESSMENT/PLAN: Juliann Myles is a 67 year old with large pelvic mass elevated with metastasis to omentum and lymph nodes and abnormal Ca125. 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: - Reviewed recommendation for neoadjuvant chemotherapy with presumption of uterine vs ovarian primary - MMR proficient by IHC [ ] Her2 still pending - Additional questions regarding chemotherapy and prognosis answered - Plan to initiate carboplatin AUC 5 and paclitaxel 175mg/m2 will potentially add trastuzumab pending HER2 testing I spent a total of 30 minutes on the date of the service which included preparing to see the patient, [id number] patient care, completing clinical documentation, obtaining and/or reviewing separately obtained history, performing a medically appropriate examination, and counseling and educating the patient/family/caregiver. Lonnie Arevalo MD, MS Gynecologic Oncologist documented in this encounterMer[facility]10-13-2023 Miscellaneous Notes* Telephone Encounter - Judith Max - 05/02/2023 11:25 AM EDT Summary: Cancercare open Will plan to reach out to patient to discuss Cancercare for Ovarian cancer to help with remaining OOP cost. * Telephone Encounter - Bailey Hull LISW - 05/02/2023 9:41 AM EDT Name: Juliann Myles : 1955 Diagnosis: Ovarian Primary Insurance Provider: [facility] Policy #: [id number] Effective Date of Coverage: 10-19-2021 Deductible: Ind: $ 226 Pays: After Ded: 80% Co-Insurance: 20% Lifetime Maximum: Unlimited TRISH Brizuela documented in this encounterMer[facility]10-11-2023 History of Present illness Narrative* Lonnie Arevalo MD - 04/30/2023 2:00 PM EDT GYNECOLOGIC ONCOLOGY FOLLOW UP SERVICE DATE: 04/30/2023 SERVICE TIME: 3:47 PM PRIMARY CARE PHYSICIAN: Manpreet Nunez MD CHIEF COMPLAINT/HISTORY OF PRESENT ILLNESS/ROS: CC: Pelvic masses Referring Provider: Dr. Pamella Sanabria/ [place] [facility] HPI: Patient is presenting to review pathology results. Patient states that she is overall doing ok. Dorian has some GI upset (described as IBS like symptoms) that she finds is diet related and has improved with bland foods. She mainly does plain pastas and proteins like chicken or fish. She has noticed weight loss. She denies pain at this time. No vaginal bleeding. She has no other complaints today. The history is provided by the patient and the spouse. ROS: Review of Systems Constitutional: Positive for unexpected weight change. Negative for activity change, appetite change and fatigue. Respiratory: Negative for chest tightness and shortness of breath. Cardiovascular: Negative for chest pain, palpitations and leg swelling. Gastrointestinal: Positive for constipation and diarrhea. Negative for abdominal distention, abdominal pain, nausea and vomiting. Genitourinary: Negative for dysuria, flank pain, frequency, vaginal bleeding and vaginal discharge. Oncologic History: - 04/17/2023: presented to [place] ED with R flank pain and nausea for [address] with finding of cystic pelvic mass, 21 cm, bilateral hydronephrosis R>L, omental and mesenteric soft tissue massesand retroperitoneal lymphadenopathy. Denies h/o PMB. 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 HRT use: No. HEALTH MAINTENANCE: History of abnormal pap: No. Only 1 in her lifetime Last pap: 40 + years ago Last HPV: unknown Last mammogram: never Last colonoscopy: never, + cologard 04/2022 FAMILY HISTORY Problem Relation Age of Onset Osteoporosis Mother Hypertension Mother Migraines Mother other (thyroid nodule s/p partial thyroidectomy) Mother other (stomach problems) Mother other (BRADYCARDIA) Father Dementia Father other (hypothyroidism) Sister other (goiter) Maternal Grandfather other (goiter s/p MEIER and surgery) Maternal Aunt other (no f/o thyroid cancer) Other Ovarian cancer No Family History Breast Cancer No Family History Uterine Cancer No Family History Colon Cancer No Family History Pancreatic Cancer No Family History Social History Socioeconomic History Marital status: Spouse name: Patricio Number of children: 0 Occupational History 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 Substance and Sexual Activity Alcohol use: No Drug use: No MEDICATIONS / ALLERGIES: Current Outpatient Medications Medication Sig Cholecalciferol, Vitamin D3, (D3-5000) 125 mcg (5,000 unit) cap Take 5,000 Units by mouth once daily. levothyroxine (SYNTHROID) 50 mcg tablet Take 1 tablet by mouth once daily. lisinopril (ZESTRIL, PRINIVIL) 10 mg tablet Take 1 tablet by mouth once daily. No current facility-administered medications for this visit. ALLERGIES ALLERGIES No Known Allergies PHYSICAL EXAM: BP 145/93 (BP Site: Left Arm, BP Position: Sitting, BP Cuff Size: Regular Adult) Pulse 89 Temp 36.9 C (98.4 F) (Oral) Ht 167.6 cm (5' 6) Wt 60.3 kg (133 lb) SpO2 99% BMI 21.47 kg/m Physical Exam Vitals reviewed. Constitutional: General: She is not in acute distress. Appearance: Normal appearance. HENT: Head: Normocephalic and atraumatic. Eyes: Pupils: Pupils are equal, round, and reactive to light. Pulmonary: Effort: Pulmonary effort is normal. Abdominal: General: Abdomen is flat. There is no distension. Palpations: Abdomen is soft. Tenderness: There is no abdominal tenderness. Skin: General: Skin is warm and dry. Neurological: Mental Status: She is alert. LABS: Mesenteric mass biopsy 04/23/2023: FINAL DIAGNOSIS A. Mesenteric mass, biopsy: - P53 aberrant high nuclear grade carcinoma. See comment. Diagnosis Comment Immunohistochemical staining shows the tumor cells are positive for PAX8, WT1 and estrogen receptor(90%, strong intensity). Progesterone receptor immunostain is negative. P53 shows overexpression while p16 shows patchy positive staining. CMP: Glucose 99 04/23/2023 BUN 16 04/23/2023 Creatinine 0.96 04/23/2023 NA 139 04/23/2023 K 3.8 04/23/2023 Chloride 102 04/23/2023 CO2 22 04/23/2023 Protein, Total 7.5 04/23/2023 Albumin 4.4 04/23/2023 Calcium 10.0 04/23/2023 Alk Phos Total 79 04/23/2023 Bilirubin, Total 0.5 04/23/2023 AST (SGOT) 14 04/23/2023 ALT (SGPT) 8 04/23/2023 IMAGING: None new relevant for review. 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 Lonnie Arevalo MD, MS Gynecologic Oncologist documented in this encounterMer[facility]10-03-2023 Miscellaneous Notes* Telephone Encounter - Caterina Suarez APRN.CNP - 04/22/2023 11:46 AM EDT Called patient about CMP that was supposed to be drawn yesterday, she forgot to get done. Has her biopsy done tomorrow. Told her to have her it drawn then. Caterina Suarez APRN.CNP documented in this encounterMercer [facility]09-29-2023 Miscellaneous Notes* Telephone Encounter - Caterina Suarez APRN.CNP - 04/18/2023 3:11 PM EDT Called patient to let her know CT showed no disease in her chest, Biopsy is supposed to be on Friday she doesn't have a time yet. Appreciative of the phone called. Caterina Suarez APRN.CNP documented in this encounterMercer [facility]09-29-2023 History of Present illness Narrative* Sylwia Paz, RT(R) - 04/18/2023 2:00 PM EDT Radiology Service Progress Note PATIENT NAME: Juliann Myles DATE OF SERVICE: April 18, 2023 TIME: 2:46 PM PATIENT IDENTITY VERIFICATION COMPLETED USING TWO (2) IDENTIFIERS: Name and Date of confirmedby patient verbally. FALL SCREENING: Has the patient had 2 falls in the last year or 1 fall with injury or currently using an Ambulatory Assistive Device (Walker, Cane, Wheelchair, Crutches, etc.)? No PATIENT GENDER DATA: Female. status: : No status: NO. 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 documented in [facility]* Diagnosis 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 [facility]* Diagnosis Malignant neoplasm of ovary, unspecified laterality (HCC)- Primary documented in [facility]* Diagnosis Malignant neoplasm of ovary, unspecified laterality (HCC) documented in [facility]* Diagnosis Malignant neoplasm of ovary, unspecified laterality (HCC)- Primary documented in [facility]* Diagnosis Gynecologic malignancy (HCC) Malignant neoplasm of female genital organ, site unspecified Malignant neoplasm of ovary, unspecified laterality (HCC) documented in [facility]* Diagnosis Malignant neoplasm of ovary, unspecified laterality (HCC)- Primary documented in [facility]* Diagnosis Malignant neoplasm of ovary, unspecified laterality (HCC) Malignant neoplasm of ovary, unspecified laterality (HCC) documented in this [facility]* Diagnosis Malignant neoplasm of ovary, unspecified laterality (HCC)- Primary documented in [facility]* Diagnosis Malignant neoplasm of ovary, unspecified laterality (HCC)- Primary documented in [facility]* Diagnosis Malignant neoplasm of ovary, unspecified laterality (HCC) documented in this encounter [facility]* Diagnosis Malignant neoplasm of both ovaries (HCC)- Primary Malignant neoplasm of ovary documented in [facility]* Diagnosis Malignant neoplasm of both ovaries (HCC)- Primary Malignant neoplasm of ovary documented in [facility]* Diagnosis Pre-op exam- Primary Preoperative examination, unspecified Malignant neoplasm of ovary, unspecified laterality (HCC) 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 Secondary hypertension Other secondary hypertension, unspecified History of echocardiogram Other specified personal history presenting hazards to health Heart murmur Undiagnosed cardiac murmurs CKD (chronic kidney disease) stage 2, GFR 60-89 ml/min Chronic kidney disease, Stage II (mild) Anemia due to other cause, not classified Malignant neoplasm of ovary, unspecified laterality (HCC)- Primary documented in [facility]* Diagnosis Pre-op exam- Primary Preoperative examination, unspecified Malignant neoplasm of ovary, unspecified laterality (HCC) 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 Secondary hypertension Other secondary hypertension, unspecified History of echocardiogram Other specified personal history presenting hazards to health Heart murmur Undiagnosed cardiac murmurs CKD (chronic kidney disease) stage 2, GFR 60-89 ml/min Chronic kidney disease, Stage II (mild) Anemia due to other cause, not classified Malignant neoplasm of both ovaries (HCC)- Primary Malignant neoplasm of ovary documented in [facility]* Diagnosis Pre-op exam- Primary Preoperative examination, unspecified Malignant neoplasm of ovary, unspecified laterality (HCC) 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 Secondary hypertension Other secondary hypertension, unspecified History of echocardiogram Other specified personal history presenting hazards to health Heart murmur Undiagnosed cardiac murmurs CKD (chronic kidney disease) stage 2, GFR 60-89 ml/min Chronic kidney disease, Stage II (mild) Anemia due to other cause, not classified Colon cancer screening- Primary Special screening for malignant neoplasms, colon Malignant neoplasm of both ovaries (HCC) Malignant neoplasm of ovary documented in this [facility]* Diagnosis Pre-op exam- Primary Preoperative examination, unspecified Malignant neoplasm of ovary, unspecified laterality (HCC) 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 Secondary hypertension Other secondary hypertension, unspecified History of echocardiogram Other specified personal history presenting hazards to health Heart murmur Undiagnosed cardiac murmurs CKD (chronic kidney disease) stage 2, GFR 60-89 ml/min Chronic kidney disease, Stage II (mild) Anemia due to other cause, not classified Malignant neoplasm of both ovaries (HCC)- Primary Malignant neoplasm of ovary documented in this encounter [facility]* Diagnosis Polyp of colon Benign neoplasm of colon documented in this encounter [facility] Discharge instructions* Attachments The following attachments cannot be sent through Care Everywhere. * Colonoscopy Discharge Instructions (Taiwanese) documented in this [facility] for referral (narrative)No reason for referral information availableSelect Specialty [facility] Work Phone: Reason for visit Narrative* Auth/Cert (Routine) Specialty Diagnoses / Procedures Referred By Contac t Referred To Contact Diagnoses Polyp of colon Procedures AL COLONOSCOPY FLX W/ENDOSCOPIC MUCOSAL RESECTION COLONOSCOPY WITH ENDOSCOPIC MUCOSAL RESECTION Annetta Bird MD [address] [place] [address] Phone: tel: fax: [facility] Endoscopy [address] [place] [address] Phone: tel: Referral ID Status Reason Start Date Expiration Date Visits Re quested Visits Authorized [id number] 1 1 [facility] Summary Purpose Family History No Family History Records Found Relationship Condition Age at Onset Recorded Date/[place] mother Disorder of thyroid Unknown Cardiac disease Unknown Age related osteoporosis Unknown aunt Disorder of thyroid Unknown sister Disorder of thyroid Unknown grandfather Disorder of thyroid Unknown father Cardiac disease Unknown Mental disorder Unknown Advance Directives No Advanced Directives Records Found Date Activated Date Inactivated Comments 01/18/2025 8:04 AM 01/18/2025 12:48 PM Medications Administered Section Inactive Administered Medications - up to 3 most recent administrations Medication Order MAR Action Action Date Dose Rate Site CARBOplatin 350 mg in NaCl 0.9% 310 mL (PARAPLATIN) 350 mg (rounded from 360 mg, Target AUC = 5), INTRAVENOUS, Administer over 30 Minutes, ONCE, 1 dose, On Fri05/16/23 at 0900, Refrigerated Expiration at 8am 05-19-2023 AUC 5 and ACTUAL weight Hazardous Chemotherapy Drug: Use appropriate PPE. Antineoplastic Irritant. New Bag/Syringe/Bottle 05/16/2023 12:51 PM EDT 350 mg dexAMETHasone 20 mg in NaCl 0.9% 50 mL (DECADRON) 20 mg, INTRAVENOUS, Administer over 15 Minutes, ONCE, 1 dose, On Fri05/16/23 at 0900, Give prior to chemotherapy. Refrigerate. New Bag/Syringe/Bottle 05/16/2023 9:05 AM EDT 20 mg diphenhydrAMINE 50 mg injection (BENADRYL) 50 mg, INTRAVENOUS, ONCE, 1 dose, On Fri05/16/23 at 0900, Give prior to chemotherapy. Given 05/16/2023 8:56 AM EDT 50 mg famotidine 20 mg injection (PEPCID) 20 mg, INTRAVENOUS, ONCE, 1 dose, On Fri05/16/23 at 0900, Give prior to chemotherapy. REFRIGERATE Given 05/16/2023 8:54 AM EDT 20 mg PACLitaxel 294 mg in NaCl 0.9% 589 mL (TAXOL) 294 mg (175 mg/m2 1.68 m2 Treatment Plan BSA from Recorded weight), INTRAVENOUS, Administer over 3 Hours, ONCE, 1 dose, On Fri05/16/23 at 0900, Refrigerated Expiration at 8am 05-25-2023 Hazardous Chemotherapy Drug: Use appropriate PPE. Antineoplastic Irritant with Vesicant Potential. Administer with non-DEHP 0.2 micron filter and tubing. New Bag/Syringe/Bottle 05/16/2023 9:39 AM EDT 294 mg palonosetron 0.25 mg injection (ALOXI) 0.25 mg, INTRAVENOUS, ONCE, 1 dose, On Fri05/16/23 at 0900, Flush IV line with NS prior to and following administration. Given 05/16/2023 8:57 AM EDT 0.25 mg Inactive Administered Medications - up to 3 most recent administrations Medication Order MAR Action Action Date Dose Rate Site CARBOplatin 350 mg in NaCl 0.9% 310 mL (PARAPLATIN) 350 mg (Target AUC = 5), INTRAVENOUS, Administer over 30 Minutes, ONCE, 1 dose, On Fri06/06/23 at 1330, Refrigerated Expiration at 8am 06-09-2023 Per policy, kept carbo dose the same as creatinine and weight similar. Hazardous Chemotherapy Drug: Use appropriate PPE. Antineoplastic Irritant. New Bag/Syringe/Bottle 06/06/2023 3:05 PM EST 350 mg dexAMETHasone 20 mg in NaCl 0.9% 50 mL (DECADRON) 20 mg, INTRAVENOUS, Administer over 15 Minutes, ONCE, 1 dose, On Fri06/06/23 at 0900, Give prior to chemotherapy. Refrigerate. New Bag/Syringe/Bottle 06/06/2023 11:15 AM EST 20 mg diphenhydrAMINE 50 mg injection (BENADRYL) 50 mg, INTRAVENOUS, ONCE, 1 dose, On Fri06/06/23 at 0900, Give prior to chemotherapy. Given 06/06/2023 10:53 AM EST 50 mg famotidine 20 mg injection (PEPCID) 20 mg, INTRAVENOUS, ONCE, 1 dose, On Fri06/06/23 at 0900, Give prior to chemotherapy. REFRIGERATE Given 06/06/2023 10:53 AM EST 20 mg PACLitaxel 294 mg in NaCl 0.9% 589 mL (TAXOL) 294 mg (175 mg/m2 1.68 m2 Treatment Plan BSA from Recorded weight), INTRAVENOUS, Administer over 3 Hours, ONCE, 1 dose, On Fri06/06/23 at 1030, Refrigerated Expiration at 9am 06-15-2023 Hazardous Chemotherapy Drug: Use appropriate PPE. Antineoplastic Irritant with Vesicant Potential. Administer with non-DEHP 0.2 micron filter and tubing. New Bag/Syringe/Bottle 06/06/2023 11:51 AM EST 294 mg palonosetron 0.25 mg injection (ALOXI) 0.25 mg, INTRAVENOUS, ONCE, 1 dose, On Fri06/06/23 at 0900, Flush IV line with NS prior to and following administration. Given 06/06/2023 10:53 AM EST 0.25 mg trastuzumab-dttb 482.4 mg in NaCl 0.9% 297.9714 mL (ONTRUZANT) 482.4 mg (8 mg/kg/dose 60.3 kg Treatment plan Recorded weight), INTRAVENOUS, Administer over 90 Minutes, ONCE, 1 dose, On Fri06/06/23 at 0900, Refrigerated Expiration at 8am 06-07-2023 DO NOT SHAKE Refrigerate New Bag/Syringe/Bottle 06/06/2023 9:14 AM EST 482.4 mg Reason for Referral Specialty Diagnoses / Procedures Referred By Contac t Referred To Contact CT IMAGING Diagnoses Intra-abdominal and pelvic swelling, mass and lump, unspecified site Procedures CT CHEST WO IVCON DIAGNOSTIC COMPUTED TOMOGRAPHY THORAX W/O CNTRST Caterina Suarez, EDUCATION DEAN.ACCOUNT DEVELOPMENT REPRESENTATIVE [address] [place] [address] [place] [address] Referral ID Status Reason Start Date Expiration Date V isits Requested Visits Authorized [id number] Closed Auto-Generate d Referral 04/18/2023 05/17/2024 1 1 Specialty Diagnoses / Procedures Referred By Helga t Referred To Contact MR IMAGING Diagnoses Malignant neoplasm of ovary, unspecified laterality (HCC) Procedures MRI FEMALE PELVIS WO/W IVCON MRI PELVIS W/O & W/CONTRAST MATERIAL Lonnie Arevalo MD [address] [place] [address] [place] [address] Referral ID Status Reason Start Date Expiration Date Visits Requested Visits Authorized [id number] Authorized Auto-Generat ed Referral 06/25/2023 07/24/2024 1 1 Referral ID Status Reason Start Date Expiration Date V isits Requested Visits Authorized [id number] Closed Auto-Generate d Referral 06/25/2023 07/24/2024 1 1 Specialty Diagnoses / Procedures Referred By Helga t Referred To Contact Diagnoses Malignant neoplasm of ovary, unspecified laterality (HCC) Procedures CONSULT TO MEDICAL GENETICS - GENERAL Lonnie Arevalo MD [address] [place] [address] [id number] Referral ID Status Reason Start Date Expiration Date Visits Requested Visits Authorized [id number] Ref Not Required PCP Requested Referral 08/15/2023 08/14/2024 1 1 Specialty Diagnoses / Procedures Referred By Helga t Referred To Contact CT IMAGING Diagnoses Malignant neoplasm of ovary, unspecified laterality (HCC) Procedures CT CHEST W IVCON DIAGNOSTIC COMPUTED TOMOGRAPHY THORAX W/CONTRAST Lonnie Arevalo MD [address] [place] [address] [place] [address] Referral ID Status Reason Start Date Expiration Date Visits Requested Visits Authorized [id number] Pending Review Auto-Generat ed Referral 11/12/2023 10/17/2024 1 1 Specialty Diagnoses / Procedures Referred By Lauraac t Referred To Contact CT IMAGING Diagnoses Malignant neoplasm of ovary, unspecified laterality (HCC) Procedures CT ABD/PEL W IVCON CT ABD & PELVIS W/CONTRAST Lonnie Arevalo MD [address] [place] [address] [place] [address] Referral ID Status Reason Start Date Expiration Date Visits Requested Visits Authorized [id number] Pending Review Auto-Generat ed Referral 11/12/2023 10/17/2024 1 1 Chief Complaint and Reason for Visit Chief Complaint Admit Date Annual/Physical December 02, 2024 10:43 am Reason for Visit Admit Date 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 DATE CREATED AUTHOR AUTHOR'S ORGANIZ ATION 01/23/2025 [facility] DATE CREATED AUTHOR AUTHOR'S ORGANIZ ATION 02/13/2025 [facility] Source Comments (unrecognize d section and content) In the event this informatio n is protected by the Federal Confidentiality of Alcohol and Drug Abuse Patient Records regulations: The Federal rules restrict any use of the information to criminally investigate or prosecute any alcohol or drug abuse patient.[facility] the event this information is protected by the Federal Confidentiality of Alcohol and Drug Abuse Patient Records regulations: The Federal rules restrict any use of the information to criminally investigate or prosecute any alcohol or drug abuse patient.[facility] the event this information is protected by the Federal Confidentiality of Alcohol and Drug Abuse Patient Records regulations: The Federal rules restrict any use of the information to criminally investigate or prosecute any alcohol or drug abuse patient.[facility] the event this information is protected by the Federal Confidentiality of Alcohol and Drug Abuse Patient Records regulations: The Federal rules restrict any use of the information to criminally investigate or prosecute any alcohol or drug abuse patient.[facility] the event this information is protected by the Federal Confidentiality of Alcohol and Drug Abuse Patient Records regulations: The Federal rules restrict any use of the information to criminally investigate or prosecute any alcohol or drug abuse patient.[facility] the event this information is protected by the Federal Confidentiality of Alcohol and Drug Abuse Patient Records regulations: The Federal rules restrict any use of the information to criminally investigate or prosecute any alcohol or drug abuse patient.[facility] the event this information is protected by the Federal Confidentiality of Alcohol and Drug Abuse Patient Records regulations: The Federal rules restrict any use of the information to criminally investigate or prosecute any alcohol or drug abuse patient.[facility] the event this information is protected by the Federal Confidentiality of Alcohol and Drug Abuse Patient Records regulations: The Federal rules restrict any use of the information to criminally investigate or prosecute any alcohol or drug abuse patient.[facility] the event this information is protected by the Federal Confidentiality of Alcohol and Drug Abuse Patient Records regulations: The Federal rules restrict any use of the information to criminally investigate or prosecute any alcohol or drug abuse patient.[facility] the event this information is protected by the Federal Confidentiality of Alcohol and Drug Abuse Patient Records regulations: The Federal rules restrict any use of the information to criminally investigate or prosecute any alcohol or drug abuse patient.[facility] the event this information is protected by the Federal Confidentiality of Alcohol and Drug Abuse Patient Records regulations: The Federal rules restrict any use of the information to criminally investigate or prosecute any alcohol or drug abuse patient.[facility] the event this information is protected by the Federal Confidentiality of Alcohol and Drug Abuse Patient Records regulations: The Federal rules restrict any use of the information to criminally investigate or prosecute any alcohol or drug abuse patient.[facility] the event this information is protected by the Federal Confidentiality of Alcohol and Drug Abuse Patient Records regulations: The Federal rules restrict any use of the information to criminally investigate or prosecute any alcohol or drug abuse patient.[facility] Hospital[facility] the event this information is protected by the Federal Confidentiality of Alcohol and Drug Abuse Patient Records regulations: The Federal rules restrict any use of the information to criminally investigate or prosecute any alcohol or drug abuse patient.[facility] the event this information is protected by the Federal Confidentiality of Alcohol and Drug Abuse Patient Records regulations: The Federal rules restrict any use of the information to criminally investigate or prosecute any alcohol or drug abuse patient.[facility] HospitalIn the event this information is protected by the Federal Confidentiality of Alcohol and Drug Abuse Patient Records regulations: The Federal rules restrict any use of the information to criminally investigate or prosecute any alcohol or drug abuse patient.[facility] Hospital[facility] the event this information is protected by the Federal Confidentiality of Alcohol and Drug Abuse Patient Records regulations: The Federal rules restrict any use of the information to criminally investigate or prosecute any alcohol or drug abuse patient.[facility] HospitalIn the event this information is protected by the Federal Confidentiality of Alcohol and Drug Abuse Patient Records regulations: The Federal rules restrict any use of the information to criminally investigate or prosecute any alcohol or drug abuse patient.[facility] HospitalIn the event this information is protected by the Federal Confidentiality of Alcohol and Drug Abuse Patient Records regulations: The Federal rules restrict any use of the information to criminally investigate or prosecute any alcohol or drug abuse patient.[facility] HospitalIn the event this information is protected by the Federal Confidentiality of Alcohol and Drug Abuse Patient Records regulations: The Federal rules restrict any use of the information to criminally investigate or prosecute any alcohol or drug abuse patient.[facility] HospitalIn the event this information is protected by the Federal Confidentiality of Alcohol and Drug Abuse Patient Records regulations: The Federal rules restrict any use of the information to criminally investigate or prosecute any alcohol or drug abuse patient.[facility] HospitalIn the event this information is protected by the Federal Confidentiality of Alcohol and Drug Abuse Patient Records regulations: The Federal rules restrict any use of the information to criminally investigate or prosecute any alcohol or drug abuse patient.[facility] HospitalIn the event this information is protected by the Federal Confidentiality of Alcohol and Drug Abuse Patient Records regulations: The Federal rules restrict any use of the information to criminally investigate or prosecute any alcohol or drug abuse patient.[facility] HospitalIn the event this information is protected by the Federal Confidentiality of Alcohol and Drug Abuse Patient Records regulations: The Federal rules restrict any use of the information to criminally investigate or prosecute any alcohol or drug abuse patient.[facility] HospitalIn the event this information is protected by the Federal Confidentiality of Alcohol and Drug Abuse Patient Records regulations: The Federal rules restrict any use of the information to criminally investigate or prosecute any alcohol or drug abuse patient.[facility]In the event this information is protected by the Federal Confidentiality of Alcohol and Drug Abuse Patient Records regulations: The Federal rules restrict any use of the information to criminally investigate or prosecute any alcohol or drug abuse patient.[facility] HospitalIn the event this information is protected by the Federal Confidentiality of Alcohol and Drug Abuse Patient Records regulations: The Federal rules restrict any use of the information to criminally investigate or prosecute any alcohol or drug abuse patient.[facility] HospitalIn the event this information is protected by the Federal Confidentiality of Alcohol and Drug Abuse Patient Records regulations: The Federal rules restrict any use of the information to criminally investigate or prosecute any alcohol or drug abuse patient.[facility] HospitalIn the event this information is protected by the Federal Confidentiality of Alcohol and Drug Abuse Patient Records regulations: The Federal rules restrict any use of the information to criminally investigate or prosecute any alcohol or drug abuse patient.[facility] HospitalIn the event this information is protected by the Federal Confidentiality of Alcohol and Drug Abuse Patient Records regulations: The Federal rules restrict any use of the information to criminally investigate or prosecute any alcohol or drug abuse patient.[facility] HospitalIn the event this information is protected by the Federal Confidentiality of Alcohol and Drug Abuse Patient Records regulations: The Federal rules restrict any use of the information to criminally investigate or prosecute any alcohol or drug abuse patient.[facility] HospitalIn the event this information is protected by the Federal Confidentiality of Alcohol and Drug Abuse Patient Records regulations: The Federal rules restrict any use of the information to criminally investigate or prosecute any alcohol or drug abuse patient.[facility] HospitalIn the event this information is protected by the Federal Confidentiality of Alcohol and Drug Abuse Patient Records regulations: The Federal rules restrict any use of the information to criminally investigate or prosecute any alcohol or drug abuse patient.[facility] HospitalIn the event this information is protected by the Federal Confidentiality of Alcohol and Drug Abuse Patient Records regulations: The Federal rules restrict any use of the information to criminally investigate or prosecute any alcohol or drug abuse patient.[facility] HospitalIn the event this information is protected by the Federal Confidentiality of Alcohol and Drug Abuse Patient Records regulations: The Federal rules restrict any use of the information to criminally investigate or prosecute any alcohol or drug abuse patient.[facility] HospitalIn the event this information is protected by the Federal Confidentiality of Alcohol and Drug Abuse Patient Records regulations: The Federal rules restrict any use of the information to criminally investigate or prosecute any alcohol or drug abuse patient.[facility] HospitalIn the event this information is protected by the Federal Confidentiality of Alcohol and Drug Abuse Patient Records regulations: The Federal rules restrict any use of the information to criminally investigate or prosecute any alcohol or drug abuse patient.[facility] HospitalIn the event this information is protected by the Federal Confidentiality of Alcohol and Drug Abuse Patient Records regulations: The Federal rules restrict any use of the information to criminally investigate or prosecute any alcohol or drug abuse patient.[facility] HospitalIn the event this information is protected by the Federal Confidentiality of Alcohol and Drug Abuse Patient Records regulations: The Federal rules restrict any use of the information to criminally investigate or prosecute any alcohol or drug abuse patient.[facility] Care Teams (unrecognized sec tion and content) Pharmacy Associate Relationship Specialty Start Date End Date Shree Ambrosio MD [address] [place] [address] PCP - General Family Medicine 03/15/19 Pharmacy Associate Relationship Specialty Start Date End Date Shree Ambrosio MD [address] [place] [address] PCP - General Family Medicine 03/15/19 Pharmacy Associate Relationship Specialty Start Date End Date Shree Ambrosio MD [address] [place] [address] PCP - General Family Medicine 03/15/19 Pharmacy Associate Relationship Specialty Start Date End Date Manpreet Nunez MD [address] [place] [address] PCP - General Family Medicine 04/23/23 Pharmacy Associate Relationship Specialty Start Date End Date Manpreet Nunez MD [address] [place] [address] PCP - General Family Medicine 04/23/23 Pharmacy Associate Relationship Specialty Start Date End Date Manpreet Nunez MD [address] [place] [address] PCP - General Family Medicine 04/23/23 Pharmacy Associate Relationship Specialty Start Date End Date Shree Ambrosio MD [address] [place] [address] PCP - General Family Medicine 03/15/19 04/22/23 Pharmacy Associate Relationship Specialty Start Date End Date Manpreet Nunez MD [address] [place] [address] PCP - General Family Medicine 04/23/23 Pharmacy Associate Relationship Specialty Start Date End Date Manpreet Nunez MD [address] [place] [address] PCP - General Family Medicine 04/23/23 Pharmacy Associate Relationship Specialty Start Date End Date Manpreet Nunez MD [address] [place] [address] PCP - General Family Medicine 04/23/23 Pharmacy Associate Relationship Specialty Start Date End Date Chuck Hope MD [address] [facility] [address] [place] [address] PCP - General Internal Medicine 06/25/23 Pharmacy Associate Relationship Specialty Start Date End Date Chuck Hope MD [address] [address] [place] [address] PCP - General Internal Medicine 06/25/23 Pharmacy Associate Relationship Specialty Start Date End Date Chuck Hope MD [address] [address] [place] [address] PCP - General Internal Medicine 06/25/23 Pharmacy Associate Relationship Specialty Start Date End Date Chuck Hope MD [address] [address] [place] [address] PCP - General Internal Medicine 06/25/23 Pharmacy Associate Relationship Specialty Start Date End Date Chuck Hope MD [address] [facility] [address] [place] [address] PCP - General Internal Medicine 06/25/23 Pharmacy Associate Relationship Specialty Start Date End Date Chuck Hope MD [address] [facility] [address] [place] [address] PCP - General Internal Medicine 06/25/23 Pharmacy Associate Relationship Specialty Start Date End Date Chuck Hope MD [address] [facility] [address] [place] [address] PCP - General Internal Medicine 06/25/23 Pharmacy Associate Relationship Specialty Start Date End Date Manpreet Nunez MD [address] [place] [address] PCP - General Family Medicine 04/23/23 06/24/23 Pharmacy Associate Relationship Specialty Start Date End Date Chuck Hope MD [address] [address] [place] [address] PCP - General Internal Medicine 06/25/23 Pharmacy Associate Relationship Specialty Start Date End Date Chuck Hope MD [address] [address] [place] [address] PCP - General Internal Medicine 06/25/23 Pharmacy Associate Relationship Specialty Start Date End Date Chuck Hope MD [address] [place] [address] PCP - General Internal Medicine 06/25/23 Pharmacy Associate Relationship Specialty Start Date End Date Chuck Hope MD [address] [address] [place] [address] PCP - General Internal Medicine 06/25/23 Pharmacy Associate Relationship Specialty Start Date End Date Chuck Hope MD [address] [address] [place] [address] PCP - General Internal Medicine 06/25/23 Pharmacy Associate Relationship Specialty Start Date End Date Chuck Hope MD [address] [address] [place] [address] PCP - General Internal Medicine 06/25/23 Pharmacy Associate Relationship Specialty Start Date End Date Chuck Hope MD [address] [place] [address] PCP - General Internal Medicine 06/25/23 Pharmacy Associate Relationship Specialty Start Date End Date Chuck Hope MD [address] [facility] [address] [place] [address] PCP - General Internal Medicine 06/25/23 Pharmacy Associate Relationship Specialty Start Date End Date Chuck Hope MD [address] [facility] [address] [place] [address] PCP - General Internal Medicine 06/25/23 Pharmacy Associate Relationship Specialty Start Date End Date Chuck Hope MD [address] [facility] [address] [place] [address] PCP - General Internal Medicine 06/25/23 Pharmacy Associate Relationship Specialty Start Date End Date Chuck Hope MD [address] [facility] [address] [place] [address] PCP - General Internal Medicine 06/25/23 Pharmacy Associate Relationship Specialty Start Date End Date Chuck Hope MD [address] [facility] [address] [place] [address] PCP - General Internal Medicine 06/25/23 Pharmacy Associate Relationship Specialty Start Date End Date Chuck Hope MD [address] [facility] [address] [place] [address] PCP - General Internal Medicine 06/25/23 Team Status: Active Member Role Status Dates Dr. Chuck Hope MD Primary Care Provider Active Team Status: Inactive Member Role Status Dates Dr. Chuck Hope MD Primary Care Provider Active Start: December 02, 2024 End: December 02, 2024 Dr. Chuck Hope MD Attending Provider Active Start: December 02, 2024 End: December 02, 2024 Team Status: Inactive Member Role Status Dates Dr. Chuck Hope MD Primary Care Provider Active Start: December 20, 2024 End: December 20, 2024 Dr. Cuhck Hope MD Attending Provider Active Start: December 20, 2024 End: December 20, 2024 Dr. Chuck Hope MD Referring Provider Active Start: December 20, 2024 End: December 20, 2024 Pharmacy Associate Relationship Specialty Start Date End Date Chuck Hope [address] [place] [id number] PCP - General Internal Medicine 01/18/25 Reason for Visit (unrecogniz ed section and content) Reason Comments Chemotherapy Treatment Specialty Diagnoses / Procedures Referred By Contac t Referred To Contact HEMONC INFUSION Diagnoses carbotaxol Procedures CARBOPLATIN INJECTION PACLITAXEL INJECTION PALONOSETRON HCL TRASTUZUMAB, 10 MG 1ST TREATMENT 6 HOURS Lonnie Arevalo MD [address] [place] [address] Juan R Treat [address] [address] Referral ID Status Reason Start Date Expiration Date V isits Requested Visits Authorized [id number] Authorized 05/16/2023 11/24/2023 99 99 Reason Comments Results Reason Comments Benefits Investigation Specialty Diagnoses / Procedures Referred By Contac t Referred To Contact Diagnoses Malignant neoplasm of ovary, unspecified laterality (HCC) Lonnie Arevalo MD [address] [place] [address] Juan R Treat [place] [facility] [address] [place] [address] Referral ID Status Reason Start Date Expiration Date V isits Requested Visits Authorized [id number] Authorized 04/30/2023 07/29/2023 99 99 Reason Comments Patient Update Reason Comments Radiology CT Specialty Diagnoses / Procedures Referred By Contac t Referred To Contact CT IMAGING Diagnoses Intra-abdominal and pelvic swelling, mass and lump, unspecified site Procedures CT CHEST WO IVCON DIAGNOSTIC COMPUTED TOMOGRAPHY THORAX W/O CNTRST Caterina Suarez L, EDUCATION DEAN.ACCOUNT DEVELOPMENT REPRESENTATIVE [address] [place] [address] [place] [address] Referral ID Status Reason Start Date Expiration Date V isits Requested Visits Authorized [id number] Closed Auto-Generate d Referral 04/18/2023 05/17/2024 1 1 Reason Comments Established Patient Reason Comments Established Patient Specialty Diagnoses / Procedures Referred By Contac t Referred To Contact MR IMAGING Diagnoses Malignant neoplasm of ovary, unspecified laterality (HCC) Procedures MRI FEMALE PELVIS WO/W IVCON MRI PELVIS W/O & W/CONTRAST MATERIAL Lonnie Arevalo MD [address] [place] [address] [place] [address] Referral ID Status Reason Start Date Expiration Date V isits Requested Visits Authorized [id number] Closed Auto-Generate d Referral 06/25/2023 07/24/2024 1 1 Specialty Diagnoses / Procedures Referred By Contac t Referred To Contact CT IMAGING Diagnoses Gynecologic malignancy (HCC) Procedures CT CHEST W IVCON DIAGNOSTIC COMPUTED TOMOGRAPHY THORAX W/CONTRAST Caterina Suarez L, EDUCATION DEAN.ACCOUNT DEVELOPMENT REPRESENTATIVE [address] [place] [address] [place] [id number] Referral ID Status Reason Start Date Expiration Date V isits Requested Visits Authorized [id number] Closed Auto-Generate d Referral 07/04/2023 06/19/2024 [address] Specialty Diagnoses / Procedures Referred By Contac t Referred To Contact CT IMAGING Diagnoses Gynecologic malignancy (HCC) Procedures CT CHEST W IVCON DIAGNOSTIC COMPUTED TOMOGRAPHY THORAX W/CONTRAST Caterina Suarez L, EDUCATION DEAN.ACCOUNT DEVELOPMENT REPRESENTATIVE [address] [place] [address] [place] [id number] Reason Comments Follow Up Reason Comments Surgical Followup Reason Comments Post-Op Visit Specialty Diagnoses / Procedures Referred By Contac t Referred To Contact CT IMAGING Diagnoses Malignant neoplasm of ovary, unspecified laterality (HCC) Procedures CT CHEST W IVCON DIAGNOSTIC COMPUTED TOMOGRAPHY THORAX W/CONTRAST Lonnie Arevalo MD [address] [address] [place] [id number] Referral ID Status Reason Start Date Expiration Date V isits Requested Visits Authorized [id number] Closed Auto-Generate d Referral 11/12/2023 10/17/2024 1 1 Specialty Diagnoses / Procedures Referred By Contruchi t Referred To Contact CT IMAGING Diagnoses Malignant neoplasm of ovary, unspecified laterality (HCC) Procedures CT CHEST W IVCON DIAGNOSTIC COMPUTED TOMOGRAPHY THORAX W/CONTRAST Lonnie Arevalo MD [address] [place] [address] [place] [id number] Reason Comments Patient Question Genetics Reason Comments Patient Question Inactive Administered Medications - up to 3 most recent administrations Administered Medications (un recognized section and content) Medication Order MAR Action Action Date Dose Rate Site CARBOplatin 370 mg in NaCl 0.9% 312 mL (PARAPLATIN) 370 mg (Target AUC = 5), INTRAVENOUS, Administer over 30 Minutes, ONCE, 1 dose, On Fri09/17/23 at 1030, Refrigerated Expiration at 8am 09-20-2023 Hazardous Chemotherapy Drug: Use appropriate PPE. Antineoplastic Irritant. New Bag/Syringe/Bottle 09/17/2023 4:01 PM EST 370 mg dexAMETHasone sodium phosphate (PF) 10 mg injection (DECADRON) 10 mg, INTRAVENOUS, ONCE, 1 dose, On Fri09/17/23 at 1000 Given 09/17/2023 10:04 AM EST 10 mg diphenhydrAMINE 50 mg injection (BENADRYL) 50 mg, INTRAVENOUS, ONCE, 1 dose, On Fri09/17/23 at 1000, Give prior to chemotherapy. Given 09/17/2023 10:04 AM EST 50 mg diphenhydrAMINE 50 mg injection (BENADRYL) 50 mg, INTRAVENOUS, NEEDED, 1 dose, Starting on Fri09/17/23 at 1106, Until Fri09/17/23 at 1108, Administer per hypersensitivity/anaphylaxis grading in nursing communication Given 09/17/2023 11:08 AM EST 50 mg famotidine 20 mg injection (PEPCID) 20 mg, INTRAVENOUS, ONCE, 1 dose, On Fri09/17/23 at 1000, Give prior to chemotherapy. REFRIGERATE Given 09/17/2023 10:04 AM EST 20 mg famotidine 20 mg injection (PEPCID) 20 mg, INTRAVENOUS, ONCE, 1 dose, On Fri09/17/23 at 1130, For hypersensitivity reaction REFRIGERATE Given 09/17/2023 11:10 AM EST 20 mg hydrocortisone sodium succinate (PF) 100 mg injection (Solu-CORTEF) 100 mg, INTRAVENOUS, NEEDED, 1 dose, Starting on Fri09/17/23 at 1106, Until Fri09/17/23 at 1106, Administer per hypersensitivity/anaphylaxis grading in nursing communication Given 09/17/2023 11:06 AM EST 100 mg PACLitaxel 294 mg in NaCl 0.9% 589 mL (TAXOL) 294 mg (175 mg/m2 1.68 m2 Treatment Plan BSA from Recorded weight), INTRAVENOUS, Administer over 3 Hours, ONCE, 1 dose, On Fri09/17/23 at 1000, Refrigerated Expiration at 7am 09-26-2023 Hazardous Chemotherapy Drug: Use appropriate PPE. Antineoplastic Irritant with Vesicant Potential. Administer with non-DEHP 0.2 micron filter and tubing. Rate/Dose Change 09/17/2023 1:27 PM EST 190 mL/hr Rate/Dose Change 09/17/2023 1:12 PM EST 150 mL/ hr Rate/Dose Change 09/17/2023 12:57 PM EST 100 mL /hr palonosetron 0.25 mg injection (ALOXI) 0.25 mg, INTRAVENOUS, ONCE, 1 dose, On Fri09/17/23 at 1000, Flush IV line with NS prior to and following administration. Given 09/17/2023 10:04 AM EST 0.25 mg Goals (unrecognized section and content) Goals may be documented in a n alternate sectionGoals may be documented in an alternate section Scheduled Active and Recently Administ ered Medications (unrecognized section and content) Medication Order 01/16/2025 01/17/2025 01/18/2025 sodium chloride 0.9% (NS) flush 10 mL 10 mL, IntraVENous, Every 12 hours scheduled (2 times per day), First dose on Fri01/18/25 at 0900, Preprocedure 0900 (Canceled Entry - Provider: Automatic Discharge Provider - Comment: Automatically canceled at discontinue of medication order) PRN Medication Order 01/16/2025 01/17/2025 01/18/2025 EPINEPHrine (Adrenalin) 1 MG/10ML injection (CANCELED) As needed, Starting on Fri01/18/25 at 0928, Intraprocedure 0928 (Given - Provid er: Annetta Bird MD - Comment: mixed with 20ml eleview - given via injection needle) ondansetron (Zofran) injection 4 mg 4 mg, IntraVENous, Once PRN, nausea, vomiting, Starting on Fri01/18/25 at 0804, For 1 dose, Preprocedure simethicone (Mylicon) drops (CANCELED) Intraluminal, As needed, Starting on Fri01/18/25 at 0924, Intraprocedure 0924 (Given - Provid er: Annetta Bird MD - Comment: used in scope) sodium chloride 0.9 % infusion 5-250 mL/hr, IntraVENous, PRN, if patient receiving piggyback infusions and maintenance fluids are not ordered OR KVO fluids to protect IV site / prevent frequent line interruptions/ long duration, Starting on Fri01/18/25 at 0804, Preprocedure, For piggyback infusion, administer at same rate as piggyback for a total of 25 mL. Enter 25 mL into dose field and piggyback rate into rate field of order. If piggyback is infusing at a rate less than 100 mL/hr, enter 25 mL into dose field and 100 mL/hr into rate field of order. For KVO fluids, enter rate of 20 mL/hr or less into rate field of order. sodium chloride 0.9 % infusion 5-250 mL/hr, IntraVENous, PRN, if patient receiving piggyback infusions and maintenance fluids are not ordered OR KVO fluids to protect IV site / prevent frequent line interruptions/ long duration, Starting on Fri01/18/25 at 0804, Preprocedure, For piggyback infusion, administer at same rate as piggyback for a total of 25 mL. Enter 25 mL into dose field and piggyback rate into rate field of order. If piggyback is infusing at a rate less than 100 mL/hr, enter 25 mL into dose field and 100 mL/hr into rate field of order. For KVO fluids, enter rate of 20 mL/hr or less into rate field of order. 0821 (New Bag - Prov ider: Precious Cortes RN)0913 (Continued by Anesthesia - Provider: KIMO Navarro CRNA)1000 (Stopped - Provider: KIMO Navarro CRNA) sodium chloride 0.9% (NS) flush 10 mL 10 mL, IntraVENous, PRN, line care, Starting on Fri01/18/25 at 0804, Preprocedure, After every IV line use FOR RECORDS PERTAINING TO PATIENTS WHO ARE OR HAVE BEEN ENROLLED IN A CHEMICAL DEPENDENCY/SUBSTANCEABUSE PROGRAM, SOME INFORMATION MAY BE OMITTED. This clinical summary was aggregated from multiple sources. Caution should be exercised in using it in the provision of clinical care. This summary normalizes information from multiple sources, and as a consequence, information in this document may materially change the coding, format and clinical context of patient data. In addition, data may be omitted in some cases. CLINICAL DECISIONS SHOULD BE BASED ON THE PRIMARY CLINICAL RECORDS. Util[facility]. provides no warranty or guarantee of the accuracy or completeness of information in this document.
== END | disposition home or self-care (01) ==
LOC: OPBI 09:17
PROVIDERS: PCP Internal Medicine; Referring Provider Internal Medicine; Visit Provider Internal Medicine
DX: Z12.31 Encounter for screening mammogram for malignant neoplasm of breast (principal)
CPT/HCPCS: 77063; 77067

== ENCOUNTER → 2025-04-07 | Outpatient (CLI) | payer MEDICARE, SELFPAY ==
[2025-04-07 10:44] LABS: Free T3 2.8 pg/mL (2.18-3.98)
== END | disposition home or self-care (01) ==
LOC: PAVLAB 10:01
PROVIDERS: PCP Internal Medicine; Referring Provider Internal Medicine; Visit Provider Internal Medicine
DX: E06.3 Autoimmune thyroiditis (principal)
CPT/HCPCS: 36415; 84439; 84443; 84481

== ENCOUNTER → 2025-07-04 | Outpatient (CLI) | payer MEDICARE, SELFPAY ==
[2025-07-04 12:12] LABS: Free T3 2.7 pg/mL (2.18-3.98)
== END | disposition home or self-care (01) ==
PROVIDERS: PCP Internal Medicine; Referring Provider Internal Medicine; Visit Provider Internal Medicine
DX: E06.3 Autoimmune thyroiditis (principal); E03.9 Hypothyroidism, unspecified
CPT/HCPCS: 36415; 84439; 84443; 84481